=== PATIENT | male | born 1955 | race Caucasian/White ===

== ENCOUNTER 2017-06-15 15:49 | Inpatient (IN) | payer BC ==
[~2017-06-15] VITALS: Ht 182.9 cm; Wt 95.5 kg
[2017-06-15 16:02] VITALS: BP 135/76; PULSE 109; RESP 18; TEMP 102.6; O2SAT 92
[2017-06-15] MEDS ORDERED: SODIUM CHLOR 0.9% 1000 ML INJ 800 ML IV ONE (16:06)
[2017-06-15] MEDS ORDERED: SODIUM CHLOR 0.9% 1000 ML INJ 1,000 ML IV ONE ×2 (16:06→17:30)
[2017-06-15] MEDS ORDERED: AMLO5TAB2 PO (16:09)
[2017-06-15] MEDS ORDERED: NOVO7030P2 SQ (16:09)
[2017-06-15] MEDS ORDERED: LISI40TA PO (16:09)
[2017-06-15] MEDS ORDERED: METO1TAB9 PO ×2 (16:09→17:25)
--- NOTE | 2017-06-15 16:12 | PD ---
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 Patient reports that he has been vomiting for the last 3 days. He reports that the emesis is dark/black. He denies abdominal pain. He occasionally has some was bowel movements. He reports that he has had a wound on his right distal/lateral thigh for the past few days as well. He is unsure how this started. Reports that he has been unable to keep any food or liquids down. No chest pain or dyspnea. He has had a nonproductive cough as well. PFSH Past Medical History ?: Not Social History Tobacco Use: No Allergies-Medications (Allergen,Severity, Reaction): Coded Allergies: No Known Allergies (Unverified , 06/15/17) Reported Meds & Prescriptions Reported Meds & Active Scripts Active Reported Nitrostat SL (Nitroglycerin) 0.4 Mg Subl 0.4 Mg SL DIRECTED PRN 1 tablet under the tongue as needed for chest pain. Repeat every 5 minutes for a total of 3 DOSES or call 911 if NO relief. Ventolin Hfa 18 GM Inh (Albuterol Sulfate) 90 Mcg/Act Aer 2 Puff INH Q4-6H PRN Prilosec (Omeprazole Magnesium) 20 Mg Tab Lipitor (Atorvastatin Calcium) 80 Mg Tab 80 Mg PO HS Metoprolol Succinate ER 24 HR (Metoprolol Succinate) 50 Mg Tab 50 Mg PO DAILY Amlodipine (Amlodipine Besylate) 10 Mg Tab 10 Mg PO DAILY Lisinopril 40 Mg Tab 40 Mg PO DAILY Novolin 70-30 Inj (Insulin Human Isoph/Insulin Regular) 1,000 Unit/10 Ml Vial 45 Units SQ BID Review of Systems Except as stated in HPI: all other systems reviewed are Neg Physical Exam Narrative GENERAL: Well-developed, well-nourished, awake, alert, no apparent distress. SKIN: Focused skin assessment warm/dry. Right lateral/distal thigh with an oval -shaped open wound approximately 4 cm x 3 cm with small amount of purulent drainage with mild surrounding warmth and erythema, no red streaks, no fluctuance, no crepitus. HEAD: Atraumatic. Normocephalic. EYES: Pupils equal and round. No scleral icterus. No injection or drainage. ENT: Mucous membranes pink and moist. NECK: Trachea midline. No JVD. CARDIOVASCULAR: Tachycardic, regular. RESPIRATORY: No accessory muscle use. Clear to auscultation. Breath sounds equal bilaterally. GASTROINTESTINAL: Abdomen soft, non-tender, nondistended. MUSCULOSKELETAL: No obvious deformities. No clubbing. No cyanosis. No edema. All compartments in bilateral upper and lower extremities are supple. Skin exam as above. Right knee joint is without swelling, warmth, or erythema. NEUROLOGICAL: Awake and alert. No obvious cranial nerve deficits. Motor grossly within normal limits. Normal speech. PSYCHIATRIC: Appropriate mood and affect; insight and judgment normal. Data Data Last Documented VS Vital Signs Date Time Temp Pulse Resp B/P (MAP) Pulse Ox O2 Delivery O2 Flow Rate FiO2 06/15/17 17:05 95 06/15/17 16:02 102.6 109 18 135/76 (95) Orders Orders Sepsis Workup Initiated (06/15/17 ) Electrocardiogram (06/15/17 16:06) Complete Blood Count With Diff (06/15/17 16:06) Comprehensive Metabolic Panel (06/15/17 16:06) Prothrombin Time / Inr (Pt) (06/15/17 16:06) Act Partial Throm Time (Ptt) (06/15/17 16:06) Lactic Acid Sepsis Protocol (06/15/17 16:06) Lipase (06/15/17 16:06) Urinalysis - C+S If Indicated (06/15/17 16:06) Influenzae A/B Antigen (06/15/17 16:06) Blood Culture (06/15/17 16:06) Wound Culture And Gram Stain (06/15/17 16:06) Chest, Single Ap (06/15/17 16:06) Blood Glucose (06/15/17 16:06) Ecg Monitoring (06/15/17 16:06) Iv Access Insert/Monitor (06/15/17 16:06) Oximetry (06/15/17 16:06) Oxygen Administration (06/15/17 16:06) Acetaminophen Supp (Tylenol Supp) (06/15/17 16:15) Ondansetron Inj (Zofran Inj) (06/15/17 16:15) Sodium Chlor 0.9% 1000 Ml Inj (Ns 1000 M (06/15/17 16:06) Sodium Chlor 0.9% 1000 Ml Inj (Ns 1000 M (06/15/17 16:06) Vancomycin Inj (Vancomycin Inj) (06/15/17 16:15) Piperacil-Tazo 4.5 Gm Premix (Zosyn 4.5 (06/15/17 16:15) Beta Hydroxybutyrate (Acetone) (06/15/17 16:06) Blood Gas Venous Ph (06/15/17 16:06) Type And Screen (06/15/17 16:09) Acetaminophen (Tylenol) (06/15/17 17:15) Knee, Complete (4vws) (06/15/17 ) Femur (Ap & Lat/2vws) (06/15/17 ) Potassium Chloride (Kcl) (06/15/17 17:30) Insulin Human Regular Inj (Novolin R Inj (06/15/17 17:30) Sodium Chlor 0.9% 1000 Ml Inj (Ns 1000 M (06/15/17 17:30) Admit Order (Ed Use Only) (06/15/17 18:03) Labs Laboratory Tests Test 06/15/17 16:35 06/15/17 16:40 White Blood Count 35.3 TH/MM3 Red Blood Count 4.76 MIL/MM3 Hemoglobin 13.6 GM/DL Hematocrit 38.9 % Mean Corpuscular Volume 81.6 FL Mean Corpuscular Hemoglobin 28.5 PG Mean Corpuscular Hemoglobin Concent 34.9 % Red Cell Distribution Width 13.6 % Platelet Count 308 TH/MM3 Mean Platelet Volume 8.0 FL Neutrophils (%) (Auto) 91.0 % Lymphocytes (%) (Auto) 1.2 % Monocytes (%) (Auto) 4.8 % Eosinophils (%) (Auto) 0.0 % Basophils (%) (Auto) 3.0 % Neutrophils # (Auto) 32.1 TH/MM3 Lymphocytes # (Auto) 0.4 TH/MM3 Monocytes # (Auto) 1.7 TH/MM3 Eosinophils # (Auto) 0.0 TH/MM3 Basophils # (Auto) 1.1 TH/MM3 CBC Comment AUTO DIFF Differential Total Cells Counted 100 Neutrophils % (Manual) 91 % Band Neutrophils % 5 % Monocytes % 4 % Neutrophils # (Manual) 33.9 TH/MM3 Differential Comment FINAL DIFF MANUAL Hypersegmented Polys 1+ Toxic Vacuolation PRESENT Platelet Estimate NORMAL Platelet Morphology Comment NORMAL Red Cell Morphology Comment NORMAL Prothrombin Time 11.4 SEC Prothromb Time International Ratio 1.1 RATIO Activated Partial Thromboplast Time 27.1 SEC Blood Urea Nitrogen 28 MG/DL Creatinine 1.10 MG/DL Random Glucose 331 MG/DL Total Protein 7.8 GM/DL Albumin 2.5 GM/DL Calcium Level 8.5 MG/DL Alkaline Phosphatase 104 U/L Aspartate Amino Transf (AST/SGOT) 22 U/L Alanine Aminotransferase (ALT/SGPT) 15 U/L Total Bilirubin 1.0 MG/DL Sodium Level 128 MEQ/L Potassium Level 3.5 MEQ/L Chloride Level 93 MEQ/L Carbon Dioxide Level 25.6 MEQ/L Anion Gap 9 MEQ/L Estimat Glomerular Filtration Rate 68 ML/MIN Lipase 52 U/L B-Hydroxybutyrate 1.06 MMOL/L Lactic Acid Level 2.2 mmol/L [facility] Medical Decision Making Medical Screen Exam Complete: Yes Emergency Medical Condition: Yes Interpretation(s) EKG: Sinus, rate 108, leftward axis, normal intervals, Q waves in inferior leads , pattern consistent with pulmonary disease, no acute ischemic abnormality. Differential Diagnosis Sepsis, cellulitis, DKA, bacteremia, pneumonia, influenza, GI bleed, septic arthritis less likely Narrative Course Initial vital signs show heart rate 109, blood pressure 135/76, pulse ox 92% on room air, oral temp of 102.6F. Sepsis protocol ordered and the patient was empirically given IV vancomycin and IV Zosyn for emperic coverage, and was written for 2 L normal saline IV. Patient has an open wound to his right lateral/distal thigh with surrounding warmth and erythema. The wound is draining small amount of purulence, and a sample was collected for culture and sensitivity. The right knee joint itself does not show any edema, warmth, or erythema. It is painful for him to flex and extend the right knee, however the pain is mainly over the area of the wound in his right thigh. I do not believe he has a septic arthritis. CBC: WBC 35.3, hemoglobin 13.6, hematocrit 38.9, platelets 308, neutrophils 91%. CMP is remarkable for sodium 128, chloride 93, BUN 20, creatinine 1.1, GFR 68, random glucose 331. Bicarbonate is 25.6. Lactic acid is 2.2. Beta hydroxybutyrate is 1.06. Chest x-ray shows no acute disease. Influenza is negative. Right knee x-ray: FINDINGS: Four view examination of the right knee demonstrates no evidence of fracture or dislocation. Bony mineralization is mildly decreased. There is a 8mm bone island in the anterior central metaphysis of the proximal tibia.. The articular surfaces are intact. The suprapatellar soft tissues have a normal configuration. Vascular calcification in the posterior thigh and calf. Right femur x-ray: FINDINGS: Two view examination of the right femur demonstrates no evidence of fracture or dislocation. Bony acetabulum is intact. The primary and secondary trabecular pattern of the femoral neck is intact. Bony mineralization is mildly decreased. Vascular calcification in the medial thigh. No radiopaque foreign bodies.. I personally reviewed both of these x-rays and do not see any evidence for free air. There is also no crepitus on his exam. Patient was given 3L of NS IV, IV antibiotics. He will be given a dose of insulin. He will be admitted for further treatment and evaluation of sepsis, cellulitis, hyperglycemia. Case discussed with hospitalist Dr. Coyne who will admit the patient to her service. Diagnosis Primary Impression: Sepsis Qualified Codes: A41.9 - Sepsis, unspecified organism Additional Impressions: Cellulitis of right thigh Hyperglycemia Unspecified open wound, right thigh, initial encounter Admitting Information Admitting Physician Requests: Admit Elías Curtis MD Jun 15, 2017 16:12
[2017-06-15] MEDS ORDERED: VANCOMYCIN INJ 1,000 MG in SODIUM CHLOR 0.9% 250 ML INJ 250 ML IV ONE (16:15)
[2017-06-15] MEDS ORDERED: PIPERACIL-TAZO 4.5 GM PREMIX 100 ML IV ONE (16:15)
[2017-06-15] MEDS ORDERED: ONDANSETRON HCL 4 MG/2 ML VIAL IV PUSH ONE (16:15)
[2017-06-15] MEDS ORDERED: ACETAMINOPHEN 650 MG SUPP RECTAL ONE (16:15)
--- NOTE | 2017-06-15 16:47 | RADRPT ---
EXAM DATE/TIME: 06/15/2017 16:19 [facility] COMPARISON: No previous studies available for comparison. INDICATIONS : Chest pain, fever, cough, and vomitting. MEDICAL HISTORY : None. SURGICAL HISTORY : None. ENCOUNTER: Initial ACUITY: 3 days PAIN SCORE: 3/10 LOCATION: Bilateral chest FINDINGS: A single view of the chest demonstrates the lungs to be symmetrically aerated without evidence of mas s, infiltrate or effusion. The cardiomediastinal contours are unremarkable. Osseous structures are intact. CONCLUSION: The lungs are clear. Ruben Medina MD on June 15, 2017 at 16:45 Board Certified Radiologist. This report was verified electronically.
[2017-06-15 16:59] LABS: AUTOMATED NEUTROPHIL # 32.1 TH/MM3 (1.8-7.7); BASOPHIL # 1.1 TH/MM3 (0-0.2); CHLORIDE 93 MEQ/L (98-107); HEMATOCRIT 38.9 % (39.0-51.0); HEMOGLOBIN 13.6 GM/DL (13.0-17.0); LYMPH % 1.2 % (9.0-44.0); LYMPHOCYTE # 0.4 TH/MM3 (1.0-4.8); MEAN CELL VOLUME 81.6 FL (80.0-100.0); MEAN CORPUSCULAR HEMOGLOBIN 28.5 PG (27.0-34.0); MEAN CORPUSCULAR HGB CONC 34.9 % (32.0-36.0); MONO % 4.8 % (0.0-8.0); MONOCYTE # 1.7 TH/MM3 (0-0.9); PLATELET COUNT 308 TH/MM3 (150-450); RED BLOOD COUNT 4.76 MIL/MM3 (4.50-5.90); RED CELL DISTRIBUTION WIDTH 13.6 % (11.6-17.2); SODIUM (NA) 128 MEQ/L (136-145); WHITE BLOOD COUNT 35.3 TH/MM3 (4.0-11.0)
[2017-06-15 17:03] LABS: ALBUMIN 2.5 GM/DL (3.4-5.0); BICARBONATE 25.6 MEQ/L (21.0-32.0); BLOOD UREA NITROGEN 28 MG/DL (7-18); CALCIUM 8.5 MG/DL (8.5-10.1); GLUCOSE,RANDOM 331 MG/DL (74-106)
[2017-06-15 17:05] VITALS: O2SAT 95
[2017-06-15 17:05] LABS: INTERNATIONAL NORMALIZED RATIO 1.1 RATIO; PROTHROMBIN TIME - PATIENT 11.4 SEC (9.8-11.6)
[2017-06-15 17:06] LABS: ALT (GPT) 15 U/L (12-78); AST (GOT) 22 U/L (15-37); GLOMERULAR FILTRATION RATE 68 ML/MIN (>89)
[2017-06-15 17:08] LABS: TOTAL PROTEIN 7.8 GM/DL (6.4-8.2)
[2017-06-15 17:09] LABS: ALKALINE PHOSPHATASE 104 U/L (45-117)
[2017-06-15] MEDS ORDERED: ACETAMINOPHEN 325 MG TAB PO ONE (17:15)
[2017-06-15 17:16] LABS: LACTIC ACID SEPSIS PROTOCOL 2.2 mmol/L (0.4-2.0)
[2017-06-15] MEDS ORDERED: LIPI80TA PO (17:25)
[2017-06-15] MEDS ORDERED: AMLO10TA2 PO (17:25)
[2017-06-15] MEDS ORDERED: NITR0.4S SL (17:25)
[2017-06-15] MEDS ORDERED: VENTAER INH (17:25)
[2017-06-15] MEDS ORDERED: PRIL20TA2 (17:25)
[2017-06-15] MEDS ORDERED: INSULIN HUMAN REGULAR 1,000 UNITS/10 ML VIAL IV PUSH ONE (17:30)
[2017-06-15] MEDS ORDERED: POTASSIUM CHLORIDE 20 MEQ CONTROLLED RELEASE TAB PO ONE (17:30)
[2017-06-15 17:31] LABS: BANDS 5 % (0-6); HYPERSEGMENTED POLYS 1+ (NORMAL); MONOCYTES 4 % (0-8); NEUTROPHIL # MANUAL DIFF 33.9 TH/MM3 (1.8-7.7); POLYS (SEG NEUTROPHILS) 91 % (16-70); TOXIC VACUOLATION PRESENT (NONE SEEN)
--- NOTE | 2017-06-15 17:51 | RADRPT ---
EXAM DATE/TIME: 06/15/2017 17:22 [facility] COMPARISON: No previous studies available for comparison. INDICATIONS : Right femur/knee pain, no known injury. MEDICAL HISTORY : None. SURGICAL HISTORY : None. ENCOUNTER: Subsequent ACUITY: 4 - 6 days PAIN SCORE: 8/10 LOCATION: Right femur FINDINGS: Two view examination of the right femur demonstrates no evidence of fracture or dislocation. Bony ac etabulum is intact. The primary and secondary trabecular pattern of the femoral neck is intact. Bon y mineralization is mildly decreased. Vascular calcification in the medial thigh. No radiopaque for eign bodies.. CONCLUSION: No acute findings. Ruben Medina MD on June 15, 2017 at 17:49 Board Certified Radiologist. This report was verified electronically.
--- NOTE | 2017-06-15 17:51 | RADRPT ---
EXAM DATE/TIME: 06/15/2017 17:22 [facility] COMPARISON: No previous studies available for comparison. INDICATIONS : Right knee pain, no known injury. MEDICAL HISTORY : None. SURGICAL HISTORY : None. ENCOUNTER: Subsequent ACUITY: 4 - 6 days PAIN SCORE: 8/10 LOCATION: Right knee FINDINGS: Four view examination of the right knee demonstrates no evidence of fracture or dislocation. Bony mi neralization is mildly decreased. There is a 8mm bone island in the anterior central metaphysis of t he proximal tibia.. The articular surfaces are intact. The suprapatellar soft tissues have a normal configuration. Vascular calcification in the posterior thigh and calf. CONCLUSION: 1. No evidence of recent bony injury. Ruben Medina MD on June 15, 2017 at 17:48 Board Certified Radiologist. This report was verified electronically.
[2017-06-15] MEDS: SODIUM CHLOR 0.9% 1000 ML INJ 1,000 ML IV SCH (18:01)
[2017-06-15 18:06] VITALS: BP 132/74; PULSE 106; RESP 16; TEMP 99; O2SAT 92
[2017-06-15] MEDS ORDERED: NALOXONE HCL 0.4 MG/ML AMP IV PUSH PRN (18:15)
[2017-06-15] MEDS ORDERED: DEXTROSE 50% IN WATER 50 ML VIAL(D50) IV PUSH PRN (18:15)
[2017-06-15] MEDS ORDERED: VANCOMYCIN INJ 1,500 MG in SODIUM CHLORID 0.9% 500 ML INJ 500 ML IV SCH (18:15)
[2017-06-15] MEDS ORDERED: Vancomycin Consult Pharmacy 1 EA OTHER SCH (18:15)
[2017-06-15] MEDS ORDERED: GLUCAGON 1 MG/ML VIAL OTHER PRN (18:15)
[2017-06-15] MEDS ORDERED: SODIUM CHLORIDE 0.9% FLUSH 10 ML FLUSH IV FLUSH PRN (18:15)
[2017-06-15 19:05] VITALS: BP 125/75; PULSE 99; RESP 16; TEMP 99.8; O2SAT 92
[2017-06-15 19:26] VITALS: O2SAT 93
[2017-06-15 20:00] VITALS: BP 130/76; PULSE 102; RESP 20; TEMP 97.8; O2SAT 91
[2017-06-15] MEDS ORDERED: ALBUTEROL SULFATE 90 MCG/ACT HFA 8 GM INHALER INH PRN (20:00)
[2017-06-15] MEDS ORDERED: ATORVASTATIN 80 MG TAB PO SCH (21:00)
[2017-06-15] MEDS: SODIUM CHLORIDE 0.9% FLUSH 10 ML FLUSH IV FLUSH SCH (21:00)
[2017-06-15] MEDS ORDERED: INSULIN ASPART SUPPLEMENTAL SCALE SQ SCH (21:00)
[2017-06-15] MEDS ORDERED: VANCOMYCIN INJ 2,000 MG in SODIUM CHLORID 0.9% 500 ML INJ 500 ML IV ONE (21:00)
[2017-06-15] MEDS ORDERED: SENNOSIDES 8.6 MG TAB PO PRN (21:00)
[2017-06-15] MEDS ORDERED: TEMAZEPAM 15 MG CAP PO PRN (21:00)
[2017-06-15] MEDS: ONDANSETRON HCL 4 MG/2 ML VIAL IVP PRN (21:14)
[2017-06-15] MEDS: INSULIN HUMAN NPH/R 70/30 1,000 UNITS/10 ML VIAL SQ SCH (21:24)
[2017-06-15 21:41] LABS: BILIRUBIN, URINE NEG (NEG); BLOOD, URINE MOD (NEG); GLUCOSE,URINE 1000 OR GREATER mg/dL (NEG); KETONE, URINE 15 mg/dL (NEG); NITRITE,URINE NEG (NEG); URINE LEUKOCYTE ESTERASE NEG (NEG)
[2017-06-15 21:49] LABS: URINE COLOR AMBER (YELLW/STRAW)
[2017-06-15 21:50] LABS: RBC, URINE 0-3 /hpf (0-3); SQUAMOUS EPITHELIAL CELL URINE 0-5 /hpf (0-5); WBC, URINE 0-2 /hpf (0-5)
[2017-06-16] VITALS (9 sets, daily range): BP systolic 118–141; BP diastolic 59–90; PULSE 83–112; RESP 18–24; TEMP 97.1–99.4; O2SAT 85–94
[2017-06-16] MEDS: PIPERACIL-TAZO 3.375 GM PREMIX 50 ML IV SCH ×2 (02:30→11:18)
[2017-06-16] MEDS: SODIUM CHLOR 0.9% 1000 ML INJ 1,000 ML IV SCH ×2 (04:01→11:19)
[2017-06-16 05:48] LABS: AUTOMATED NEUTROPHIL # 29.6 TH/MM3 (1.8-7.7); BASOPHIL # 0.1 TH/MM3 (0-0.2); BASOPHIL % 0.2 % (0.0-2.0); EOSINOPHIL % 0.1 % (0.0-4.0); HEMATOCRIT 39.6 % (39.0-51.0); HEMOGLOBIN 12.9 GM/DL (13.0-17.0); LYMPH % 1.4 % (9.0-44.0); LYMPHOCYTE # 0.4 TH/MM3 (1.0-4.8); MEAN CELL VOLUME 83.4 FL (80.0-100.0); MEAN CORPUSCULAR HEMOGLOBIN 27.2 PG (27.0-34.0); MEAN CORPUSCULAR HGB CONC 32.6 % (32.0-36.0); MEAN PLATELET VOLUME 8.3 FL (7.0-11.0); MONO % 6.3 % (0.0-8.0); PLATELET COUNT 314 TH/MM3 (150-450); RED BLOOD COUNT 4.75 MIL/MM3 (4.50-5.90); RED CELL DISTRIBUTION WIDTH 13.7 % (11.6-17.2); WHITE BLOOD COUNT 32.1 TH/MM3 (4.0-11.0)
[2017-06-16 06:00] LABS: CALCIUM 7.7 MG/DL (8.5-10.1)
[2017-06-16 06:01] LABS: BICARBONATE 25.1 MEQ/L (21.0-32.0)
[2017-06-16 06:06] LABS: BANDS 18 % (0-6); LYMPHOCYTES 1 % (9-44); MONOCYTES 5 % (0-8); NEUTROPHIL # MANUAL DIFF 30.2 TH/MM3 (1.8-7.7); POLYS (SEG NEUTROPHILS) 76 % (16-70)
[2017-06-16 06:10] LABS: CREATININE 0.88 MG/DL (0.60-1.30)
--- NOTE | 2017-06-16 08:53 | HHI.HP ---
[facility] No Primary Care Physician Admission Diagnosis sepsis, right thigh cellulitis, hyperglycemia Diagnoses: Chief Complaint: leg pain Travel History International Travel<30 Days: No Contact w/Intl Traveler <30 Da: No Traveled to Known Affected Are: No History of Present Illness 62-year-old white male being admitted for sepsis secondary to cellulitis and possible necrotizing fasciitis. Patient was in his usual state of health until a few weeks ago when he began experiencing some right leg pain. He says that the pain progressed to the point where now it is severe and it hurts to bear weight and it hurts to straighten out his leg. He says he has not tried any medications at home to try to alleviate the pain. He does report having nausea vomiting, does describe coffee-ground and black emesis. When he came to the emergency room yesterday he was noted to have temps of up to 102.6 and tachycardia greater than 106. Blood cultures were drawn, given normal saline bolus and started on IV antibiotics. Plain films were unremarkable. Review of Systems Except as stated in HPI: all other systems reviewed are Neg Past Family Social History Past Medical History DM HTN CAD Allergies: Coded Allergies: No Known Allergies (Unverified , 06/15/17) Family History None per patient Social History Patient denies any smoking. Denies drinking. 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 Says he bathes about twice a week. Physical Exam Vital Signs Vital Signs Date Time Temp Pulse Resp B/P (MAP) Pulse Ox O2 Delivery O2 Flow Rate FiO2 06/16/17 04:00 97.2 83 20 131/59 (83) 90 06/16/17 00:00 97.1 98 20 133/72 (92) 94 06/15/17 20:43 06/15/17 20:00 97.8 102 20 130/76 (94) 91 06/15/17 19:26 93 21 06/15/17 19:05 99.8 99 16 125/75 (92) 92 Room Air 06/15/17 18:06 99.0 106 16 132/74 (93) 92 06/15/17 17:05 95 06/15/17 16:02 102.6 109 18 135/76 (25) 92 Physical Exam VS: afebrile GENERAL: lying in bed; NAD SKIN: Warm and dry. Has multiple scabs, two prominent ones on each thigh, the right thigh being on the lateral aspect with a dry crusty appearance which is about the diameter of a golf ball. Has dried scars from older wounds EYES: No scleral icterus. No injection or drainage. ENT: No nasal bleeding or discharge. Mucous membranes pink and moist. CARDIOVASCULAR: Regular rate and rhythm. no murmurs RESPIRATORY: No accessory muscle use. Clear to auscultation. Breath sounds equal bilaterally. GASTROINTESTINAL: Abdomen soft, non-tender, nondistended. Extremities: No clubbing, cyanosis. MUSCULOSKELETAL: adequate muscle bulk and tone for age and habitus. Patient has limited active and passive range of motion in the extension dimension for his left knee due to pain in his posterior distal thigh. Has some obvious tenderness to palpation to the posterior distal thigh that is mild to moderate which has no overlying erythema; this leg is particularly warmer than his other leg and is also beyond the lesion of the scab itself NEUROLOGICAL: Awake and alert. No obvious cranial nerve deficits. No facial droop nor slurred speech noted. PSYCHIATRIC: Appropriate mood and affect; insight and judgment normal. Laboratory Laboratory Tests Test 06/15/17 16:35 06/15/17 16:40 06/15/17 19:20 06/15/17 21:05 White Blood Count 35.3 Red Blood Count 4.76 Hemoglobin 13.6 Hematocrit 38.9 Mean Corpuscular Volume 81.6 Mean Corpuscular Hemoglobin 28.5 Mean Corpuscular Hemoglobin Concent 34.9 Red Cell Distribution Width 13.6 Platelet Count 308 Mean Platelet Volume 8.0 Neutrophils (%) (Auto) 91.0 Lymphocytes (%) (Auto) 1.2 Monocytes (%) (Auto) 4.8 Eosinophils (%) (Auto) 0.0 Basophils (%) (Auto) 3.0 Neutrophils # (Auto) 32.1 Lymphocytes # (Auto) 0.4 Monocytes # (Auto) 1.7 Eosinophils # (Auto) 0.0 Basophils # (Auto) 1.1 CBC Comment AUTO DIFF Differential Total Cells Counted 100 Neutrophils % (Manual) 91 Band Neutrophils % 5 Monocytes % 4 Neutrophils # (Manual) 33.9 Differential Comment FINAL DIFF MANUAL Hypersegmented Polys 1+ Toxic Vacuolation PRESENT Platelet Estimate NORMAL Platelet Morphology Comment NORMAL Red Cell Morphology Comment NORMAL Prothrombin Time 11.4 Prothromb Time International Ratio 1.1 Activated Partial Thromboplast Time 27.1 Blood Urea Nitrogen 28 Creatinine 1.10 Random Glucose 331 Total Protein 7.8 Albumin 2.5 Calcium Level 8.5 Alkaline Phosphatase 104 Aspartate Amino Transf (AST/SGOT) 22 Alanine Aminotransferase (ALT/SGPT) 15 Total Bilirubin 1.0 Sodium Level 128 Potassium Level 3.5 Chloride Level 93 Carbon Dioxide Level 25.6 Anion Gap 9 Estimat Glomerular Filtration Rate 68 Lipase 52 B-Hydroxybutyrate 1.06 Lactic Acid Level 2.2 1.7 Urine Color VALE Urine Turbidity CLEAR Urine pH 6.0 Urine Specific Penelope 1.025 Urine Protein 100 Urine Glucose (UA) 1000 OR GREATER Urine Ketones 15 Urine Occult Blood MOD Urine Nitrite NEG Urine Bilirubin NEG Urine Leukocyte Esterase NEG Urine RBC 0-3 Urine WBC 0-2 Urine Squamous Epithelial Cells 0-5 Microscopic Urinalysis Comment CATH-CULT NOT IND Test 06/16/17 05:10 White Blood Count 32.1 Red Blood Count 4.75 Hemoglobin 12.9 Hematocrit 39.6 Mean Corpuscular Volume 83.4 Mean Corpuscular Hemoglobin 27.2 Mean Corpuscular Hemoglobin Concent 32.6 Red Cell Distribution Width 13.7 Platelet Count 314 Mean Platelet Volume 8.3 Neutrophils (%) (Auto) 92.0 Lymphocytes (%) (Auto) 1.4 Monocytes (%) (Auto) 6.3 Eosinophils (%) (Auto) 0.1 Basophils (%) (Auto) 0.2 Neutrophils # (Auto) 29.6 Lymphocytes # (Auto) 0.4 Monocytes # (Auto) 2.0 Eosinophils # (Auto) 0.0 Basophils # (Auto) 0.1 CBC Comment AUTO DIFF Differential Total Cells Counted 100 Neutrophils % (Manual) 76 Band Neutrophils % 18 Lymphocytes % 1 Monocytes % 5 Neutrophils # (Manual) 30.2 Differential Comment FINAL DIFF MANUAL Platelet Estimate NORMAL Platelet Morphology Comment NORMAL Red Cell Morphology Comment NORMAL Blood Urea Nitrogen 20 Creatinine 0.88 Random Glucose 213 Calcium Level 7.7 Sodium Level 131 Potassium Level 3.5 Chloride Level 98 Carbon Dioxide Level 25.1 Anion Gap 8 Estimat Glomerular Filtration Rate 88 Lactic Acid Level 1.7 Date/Time Source Procedure Growth Status 06/15/17 16:40 Blood Peripheral Aerobic Blood Culture Pending Received 06/15/17 16:40 Blood Peripheral Anaerobic Blood Culture Pending Received 06/15/17 16:40 Nasal Washing Influenza Types A,B Antigen (ADY) - Final NEGATIVE FOR FLU A AND B ANTIGEN.... Complete 06/15/17 16:30 Wound Thigh Gram Stain - Final Resulted 06/15/17 16:30 Wound Thigh Wound Culture Pending Resulted Result Diagram: 06/16/17 0510 06/16/17 0510 Imaging Last Impressions Chest X-Ray 06/15/17 1606 Signed Impressions: Service Date/Time: May 16:19 - CONCLUSION: The lungs are clear. Ruben Medina MD Knee X-Ray 06/15/17 0000 Signed Impressions: Service Date/Time: May 17:22 - CONCLUSION: 1. No evidence of recent bony injury. Ruben Medina MD Femur X-Ray 06/15/17 0000 Signed Impressions: Service Date/Time: May 17:22 - CONCLUSION: No acute findings. Ruben Medina MD Caprini VTE Risk Assessment Caprini VTE Risk Assessment: Mod/High Risk (score >= 2) Caprini Risk Assessment Model Point Value = 1 Point Value = 2 Point Value = 3 Point Value = 5 Age 41-60 Minor surgery BMI > 25 kg/m2 Swollen legs Varicose veins or History of unexplained or recurrent spontaneous Oral contraceptives or hormone replacement Sepsis (< 1 month) Serious lung disease, including pneumonia (< 1 month) Abnormal pulmonary function Acute myocardial infarction Congestive heart failure (< 1 month) History of inflammatory bowel disease Medical patient at bed rest Age 61-74 Arthroscopic surgery Major open surgery (> 45 min) Laparoscopic surgery (> 45 min) Malignancy Confined to bed (> 72 hours) Immobilizing plaster cast Central venous access Age >= 75 History of VTE Family history of VTE Factor V Leiden Prothrombin [id number] Lupus anticoagulant Anticardiolipin antibodies Elevated serum homocysteine Heparin-induced thrombocytopenia Other congenital or acquired thrombophilia Stroke (< 1 month) Elective arthroplasty Hip, pelvis, or leg fracture Acute spinal cord injury (< 1 month) Prophylaxis Regimen Total Risk Factor Score Risk Level Prophylaxis Regimen 0-1 Low Early ambulation 2 Moderate Order ONE of the following: *Sequential Compression Device (SCD) *Heparin 5000 units SQ BID 3-4 Higher Order ONE of the following medications: *Heparin 5000 units SQ TID *Enoxaparin/Lovenox 40 mg SQ daily (WT < 150 kg, CrCl > 30 mL/min) *Enoxaparin/Lovenox 30 mg SQ daily (WT < 150 kg, CrCl > 10-29 mL/min) *Enoxaparin/Lovenox 30 mg SQ BID (WT < 150 kg, CrCl > 30 mL/min) AND/OR *Sequential Compression Device (SCD) 5 or more Highest Order ONE of the following medications: *Heparin 5000 units SQ TID (Preferred with Epidurals) *Enoxaparin/Lovenox 40 mg SQ daily (WT < 150 kg, CrCl > 30 mL/min) *Enoxaparin/Lovenox 30 mg SQ daily (WT < 150 kg, CrCl > 10-29 mL/min) *Enoxaparin/Lovenox 30 mg SQ BID (WT < 150 kg, CrCl > 30 mL/min) AND *Sequential Compression Device (SCD) Assessment and Plan Assessment and Plan Sepsis - Secondary to cellulitis and/or possible necrotizing fasciitis - Blood cultures have been drawn, fevers are improving, continue antibiotics Cellulitis and possible necrotizing fasciitis - Case discussed with surgery mid-level practitioner, ordering CT scan of the right leg for now - NPO Coffee ground emesis - consulting GI - h/h is stable, trend DM - hold home novolin, start MDSS insulin w/ accuchecks Continue home htn and CAD meds SCDs, heparin once cleared by GI and gen surg workup addendum: elevated trop - cards deems demand ischemia Hypoxia -patient titrated up to 4 L, CT angiogram performed showing bilateral pleural effusions but no pulmonary embolus. D/w surveillance systems engineer, ABG stable, diurese and obtain echo. I've ordered thoracentesis of right sided effusion in AM. Also Possible bibasilar pna seen on my independent review of the CT angiogram - starting abx Discussed with GI, due to lack of any further medical episodes, will hold off on EGD today and consider possibly for Monday. Physician Certification 2 Midnight Certification Type: Admission for Inpatient Services Order for Inpatient Services The services are ordered in accordance with Medicare regulations or non- Medicare payer requirements, as applicable. In the case of services not specified as inpatient-only, they are appropriately provided as inpatient services in accordance with the 2-midnight benchmark. Estimated LOS (days): 3 3 days is the estimated time the patient will need to remain in the hospital, assuming treatment plan goals are met and no additional complications. Post-Hospital Plan: Not yet determined Diego Upton MD Jun 16, 2017 08:53
[2017-06-16] MEDS: VANCOMYCIN 1,500 MG/NS 500 ML IV SCH ×4 (09:00→20:49)
[2017-06-16] MEDS: INSULIN HUMAN NPH/R 70/30 1,000 UNITS/10 ML VIAL SQ SCH ×2 (09:00→20:59)
[2017-06-16] MEDS ORDERED: IOHEXOL 350 MG/ML 10 ML VIAL (for RAD DIAG) IVCONTRAST ONE (11:10)
[2017-06-16] MEDS: SODIUM CHLORIDE 0.9% FLUSH 10 ML FLUSH IV FLUSH SCH ×2 (11:19→20:50)
[2017-06-16] MEDS: METOPROLOL SUCCINATE 50 MG EXTENDED RELEASE TAB PO SCH (11:19)
[2017-06-16] MEDS: LISINOPRIL 20 MG TAB PO SCH (11:19)
[2017-06-16] MEDS: INSULIN NovoLIN REGULAR SUPPLEMENTAL SCALE SQ SCH ×3 (11:20→20:59)
--- NOTE | 2017-06-16 11:30 | RADRPT ---
EXAM DATE/TIME: 06/16/2017 10:12 [facility] COMPARISON: CHEST SINGLE AP, June 15, 2017, 16:19. INDICATIONS : Short of breath today. IV CONTRAST: 95 cc Omnipaque 350 (iohexol) IV ; Cumulative dose for multiple exams. RADIATION DOSE: 19.36 CTDIvol (mGy) MEDICAL HISTORY : Myocardial infarction. Diabetes mellitus type 2. Hypertension. SURGICAL HISTORY : Coronary artery stent. ENCOUNTER: Initial ACUITY: 1 day PAIN SCALE: 0/10 LOCATION: chest TECHNIQUE: Volumetric scanning of the chest was performed using a pulmonary embolism protocol MIP images were re constructed. Using automated exposure control and adjustment of the mA and/or kV according to patien t size, radiation dose was kept as low as reasonably achievable to obtain optimal diagnostic quality images. DICOM format image data is available electronically for review and comparison. Follow-up recommendations for detected pulmonary nodules are based at a minimum on nodule size and pa tient risk factors according to Fleischner Society Guidelines. FINDINGS: PULMONARY ARTERIES: No filling defects are seen in the pulmonary arteries through the segmental level. LUNGS: There is scattered areas of perivascular thickening in the lower lungs, but no focal infiltrates seen . PLEURAE: Bilateral pleural effusions, moderate on the right measuring 4.1 cm and small on the left. MEDIASTINUM: There is good visualization of the great vessels of the middle mediastinum. No evidence of mediastin al or hilar adenopathy/mass. . CONCLUSION: 1. Negative for pulmonary embolism. 2. Bilateral pleural effusions, right greater than left. 3. Bilateral lower lung perivascular thickening suggest either interstitial pulmonary edema or infla mmatory process. Ruben Medina MD on June 16, 2017 at 11:17 Board Certified Radiologist. This report was verified electronically.
--- NOTE | 2017-06-16 11:33 | RADRPT ---
EXAM DATE/TIME: 06/16/2017 10:12 [facility] COMPARISON: FEMUR RIGHT (AP & LAT/2VWS), June 15, 2017, 17:22. INDICATIONS : Wound on right lateral distal femur. Evaluate for necrotizing fasciitis. IV CONTRAST: 95 cc Omnipaque 350 (iohexol) IV ; Cumulative dose for multiple exams. RADIATION DOSE: 14.81 CTDIvol (mGy) MEDICAL HISTORY : Myocardial infarction. Diabetes mellitus type 2. Hypertension. SURGICAL HISTORY : Coronary artery stent. ENCOUNTER: Initial ACUITY: 1 week PAIN SCALE: 7/10 LOCATION: Right femur TECHNIQUE: Volumetric scanning of the femur was performed. Using automated exposure control and adjustment of t he mA and/or kV according to patient size, radiation dose was kept as low as reasonably achievable to obtain optimal diagnostic quality images. DICOM format image data is available electronically for review and comparison. FINDINGS: There is subcutaneous induration about the dorsal soft tissues of the proximal and mid thigh. There is also some fluid tracking along the surface of the hamstring muscles measuring up to 9 mm in thickn ess. No drainable fluid collections seen. No abnormal enhancement within the muscles of the anterio r or posterior compartments. Osseous structures are grossly intact. No evidence of fracture, bony d estruction, or periosteal reaction. CONCLUSION: 1. Posterior subcutaneous soft tissue induration and some mild fluid tracking along the surface of th e hamstring muscles. No focal collections of gas and no drainable fluid collection seen. 2. Osseous structures of the thigh are intact. Ruben Medina MD on June 16, 2017 at 11:29 Board Certified Radiologist. This report was verified electronically.
[2017-06-16] MEDS ORDERED: ASPIRIN 325 MG TAB PO ONE (13:00)
--- NOTE | 2017-06-16 13:50 | EKG ---
Date Performed: 06/15/2017 Time Performed: 16:42:32 PTAGE: 62 years EKG: SINUS TACHYCARDIA PATTERN CONSISTENT WITH PULMONARY DISEASE INFERIOR MYOCARDIAL INFARCTION ABNORMAL ECG NO PREVIOUS TRACING Nonspecific ST segment changes. Intraventricular conduction delay. DOCTOR: Aida Dwyer Interpretating Date/Time 06/16/2017 13:49:08
--- NOTE | 2017-06-16 15:31 | PD.CONS ---
cc: Rajiv Daniel MD HPI Service General Surgery Consult Requested By Dr. Upton Reason for Consult RIGHT thigh lesion Primary Care Physician No Primary Care Physician History of Present Illness This is a 62 year old male with a past medical history of insulin dependent diabetes mellitus and two cardiac stents placed in 2005. The patient comes to the ED with complaints of generalized weakness and a drainage wound on the lateral posterior aspect of his RIGHT thigh and well as a non drainage wound on his LEFT medial knee. He reports that his sugars have been high the last few weeks. 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 He cannot recall any trauma or injury to his legs. He does have an increased WBC of 35,000. He has an elevated troponin. A CT of the RIGHT femur has been ordered. A General Surgery consultation has been requested. Review of Systems Constitutional: COMPLAINS OF: Fatigue, DENIES: Dizziness Endocrine: DENIES: Polydipsia, Polyuria, Polyphagia Eyes: DENIES: Diplopia, Eye inflammation Ears, nose, mouth, throat: DENIES: Hearing loss Respiratory: DENIES: Apneas, Cough Cardiovascular: DENIES: Chest pain Gastrointestinal: DENIES: Abdominal pain, Nausea, Vomiting Genitourinary: DENIES: Hematuria Musculoskeletal: DENIES: Joint pain Integumentary: DENIES: Abnormal pigmentation Hematologic/lymphatic: DENIES: Bruising Immunologic/allergic: DENIES: Eczema Neurologic: DENIES: Abnormal gait, Headache Psychiatric: DENIES: Confusion, Mood changes, Depression Past Family Social History Past Medical History Insulin dependant diabetes mellitus Cardiac stents x 2 placed in 2005 Past Surgical History None Reported Medications Albuterol Lipitor Nitro Metoprolol Lisinopril Novolin Amlodipine Allergies: Coded Allergies: No Known Allergies (Unverified , 06/15/17) Active Ordered Medications Current Medications Medications (Trade) Dose Ordered Sig/Josehp Route Start Time Stop Time Status Last Admin Sodium Chloride 1,000 ml @ 100 mls/hr Q10H IV 06/15/17 18:01 06/16/17 11:19 (NS Flush) 2 ml UNSCH PRN IV FLUSH 06/15/17 18:15 (NS Flush) 2 ml BID IV FLUSH 06/15/17 21:00 06/16/17 11:19 (Tylenol) 650 mg Q4H PRN PO 06/15/17 20:00 (Zofran Inj) 4 mg Q6H PRN IVP 06/15/17 22:00 06/15/17 21:14 (Restoril) 15 mg HS PRN PO 06/15/17 21:00 (Narcan Inj) 0.4 mg UNSCH PRN IV PUSH 06/15/17 18:15 (Senokot) 17.2 mg Q12HR PRN PO 06/15/17 21:00 Pharmacy Profile Note 0 ml @ 0 mls/hr UNSCH OTHER 06/15/17 18:15 Piperacillin Sod/ Tazobactam Sod 50 ml @ 100 mls/hr Q8H IV 06/16/17 00:00 06/16/17 11:18 (D50w (Vial) Inj) 50 ml UNSCH PRN IV PUSH 06/15/17 18:15 (Glucagon Inj) 1 mg UNSCH PRN OTHER 06/15/17 18:15 (Proair Hfa Inh) 2 puff Q6HR PRN INH 06/15/17 20:00 (Norvasc) 10 mg DAILY PO 06/16/17 09:00 06/16/17 11:19 (NovoLIN 70/30 INJ) 45 units BID SQ 06/15/17 21:00 06/16/17 09:00 (Toprol Xl) 50 mg DAILY PO 06/16/17 09:00 06/16/17 11:19 (Prinivil) 40 mg DAILY PO 06/16/17 09:00 06/16/17 11:19 Vancomycin HCl 1500 mg/Sodium Chloride 515 ml @ 257.5 mls/ hr Q12H IV 06/16/17 09:00 06/16/17 09:00 Miscellaneous Information SPECIFIC LAB TO BE DRAWN:VANCOMYCIN TROUGH DATE TO... 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 Physical Exam Vital Signs Vital Signs Date Time Temp Pulse Resp B/P (MAP) Pulse Ox O2 Delivery O2 Flow Rate FiO2 06/16/17 14:26 92 Nasal Cannula 5.00 06/16/17 08:10 90 06/16/17 08:00 99.0 112 24 141/88 (105) 87 06/16/17 07:10 89 21 06/16/17 04:00 97.2 83 20 131/59 (83) 90 06/16/17 00:00 97.1 98 20 133/72 (92) 94 06/15/17 20:43 06/15/17 20:00 97.8 102 20 130/76 (94) 91 06/15/17 19:26 93 21 06/15/17 19:05 99.8 99 16 125/75 (92) 92 Room Air 06/15/17 18:06 99.0 106 16 132/74 (93) 92 06/15/17 17:05 95 06/15/17 16:02 102.6 109 18 135/76 (95) 92 Physical Exam GENERAL: 62 year old male sitting on the side of the bed. SKIN: RIGHT posterior thigh---superficial draining wound without any palpable fluid collection or induration. LEFT medial knee--- superficial wound without drainage; no palpable fluid collection or induration. LEFT leg--- harrison with evidence of healed wounds. HEAD: Atraumatic. Normocephalic. EYES: Pupils equal and round. No scleral icterus. No injection or drainage. ENT: No nasal bleeding or discharge. Mucous membranes pink and moist. NECK: Trachea midline. CARDIOVASCULAR: Regular rate and rhythm. RESPIRATORY: No accessory muscle use. Clear to auscultation. Breath sounds equal bilaterally. GASTROINTESTINAL: Abdomen soft, non-tender, nondistended. MUSCULOSKELETAL: Extremities without clubbing, cyanosis, or edema. No obvious deformities. See above for skin assessment. NEUROLOGICAL: Awake and alert. No obvious cranial nerve deficits. Motor grossly within normal limits. Five out of 5 muscle strength in the arms and legs. Normal speech. PSYCHIATRIC: Appropriate mood and affect; insight and judgment normal. Laboratory Laboratory Tests Test 06/15/17 16:35 06/15/17 16:40 06/15/17 19:20 06/15/17 21:05 White Blood Count 35.3 Red Blood Count 4.76 Hemoglobin 13.6 Hematocrit 38.9 Mean Corpuscular Volume 81.6 Mean Corpuscular Hemoglobin 28.5 Mean Corpuscular Hemoglobin Concent 34.9 Red Cell Distribution Width 13.6 Platelet Count 308 Mean Platelet Volume 8.0 Neutrophils (%) (Auto) 91.0 Lymphocytes (%) (Auto) 1.2 Monocytes (%) (Auto) 4.8 Eosinophils (%) (Auto) 0.0 Basophils (%) (Auto) 3.0 Neutrophils # (Auto) 32.1 Lymphocytes # (Auto) 0.4 Monocytes # (Auto) 1.7 Eosinophils # (Auto) 0.0 Basophils # (Auto) 1.1 CBC Comment AUTO DIFF Differential Total Cells Counted 100 Neutrophils % (Manual) 91 Band Neutrophils % 5 Monocytes % 4 Neutrophils # (Manual) 33.9 Differential Comment FINAL DIFF MANUAL Hypersegmented Polys 1+ Toxic Vacuolation PRESENT Platelet Estimate NORMAL Platelet Morphology Comment NORMAL Red Cell Morphology Comment NORMAL Prothrombin Time 11.4 Prothromb Time International Ratio 1.1 Activated Partial Thromboplast Time 27.1 Blood Urea Nitrogen 28 Creatinine 1.10 Random Glucose 331 Total Protein 7.8 Albumin 2.5 Calcium Level 8.5 Alkaline Phosphatase 104 Aspartate Amino Transf (AST/SGOT) 22 Alanine Aminotransferase (ALT/SGPT) 15 Total Bilirubin 1.0 Sodium Level 128 Potassium Level 3.5 Chloride Level 93 Carbon Dioxide Level 25.6 Anion Gap 9 Estimat Glomerular Filtration Rate 68 Lipase 52 B-Hydroxybutyrate 1.06 Lactic Acid Level 2.2 1.7 Urine Color VALE Urine Turbidity CLEAR Urine pH 6.0 Urine Specific [place] 1.025 Urine Protein 100 Urine Glucose (UA) 1000 OR GREATER Urine Ketones 15 Urine Occult Blood MOD Urine Nitrite NEG Urine Bilirubin NEG Urine Leukocyte Esterase NEG Urine RBC 0-3 Urine WBC 0-2 Urine Squamous Epithelial Cells 0-5 Microscopic Urinalysis Comment CATH-CULT NOT IND Test 06/16/17 05:10 06/16/17 11:40 White Blood Count 32.1 Red Blood Count 4.75 Hemoglobin 12.9 Hematocrit 39.6 Mean Corpuscular Volume 83.4 Mean Corpuscular Hemoglobin 27.2 Mean Corpuscular Hemoglobin Concent 32.6 Red Cell Distribution Width 13.7 Platelet Count 314 Mean Platelet Volume 8.3 Neutrophils (%) (Auto) 92.0 Lymphocytes (%) (Auto) 1.4 Monocytes (%) (Auto) 6.3 Eosinophils (%) (Auto) 0.1 Basophils (%) (Auto) 0.2 Neutrophils # (Auto) 29.6 Lymphocytes # (Auto) 0.4 Monocytes # (Auto) 2.0 Eosinophils # (Auto) 0.0 Basophils # (Auto) 0.1 CBC Comment AUTO DIFF Differential Total Cells Counted 100 Neutrophils % (Manual) 76 Band Neutrophils % 18 Lymphocytes % 1 Monocytes % 5 Neutrophils # (Manual) 30.2 Differential Comment FINAL DIFF MANUAL Platelet Estimate NORMAL Platelet Morphology Comment NORMAL Red Cell Morphology Comment NORMAL Blood Urea Nitrogen 20 Creatinine 0.88 Random Glucose 213 Calcium Level 7.7 Sodium Level 131 Potassium Level 3.5 Chloride Level 98 Carbon Dioxide Level 25.1 Anion Gap 8 Estimat Glomerular Filtration Rate 88 Lactic Acid Level 1.7 D-Dimer Quantitative (PE/DVT) 1.19 Troponin I 1.65 Date/Time Source Procedure Growth Status 06/15/17 16:40 Blood Peripheral Aerobic Blood Culture - Preliminary NO GROWTH IN 1 DAY Resulted 06/15/17 16:40 Blood Peripheral Anaerobic Blood Culture - Preliminary NO GROWTH IN 1 DAY Resulted 06/15/17 16:40 Nasal Washing Influenza Types A,B Antigen (ADY) - Final NEGATIVE FOR FLU A AND B ANTIGEN.... Complete 06/15/17 16:30 Wound Thigh Gram Stain - Final Resulted 06/15/17 16:30 Wound Culture - Preliminary Staphylococcus Aureus Group A Beta Strep Resulted Result Diagram: 06/16/17 0510 06/16/17 0510 Imaging Last 48 hours Impressions Lower Extremity CT 06/16/17 0000 Signed Impressions: Service Date/Time: Friday, June 16, 2017 10:12 - CONCLUSION: 1. Posterior subcutaneous soft tissue induration and some mild fluid tracking along the surface of the hamstring muscles. No focal collections of gas and no drainable fluid collection seen. 2. Osseous structures of the thigh are intact. Ruben Medina MD CT Angiography 06/16/17 0000 Signed Impressions: Service Date/Time: Friday, June 16, 2017 10:12 - CONCLUSION: 1. Negative for pulmonary embolism. 2. Bilateral pleural effusions, right greater than left. 3. Bilateral lower lung perivascular thickening suggest either interstitial pulmonary edema or inflammatory process. Ruben Medina MD Chest X-Ray 06/15/17 1606 Signed Impressions: Service Date/Time: May 16:19 - CONCLUSION: The lungs are clear. Ruben Medina MD Knee X-Ray 06/15/17 0000 Signed Impressions: Service Date/Time: May 17:22 - CONCLUSION: 1. No evidence of recent bony injury. Ruben Medina MD Femur X-Ray 06/15/17 0000 Signed Impressions: Service Date/Time: May 17:22 - CONCLUSION: No acute findings. Ruben Medina MD Assessment and Plan Assessment and Plan 62 year old male with IDDM; elevated blood glucose over the past few weeks; with non healed BLE wounds -CT shows no evidence of abscess -Would recommend IV antibiotics and local wound care to area -Recommend continued diabetic education to control blood glucose -Elevated troponin; Cardiology consult pending -If abscess does form in this area would likely need Orthopedic consult -No acute General Surgery issues at this time; Will sign off Attending Note - Dr. Daniel Left medial leg near knee Right lateral leg above knee; both with eschar but no drainable foci. Patient states these have been present for over one month. Recommend: tighter glucose control [place] [facility] [place]/ECHO eval. No acute surgical issues present at this time. Discussed with patient's daughter, who is a nurse. The exam, history, and the medical decision-making described in the above note were completed with the assistance of the mid-level provider. I reviewed and agree with the findings presented. I attest that I had a [id number] encounter with the patient on the same day, and personally performed and documented my assessment and findings in the medical record. Discussed Condition With Minerva Loyola Dr./First Rubina MAYORGA Jun 16, 2017 15:31 Rajiv Daniel MD Jun 16, 2017 21:21
--- NOTE | 2017-06-16 15:42 | MB ---
cc: PIETER GUO MD DATE OF CONSULTATION 06/16/2017 HISTORY OF PRESENT ILLNESS This is a 62-year-old gentleman who is admitted to the hospital with an episode of fever, nausea, vomiting and a painful wound in his right thigh. He does not recall any significant injury. He says he has had this wound for approximately three weeks. He has been vomiting over the last three days which is dark, no real coffee-ground has been present, no hematemesis has been noted. No abdominal pain has been present and bowel movements have been unremarkable. The wound on his thigh is circumscribed, about the size of a half dollar. As noted above he does not have any recollection of a specific wound. He denies any problems with claudication, although he does note that he does have some pain walking in the morning if he has been dehydrated. He has a history of coronary artery disease with stenting x2 in 2005. Since that time he has had no chest pain. PAST MEDICAL HISTORY Otherwise significant for hypertension, diabetes and hyperlipidemia. ALLERGIES None. 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 He does not smoke, drink or use recreational drugs. MEDICATIONS Medications at home include: 1. Ventolin, two puffs four times a day. 2. Atorvastatin 80 mg daily. 3. Metoprolol succinate 50 mg daily. 4. Amlodipine 10 mg daily. 5. Lisinopril 40 mg daily. 6. Novolin 70/30, 45 mg subcu twice daily. ALLERGIES None. PHYSICAL EXAMINATION GENERAL: He is awake and alert. VITAL SIGNS: Temperature 99, pulse 100, blood pressure 140/90. NECK: There is no neck vein distention. LUNGS: Clear. CARDIOVASCULAR: Regular rate and rhythm. There is no significant murmur. No gallop is noted. ABDOMEN: Soft. There is no tenderness or organomegaly. EXTREMITIES: There is an area on the back of his thigh which appears to be black eschar. No real erythema has been present but it is painful around the area. No exudate is noted. IMAGING Chest x-ray is unremarkable. Other x-rays are otherwise unremarkable. LABORATORY Laboratory examination is significant for leukocytosis with a white count initially of 35,000 and a significant left shift. Troponin measured at 1.65. Renal function is otherwise normal. Glucose is elevated at 213. ELECTROCARDIOGRAM Electrocardiogram reveals sinus rhythm with evidence for old inferior MD. No acute ST or T-wave changes have been present. ASSESSMENT The patient has what appears to be sepsis possibly secondary to his thigh wound. His troponin elevation is likely demand mediated and no chest pain has been present. No acute ST or T-wave changes are noted on his electrocardiogram. PLAN/RECOMMENDATIONS At this point in time I certainly agree with supportive therapy and will continue his medical regimen as outlined above. Once he recovers from his sepsis then consideration for stress testing could be done to rule out occult ischemia. Will order ABIs to evaluate his lower extremity circulation. MD CATARINO Huddleston/CHE /1:03 PM /3:14 PM
--- NOTE | 2017-06-16 16:22 | MB ---
cc: SCOTTIE BRANCH MD DATE OF CONSULTATION: 06/16/2017. REASON FOR CONSULTATION: Sepsis. REQUESTING PHYSICIAN: Dr. Coyne. HISTORY OF PRESENT ILLNESS: This is a 62-year-old white male who presented to the emergency department yesterday with vomiting. He reportedly was vomiting for three days before presenting to the emergency department. He was noted to have dark / black vomitus. The patient has insulin-dependent diabetes. He was evaluated in the emergency department and had temperature of 102.6 degrees, heart rate of 109, white blood cell count of 35.3. The patient was suspected to have sepsis and was admitted to the hospital for further management. The blood sugar was also elevated at 331. The patient was noted to have lesions on the thighs bilaterally and also at the dorsum of the finger on the left side. Culture was taken from the thigh lesion and it has growth of Staph aureus and group B beta Strep. Blood cultures have no growth in 24 hours. Influenza testing was performed, and it is negative. The patient is lethargic currently; however, he answers questions for me without difficulty. He reports that he has had a cough for about two months and he noticed lesions on his skin about a month ago. [place] that he has been able to work without difficulty and has had no blackout spells. He states that he has only been coughing up sputum since admission to the hospital. He denies alcohol use. The patient denies any trauma to the legs where the lesions are located. He denies chills and he denies abdominal pain. He reports that his last hospitalization was in 2004 when he had coronary stents placed. The patient is coughing up brown purulent-appearing sputum. PAST MEDICAL HISTORY: 1. Coronary artery disease. 2. Diabetes mellitus. 3. Hypertension. 4. History of coronary stents. ALLERGIES: NO KNOWN DRUG ALLERGIES. MEDICATIONS: 1. Piperacillin / tazobactam. 2. Vancomycin. 3. Prinivil. 4. Toprol XL. 5. Norvasc. 6. Lipitor. 7. Insulin. SOCIAL HISTORY: The patient denies tobacco. He denies alcohol use. He denies recent drug use. The patient is from [place]. FAMILY HISTORY: Noncontributory. REVIEW OF SYSTEMS: CONSTITUTIONAL: Significant for fever. HEAD, EYES, EARS, NOSE, THROAT: Denies headache. Denies visual problems. Denies difficulty swallowing. CARDIOVASCULAR: Denies chest pain. RESPIRATORY: Denies shortness of breath. Positive for cough. GASTROINTESTINAL: Positive for vomiting. GENITOURINARY: Denies urgency or dysuria. HEMATOPOIETIC: Denies bruising. INTEGUMENTARY: Denies skin rash or itching. ENDOCRINE: Denies polydipsia. NEUROLOGIC: Denies problems with coordination. PSYCHIATRIC: Denies mood changes. PHYSICAL EXAMINATION: GENERAL: This is an obese male who is lying in bed and appears lethargic. He is receiving oxygen via nasal cannula. The patient appears disheveled. VITAL SIGNS: Temperature 99 degrees, blood pressure 141/80, respirations 24, heart rate 112. HEAD, EYES, EARS, NOSE, THROAT: Head is atraumatic. Extraocular movements grossly intact. No icterus. Oropharynx with moist mucosa. No visible lesions. The mucosa is moist. NECK: The neck is supple without adenopathy. LUNGS: Decreased breath sounds with slight rhonchi at the bases. HEART: Regular S1 and S2. No audible murmurs, rubs or gallops. ABDOMEN: Obese, soft, diminished bowel sounds. Nontender. RECTAL: Not performed. EXTREMITIES: Inner thigh has a lesion with dark eschar centrally. It is about a dollar coin size. This is located at the distal left inner thigh. The distal right outer thigh has a similar lesion. The left index finger had an excoriated lesion at the dorsal aspect of the proximal interphalangeal joint. The patient also has an excoriated lesion at the base of the third finger on the right hand. These are dry. He also has what looks like a dried bruise at the anterior aspect of the knee which does not have any erythema. The extremities have no clubbing, cyanosis or edema. No splinter hemorrhages at the nail beds. No cord palpable at the calves. NEUROLOGIC: No gross focal findings. PSYCHIATRIC: The patient is calm and cooperative although lethargic. IMAGING STUDIES: Chest x-ray shows clear lungs. Lower extremity CT scan shows posterior subcutaneous soft tissue induration and some fluid tracking along the surface of the hamstring muscles on the right. No focal collection of gas or drainable fluid collection seen. Osseous structures are intact. CT angiogram was negative for pulmonary embolism. Bilateral pleural effusions right greater than left are noted and bilateral lung perivascular thickening suggesting either interstitial pulmonary edema or inflammatory process. LABS: WBCs 32.1, 92% neutrophils including 18% bands. Platelet count 314,000. Hemoglobin 12.9. Creatinine 0.88, BUN 20, sodium 131. Lactic acid level on 06/15 was 2.2. Lactic acid level today is 1.7. Liver function tests are normal. IMPRESSION: 1. Sepsis in a patient who presented with fever, tachycardia, leukocytosis and elevated lactic acid. 2. Cellulitis / skin lesions of the lower extremities. Questionable etiology. Culture of the wounds of the lower extremities has group A beta Strep and Staph aureus. 3. Abnormal CT of the chest with lower lung perivascular thickening along with pleural effusions and patient now with purulent sputum. Rule out pulmonary disease. Possible pneumonia. 4. Diabetes mellitus. The patient had hypoglycemia on presentation. RECOMMENDATIONS: 1. Continue Vancomycin to cover MRSA potentially given the Staph aureus and the wound culture. 2. Continue piperacillin / tazobactam. 3. Send sputum for culture. 4. Monitor the white blood cell count. 5. Monitor the blood cultures. 6. Monitor response to antibiotic treatment. Since the etiology of the lesions is unclear, also suggest obtaining STEPHEN and if the blood cultures come back positive for bacteria, consider doing a 2-D echocardiogram. Thank you for this consultation. I will follow the patient's progress with you. Scottie Branch MD FD/ASHOK /1:56 PM /3:52 PM
[2017-06-16] MEDS ORDERED: cefTRIAXone INJ 1,000 MG in SODIUM CHLORIDE 0.9% INJ 100 ML IV SCH (17:00)
[2017-06-16] MEDS ORDERED: FUROSEMIDE 40 MG/4 ML VIAL IV PUSH ONE (17:45)
[2017-06-16] MEDS: PIPERACIL-TAZO 4.5 GM PREMIX 100 ML IV SCH (17:53)
[2017-06-16] MEDS ORDERED: AZITHROMYCIN INJ 500 MG in SODIUM CHLOR 0.9% 250 ML INJ 250 ML IV SCH (18:00)
--- NOTE | 2017-06-16 18:01 | RADRPT ---
EXAM DATE/TIME: 06/16/2017 00:00 [facility] COMPARISON: No previous studies available for comparison. INDICATIONS : Thigh Wound TECHNIQUE: Four-cuff ankle and brachial pressures were obtained. Pulse cuff waveform tracings of the ankles were recorded, and ankle-brachial indices were calculated. PRESSURES (mmHg): Brachial (arm): Right 130 Left IV SITE Ankle: Right 110 Left 140 VICTORINA: Right 0.84 Left 1.07 CONCLUSION: 1. Borderline decreased right lower extremity ABIs suggesting mild right lower extremity peripheral a rterial disease. Evangelist Correia MD on June 16, 2017 at 17:57 Board Certified Radiologist. This report was verified electronically.
[2017-06-16] MEDS: RESP: ALBUTEROL 2.5 MG/IPRATROPIUM 0.5 MG NEB (SCH) NEB (19:15)
--- NOTE | 2017-06-16 20:15 | PD.CONS ---
HPI History of Present Illness This is a 62 year old male known to have right thigh cellulitis and fasciitis. He was admitted to the hospital with a history of coffee-ground emesis. Hemoglobin and hematocrit at admission was 13.6 and 38.9. Patient has had no recurrent episode of hematemesis and melena or hematochezia. He denies abdominal pain heartburn dysphagia constipation diarrhea jaundice ascites or edema. PFSH Past Medical History DM HTN CAD Past Surgical History No major surgeries done in the past Coded Allergies: No Known Allergies (Unverified , 06/15/17) Medications Medication listed in MAR reviewed Family History None per patient Social History Patient denies any smoking. Denies drinking. 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 Says he bathes about twice a week. Review of Systems Gastrointestinal: COMPLAINS OF: Hematemesis, DENIES: Abdominal pain, Black stools, Bloody stools, Constipation, Diarrhea, Nausea, Vomiting, Difficulty Swallowing, Anorexia, Odynophagia, Swelling of Abdomen, Heartburn GI Exam Vitals I&O Vital Signs Date Time Temp Pulse Resp B/P (MAP) Pulse Ox O2 Delivery O2 Flow Rate FiO2 06/16/17 16:10 89 06/16/17 16:00 99.4 97 20 118/73 (88) 85 06/16/17 14:26 92 Nasal Cannula 5.00 06/16/17 08:10 90 06/16/17 08:00 99.0 112 24 141/88 (105) 87 06/16/17 07:10 89 21 06/16/17 04:00 97.2 83 20 131/59 (83) 90 06/16/17 00:00 97.1 98 20 133/72 (92) 94 06/15/17 20:43 I/O 06/15/17 06/15/17 06/15/17 06/16/17 06/16/17 06/16/17 07:00 15:00 23:00 07:00 15:00 23:00 Intake Total 3570 ml 420 ml 2100 ml Output Total 400 ml 400 ml 700 ml Balance 3170 ml 420 ml -400 ml 1400 ml Intake Oral 420 ml 420 ml IV Total 3150 ml 2100 ml Output Urine Total 400 ml 400 ml 700 ml # Voids 3 # Bowel Movements 1 1 Laboratory Test 06/15/17 21:05 06/16/17 05:10 06/16/17 11:40 2/23/18 17:13 Urine Color VALE Urine Turbidity CLEAR Urine pH 6.0 Urine Specific [place] 1.025 Urine Protein 100 mg/dL Urine Glucose (UA) 1000 OR GREATER mg/dL Urine Ketones 15 mg/dL Urine Occult Blood MOD Urine Nitrite NEG Urine Bilirubin NEG Urine Leukocyte Esterase NEG Urine RBC 0-3 /hpf Urine WBC 0-2 /hpf Urine Squamous Epithelial Cells 0-5 /hpf Microscopic Urinalysis Comment CATH-CULT NOT IND White Blood Count 32.1 TH/MM3 Red Blood Count 4.75 MIL/MM3 Hemoglobin 12.9 GM/DL Hematocrit 39.6 % Mean Corpuscular Volume 83.4 FL Mean Corpuscular Hemoglobin 27.2 PG Mean Corpuscular Hemoglobin Concent 32.6 % Red Cell Distribution Width 13.7 % Platelet Count 314 TH/MM3 Mean Platelet Volume 8.3 FL Neutrophils (%) (Auto) 92.0 % Lymphocytes (%) (Auto) 1.4 % Monocytes (%) (Auto) 6.3 % Eosinophils (%) (Auto) 0.1 % Basophils (%) (Auto) 0.2 % Neutrophils # (Auto) 29.6 TH/MM3 Lymphocytes # (Auto) 0.4 TH/MM3 Monocytes # (Auto) 2.0 TH/MM3 Eosinophils # (Auto) 0.0 TH/MM3 Basophils # (Auto) 0.1 TH/MM3 CBC Comment AUTO DIFF Differential Total Cells Counted 100 Neutrophils % (Manual) 76 % Band Neutrophils % 18 % Lymphocytes % 1 % Monocytes % 5 % Neutrophils # (Manual) 30.2 TH/MM3 Differential Comment FINAL DIFF MANUAL Platelet Estimate NORMAL Platelet Morphology Comment NORMAL Red Cell Morphology Comment NORMAL Blood Urea Nitrogen 20 MG/DL Creatinine 0.88 MG/DL Random Glucose 213 MG/DL Calcium Level 7.7 MG/DL Sodium Level 131 MEQ/L Potassium Level 3.5 MEQ/L Chloride Level 98 MEQ/L Carbon Dioxide Level 25.1 MEQ/L Anion Gap 8 MEQ/L Estimat Glomerular Filtration Rate 88 ML/MIN Lactic Acid Level 1.7 mmol/L D-Dimer Quantitative (PE/DVT) 1.19 MG/L FEU Troponin I 1.65 NG/ML Blood Gas Puncture Site LT RADIAL Blood Gas Patient Temperature 98.6 Blood Gas HCO3 24 mmol/L Blood Gas Base Excess 0.9 mmol/L Blood Gas Oxygen Saturation 90 % Arterial Blood pH 7.48 Arterial Blood Partial Pressure CO2 33 mmHG Arterial Blood Partial Pressure O2 61 mmHG Arterial Blood Oxygen Content 15.7 Vol % Arterial Blood Carboxyhemoglobin 1.5 % Arterial Blood Methemoglobin 1.0 % Blood Gas Hemoglobin 12.4 G/DL Oxygen Delivery Device NASAL CANNULA Blood Gas Liter Flow 6 L/M Test 06/16/17 17:39 Troponin I 2.06 NG/ML B-Type Natriuretic Peptide 696 PG/ML Date/Time Source Procedure Growth Status 06/15/17 16:40 Blood Peripheral Aerobic Blood Culture - Preliminary NO GROWTH IN 1 DAY Resulted 06/15/17 16:40 Blood Peripheral Anaerobic Blood Culture - Preliminary NO GROWTH IN 1 DAY Resulted 06/15/17 16:40 Nasal Washing Influenza Types A,B Antigen (ADY) - Final NEGATIVE FOR FLU A AND B ANTIGEN.... Complete 06/15/17 16:30 Wound Thigh Gram Stain - Final Resulted 06/15/17 16:30 Wound Culture - Preliminary Staphylococcus Aureus Group A Beta Strep Resulted Physical Examination HEENT: Pupils round and reactive to light; normocephalic; atraumatic; no jaundice. Throat is clear. NECK: Neck is supple, no JVD, no lymphadenopathy. CHEST: Chest is clear to auscultation and percussion. CARDIAC: Regular rate and rhythm with no murmur gallop or rubs. ABDOMEN: Soft, nondistended, nontender; no hepatosplenomegaly; bowel sounds are present in all four quadrants. EXTREMITIES: No clubbing, cyanosis, or edema. SKIN: Normal; no rash; no jaundice. GEOPHYSICAL DRAFTER: No focal deficits; alert and oriented times three. Assessment and Plan Assessment: (1) Erosive gastritis with hemorrhage ICD Codes: K29.61 - Other gastritis with bleeding (2) GI bleeding ICD Codes: K92.2 - Gastrointestinal hemorrhage, unspecified (3) Cellulitis of right thigh ICD Codes: L03.115 - Cellulitis of right lower limb Status: Acute (4) Sepsis ICD Codes: A41.9 - Sepsis, unspecified organism Status: Acute Plan 1. Patient's symptoms of hematemesis are likely due to erosive gastritis related to stress. Other possible causes include GERD and peptic ulcer disease. 2. IV Protonix 40 mg twice daily 3. Monitor serial hemoglobin and hematocrit levels 4. Patient merits an EGD evaluation on elective basis. However if GI bleeding recurs plan to do endoscopy during hospital stay Problem Qualifiers (1) Sepsis: Qualified Codes: A41.9 - Sepsis, unspecified organism Ashutosh Ortez MD Jun 16, 2017 20:15
[2017-06-16] MEDS: PANTOPRAZOLE SODIUM 40 MG VIAL IV PUSH SCH (20:49)
[2017-06-16] MEDS: ATORVASTATIN 40 MG TAB PO SCH (20:49)
[2017-06-16] MEDS: ONDANSETRON HCL 4 MG/2 ML VIAL IVP PRN (20:59)
[2017-06-16] MEDS ORDERED: HEPARIN SODIUM - SQ 10,000 UNITS/ML VIAL SQ SCH (22:00)
[2017-06-16] MEDS ORDERED: HEPARIN SODIUM - IV 10,000 UNITS/10 ML VIAL IV PUSH PRN (22:30)
[2017-06-16] MEDS: HEPARIN 25,000 UNITS-D5W 250 ML - PREMIX IV PRN (23:00)
[2017-06-17] VITALS (23 sets, daily range): BP systolic 105–138; BP diastolic 62–94; PULSE 85–103; RESP 18–20; TEMP 98.2–99.1; O2SAT 90–95
[2017-06-17] MEDS: PIPERACIL-TAZO 4.5 GM PREMIX 100 ML IV SCH ×4 (00:51→17:06)
[2017-06-17] MEDS: ONDANSETRON HCL 4 MG/2 ML VIAL IVP PRN ×3 (03:07→19:46)
[2017-06-17 07:08] LABS: BASOPHIL % 0.1 % (0.0-2.0); EOSINOPHIL % 0.1 % (0.0-4.0); HEMATOCRIT 35.6 % (39.0-51.0); HEMOGLOBIN 12.3 GM/DL (13.0-17.0); LYMPHOCYTE # 0.9 TH/MM3 (1.0-4.8); MEAN CELL VOLUME 81.9 FL (80.0-100.0); MEAN CORPUSCULAR HEMOGLOBIN 28.2 PG (27.0-34.0); MEAN CORPUSCULAR HGB CONC 34.4 % (32.0-36.0); MEAN PLATELET VOLUME 8.4 FL (7.0-11.0); MONO % 6.6 % (0.0-8.0); MONOCYTE # 1.9 TH/MM3 (0-0.9); NEUT % 90.2 % (16.0-70.0); PLATELET COUNT 321 TH/MM3 (150-450); RED BLOOD COUNT 4.35 MIL/MM3 (4.50-5.90); RED CELL DISTRIBUTION WIDTH 14.5 % (11.6-17.2); WHITE BLOOD COUNT 28.8 TH/MM3 (4.0-11.0)
[2017-06-17 07:26] LABS: BICARBONATE 28.6 MEQ/L (21.0-32.0); CALCIUM 7.8 MG/DL (8.5-10.1); CREATININE 0.78 MG/DL (0.60-1.30)
[2017-06-17 07:50] LABS: TROPONIN I 1.92 NG/ML (0.02-0.05)
[2017-06-17] MEDS: RESP: ALBUTEROL 2.5 MG/IPRATROPIUM 0.5 MG NEB (SCH) NEB ×3 (08:00→20:00)
[2017-06-17] MEDS: LISINOPRIL 20 MG TAB PO SCH (08:42)
[2017-06-17] MEDS: ACETAMINOPHEN 325 MG TAB PO PRN ×2 (08:42→19:58)
[2017-06-17] MEDS: METOPROLOL SUCCINATE 50 MG EXTENDED RELEASE TAB PO SCH (08:42)
[2017-06-17] MEDS: PANTOPRAZOLE SODIUM 40 MG VIAL IV PUSH SCH ×2 (08:43→19:46)
[2017-06-17] MEDS: VANCOMYCIN 1,500 MG/NS 500 ML IV SCH ×4 (08:46→21:19)
[2017-06-17] MEDS: SODIUM CHLORIDE 0.9% FLUSH 10 ML FLUSH IV FLUSH SCH ×2 (08:46→19:47)
[2017-06-17] MEDS: HEPARIN SODIUM - IV 10,000 UNITS/10 ML VIAL IV PUSH PRN (08:55)
[2017-06-17] MEDS: INSULIN HUMAN NPH/R 70/30 1,000 UNITS/10 ML VIAL SQ SCH (08:55)
[2017-06-17] MEDS: INSULIN NovoLIN REGULAR SUPPLEMENTAL SCALE SQ SCH ×4 (08:56→19:49)
--- NOTE | 2017-06-17 09:27 | PD.CARD.PN ---
Subjective Subjective Remarks nausea improved with zofran. improved breathing overnight after lasix administered. denies chest pain or sob. Objective Medications Current Medications Medications (Trade) Dose Ordered Sig/Joseph Route Start Time Stop Time Status Last Admin (NS Flush) 2 ml UNSCH PRN IV FLUSH 06/15/17 18:15 (NS Flush) 2 ml BID IV FLUSH 06/15/17 21:00 06/17/17 08:46 (Tylenol) 650 mg Q4H PRN PO 06/15/17 20:00 06/17/17 08:42 (Zofran Inj) 4 mg Q6H PRN IVP 06/15/17 22:00 06/17/17 03:07 (Restoril) 15 mg HS PRN PO 06/15/17 21:00 (Narcan Inj) 0.4 mg UNSCH PRN IV PUSH 06/15/17 18:15 (Senokot) 17.2 mg Q12HR PRN PO 06/15/17 21:00 Pharmacy Profile Note 0 ml @ 0 mls/hr UNSCH OTHER 06/15/17 18:15 (D50w (Vial) Inj) 50 ml UNSCH PRN IV PUSH 06/15/17 18:15 (Glucagon Inj) 1 mg UNSCH PRN OTHER 06/15/17 18:15 (Proair Hfa Inh) 2 puff Q6HR PRN INH 06/15/17 20:00 (Norvasc) 10 mg DAILY PO 06/16/17 09:00 06/17/17 08:42 (NovoLIN 70/30 INJ) 45 units BID SQ 06/15/17 21:00 06/17/17 08:55 (Toprol Xl) 50 mg DAILY PO 06/16/17 09:00 06/17/17 08:42 (Prinivil) 40 mg DAILY PO 06/16/17 09:00 06/17/17 08:42 Vancomycin HCl 1500 mg/Sodium Chloride 515 ml @ 257.5 mls/ hr Q12H IV 06/16/17 09:00 06/17/17 08:46 Miscellaneous Information SPECIFIC LAB TO BE DRAWN:VANCOMYCIN TROUGH DATE TO... ONCE ONCE .XX 06/17/17 20:45 06/17/17 20:46 (Lipitor) 80 mg HS PO 06/16/17 21:00 06/16/17 20:49 (NovoLIN R SUPPLEMENTAL SCALE) 1 ACHS SLIDING SCALE SQ 06/16/17 12:00 06/17/17 08:56 (Duoneb Neb) 1 ampule Q6HR WHILE AWAKE NEB NEB 06/16/17 17:15 06/16/17 19:15 Piperacillin Sod/ Tazobactam Sod 100 ml @ 200 mls/hr Q6H IV 06/16/17 18:00 06/17/17 05:48 (Protonix Inj) 40 mg BID IV PUSH 06/16/17 21:00 06/17/17 08:43 Heparin Sodium/ Dextrose 250 ml @ 10 mls/hr TITRATE PRN IV 06/16/17 22:30 06/16/17 23:00 (Heparin Inj) 5,000 units UNSCH PRN IV PUSH 06/16/17 22:30 (Heparin Inj) 2,500 units UNSCH PRN IV PUSH 06/16/17 22:30 06/17/17 08:55 Potassium Chloride 100 ml @ 50 mls/hr Q2H IV 06/17/17 09:00 06/17/17 12:59 Vital Signs / I&O Vital Signs Date Time Temp Pulse Resp B/P (MAP) Pulse Ox O2 Delivery O2 Flow Rate FiO2 06/17/17 06:00 96 06/17/17 05:00 90 06/17/17 04:00 Nasal Cannula 4.00 06/17/17 04:00 98.6 96 20 106/65 (79) 95 06/17/17 04:00 96 06/17/17 03:00 93 06/17/17 02:34 103 06/17/17 00:00 99.1 96 18 111/62 (78) 95 06/16/17 20:00 97.5 104 18 139/90 (106) 93 06/16/17 16:10 89 06/16/17 16:00 99.4 97 20 118/73 (88) 85 06/16/17 14:26 92 Nasal Cannula 5.00 I/O 06/16/17 06/16/17 06/16/17 06/17/17 06/17/17 06/17/17 07:00 15:00 23:00 07:00 15:00 23:00 Intake Total 420 ml 2100 ml 398 ml Output Total 400 ml 700 ml 2000 ml Balance 420 ml -400 ml 1400 ml -1602 ml Intake Oral 420 ml 240 ml IV Total 2100 ml 158 ml Output Urine Total 400 ml 700 ml 2000 ml # Voids 3 # Bowel Movements 1 0 Physical Exam GENERAL: SKIN: Warm and dry. HEAD: Atraumatic. Normocephalic. EYES: Pupils equal and round. ENT: No nasal bleeding or discharge. Mucous membranes pink and moist. NECK: Trachea midline. No JVD. CARDIOVASCULAR: Regular rate and rhythm. no murmurs RESPIRATORY: No accessory muscle use. Clear to auscultation. Breath sounds equal bilaterally. GASTROINTESTINAL: Abdomen soft, non-tender, nondistended. MUSCULOSKELETAL: Extremities without clubbing, cyanosis, or edema. No obvious deformities. NEUROLOGICAL: Awake and alert. No obvious cranial nerve deficits. Normal speech. PSYCHIATRIC: Appropriate mood and affect; insight and judgment normal. Laboratory Laboratory Tests Test 06/16/17 11:40 06/16/17 17:13 06/16/17 17:39 06/17/17 04:59 D-Dimer Quantitative (PE/DVT) 1.19 MG/L FEU Troponin I 1.65 NG/ML 2.06 NG/ML Blood Gas Puncture Site LT RADIAL Blood Gas Patient Temperature 98.6 Blood Gas HCO3 24 mmol/L Blood Gas Base Excess 0.9 mmol/L Blood Gas Oxygen Saturation 90 % Arterial Blood pH 7.48 Arterial Blood Partial Pressure CO2 33 mmHG Arterial Blood Partial Pressure O2 61 mmHG Arterial Blood Oxygen Content 15.7 Vol % Arterial Blood Carboxyhemoglobin 1.5 % Arterial Blood Methemoglobin 1.0 % Blood Gas Hemoglobin 12.4 G/DL Oxygen Delivery Device NASAL CANNULA Blood Gas Liter Flow 6 L/M B-Type Natriuretic Peptide 696 PG/ML White Blood Count 28.8 TH/MM3 Red Blood Count 4.35 MIL/MM3 Hemoglobin 12.3 GM/DL Hematocrit 35.6 % Mean Corpuscular Volume 81.9 FL Mean Corpuscular Hemoglobin 28.2 PG Mean Corpuscular Hemoglobin Concent 34.4 % Red Cell Distribution Width 14.5 % Platelet Count 321 TH/MM3 Mean Platelet Volume 8.4 FL Neutrophils (%) (Auto) 90.2 % Lymphocytes (%) (Auto) 3.0 % Monocytes (%) (Auto) 6.6 % Eosinophils (%) (Auto) 0.1 % Basophils (%) (Auto) 0.1 % Neutrophils # (Auto) 26.0 TH/MM3 Lymphocytes # (Auto) 0.9 TH/MM3 Monocytes # (Auto) 1.9 TH/MM3 Eosinophils # (Auto) 0.0 TH/MM3 Basophils # (Auto) 0.0 TH/MM3 CBC Comment DIFF FINAL Differential Comment Test 06/17/17 05:49 06/17/17 07:34 Blood Urea Nitrogen 16 MG/DL Creatinine 0.78 MG/DL Random Glucose 161 MG/DL Calcium Level 7.8 MG/DL Sodium Level 133 MEQ/L Potassium Level 3.0 MEQ/L Chloride Level 97 MEQ/L Carbon Dioxide Level 28.6 MEQ/L Anion Gap 7 MEQ/L Estimat Glomerular Filtration Rate 101 ML/MIN Troponin I 1.92 NG/ML Activated Partial Thromboplast Time 39.4 SEC Imaging Last 48 hours Impressions Lower Extremity CT 06/16/17 0000 Signed Impressions: Service Date/Time: Friday, June 16, 2017 10:12 - CONCLUSION: 1. Posterior subcutaneous soft tissue induration and some mild fluid tracking along the surface of the hamstring muscles. No focal collections of gas and no drainable fluid collection seen. 2. Osseous structures of the thigh are intact. Ruben Medina MD CT Angiography 06/16/17 0000 Signed Impressions: Service Date/Time: Friday, June 16, 2017 10:12 - CONCLUSION: 1. Negative for pulmonary embolism. 2. Bilateral pleural effusions, right greater than left. 3. Bilateral lower lung perivascular thickening suggest either interstitial pulmonary edema or inflammatory process. Ruben Medina MD Chest X-Ray 06/15/17 1606 Signed Impressions: Service Date/Time: May 16:19 - CONCLUSION: The lungs are clear. Ruben Medina MD Assessment and Plan Problem List: (1) Elevated troponin ICD Codes: R74.8 - Abnormal levels of other serum enzymes (2) Sepsis ICD Codes: A41.9 - Sepsis, unspecified organism Status: Acute Assessment and Plan 62 yo WM with CAD, cardiac stents placed in 2005, HTN, DM and HLD who has been admitted for coffee-ground emesis, sepsis and lower extremity wounds. troponins elevated. NSTEMI- no chest pain, no events on tele overnight will likely require ischemic workup including stress testing once he improves from sepsis. echo pending lower extremity wounds- VICTORINA shows mild R sided PAD, ID following gastritis- GI following Problem Qualifiers (1) Sepsis: Qualified Codes: A41.9 - Sepsis, unspecified organism Kristen Street Jun 17, 2017 09:27
[2017-06-17] MEDS: POTASSIUM CHLOR 20 MEQ PREMIX 100 ML IV SCH ×2 (09:48→09:52)
--- NOTE | 2017-06-17 12:39 | ECHRPT ---
Indication: SOB CONCLUSIONS Mildly dilated left ventricle. Wall thickness is normal. The left ventricular systolic function is moderate-to- severly reduced with an estimated ejection fraction in the range of 35-40%. Global hypokinesis, mo st pronounced in basal inferior and basal posterior regions. Mild mitral valve regurgitation. Trileaflet aortic valve. Mild aortic sclerosis. BP: / HR: Rhythm: MEASUREMENTS (Male / Female) Normal Values Technical Quality:Good 2D ECHO LV Diastolic Diameter PLAX 5.8 cm 4.2 - 5.9 / 3.9 - 5.3 cm LV Systolic Diameter PLAX 4.9 cm IVS Diastolic Thickness 1.5 cm 0.6 - 1.0 / 0.6 - 0.9 cm LVPW Diastolic Thickness 0.7 cm 0.6 - 1.0 / 0.6 - 0.9 cm LV Relative Wall Thickness 0.4 M-MODE Aortic Root Diameter MM 4.1 cm AV Cusp Separation MM 2.4 cm DOPPLER Mitral E Point Velocity 83.4 cm/s Mitral A Point Velocity 81.4 cm/s Mitral E to A Ratio 1.0 TR Peak Velocity 119.0 cm/s TR Peak Gradient 5.7 mmHg FINDINGS LEFT VENTRICLE Mildly dilated left ventricle. Wall thickness is normal. The left ventricular systolic function is moderate-to- severly reduced with an estimated ejection fraction in the range of 35-40%. Global hypokinesis, mo st pronounced in basal inferior and basal posterior regions. RIGHT VENTRICLE Normal right ventricular size and systolic function. LEFT ATRIUM The left atrial size is normal. RIGHT ATRIUM The right atrial size is normal. ATRIAL SEPTUM Normal atrial septal thickness without atrial level shunting by limited color doppler interrogation. AORTA The aortic root and proximal ascending aorta are normal in size on limited imaging. MITRAL VALVE Mild mitral valve regurgitation. AORTIC VALVE Trileaflet aortic valve. Mild aortic sclerosis. TRICUSPID VALVE Structurally normal tricuspid valve. No tricuspid valve stenosis or regurgitation. PULMONARY VALVE The pulmonary valve is not well visualized. VESSELS The inferior vena cava is normal in size. PERICARDIUM There is a small pericardial effusion present. No hemodynamically significant echocardiographic features were observed (no pre-tamponade physiology). Good Anthony MD (Electronically Signed) Final Date:17 June 2017 12:38
[2017-06-17] MEDS ORDERED: FUROSEMIDE 40 MG/4 ML VIAL IV PUSH ONE (15:30)
--- NOTE | 2017-06-17 15:50 | HHI.PR ---
Subjective Remarks Patient still does not feel well. He continues to have a cough. Plan for thoracentesis possibly Monday and a cardiac catheter later in the week. Objective Vital Signs Date Time Temp Pulse Resp B/P (MAP) Pulse Ox O2 Delivery O2 Flow Rate FiO2 06/17/17 15:27 98.3 94 18 120/72 (88) 91 06/17/17 15:27 92 06/17/17 15:27 91 Nasal Cannula 6.00 06/17/17 14:23 91 06/17/17 13:22 90 Nasal Cannula 6.00 06/17/17 13:14 92 06/17/17 12:02 85 06/17/17 11:34 91 Nasal Cannula 5.00 06/17/17 11:34 98.2 89 18 113/77 (89) 91 06/17/17 11:34 91 06/17/17 10:06 89 06/17/17 09:40 18 06/17/17 09:00 92 06/17/17 08:30 93 06/17/17 08:30 98.4 91 18 127/94 (105) 92 06/17/17 08:30 92 Room Air 06/17/17 06:00 96 06/17/17 05:00 90 06/17/17 04:00 Nasal Cannula 4.00 06/17/17 04:00 98.6 96 20 106/65 (79) 95 06/17/17 04:00 96 06/17/17 03:00 93 06/17/17 02:34 103 06/17/17 00:00 99.1 96 18 111/62 (78) 95 06/16/17 20:00 97.5 104 18 139/90 (106) 93 06/16/17 16:10 89 06/16/17 16:00 99.4 97 20 118/73 (88) 85 I/O 06/16/17 06/16/17 06/16/17 06/17/17 06/17/17 06/17/17 07:00 15:00 23:00 07:00 15:00 23:00 Intake Total 420 ml 2100 ml 398 ml 815 ml Output Total 400 ml 700 ml 2000 ml Balance 420 ml -400 ml 1400 ml -1602 ml 815 ml Intake Oral 420 ml 240 ml IV Total 2100 ml 158 ml 815 ml Output Urine Total 400 ml 700 ml 2000 ml # Voids 3 # Bowel Movements 1 0 Result Diagram: 06/17/17 0459 06/17/17 0549 Objective Remarks GENERAL: NAD, A&Ox3 HEAD: Normocephalic. NECK: Supple, trachea midline. No lymphadenopathy. EYES: No scleral icterus. No injection or drainage. CARDIOVASCULAR: Regular rate and rhythm without murmurs, gallops, or rubs. RESPIRATORY: Breath sounds equal bilaterally. No accessory muscle use. Pulmonary crackles bilaterally. GASTROINTESTINAL: Abdomen soft, non-tender, nondistended. MUSCULOSKELETAL: No cyanosis. Increased swelling and tenderness at right leg. SKIN: Warm and dry. NEURO: No focal neurological deficitis. A/P Problem List: (1) Elevated troponin ICD Code: R74.8 - Abnormal levels of other serum enzymes (2) Erosive gastritis with hemorrhage ICD Code: K29.61 - Other gastritis with bleeding (3) GI bleeding ICD Code: K92.2 - Gastrointestinal hemorrhage, unspecified (4) Cellulitis of right thigh ICD Code: L03.115 - Cellulitis of right lower limb Status: Acute (5) Sepsis ICD Code: A41.9 - Sepsis, unspecified organism Status: Acute (6) Hyperglycemia ICD Code: R73.9 - Hyperglycemia, unspecified Status: Acute (7) Unspecified open wound, right thigh, initial encounter ICD Code: S71.101A - Unspecified open wound, right thigh, initial encounter Status: Acute Assessment and Plan 62-year-old male admitted secondary to sepsis with cellulitis, coffee-ground emesis, pleural effusion and evidence of NSTEMI. Sepsis Cellulitis Continue vancomycin Monitor CBC Follow blood cultures Doppler ultrasound of right leg Elevated troponin Suspicious for myocardial infarction Cardiac catheter planned after sepsis resolved Heparin IV Bilateral pleural effusion Diagnostic thoracentesis planned Coffee ground emesis No recurrence GI following Follow hemoglobin levels Diabetes mellitus type 2 Follow blood sugars Insulin sliding scale Diabetic diet Transition patient from 70/32 to NPH insulin as a base control. Hypertension Coronary artery disease Continue baseline treatment Follow blood pressures Adjust treatments as needed Hypoxia Pulmonary edema Some evidence of recurrence today Could be related to pleural effusion and/or CHF Provide 40 mg Lasix once Lasix 20 mg by mouth daily DVT prophylaxis IV heparin Problem Qualifiers (1) Sepsis: Qualified Codes: A41.9 - Sepsis, unspecified organism Damien Jenkins MD Jun 17, 2017 15:50
[2017-06-17] MEDS ORDERED: POTASSIUM CHLORIDE 10 MEQ CONTROLLED RELEASE TAB PO ONE (16:00)
[2017-06-17] MEDS: INSULIN HUMAN NPH 1,000 UNITS/10 ML VIAL SQ SCH (16:10)
--- NOTE | 2017-06-17 18:48 | RADRPT ---
EXAM DATE/TIME: 06/17/2017 18:20 [facility] COMPARISON: No previous studies available for comparison. INDICATIONS : Right leg swelling. MEDICAL HISTORY : Myocardial infarction. Hypertension. Cardiac disorders. Coronary artery disease. Hematemesis. Janelle betes. SURGICAL HISTORY : Coronary artery stent. Cardiac catheterization. ENCOUNTER: Initial ACUITY: 1 week PAIN SCORE: 5/10 LOCATION: Right leg. TECHNIQUE: Venous ultrasound of the leg was performed from the inguinal ligament to the proximal calf. Real-lenny e, color Doppler and spectral tracing, compression and augmentation techniques were used. FINDINGS: There is normal compressibility of the deep venous system from the inguinal region to the proximal ca lf. No echogenic clot is seen in the lumen of the common femoral, femoral, popliteal, and posterior tibial veins. There is a normal response of the venous system to proximal and distal augmentation an d respiration. CONCLUSION: No evidence of DVT. Nima Johnson MD on June 17, 2017 at 18:47 Board Certified Radiologist. This report was verified electronically.
[2017-06-17] MEDS: ATORVASTATIN 40 MG TAB PO SCH (19:45)
[2017-06-17] MEDS ORDERED: PHARMACY ORDERED LAB ONE (20:45)
[2017-06-17] MEDS: MUPIROCIN 2% OINT 22 GM TUBE TOPICAL SCH (21:20)
[2017-06-18] VITALS (24 sets, daily range): BP systolic 125–152; BP diastolic 70–91; PULSE 86–100; RESP 18–20; TEMP 97.4–98.7; O2SAT 90–97
[2017-06-18] MEDS: PIPERACIL-TAZO 4.5 GM PREMIX 100 ML IV SCH ×4 (00:23→17:21)
[2017-06-18] MEDS: VANCOMYCIN INJ 1,250 MG in SODIUM CHLOR 0.9% 250 ML INJ 250 ML IV SCH ×3 (05:00→20:31)
[2017-06-18 06:31] LABS: BASOPHIL # 0.1 TH/MM3 (0-0.2); BASOPHIL % 0.4 % (0.0-2.0); EOSINOPHIL # 0.1 TH/MM3 (0-0.4); EOSINOPHIL % 0.4 % (0.0-4.0); HEMATOCRIT 35.3 % (39.0-51.0); HEMOGLOBIN 11.9 GM/DL (13.0-17.0); LYMPH % 5.8 % (9.0-44.0); LYMPHOCYTE # 1.3 TH/MM3 (1.0-4.8); MEAN CELL VOLUME 82.6 FL (80.0-100.0); MEAN CORPUSCULAR HGB CONC 33.8 % (32.0-36.0); MEAN PLATELET VOLUME 8.5 FL (7.0-11.0); MONO % 5.7 % (0.0-8.0); MONOCYTE # 1.3 TH/MM3 (0-0.9); NEUT % 87.7 % (16.0-70.0); PLATELET COUNT 352 TH/MM3 (150-450); RED BLOOD COUNT 4.27 MIL/MM3 (4.50-5.90); WHITE BLOOD COUNT 22.8 TH/MM3 (4.0-11.0)
[2017-06-18 06:57] LABS: ALBUMIN 1.9 GM/DL (3.4-5.0); ALT (GPT) 68 U/L (12-78); AST (GOT) 61 U/L (15-37); BLOOD UREA NITROGEN 14 MG/DL (7-18); CALCIUM 7.6 MG/DL (8.5-10.1); CHLORIDE 98 MEQ/L (98-107); CREATININE 0.83 MG/DL (0.60-1.30); GLOMERULAR FILTRATION RATE 94 ML/MIN (>89); GLUCOSE,RANDOM 183 MG/DL (74-106); SODIUM (NA) 134 MEQ/L (136-145)
[2017-06-18 07:00] LABS: ALKALINE PHOSPHATASE 102 U/L (45-117); TOTAL BILIRUBIN ADULT 0.8 MG/DL (0.2-1.0)
[2017-06-18] MEDS: SODIUM CHLORIDE 0.9% FLUSH 10 ML FLUSH IV FLUSH SCH ×2 (08:41→19:43)
[2017-06-18] MEDS: MUPIROCIN 2% OINT 22 GM TUBE TOPICAL SCH ×2 (08:55→19:42)
[2017-06-18] MEDS: LISINOPRIL 20 MG TAB PO SCH (08:55)
[2017-06-18] MEDS: METOPROLOL SUCCINATE 50 MG EXTENDED RELEASE TAB PO SCH (08:55)
[2017-06-18] MEDS: FUROSEMIDE 20 MG TAB PO SCH (08:55)
[2017-06-18] MEDS: PANTOPRAZOLE SODIUM 40 MG VIAL IV PUSH SCH ×2 (08:55→19:42)
[2017-06-18] MEDS: INSULIN NovoLIN REGULAR SUPPLEMENTAL SCALE SQ SCH ×4 (08:56→20:05)
[2017-06-18] MEDS: INSULIN HUMAN NPH 1,000 UNITS/10 ML VIAL SQ SCH ×2 (08:56→17:22)
[2017-06-18] MEDS: RESP: ALBUTEROL 2.5 MG/IPRATROPIUM 0.5 MG NEB (SCH) NEB ×3 (09:19→20:00)
[2017-06-18] MEDS ORDERED: POTASSIUM CHLORIDE 10 MEQ CONTROLLED RELEASE TAB PO ONE (09:45)
[2017-06-18 09:46] LABS: BANDS 3 % (0-6); LYMPHOCYTES 1 % (9-44); MONOCYTES 5 % (0-8); MYELOCYTES 2 % (0-0); NEUTROPHIL # MANUAL DIFF 21.4 TH/MM3 (1.8-7.7); POLYS (SEG NEUTROPHILS) 89 % (16-70)
--- NOTE | 2017-06-18 10:05 | PD.CARD.PN ---
Subjective Subjective Remarks continued chronic cough (present 6 months), nauseated overnight with SOB, nasal cannula O2 helpful. no chest pain. thoracentesis planned ([address]) Objective Medications Current Medications Medications (Trade) Dose Ordered Sig/Joseph Route Start Time Stop Time Status Last Admin (NS Flush) 2 ml UNSCH PRN IV FLUSH 06/15/17 18:15 (NS Flush) 2 ml BID IV FLUSH 06/15/17 21:00 06/18/17 08:41 (Tylenol) 650 mg Q4H PRN PO 06/15/17 20:00 06/17/17 19:58 (Zofran Inj) 4 mg Q6H PRN IVP 06/15/17 22:00 06/17/17 19:46 (Restoril) 15 mg HS PRN PO 06/15/17 21:00 (Narcan Inj) 0.4 mg UNSCH PRN IV PUSH 06/15/17 18:15 (Senokot) 17.2 mg Q12HR PRN PO 06/15/17 21:00 06/17/17 09:54 Pharmacy Profile Note 0 ml @ 0 mls/hr UNSCH OTHER 06/15/17 18:15 (D50w (Vial) Inj) 50 ml UNSCH PRN IV PUSH 06/15/17 18:15 (Glucagon Inj) 1 mg UNSCH PRN OTHER 06/15/17 18:15 (Proair Hfa Inh) 2 puff Q6HR PRN INH 06/15/17 20:00 (Norvasc) 10 mg DAILY PO 06/16/17 09:00 06/18/17 08:55 (Toprol Xl) 50 mg DAILY PO 06/16/17 09:00 06/18/17 08:55 (Prinivil) 40 mg DAILY PO 06/16/17 09:00 06/18/17 08:55 (Lipitor) 80 mg HS PO 06/16/17 21:00 06/17/17 19:45 (NovoLIN R SUPPLEMENTAL SCALE) 1 ACHS SLIDING SCALE SQ 06/16/17 12:00 06/18/17 08:56 (Duoneb Neb) 1 ampule Q6HR WHILE AWAKE NEB NEB 06/16/17 17:15 06/18/17 09:19 Piperacillin Sod/ Tazobactam Sod 100 ml @ 200 mls/hr Q6H IV 06/16/17 18:00 06/18/17 05:01 (Protonix Inj) 40 mg BID IV PUSH 06/16/17 21:00 06/18/17 08:55 Heparin Sodium/ Dextrose 250 ml @ 10 mls/hr TITRATE PRN IV 06/16/17 22:30 06/16/17 23:00 (Heparin Inj) 5,000 units UNSCH PRN IV PUSH 06/16/17 22:30 (Heparin Inj) 2,500 units UNSCH PRN IV PUSH 06/16/17 22:30 06/17/17 08:55 (Lasix) 20 mg DAILY PO 06/18/17 09:00 06/18/17 08:55 (Bactroban 2% Oint) 1 applic Q12HR TOPICAL 06/17/17 21:00 06/18/17 08:55 (NovoLIN N INJ) 35 units DAILY@08 SQ 06/18/17 08:00 06/18/17 08:56 (NovoLIN N INJ) 25 units DAILY@17 SQ 06/17/17 17:00 06/17/17 16:10 Vancomycin HCl 1250 mg/Sodium Chloride 262.5 ml @ 250 mls/hr Q8H IV 06/18/17 06:00 06/18/17 05:00 Miscellaneous Information SPECIFIC LAB TO BE DRAWN: VANCO TROUGH DATE TO BE DR... ONCE ONCE .XX 06/18/17 13:45 06/18/17 13:46 Vital Signs / I&O Vital Signs Date Time Temp Pulse Resp B/P (MAP) Pulse Ox O2 Delivery O2 Flow Rate FiO2 06/18/17 09:29 95 06/18/17 09:21 92 Nasal Cannula 6.00 06/18/17 08:30 90 Nasal Cannula 6.00 06/18/17 08:30 92 06/18/17 08:30 97.4 92 20 147/91 (109) 90 06/18/17 06:00 94 06/18/17 05:00 93 06/18/17 04:00 Nasal Cannula 5.00 06/18/17 04:00 91 06/18/17 04:00 98.7 91 18 152/91 (111) 93 06/18/17 03:00 94 06/18/17 02:00 90 06/18/17 01:00 87 06/18/17 00:00 91 06/17/17 23:53 98.2 91 20 105/66 (79) 92 06/17/17 23:53 Nasal Cannula 5.00 06/17/17 23:00 87 06/17/17 22:00 93 06/17/17 21:13 Nasal Cannula 6.00 06/17/17 21:00 92 06/17/17 20:00 89 06/17/17 20:00 Nasal Cannula 5.00 06/17/17 20:00 98.6 89 20 138/84 (102) 92 06/17/17 18:00 96 06/17/17 17:04 92 06/17/17 16:01 92 06/17/17 15:27 98.3 94 18 120/72 (88) 91 06/17/17 15:27 92 06/17/17 15:27 91 Nasal Cannula 6.00 06/17/17 14:23 91 06/17/17 13:22 90 Nasal Cannula 6.00 06/17/17 13:14 92 06/17/17 12:02 85 06/17/17 11:34 91 Nasal Cannula 5.00 06/17/17 11:34 98.2 89 18 113/77 (89) 91 06/17/17 11:34 91 06/17/17 10:06 89 I/O 06/17/17 06/17/17 06/17/17 06/18/17 06/18/17 06/18/17 07:00 15:00 23:00 07:00 15:00 23:00 Intake Total 398 ml 815 ml 480 ml 1632.5 ml Output Total 2000 ml 1400 ml 1300 ml Balance -1602 ml 815 ml -920 ml 332.5 ml Intake Oral 240 ml 480 ml 480 ml IV Total 158 ml 815 ml 1152.5 ml Output Urine Total 2000 ml 1400 ml 1300 ml # Bowel Movements 0 0 0 0 Physical Exam GENERAL: SKIN: Warm and dry. HEAD: Atraumatic. Normocephalic. EYES: Pupils equal and round. ENT: No nasal bleeding or discharge. Mucous membranes pink and moist. NECK: Trachea midline. No JVD. CARDIOVASCULAR: Regular rate and rhythm. no murmurs RESPIRATORY: No accessory muscle use. decreased breath sounds to bilateral bases GASTROINTESTINAL: Abdomen soft, non-tender, nondistended. MUSCULOSKELETAL: Extremities without clubbing, cyanosis, or edema. No obvious deformities. NEUROLOGICAL: Awake and alert. No obvious cranial nerve deficits. Normal speech. PSYCHIATRIC: Appropriate mood and affect; insight and judgment normal. Laboratory Laboratory Tests Test 06/17/17 14:46 06/17/17 20:34 06/18/17 05:41 Activated Partial Thromboplast Time 40.5 SEC 42.9 SEC 42.0 SEC Potassium Level 3.4 MEQ/L 3.3 MEQ/L Vancomycin Level Trough 10.8 MCG/ML White Blood Count 22.8 TH/MM3 Red Blood Count 4.27 MIL/MM3 Hemoglobin 11.9 GM/DL Hematocrit 35.3 % Mean Corpuscular Volume 82.6 FL Mean Corpuscular Hemoglobin 28.0 PG Mean Corpuscular Hemoglobin Concent 33.8 % Red Cell Distribution Width 15.0 % Platelet Count 352 TH/MM3 Mean Platelet Volume 8.5 FL Neutrophils (%) (Auto) 87.7 % Lymphocytes (%) (Auto) 5.8 % Monocytes (%) (Auto) 5.7 % Eosinophils (%) (Auto) 0.4 % Basophils (%) (Auto) 0.4 % Neutrophils # (Auto) 20.0 TH/MM3 Lymphocytes # (Auto) 1.3 TH/MM3 Monocytes # (Auto) 1.3 TH/MM3 Eosinophils # (Auto) 0.1 TH/MM3 Basophils # (Auto) 0.1 TH/MM3 CBC Comment AUTO DIFF Differential Total Cells Counted 100 Neutrophils % (Manual) 89 % Band Neutrophils % 3 % Lymphocytes % 1 % Monocytes % 5 % Neutrophils # (Manual) 21.4 TH/MM3 Myelocytes 2 % Differential Comment FINAL DIFF MANUAL Platelet Estimate NORMAL Platelet Morphology Comment NORMAL Red Cell Morphology Comment NORMAL Blood Urea Nitrogen 14 MG/DL Creatinine 0.83 MG/DL Random Glucose 183 MG/DL Total Protein 7.0 GM/DL Albumin 1.9 GM/DL Calcium Level 7.6 MG/DL Alkaline Phosphatase 102 U/L Aspartate Amino Transf (AST/SGOT) 61 U/L Alanine Aminotransferase (ALT/SGPT) 68 U/L Total Bilirubin 0.8 MG/DL Sodium Level 134 MEQ/L Chloride Level 98 MEQ/L Carbon Dioxide Level 28.0 MEQ/L Anion Gap 8 MEQ/L Estimat Glomerular Filtration Rate 94 ML/MIN ([address]) Assessment and Plan Problem List: (1) Elevated troponin ICD Codes: R74.8 - Abnormal levels of other serum enzymes (2) Sepsis ICD Codes: A41.9 - Sepsis, unspecified organism Status: Acute Assessment and Plan 62 yo WM with CAD, cardiac stents placed in 2005, HTN, DM and HLD who has been admitted for coffee-ground emesis, sepsis and lower extremity wounds. troponins elevated. NSTEMI- no chest pain, no events on tele overnight will require ischemic workup once he improves from sepsis. cardiomyopathy- EF reduced 35-40%. cont metoprolol and lisinopril pleural effusions- thoracentesis planned lower extremity wounds- VICTORINA shows mild R sided PAD, ID following gastritis- GI following ([address]) Assessment and Plan CP free cardiomyopathy, probably ischemic + infection coordinate [facility] when sepsis/infection resolved hold heparin gtt for thoracentesis and restart. (Tanner Ca MD) Problem Qualifiers (1) Sepsis: Qualified Codes: A41.9 - Sepsis, unspecified organism [address] Jun 18, 2017 10:05 Tanner Ca MD Jun 18, 2017 11:04
--- NOTE | 2017-06-18 13:08 | RADRPT ---
EXAM DATE/TIME: 06/18/2017 12:45 [facility] COMPARISON: CHEST SINGLE AP, June 15, 2017, 16:19. INDICATIONS : S/P Thoracentesis. MEDICAL HISTORY : Myocardial infarction. Hypertension. Cardiac disorders. Coronary artery disease. Hematemesis. Diabete s. SURGICAL HISTORY : Coronary artery stent. Cardiac catheterization. ENCOUNTER: Initial ACUITY: 1 day PAIN SCORE: 0/10 LOCATION: Bilateral chest FINDINGS: There is no evidence of pneumothorax following right thoracentesis. There is mild parenchymal opacity and effusion at the left lung base. Mild central vascular congestion and interstitial prominence. Ca rdiac contour is grossly stable. CONCLUSION: No evidence of pneumothorax Faustino Beauchamp MD on June 18, 2017 at 13:07 Board Certified Radiologist. This report was verified electronically.
[2017-06-18] MEDS: HEPARIN 25,000 UNITS-D5W 250 ML - PREMIX IV PRN (13:30)
[2017-06-18] MEDS ORDERED: LIDOCAINE HCL 1% 20 ML VIAL ONE (13:35)
--- NOTE | 2017-06-18 13:36 | RADRPT ---
EXAM DATE/TIME: 06/18/2017 12:16 [facility] COMPARISON: No previous studies available for comparison. INDICATIONS : Right pleural effusion. MEDICAL HISTORY : Myocardial infarction. Hypertension. Cardiac disorders. Coronary artery disease. Hematemesis. Diabet es. SURGICAL HISTORY : Coronary artery stent. Cardiac catheterization. ENCOUNTER: Initial ACUITY: 3 days PAIN SCORE: 0/10 LOCATION: Right chest FLUID: Total volume of 1,000 cc of clear, yellow fluid was removed. Fluid was sent to lab for ordered studies. TECHNIQUE: 1. Ultrasound guidance for thoracentesis. 2. Thoracentesis. The risks, benefits, and alternatives to ultrasound guided thoracentesis were explained to the patien t in lay simple terms, including the risk of bleeding and infection. Written and verbal informed con sent was obtained. Appropriate area for thoracentesis was marked under ultrasound guidance with the patient in the uprig ht position. Overlying skin was prepped and draped in the usual sterile fashion and with local anest hetic, a dermatotomy was made with an 11 blade scalpel. A 6 Chinese thoracentesis catheter was placed in the pleural space and fluid was removed. Catheter was then removed and a sterile dressing applie d. There were no immediate complications. The patient tolerated the procedure well and the left the ultrasound suite in stable condition. Chest radiograph is to be obtained. CONCLUSION: Uncomplicated ultrasound guided thoracentesis. Faustino Beauchamp MD on June 18, 2017 at 13:35 Board Certified Radiologist. This report was verified electronically.
[2017-06-18] MEDS ORDERED: PHARMACY ORDERED LAB ONE (13:45)
[2017-06-18 14:32] LABS: TOTAL PROTEIN,PLEURAL FLUID 1.6 GM/DL
[2017-06-18 14:46] LABS: PLEURAL FLUID HISTIOCYTES 5 %; PLEURAL FLUID LYMPHS 4 %; PLEURAL FLUID MONOS 3 %; PLEURAL FLUID POLYS (SEGS) 88 %; PLEURAL FLUID RBC 679 /MM3 (0-0); PLEURAL FLUID WBC 172 /MM3 (0-10)
--- NOTE | 2017-06-18 16:09 | HHI.PR ---
Subjective Remarks Patient is feeling slightly better today. He has no change in his right posterior leg pain, ultrasound evaluation is negative for DVT. Thoracentesis was performed and 1 L of fluid removed. Patient says after that fluid was removed he is feeling much better in regards to his breathing. Potassium levels have improved but are not yet normalized. White blood cell count has a downward trend. Objective Vital Signs Date Time Temp Pulse Resp B/P (MAP) Pulse Ox O2 Delivery O2 Flow Rate FiO2 06/18/17 15:21 90 Room Air 06/18/17 15:21 98.2 97 20 125/70 (88) 97 06/18/17 15:21 91 06/18/17 14:24 97 06/18/17 13:23 93 06/18/17 12:01 91 06/18/17 11:12 93 06/18/17 11:12 98.0 93 20 135/89 (104) 94 06/18/17 11:12 94 Nasal Cannula 6.00 06/18/17 10:05 100 06/18/17 09:29 95 06/18/17 09:21 92 Nasal Cannula 6.00 06/18/17 08:30 90 Nasal Cannula 6.00 06/18/17 08:30 92 06/18/17 08:30 97.4 92 20 147/91 (109) 90 06/18/17 06:00 94 06/18/17 05:00 93 06/18/17 04:00 Nasal Cannula 5.00 06/18/17 04:00 91 06/18/17 04:00 98.7 91 18 152/91 (111) 93 06/18/17 03:00 94 06/18/17 02:00 90 06/18/17 01:00 87 06/18/17 00:00 91 06/17/17 23:53 98.2 91 20 105/66 (79) 92 06/17/17 23:53 Nasal Cannula 5.00 06/17/17 23:00 87 06/17/17 22:00 93 06/17/17 21:13 Nasal Cannula 6.00 06/17/17 21:00 92 06/17/17 20:00 89 06/17/17 20:00 Nasal Cannula 5.00 06/17/17 20:00 98.6 89 20 138/84 (102) 92 06/17/17 18:00 96 06/17/17 17:04 92 I/O 06/17/17 06/17/17 06/17/17 06/18/17 06/18/17 06/18/17 07:00 15:00 23:00 07:00 15:00 23:00 Intake Total 398 ml 815 ml 480 ml 1632.5 ml Output Total 2000 ml 1400 ml 1300 ml Balance -1602 ml 815 ml -920 ml 332.5 ml Intake Oral 240 ml 480 ml 480 ml IV Total 158 ml 815 ml 1152.5 ml Output Urine Total 2000 ml 1400 ml 1300 ml # Bowel Movements 0 0 0 0 Result Diagram: 06/18/17 0541 06/18/17 05 Objective Remarks GENERAL: NAD, A&Ox3 HEAD: Normocephalic. NECK: Supple, trachea midline. No lymphadenopathy. EYES: No scleral icterus. No injection or drainage. CARDIOVASCULAR: Regular rate and rhythm without murmurs, gallops, or rubs. RESPIRATORY: Breath sounds equal bilaterally. No accessory muscle use. Pulmonary crackles bilaterally. GASTROINTESTINAL: Abdomen soft, non-tender, nondistended. MUSCULOSKELETAL: No cyanosis. Increased swelling and tenderness at right leg. SKIN: Warm and dry. NEURO: No focal neurological deficitis. A/P Problem List: (1) Elevated troponin ICD Code: R74.8 - Abnormal levels of other serum enzymes (2) Erosive gastritis with hemorrhage ICD Code: K29.61 - Other gastritis with bleeding (3) GI bleeding ICD Code: K92.2 - Gastrointestinal hemorrhage, unspecified (4) Cellulitis of right thigh ICD Code: L03.115 - Cellulitis of right lower limb Status: Acute (5) Sepsis ICD Code: A41.9 - Sepsis, unspecified organism Status: Acute (6) Hyperglycemia ICD Code: R73.9 - Hyperglycemia, unspecified Status: Acute (7) Unspecified open wound, right thigh, initial encounter ICD Code: S71.101A - Unspecified open wound, right thigh, initial encounter Status: Acute Assessment and Plan 62-year-old male admitted secondary to sepsis with cellulitis, coffee-ground emesis, pleural effusion and evidence of NSTEMI. Status post thoracentesis. Monitor cytology and cultures. Patient is breathing better after procedure. No further coffee-ground emesis. Downward trend in white blood cell count. Improvement in potassium levels. No DVT on ultrasound. Labs reviewed. Continue to monitor labs. Labs ordered for further monitoring. Sepsis Cellulitis Continue vancomycin Monitor CBC Follow blood cultures Doppler ultrasound of right leg Elevated troponin Suspicious for myocardial infarction Cardiac catheter planned after sepsis resolved Heparin IV Bilateral pleural effusion Diagnostic thoracentesis planned Coffee ground emesis No recurrence GI following Follow hemoglobin levels Diabetes mellitus type 2 Follow blood sugars Insulin sliding scale Diabetic diet Transition patient from 70/32 to NPH insulin as a base control. Hypertension Coronary artery disease Continue baseline treatment Follow blood pressures Adjust treatments as needed Hypoxia Pulmonary edema Some evidence of recurrence today Could be related to pleural effusion and/or CHF Provide 40 mg Lasix once Lasix 20 mg by mouth daily DVT prophylaxis IV heparin Problem Qualifiers (1) Sepsis: Qualified Codes: A41.9 - Sepsis, unspecified organism Damien Jenkins MD Jun 18, 2017 16:09
--- NOTE | 2017-06-18 16:41 | HHI.IDPN ---
Note Infectious Disease Note Patient states that his breathing felt better immediately after thoracentesis. Right pleural effusion drainage earlier today. Denies chest pain. Notes he feels hot and cold off and on today. Afebrile.WBC lower. Blood culture has no growth. Awake and alert but a little lethargic. 2D ECHO without vegetation. 62-year-old white male who presented to the emergency department yesterday with vomiting. He reportedly was vomiting for three days before presenting to the emergency department. He was noted to have dark / black vomitus. The patient has insulin-dependent diabetes. He was evaluated in the emergency department and had temperature of 102.6 degrees, heart rate of 109, white blood cell count of 35.3. The patient was suspected to have sepsis and was admitted to the hospital for further management. The patient was noted to have lesions on the thighs bilaterally and also at the dorsum of the finger on the left side and knuckle on the right. . Culture of the left thigh lesion has growth of Staph aureus and group B beta Strep. PAST MEDICAL HISTORY: 1. Coronary artery disease. 2. Diabetes mellitus. 3. Hypertension. 4. History of coronary stents. ALLERGIES: NO KNOWN DRUG ALLERGIES. MEDICATIONS: 1. Piperacillin / tazobactam. 2. Vancomycin. Current Medications Medications (Trade) Dose Ordered Sig/Joseph Route PRN Reason Start Time Stop Time Status Last Admin Dose Admin Sodium Chloride (NS Flush) 2 ml UNSCH PRN IV FLUSH FLUSH AFTER USING IV ACCESS 06/15/17 18:15 Sodium Chloride (NS Flush) 2 ml BID IV FLUSH 06/15/17 21:00 06/18/17 08:41 Acetaminophen (Tylenol) 650 mg Q4H PRN PO TEMP > 100.4 06/15/17 20:00 06/17/17 19:58 Ondansetron HCl (Zofran Inj) 4 mg Q6H PRN IVP NAUSEA OR VOMITING 06/15/17 22:00 06/17/17 19:46 Temazepam (Restoril) 15 mg HS PRN PO INSOMNIA 06/15/17 21:00 Naloxone HCl (Narcan Inj) 0.4 mg UNSCH PRN IV PUSH SEE LABEL COMMENTS 06/15/17 18:15 Sennosides (Senokot) 17.2 mg Q12HR PRN PO Moderate constipation 06/15/17 21:00 06/17/17 09:54 Pharmacy Profile Note 0 ml @ 0 mls/hr UNSCH OTHER 06/15/17 18:15 Dextrose (D50w (Vial) Inj) 50 ml UNSCH PRN IV PUSH HYPOGLYCEMIA-SEE COMMENTS 06/15/17 18:15 Glucagon (Glucagon Inj) 1 mg UNSCH PRN OTHER HYPOGLYCEMIA-SEE COMMENTS 06/15/17 18:15 Albuterol Sulfate (Proair Hfa Inh) 2 puff Q6HR PRN INH SHORTNESS OF BREATH 06/15/17 20:00 Amlodipine Besylate (Norvasc) 10 mg DAILY PO 06/16/17 09:00 06/18/17 08:55 Metoprolol Succinate (Toprol Xl) 50 mg DAILY PO 06/16/17 09:00 06/18/17 08:55 Lisinopril (Prinivil) 40 mg DAILY PO 06/16/17 09:00 06/18/17 08:55 Atorvastatin Calcium (Lipitor) 80 mg HS PO 06/16/17 21:00 06/17/17 19:45 Insulin Human Regular (NovoLIN R SUPPLEMENTAL SCALE) 1 ACHS SLIDING SCALE SQ 06/16/17 12:00 06/18/17 13:13 Albuterol/ Ipratropium (Duoneb Neb) 1 ampule Q6HR WHILE AWAKE NEB NEB 06/16/17 17:15 06/18/17 09:19 Piperacillin Sod/ Tazobactam Sod 100 ml @ 200 mls/hr Q6H IV 06/16/17 18:00 06/18/17 13:13 Pantoprazole Sodium (Protonix Inj) 40 mg BID IV PUSH 06/16/17 21:00 06/18/17 08:55 Heparin Sodium/ Dextrose 250 ml @ 10 mls/hr TITRATE PRN IV Coagulation Management 06/16/17 22:30 06/16/17 23:00 Heparin Sodium (Porcine) (Heparin Inj) 5,000 units UNSCH PRN IV PUSH aPTT less than 25 06/16/17 22:30 Heparin Sodium (Porcine) (Heparin Inj) 2,500 units UNSCH PRN IV PUSH aPTT 25 to 39 06/16/17 22:30 06/17/17 08:55 Furosemide (Lasix) 20 mg DAILY PO 06/18/17 09:00 06/18/17 08:55 Mupirocin (Bactroban 2% Oint) 1 applic Q12HR TOPICAL 06/17/17 21:00 06/18/17 08:55 Insulin Human NPH (NovoLIN N INJ) 35 units DAILY@08 SQ 06/18/17 08:00 06/18/17 08:56 Insulin Human NPH (NovoLIN N INJ) 25 units DAILY@17 SQ 06/17/17 17:00 06/17/17 16:10 Vancomycin HCl 1250 mg/Sodium Chloride 262.5 ml @ 250 mls/hr Q8H IV 06/18/17 06:00 06/18/17 14:34 Miscellaneous Information SPECIFIC LAB TO BE SALEEM... ONCE ONCE .XX 06/19/17 13:45 06/19/17 13:46 SOCIAL HISTORY: The patient denies tobacco. He denies alcohol use. He denies recent drug use. The patient is from [place]. FAMILY HISTORY: Noncontributory. OBJECTIVE: Vital Signs Date Time Temp Pulse Resp B/P (MAP) Pulse Ox O2 Delivery O2 Flow Rate FiO2 06/18/17 16:25 91 06/18/17 15:21 90 Room Air 06/18/17 15:21 98.2 97 20 125/70 (88) 97 06/18/17 15:21 91 06/18/17 14:24 97 06/18/17 13:23 93 06/18/17 12:01 91 06/18/17 11:12 93 06/18/17 11:12 98.0 93 20 135/89 (104) 94 06/18/17 11:12 94 Nasal Cannula 6.00 06/18/17 10:05 100 06/18/17 09:29 95 06/18/17 09:21 92 Nasal Cannula 6.00 06/18/17 08:30 90 Nasal Cannula 6.00 06/18/17 08:30 92 06/18/17 08:30 97.4 92 20 147/91 (109) 90 06/18/17 06:00 94 06/18/17 05:00 93 06/18/17 04:00 Nasal Cannula 5.00 06/18/17 04:00 91 06/18/17 04:00 98.7 91 18 152/91 (111) 93 06/18/17 03:00 94 06/18/17 02:00 90 06/18/17 01:00 87 06/18/17 00:00 91 06/17/17 23:53 98.2 91 20 105/66 (79) 92 06/17/17 23:53 Nasal Cannula 5.00 06/17/17 23:00 87 06/17/17 22:00 93 06/17/17 21:13 Nasal Cannula 6.00 06/17/17 21:00 92 06/17/17 20:00 89 06/17/17 20:00 Nasal Cannula 5.00 06/17/17 20:00 98.6 89 20 138/84 (102) 92 06/17/17 18:00 96 06/17/17 17:04 92 Laboratory Tests Test 06/17/17 20:34 06/18/17 05:41 06/18/17 12:35 06/18/17 13:45 Activated Partial Thromboplast Time 42.9 SEC 42.0 SEC Vancomycin Level Trough 10.8 MCG/ML 13.3 MCG/ML White Blood Count 22.8 TH/MM3 Red Blood Count 4.27 MIL/MM3 Hemoglobin 11.9 GM/DL Hematocrit 35.3 % Mean Corpuscular Volume 82.6 FL Mean Corpuscular Hemoglobin 28.0 PG Mean Corpuscular Hemoglobin Concent 33.8 % Red Cell Distribution Width 15.0 % Platelet Count 352 TH/MM3 Mean Platelet Volume 8.5 FL Neutrophils (%) (Auto) 87.7 % Lymphocytes (%) (Auto) 5.8 % Monocytes (%) (Auto) 5.7 % Eosinophils (%) (Auto) 0.4 % Basophils (%) (Auto) 0.4 % Neutrophils # (Auto) 20.0 TH/MM3 Lymphocytes # (Auto) 1.3 TH/MM3 Monocytes # (Auto) 1.3 TH/MM3 Eosinophils # (Auto) 0.1 TH/MM3 Basophils # (Auto) 0.1 TH/MM3 CBC Comment AUTO DIFF Differential Total Cells Counted 100 Neutrophils % (Manual) 89 % Band Neutrophils % 3 % Lymphocytes % 1 % Monocytes % 5 % Neutrophils # (Manual) 21.4 TH/MM3 Myelocytes 2 % Differential Comment FINAL DIFF MANUAL Platelet Estimate NORMAL Platelet Morphology Comment NORMAL Red Cell Morphology Comment NORMAL Blood Urea Nitrogen 14 MG/DL Creatinine 0.83 MG/DL Random Glucose 183 MG/DL Total Protein 7.0 GM/DL Albumin 1.9 GM/DL Calcium Level 7.6 MG/DL Alkaline Phosphatase 102 U/L Aspartate Amino Transf (AST/SGOT) 61 U/L Alanine Aminotransferase (ALT/SGPT) 68 U/L Total Bilirubin 0.8 MG/DL Sodium Level 134 MEQ/L Potassium Level 3.3 MEQ/L Chloride Level 98 MEQ/L Carbon Dioxide Level 28.0 MEQ/L Anion Gap 8 MEQ/L Estimat Glomerular Filtration Rate 94 ML/MIN Pleural Fluid WBC 172 /MM3 Pleural Fluid RBC 679 /MM3 Pleural Fluid Neutrophils 88 % Pleural Fluid Lymphocytes 4 % Pleural Fluid Monocytes 3 % Pleural Fluid Histiocytes 5 % Pleural Fluid Comment Pleural Fluid Total Protein 1.6 GM/DL Pleural Fluid Glucose 210 MG/DL IMAGING: Lower Extremity Ultrasound 06/17/17 0000 Signed Impressions: Service Date/Time: Saturday, June 17, 2017 18:20 - CONCLUSION: No evidence of DVT. Nima Johnson MD Lower Extremity CT 06/16/17 0000 Signed Impressions: Service Date/Time: Friday, June 16, 2017 10:12 - CONCLUSION: 1. Posterior subcutaneous soft tissue induration and some mild fluid tracking along the surface of the hamstring muscles. No focal collections of gas and no drainable fluid collection seen. 2. Osseous structures of the thigh are intact. Ruben Medina MD CT Angiography 06/16/17 0000 Signed Impressions: Service Date/Time: Friday, June 16, 2017 10:12 - CONCLUSION: 1. Negative for pulmonary embolism. 2. Bilateral pleural effusions, right greater than left. 3. Bilateral lower lung perivascular thickening suggest either interstitial pulmonary edema or inflammatory process. Ruben Medina MD Chest X-Ray 06/15/17 1606 Signed Impressions: Service Date/Time: May 16:19 - CONCLUSION: The lungs are clear. Ruben Medina MD Knee X-Ray 06/15/17 0000 Signed Impressions: Service Date/Time: May 17:22 - CONCLUSION: 1. No evidence of recent bony injury. Ruben Medina MD Femur X-Ray 06/15/17 0000 Signed Impressions: Service Date/Time: May 17:22 - CONCLUSION: No acute findings. Ruben Medina MD PHYSICAL EXAMINATION: GENERAL: Awake and alert. He is receiving oxygen via nasal cannula. The patient appears disheveled. HEAD, EYES, EARS, NOSE, THROAT: Head is atraumatic. Extraocular movements grossly intact. No icterus. Oropharynx with moist mucosa. No visible lesions. The mucosa is moist. NECK: The neck is supple without adenopathy. LUNGS: Decreased breath sounds. HEART: Regular S1 and S2. No audible murmurs, rubs or gallops. ABDOMEN: Obese, soft, diminished bowel sounds. Nontender. EXTREMITIES: Inner thigh has a lesion with dark eschar centrally. It is about a dollar coin size. This is located at the distal left inner thigh. The distal right outer thigh has a similar lesion. The left index finger had an excoriated lesion at the dorsal aspect of the proximal interphalangeal joint. The patient also has an excoriated lesion at the base of the third finger on the right hand. These are dry. He also has what looks like a dried bruise at the anterior aspect of the knee which does not have any erythema. The extremities have no clubbing, cyanosis or edema. No splinter hemorrhages at the nail beds. No cord palpable at the calves. NEUROLOGIC: No gross focal findings. PSYCHIATRIC: Calm and cooperative although lethargic. IMPRESSION: 1. Sepsis. Patient presented with fever, tachycardia, leukocytosis and elevated lactic acid. 2. Cellulitis / skin lesions of the lower extremities. Questionable etiology. Culture of the wounds of the lower extremities has group A beta Strep and Staph aureus. 3. Abnormal CT of the chest with lower lung perivascular thickening along with pleural effusions and patient now with purulent sputum. Rule out pulmonary disease. Possible pneumonia. 4. Diabetes mellitus. The patient had hypoglycemia on presentation. 5. Leukocytosis. WBC lower. RECOMMENDATIONS: 1. Continue Vancomycin to cover MRSA. 2. Continue piperacillin / tazobactam for pulmonary coverage. 3. Monitor pleural fluid culture. 4. Monitor the white blood cell count. 5. Monitor the blood cultures. 6. Monitor response to antibiotic treatment. Tavo Branch MD Jun 18, 2017 16:41
[2017-06-18] MEDS: ATORVASTATIN 40 MG TAB PO SCH (19:42)
[2017-06-18] MEDS: ONDANSETRON HCL 4 MG/2 ML VIAL IVP PRN (19:43)
[2017-06-18] MEDS: HEPARIN SODIUM - IV 10,000 UNITS/10 ML VIAL IV PUSH PRN (20:00)
[2017-06-19] VITALS (27 sets, daily range): BP systolic 122–145; BP diastolic 72–85; PULSE 80–144; RESP 18–22; TEMP 97.8–99.2; O2SAT 92–97
[2017-06-19] MEDS: PIPERACIL-TAZO 4.5 GM PREMIX 100 ML IV SCH ×4 (00:08→17:45)
[2017-06-19] MEDS: HEPARIN 25,000 UNITS-D5W 250 ML - PREMIX IV PRN ×2 (00:12→14:22)
[2017-06-19 02:25] LABS: AUTOMATED NEUTROPHIL # 13.1 TH/MM3 (1.8-7.7); BASOPHIL # 0.1 TH/MM3 (0-0.2); BASOPHIL % 0.6 % (0.0-2.0); EOSINOPHIL # 0.1 TH/MM3 (0-0.4); EOSINOPHIL % 0.5 % (0.0-4.0); HEMATOCRIT 32.5 % (39.0-51.0); HEMOGLOBIN 11.2 GM/DL (13.0-17.0); LYMPH % 10.8 % (9.0-44.0); LYMPHOCYTE # 1.8 TH/MM3 (1.0-4.8); MEAN CELL VOLUME 81.2 FL (80.0-100.0); MEAN CORPUSCULAR HGB CONC 34.4 % (32.0-36.0); MEAN PLATELET VOLUME 7.9 FL (7.0-11.0); MONO % 9.9 % (0.0-8.0); MONOCYTE # 1.7 TH/MM3 (0-0.9); NEUT % 78.2 % (16.0-70.0); PLATELET COUNT 314 TH/MM3 (150-450); RED CELL DISTRIBUTION WIDTH 14.7 % (11.6-17.2); WHITE BLOOD COUNT 16.8 TH/MM3 (4.0-11.0)
[2017-06-19 02:45] LABS: ALBUMIN 1.8 GM/DL (3.4-5.0); BICARBONATE 28.9 MEQ/L (21.0-32.0); CALCIUM 7.4 MG/DL (8.5-10.1); CALCIUM-PROTEIN CORRECTED 7.6 MG/DL (8.5-10.1); CREATININE 0.84 MG/DL (0.60-1.30); TOTAL BILIRUBIN ADULT 0.6 MG/DL (0.2-1.0); TOTAL PROTEIN 6.7 GM/DL (6.4-8.2)
[2017-06-19] MEDS: VANCOMYCIN INJ 1,250 MG in SODIUM CHLOR 0.9% 250 ML INJ 250 ML IV SCH ×2 (05:10→15:56)
[2017-06-19] MEDS: INSULIN HUMAN NPH 1,000 UNITS/10 ML VIAL SQ SCH ×2 (08:00→17:00)
[2017-06-19] MEDS ORDERED: METOPROLOL TARTRATE 5 MG/5 ML VIAL IV PUSH ONE (08:00)
[2017-06-19] MEDS: INSULIN NovoLIN REGULAR SUPPLEMENTAL SCALE SQ SCH ×4 (08:00→22:44)
[2017-06-19] MEDS: FUROSEMIDE 20 MG TAB PO SCH (08:13)
[2017-06-19] MEDS: LISINOPRIL 20 MG TAB PO SCH (08:13)
[2017-06-19] MEDS: PANTOPRAZOLE SODIUM 40 MG VIAL IV PUSH SCH ×3 (08:14→21:00)
[2017-06-19] MEDS: SODIUM CHLORIDE 0.9% FLUSH 10 ML FLUSH IV FLUSH SCH ×3 (08:15→21:00)
[2017-06-19] MEDS: RESP: ALBUTEROL 2.5 MG/IPRATROPIUM 0.5 MG NEB (SCH) NEB ×3 (08:25→20:51)
[2017-06-19] MEDS: MUPIROCIN 2% OINT 22 GM TUBE TOPICAL SCH ×2 (08:27→21:00)
[2017-06-19] MEDS ORDERED: DILTIAZEM INJ 125 MG in SODIUM CHLORIDE 0.9% INJ 100 ML IV PRN (09:00)
[2017-06-19] MEDS ORDERED: SODIUM CHLORIDE 0.9% FLUSH 10 ML FLUSH IV FLUSH PRN (09:00)
--- NOTE | 2017-06-19 09:21 | PD.CARD.PN ---
Subjective Subjective Remarks afib rvr this am + shortness of breath Objective Medications Current Medications Medications (Trade) Dose Ordered Sig/Joseph Route Start Time Stop Time Status Last Admin (NS Flush) 2 ml UNSCH PRN IV FLUSH 06/15/17 18:15 (NS Flush) 2 ml BID IV FLUSH 06/15/17 21:00 06/18/17 19:43 (Tylenol) 650 mg Q4H PRN PO 06/15/17 20:00 06/17/17 19:58 (Zofran Inj) 4 mg Q6H PRN IVP 06/15/17 22:00 06/18/17 19:43 (Restoril) 15 mg HS PRN PO 06/15/17 21:00 (Narcan Inj) 0.4 mg UNSCH PRN IV PUSH 06/15/17 18:15 (Senokot) 17.2 mg Q12HR PRN PO 06/15/17 21:00 06/17/17 09:54 Pharmacy Profile Note 0 ml @ 0 mls/hr UNSCH OTHER 06/15/17 18:15 (D50w (Vial) Inj) 50 ml UNSCH PRN IV PUSH 06/15/17 18:15 (Glucagon Inj) 1 mg UNSCH PRN OTHER 06/15/17 18:15 (Proair Hfa Inh) 2 puff Q6HR PRN INH 06/15/17 20:00 (Toprol Xl) 50 mg DAILY PO 06/16/17 09:00 Future Hold 06/18/17 08:55 (Prinivil) 40 mg DAILY PO 06/16/17 09:00 06/19/17 08:13 (Lipitor) 80 mg HS PO 06/16/17 21:00 06/18/17 19:42 (NovoLIN R SUPPLEMENTAL SCALE) 1 ACHS SLIDING SCALE SQ 06/16/17 12:00 06/18/17 20:05 (Duoneb Neb) 1 ampule Q6HR WHILE AWAKE NEB NEB 06/16/17 17:15 06/19/17 08:25 Piperacillin Sod/ Tazobactam Sod 100 ml @ 200 mls/hr Q6H IV 06/16/17 18:00 06/19/17 05:13 (Protonix Inj) 40 mg BID IV PUSH 06/16/17 21:00 06/19/17 08:14 Heparin Sodium/ Dextrose 250 ml @ 10 mls/hr TITRATE PRN IV 06/16/17 22:30 06/19/17 00:12 (Heparin Inj) 5,000 units UNSCH PRN IV PUSH 06/16/17 22:30 (Heparin Inj) 2,500 units UNSCH PRN IV PUSH 06/16/17 22:30 06/18/17 20:00 (Lasix) 20 mg DAILY PO 06/18/17 09:00 06/19/17 08:13 (Bactroban 2% Oint) 1 applic Q12HR TOPICAL 06/17/17 21:00 06/19/17 08:27 (NovoLIN N INJ) 35 units DAILY@08 SQ 06/18/17 08:00 06/18/17 08:56 (NovoLIN N INJ) 25 units DAILY@17 SQ 06/17/17 17:00 06/18/17 17:22 Vancomycin HCl 1250 mg/Sodium Chloride 262.5 ml @ 250 mls/hr Q8H IV 06/18/17 06:00 06/19/17 05:10 Miscellaneous Information SPECIFIC LAB TO BE SALEEM... ONCE ONCE .XX 06/19/17 13:45 06/19/17 13:46 (NS Flush) 2 ml UNSCH PRN IV FLUSH 06/19/17 09:00 UNV (NS Flush) 2 ml BID IV FLUSH 06/19/17 09:00 UNV (Cardizem Inj) 15 mg ONCE ONCE IV PUSH 06/19/17 09:00 06/19/17 09:01 UNV Diltiazem HCl 125 mg/Sodium Chloride 125 ml @ 5 mls/hr TITRATE PRN IV 06/19/17 09:00 UNV (Vasotec Inj) 1.25 mg Q6H PRN IV PUSH 06/19/17 09:00 UNV Vital Signs / I&O Vital Signs Date Time Temp Pulse Resp B/P (MAP) Pulse Ox O2 Delivery O2 Flow Rate FiO2 06/19/17 08:28 97 Nasal Cannula 5.00 06/19/17 08:02 140 06/19/17 07:58 99.2 144 22 145/83 (103) 06/19/17 07:23 122 06/19/17 07:23 Nasal Cannula 5.00 21 06/19/17 06:00 87 06/19/17 05:00 90 06/19/17 04:00 Nasal Cannula 5.00 06/19/17 04:00 98.4 88 20 139/85 (103) 92 06/19/17 04:00 88 06/19/17 03:00 93 06/19/17 02:00 90 06/19/17 01:00 89 06/19/17 00:00 98.1 92 20 129/77 (94) 92 06/19/17 00:00 Nasal Cannula 5.00 06/19/17 00:00 92 06/18/17 23:00 86 06/18/17 22:29 96 Nasal Cannula 5.00 06/18/17 22:00 90 06/18/17 21:00 94 06/18/17 20:00 Nasal Cannula 5.00 06/18/17 20:00 98.4 89 20 139/86 (103) 92 06/18/17 20:00 89 06/18/17 18:13 94 06/18/17 17:30 93 06/18/17 16:25 91 06/18/17 15:21 90 Room Air 06/18/17 15:21 98.2 97 20 125/70 (88) 97 06/18/17 15:21 91 06/18/17 14:24 97 06/18/17 13:23 93 06/18/17 12:01 91 06/18/17 11:12 93 06/18/17 11:12 98.0 93 20 135/89 (104) 94 06/18/17 11:12 94 Nasal Cannula 6.00 06/18/17 10:05 100 06/18/17 09:29 95 06/18/17 09:21 92 Nasal Cannula 6.00 I/O 06/18/17 06/18/17 06/18/17 06/19/17 06/19/17 06/19/17 07:00 15:00 23:00 07:00 15:00 23:00 Intake Total 1632.5 ml 76 ml 1609.0 ml 1222.5 ml 602.5 ml Output Total 1300 ml 2210 ml 1300 ml Balance 332.5 ml 76 ml -601.0 ml -77.5 ml 602.5 ml Intake Oral 480 ml 1080 ml 960 ml IV Total 1152.5 ml 76 ml 529.0 ml 262.5 ml 602.5 ml Output Urine Total 1300 ml 1210 ml 1300 ml Drainage Total 1000 ml # Bowel Movements 0 0 0 Physical Exam HEAD: Normocephalic. EYES: No scleral icterus. No injection or drainage. NECK: Supple, trachea midline. No JVD or lymphadenopathy. CARDIOVASCULAR: IR IR tachycardia RESPIRATORY: Breath sounds equal bilaterally. No accessory muscle use. GASTROINTESTINAL: Abdomen soft, non-tender, nondistended. MUSCULOSKELETAL: No cyanosis, or edema. BACK: Nontender without obvious deformity. No CVA tenderness. Laboratory Laboratory Tests Test 06/18/17 12:35 06/18/17 13:45 06/18/17 19:45 06/19/17 02:00 Pleural Fluid WBC 172 /MM3 Pleural Fluid RBC 679 /MM3 Pleural Fluid Neutrophils 88 % Pleural Fluid Lymphocytes 4 % Pleural Fluid Monocytes 3 % Pleural Fluid Histiocytes 5 % Pleural Fluid Comment Pleural Fluid Total Protein 1.6 GM/DL Pleural Fluid Glucose 210 MG/DL Vancomycin Level Trough 13.3 MCG/ML Activated Partial Thromboplast Time 37.1 SEC 86.3 SEC White Blood Count 16.8 TH/MM3 Red Blood Count 4.00 MIL/MM3 Hemoglobin 11.2 GM/DL Hematocrit 32.5 % Mean Corpuscular Volume 81.2 FL Mean Corpuscular Hemoglobin 28.0 PG Mean Corpuscular Hemoglobin Concent 34.4 % Red Cell Distribution Width 14.7 % Platelet Count 314 TH/MM3 Mean Platelet Volume 7.9 FL Neutrophils (%) (Auto) 78.2 % Lymphocytes (%) (Auto) 10.8 % Monocytes (%) (Auto) 9.9 % Eosinophils (%) (Auto) 0.5 % Basophils (%) (Auto) 0.6 % Neutrophils # (Auto) 13.1 TH/MM3 Lymphocytes # (Auto) 1.8 TH/MM3 Monocytes # (Auto) 1.7 TH/MM3 Eosinophils # (Auto) 0.1 TH/MM3 Basophils # (Auto) 0.1 TH/MM3 CBC Comment AUTO DIFF Differential Comment AUTO DIFF CONFIRMED Platelet Estimate NORMAL Platelet Morphology Comment NORMAL Red Cell Morphology Comment NORMAL Blood Urea Nitrogen 12 MG/DL Creatinine 0.84 MG/DL Random Glucose 218 MG/DL Total Protein 6.7 GM/DL Albumin 1.8 GM/DL Calcium Level 7.4 MG/DL Alkaline Phosphatase 88 U/L Aspartate Amino Transf (AST/SGOT) 28 U/L Alanine Aminotransferase (ALT/SGPT) 48 U/L Total Bilirubin 0.6 MG/DL Sodium Level 133 MEQ/L Potassium Level 3.4 MEQ/L Chloride Level 97 MEQ/L Carbon Dioxide Level 28.9 MEQ/L Anion Gap 7 MEQ/L Estimat Glomerular Filtration Rate 93 ML/MIN Protein Corrected Calcium 7.6 MG/DL Test 06/19/17 08:40 Activated Partial Thromboplast Time 62.6 SEC Assessment and Plan Problem List: (1) Elevated troponin ICD Codes: R74.8 - Abnormal levels of other serum enzymes (2) Sepsis ICD Codes: A41.9 - Sepsis, unspecified organism Status: Acute Assessment and Plan CP free cardiomyopathy, probably ischemic + infection coordinate [facility] when sepsis/infection resolved afib RVR - time of onset known. amio bolus x gtt. if doesn't convert, IV cardizem. gentle diuresis. Problem Qualifiers (1) Sepsis: Qualified Codes: A41.9 - Sepsis, unspecified organism Tanner Ca MD Jun 19, 2017 09:21
[2017-06-19] MEDS ORDERED: AMIODARONE INJ 150 MG in DEXTROSE 5% IN WATER 100ML INJ 100 ML IV ONE ×2 (10:00)
[2017-06-19] MEDS ORDERED: ENALAPRILAT 1.25 MG/ML VIAL IV PUSH PRN (10:00)
[2017-06-19] MEDS ORDERED: DILTIAZEM HCL 25 MG/5 ML VIAL IV PUSH ONE (10:00)
[2017-06-19] MEDS: FUROSEMIDE 40 MG/4 ML VIAL IV PUSH SCH (10:00)
[2017-06-19] MEDS ORDERED: AMIODARONE INJ 450 MG in SODIUM CHLOR 0.9% (EXCEL) INJ 241 ML IV PRN (10:00)
--- NOTE | 2017-06-19 13:04 | HHI.PR ---
Subjective Remarks Onset of tachycardia this morning. Patient does not report any history of previous A. fib or RVR or SVT. EKG obtained and demonstrates A. fib RVR. Patient is not reporting any chest pain or dyspnea during this episode. Objective Vital Signs Date Time Temp Pulse Resp B/P (MAP) Pulse Ox O2 Delivery O2 Flow Rate FiO2 06/19/17 12:49 126 06/19/17 11:39 Nasal Cannula 5.00 21 06/19/17 11:39 122 06/19/17 11:39 99.0 122 20 144/82 (102) 96 06/19/17 10:48 122 144/84 06/19/17 10:17 126 06/19/17 08:28 97 Nasal Cannula 5.00 06/19/17 08:02 140 06/19/17 07:58 99.2 144 22 145/83 (103) 06/19/17 07:23 122 06/19/17 07:23 Nasal Cannula 5.00 21 06/19/17 06:00 87 06/19/17 05:00 90 06/19/17 04:00 Nasal Cannula 5.00 06/19/17 04:00 98.4 88 20 139/85 (103) 92 06/19/17 04:00 88 06/19/17 03:00 93 06/19/17 02:00 90 06/19/17 01:00 89 06/19/17 00:00 98.1 92 20 129/77 (94) 92 06/19/17 00:00 Nasal Cannula 5.00 06/19/17 00:00 92 06/18/17 23:00 86 06/18/17 22:29 96 Nasal Cannula 5.00 06/18/17 22:00 90 06/18/17 21:00 94 06/18/17 20:00 Nasal Cannula 5.00 06/18/17 20:00 98.4 89 20 139/86 (103) 92 06/18/17 20:00 89 06/18/17 18:13 94 06/18/17 17:30 93 06/18/17 16:25 91 06/18/17 15:21 90 Room Air 06/18/17 15:21 98.2 97 20 125/70 (88) 97 06/18/17 15:21 91 06/18/17 14:24 97 06/18/17 13:23 93 I/O 06/18/17 06/18/17 06/18/17 06/19/17 06/19/17 06/19/17 07:00 15:00 23:00 07:00 15:00 23:00 Intake Total 1632.5 ml 76 ml 1609.0 ml 1222.5 ml 602.5 ml Output Total 1300 ml 2210 ml 1300 ml Balance 332.5 ml 76 ml -601.0 ml -77.5 ml 602.5 ml Intake Oral 480 ml 1080 ml 960 ml IV Total 1152.5 ml 76 ml 529.0 ml 262.5 ml 602.5 ml Output Urine Total 1300 ml 1210 ml 1300 ml Drainage Total 1000 ml # Bowel Movements 0 0 0 Result Diagram: 06/19/1719906/19/17199 Objective Remarks GENERAL: NAD, A&Ox3 HEAD: Normocephalic. NECK: Supple, trachea midline. No lymphadenopathy. EYES: No scleral icterus. No injection or drainage. CARDIOVASCULAR: Regular rate and rhythm without murmurs, gallops, or rubs. RESPIRATORY: Breath sounds equal bilaterally. No accessory muscle use. Pulmonary crackles bilaterally. GASTROINTESTINAL: Abdomen soft, non-tender, nondistended. MUSCULOSKELETAL: No cyanosis. Increased swelling and tenderness at right leg. SKIN: Warm and dry. NEURO: No focal neurological deficitis. A/P Problem List: (1) Elevated troponin ICD Code: R74.8 - Abnormal levels of other serum enzymes (2) Erosive gastritis with hemorrhage ICD Code: K29.61 - Other gastritis with bleeding (3) GI bleeding ICD Code: K92.2 - Gastrointestinal hemorrhage, unspecified (4) Cellulitis of right thigh ICD Code: L03.115 - Cellulitis of right lower limb Status: Acute (5) Sepsis ICD Code: A41.9 - Sepsis, unspecified organism Status: Acute (6) Hyperglycemia ICD Code: R73.9 - Hyperglycemia, unspecified Status: Acute (7) Unspecified open wound, right thigh, initial encounter ICD Code: S71.101A - Unspecified open wound, right thigh, initial encounter Status: Acute Assessment and Plan 62-year-old male admitted secondary to sepsis with cellulitis, coffee-ground emesis, pleural effusion and evidence of NSTEMI. A. fib RVR Initially diltiazem IV provided but then transitioned to amiodarone Follow on telemetry Cardiology following Etiology could be related to recent NSTEMI or pleural effusion Sepsis Cellulitis Continue vancomycin Monitor CBC Follow blood cultures Doppler ultrasound of right leg Elevated troponin Suspicious for myocardial infarction Cardiac catheter planned after sepsis resolved Heparin IV Bilateral pleural effusion Diagnostic thoracentesis planned Coffee ground emesis No recurrence GI following Follow hemoglobin levels Diabetes mellitus type 2 Follow blood sugars Insulin sliding scale Diabetic diet Transition patient from 70/32 to NPH insulin as a base control. Hypertension Coronary artery disease Continue baseline treatment Follow blood pressures Adjust treatments as needed Hypoxia Pulmonary edema Some evidence of recurrence today Could be related to pleural effusion and/or CHF Provide 40 mg Lasix once Lasix 20 mg by mouth daily DVT prophylaxis IV heparin Problem Qualifiers (1) Sepsis: Qualified Codes: A41.9 - Sepsis, unspecified organism Damien Jenkins MD Jun 19, 2017 13:04
[2017-06-19] MEDS ORDERED: PHARMACY ORDERED LAB ONE (13:45)
[2017-06-19] MEDS: HEPARIN SODIUM - IV 10,000 UNITS/10 ML VIAL IV PUSH PRN (16:53)
[2017-06-19] MEDS ORDERED: VANCOMYCIN INJ 750 MG in SODIUM CHLOR 0.9% 250 ML INJ 250 ML IV ONE (18:00)
[2017-06-19] MEDS: ATORVASTATIN 40 MG TAB PO SCH (20:31)
[2017-06-20] VITALS (29 sets, daily range): BP systolic 134–152; BP diastolic 82–98; PULSE 80–98; RESP 20–21; TEMP 97.8–98.6; O2SAT 89–96
[2017-06-20] MEDS: PIPERACIL-TAZO 4.5 GM PREMIX 100 ML IV SCH ×5 (00:17→23:29)
[2017-06-20] MEDS: VANCOMYCIN INJ 1,750 MG in SODIUM CHLORID 0.9% 500 ML INJ 500 ML IV SCH ×2 (01:29→08:06)
[2017-06-20 03:00] LABS: AUTOMATED NEUTROPHIL # 9.2 TH/MM3 (1.8-7.7); BASOPHIL # 0.1 TH/MM3 (0-0.2); BASOPHIL % 0.8 % (0.0-2.0); EOSINOPHIL # 0.1 TH/MM3 (0-0.4); HEMATOCRIT 34.1 % (39.0-51.0); HEMOGLOBIN 11.3 GM/DL (13.0-17.0); LYMPH % 15.8 % (9.0-44.0); LYMPHOCYTE # 2.1 TH/MM3 (1.0-4.8); MEAN CELL VOLUME 82.4 FL (80.0-100.0); MEAN CORPUSCULAR HEMOGLOBIN 27.3 PG (27.0-34.0); MEAN CORPUSCULAR HGB CONC 33.2 % (32.0-36.0); MEAN PLATELET VOLUME 7.6 FL (7.0-11.0); MONO % 11.6 % (0.0-8.0); MONOCYTE # 1.5 TH/MM3 (0-0.9); NEUT % 70.8 % (16.0-70.0); PLATELET COUNT 365 TH/MM3 (150-450); RED BLOOD COUNT 4.14 MIL/MM3 (4.50-5.90); RED CELL DISTRIBUTION WIDTH 15.3 % (11.6-17.2)
[2017-06-20 03:32] LABS: ALBUMIN 1.9 GM/DL (3.4-5.0); ALT (GPT) 43 U/L (12-78); AST (GOT) 24 U/L (15-37); BICARBONATE 28.9 MEQ/L (21.0-32.0); BLOOD UREA NITROGEN 13 MG/DL (7-18); CALCIUM 7.8 MG/DL (8.5-10.1); CHLORIDE 98 MEQ/L (98-107); CREATININE 0.99 MG/DL (0.60-1.30); GLOMERULAR FILTRATION RATE 77 ML/MIN (>89); GLUCOSE,RANDOM 259 MG/DL (74-106); SODIUM (NA) 134 MEQ/L (136-145)
[2017-06-20 03:33] LABS: ALKALINE PHOSPHATASE 91 U/L (45-117); TOTAL BILIRUBIN ADULT 0.7 MG/DL (0.2-1.0)
[2017-06-20] MEDS: HEPARIN 25,000 UNITS-D5W 250 ML - PREMIX IV PRN ×2 (04:01→16:27)
[2017-06-20 04:45] LABS: BANDS 2 % (0-6); LYMPHOCYTES 18 % (9-44); METAMYELOCYTES 3 % (0-1); MONOCYTES 8 % (0-8); MYELOCYTES 2 % (0-0); NEUTROPHIL # MANUAL DIFF 9.6 TH/MM3 (1.8-7.7); POLYS (SEG NEUTROPHILS) 67 % (16-70)
[2017-06-20 04:48] LABS: TOXIC VACUOLATION PRESENT (NONE SEEN)
[2017-06-20] MEDS: INSULIN NovoLIN REGULAR SUPPLEMENTAL SCALE SQ SCH ×4 (08:00→21:24)
[2017-06-20] MEDS: RESP: ALBUTEROL 2.5 MG/IPRATROPIUM 0.5 MG NEB (SCH) NEB ×2 (08:02→14:00)
[2017-06-20] MEDS: INSULIN HUMAN NPH 1,000 UNITS/10 ML VIAL SQ SCH ×2 (08:07→16:39)
[2017-06-20] MEDS: LISINOPRIL 20 MG TAB PO SCH (08:07)
[2017-06-20] MEDS: SODIUM CHLORIDE 0.9% FLUSH 10 ML FLUSH IV FLUSH SCH ×2 (08:08→21:00)
[2017-06-20] MEDS: FUROSEMIDE 40 MG/4 ML VIAL IV PUSH SCH (08:08)
[2017-06-20] MEDS: PANTOPRAZOLE SODIUM 40 MG VIAL IV PUSH SCH ×2 (08:08→21:23)
[2017-06-20] MEDS: MUPIROCIN 2% OINT 22 GM TUBE TOPICAL SCH ×2 (08:09→21:00)
--- NOTE | 2017-06-20 09:28 | PD.CARD.PN ---
Subjective Subjective Remarks afib rvr this am + shortness of breath Objective Medications Current Medications Medications (Trade) Dose Ordered Sig/Joseph Route Start Time Stop Time Status Last Admin (Tylenol) 650 mg Q4H PRN PO 06/15/17 20:00 06/17/17 19:58 (Zofran Inj) 4 mg Q6H PRN IVP 06/15/17 22:00 06/18/17 19:43 (Restoril) 15 mg HS PRN PO 06/15/17 21:00 (Narcan Inj) 0.4 mg UNSCH PRN IV PUSH 06/15/17 18:15 (Senokot) 17.2 mg Q12HR PRN PO 06/15/17 21:00 06/17/17 09:54 Pharmacy Profile Note 0 ml @ 0 mls/hr UNSCH OTHER 06/15/17 18:15 (D50w (Vial) Inj) 50 ml UNSCH PRN IV PUSH 06/15/17 18:15 (Glucagon Inj) 1 mg UNSCH PRN OTHER 06/15/17 18:15 (Proair Hfa Inh) 2 puff Q6HR PRN INH 06/15/17 20:00 (Toprol Xl) 50 mg DAILY PO 06/16/17 09:00 Future Hold 06/18/17 08:55 (Prinivil) 40 mg DAILY PO 06/16/17 09:00 06/20/17 08:07 (Lipitor) 80 mg HS PO 06/16/17 21:00 06/19/17 20:31 (NovoLIN R SUPPLEMENTAL SCALE) 1 ACHS SLIDING SCALE SQ 06/16/17 12:00 06/19/17 22:44 (Duoneb Neb) 1 ampule Q6HR WHILE AWAKE NEB NEB 06/16/17 17:15 06/20/17 08:02 Piperacillin Sod/ Tazobactam Sod 100 ml @ 200 mls/hr Q6H IV 06/16/17 18:00 06/20/17 06:32 (Protonix Inj) 40 mg BID IV PUSH 06/16/17 21:00 06/20/17 08:08 Heparin Sodium/ Dextrose 250 ml @ 10 mls/hr TITRATE PRN IV 06/16/17 22:30 06/20/17 04:01 (Heparin Inj) 5,000 units UNSCH PRN IV PUSH 06/16/17 22:30 (Heparin Inj) 2,500 units UNSCH PRN IV PUSH 06/16/17 22:30 06/19/17 16:53 (Bactroban 2% Oint) 1 applic Q12HR TOPICAL 06/17/17 21:00 06/20/17 08:09 (NovoLIN N INJ) 35 units DAILY@08 SQ 06/18/17 08:00 06/20/17 08:07 (NovoLIN N INJ) 25 units DAILY@17 SQ 06/17/17 17:00 06/19/17 17:00 (NS Flush) 2 ml UNSCH PRN IV FLUSH 06/19/17 09:00 (NS Flush) 2 ml BID IV FLUSH 06/19/17 09:00 06/20/17 08:08 (Vasotec Inj) 1.25 mg Q6H PRN IV PUSH 06/19/17 10:00 Amiodarone HCl 450 mg/Sodium Chloride 250 ml @ 33.33 mls/ hr Q7H31M PRN IV 06/19/17 10:00 06/19/17 22:04 (Lasix Inj) 40 mg DAILY IV PUSH 06/19/17 10:00 06/20/17 08:08 Vancomycin HCl 1750 mg/Sodium Chloride 517.5 ml @ 250 mls/hr Q8H IV 06/20/17 00:00 06/20/17 08:06 Miscellaneous Information SPECIFIC LAB TO BE ... ONCE ONCE .XX 06/20/17 15:45 06/20/17 15:46 Vital Signs / I&O Vital Signs Date Time Temp Pulse Resp B/P (MAP) Pulse Ox O2 Delivery O2 Flow Rate FiO2 06/20/17 08:25 98.6 90 21 148/85 (106) 89 06/20/17 08:06 90 148/85 06/20/17 08:03 96 Nasal Cannula 5.00 06/20/17 07:23 94 Nasal Cannula 5.00 06/20/17 07:20 86 06/20/17 06:00 94 06/20/17 05:00 82 06/20/17 04:00 Nasal Cannula 5.00 06/20/17 04:00 98.2 86 20 134/84 (101) 93 06/20/17 04:00 84 06/20/17 03:00 84 06/20/17 02:00 82 06/20/17 01:00 84 06/20/17 00:00 82 06/20/17 00:00 98.3 80 20 140/82 (101) 93 06/20/17 00:00 Nasal Cannula 5.00 06/19/17 23:00 88 06/19/17 22:04 106 122/72 06/19/17 22:00 80 06/19/17 21:00 84 06/19/17 20:51 92 Nasal Cannula 5.50 06/19/17 20:00 97.8 106 20 122/72 (89) 93 06/19/17 20:00 Nasal Cannula 5.00 06/19/17 20:00 106 06/19/17 19:00 114 06/19/17 18:04 112 06/19/17 17:05 128 06/19/17 16:55 98.4 128 18 128/74 (92) 95 06/19/17 16:11 136 06/19/17 15:18 Nasal Cannula 5.00 21 06/19/17 15:18 128 06/19/17 14:29 138 06/19/17 13:41 118 06/19/17 12:49 126 06/19/17 11:39 Nasal Cannula 5.00 21 06/19/17 11:39 122 06/19/17 11:39 99.0 122 20 144/82 (102) 96 06/19/17 10:48 122 144/84 06/19/17 10:17 126 I/O 06/19/17 06/19/17 06/19/17 06/20/17 06/20/17 06/20/17 07:00 15:00 23:00 07:00 15:00 23:00 Intake Total 1222.5 ml 602.5 ml 1448.5 ml 1107.5 ml 100 ml Output Total 1300 ml 2000 ml 1200 ml Balance -77.5 ml 602.5 ml -551.5 ml -92.5 ml 100 ml Intake Oral 960 ml 240 ml IV Total 262.5 ml 602.5 ml 1448.5 ml 867.5 ml 100 ml Output Urine Total 1300 ml 2000 ml 1200 ml # Bowel Movements 0 Physical Exam HEAD: Normocephalic. EYES: No scleral icterus. No injection or drainage. NECK: Supple, trachea midline. No JVD or lymphadenopathy. CARDIOVASCULAR: IR IR tachycardia RESPIRATORY: Breath sounds equal bilaterally. No accessory muscle use. GASTROINTESTINAL: Abdomen soft, non-tender, nondistended. MUSCULOSKELETAL: No cyanosis, or edema. BACK: Nontender without obvious deformity. No CVA tenderness. Laboratory Laboratory Tests Test 06/19/17 15:27 06/19/17 20:51 06/20/17 02:49 Activated Partial Thromboplast Time 37.9 SEC 56.0 SEC 48.2 SEC Vancomycin Level Trough 7.5 MCG/ML White Blood Count 13.0 TH/MM3 Red Blood Count 4.14 MIL/MM3 Hemoglobin 11.3 GM/DL Hematocrit 34.1 % Mean Corpuscular Volume 82.4 FL Mean Corpuscular Hemoglobin 27.3 PG Mean Corpuscular Hemoglobin Concent 33.2 % Red Cell Distribution Width 15.3 % Platelet Count 365 TH/MM3 Mean Platelet Volume 7.6 FL Neutrophils (%) (Auto) 70.8 % Lymphocytes (%) (Auto) 15.8 % Monocytes (%) (Auto) 11.6 % Eosinophils (%) (Auto) 1.0 % Basophils (%) (Auto) 0.8 % Neutrophils # (Auto) 9.2 TH/MM3 Lymphocytes # (Auto) 2.1 TH/MM3 Monocytes # (Auto) 1.5 TH/MM3 Eosinophils # (Auto) 0.1 TH/MM3 Basophils # (Auto) 0.1 TH/MM3 CBC Comment AUTO DIFF Differential Total Cells Counted 100 Neutrophils % (Manual) 67 % Band Neutrophils % 2 % Lymphocytes % 18 % Monocytes % 8 % Neutrophils # (Manual) 9.6 TH/MM3 Metamyelocytes 3 % Myelocytes 2 % Differential Comment FINAL DIFF MANUAL Toxic Vacuolation PRESENT Platelet Estimate NORMAL Platelet Morphology Comment NORMAL Polychromasia 2.0 % Blood Urea Nitrogen 13 MG/DL Creatinine 0.99 MG/DL Random Glucose 259 MG/DL Total Protein 7.0 GM/DL Albumin 1.9 GM/DL Calcium Level 7.8 MG/DL Alkaline Phosphatase 91 U/L Aspartate Amino Transf (AST/SGOT) 24 U/L Alanine Aminotransferase (ALT/SGPT) 43 U/L Total Bilirubin 0.7 MG/DL Sodium Level 134 MEQ/L Potassium Level 3.6 MEQ/L Chloride Level 98 MEQ/L Carbon Dioxide Level 28.9 MEQ/L Anion Gap 7 MEQ/L Estimat Glomerular Filtration Rate 77 ML/MIN Assessment and Plan Problem List: (1) Elevated troponin ICD Codes: R74.8 - Abnormal levels of other serum enzymes (2) Sepsis ICD Codes: A41.9 - Sepsis, unspecified organism Status: Acute Assessment and Plan CP free cardiomyopathy, probably ischemic + infection [facility] thurs am if cleared by PCP and ID gentle diuresis. finish amio gtt x 24 then DC. currently NSR NPO p MN Mon night Problem Qualifiers (1) Sepsis: Qualified Codes: A41.9 - Sepsis, unspecified organism Tanner Ca MD Jun 20, 2017 09:28
[2017-06-20] MEDS ORDERED: PHARMACY ORDERED LAB ONE (15:45)
--- NOTE | 2017-06-20 16:29 | HHI.PR ---
Subjective Remarks Osvaldo. fib RVR is controlled on amiodarone at this point. Patient says he's starting to feel better today. No complaints of fatigue. He has decreased pain in his right leg. Objective Vital Signs Date Time Temp Pulse Resp B/P (MAP) Pulse Ox O2 Delivery O2 Flow Rate FiO2 06/20/17 16:07 98.2 92 20 152/90 (110) 95 06/20/17 15:34 90 Nasal Cannula 5.00 06/20/17 14:04 89 06/20/17 13:00 92 06/20/17 12:00 90 06/20/17 11:04 91 Nasal Cannula 5.00 06/20/17 11:04 98.6 92 20 144/83 (103) 91 06/20/17 11:00 90 06/20/17 10:00 90 06/20/17 09:00 92 06/20/17 08:25 98.6 90 21 148/85 (106) 89 06/20/17 08:06 90 148/85 06/20/17 08:03 96 Nasal Cannula 5.00 06/20/17 08:00 86 06/20/17 07:23 94 Nasal Cannula 5.00 06/20/17 07:20 86 06/20/17 06:00 94 06/20/17 05:00 82 06/20/17 04:00 Nasal Cannula 5.00 06/20/17 04:00 98.2 86 20 134/84 (101) 93 06/20/17 04:00 84 06/20/17 03:00 84 06/20/17 02:00 82 06/20/17 01:00 84 06/20/17 00:00 82 06/20/17 00:00 98.3 80 20 140/82 (101) 93 06/20/17 00:00 Nasal Cannula 5.00 06/19/17 23:00 88 06/19/17 22:04 106 122/72 06/19/17 22:00 80 06/19/17 21:00 84 06/19/17 20:51 92 Nasal Cannula 5.50 06/19/17 20:00 97.8 106 20 122/72 (89) 93 06/19/17 20:00 Nasal Cannula 5.00 06/19/17 20:00 106 06/19/17 19:00 114 06/19/17 18:04 112 06/19/17 17:05 128 06/19/17 16:55 98.4 128 18 128/74 (92) 95 I/O 06/19/17 06/19/17 06/19/17 06/20/17 06/20/17 06/20/17 07:00 15:00 23:00 07:00 15:00 23:00 Intake Total 1222.5 ml 602.5 ml 1448.5 ml 1107.5 ml 770 ml Output Total 1300 ml 2000 ml 1200 ml Balance -77.5 ml 602.5 ml -551.5 ml -92.5 ml 770 ml Intake Oral 960 ml 240 ml IV Total 262.5 ml 602.5 ml 1448.5 ml 867.5 ml 770 ml Output Urine Total 1300 ml 2000 ml 1200 ml # Bowel Movements 0 Result Diagram: 06/20/1724806/20/17 024 Objective Remarks GENERAL: NAD, A&Ox3 HEAD: Normocephalic. NECK: Supple, trachea midline. No lymphadenopathy. EYES: No scleral icterus. No injection or drainage. CARDIOVASCULAR: Regular rate and rhythm without murmurs, gallops, or rubs. RESPIRATORY: Breath sounds equal bilaterally. No accessory muscle use. Pulmonary crackles bilaterally. GASTROINTESTINAL: Abdomen soft, non-tender, nondistended. MUSCULOSKELETAL: No cyanosis. Increased swelling and tenderness at right leg. SKIN: Warm and dry. NEURO: No focal neurological deficitis. A/P Problem List: (1) Elevated troponin ICD Code: R74.8 - Abnormal levels of other serum enzymes (2) Erosive gastritis with hemorrhage ICD Code: K29.61 - Other gastritis with bleeding (3) GI bleeding ICD Code: K92.2 - Gastrointestinal hemorrhage, unspecified (4) Cellulitis of right thigh ICD Code: L03.115 - Cellulitis of right lower limb Status: Acute (5) Sepsis ICD Code: A41.9 - Sepsis, unspecified organism Status: Acute (6) Hyperglycemia ICD Code: R73.9 - Hyperglycemia, unspecified Status: Acute (7) Unspecified open wound, right thigh, initial encounter ICD Code: S71.101A - Unspecified open wound, right thigh, initial encounter Status: Acute Assessment and Plan 62-year-old male admitted secondary to sepsis with cellulitis, coffee-ground emesis, pleural effusion and evidence of NSTEMI. A. fib RVR resolved with amiodarone. Signs of infection. Possibility of heart catheter later this week A. fib RVR Continue amiodarone Follow on telemetry Cardiology following Etiology could be related to recent NSTEMI or pleural effusion Sepsis Cellulitis Continue vancomycin Monitor CBC Follow blood cultures Doppler ultrasound of right leg Elevated troponin Suspicious for myocardial infarction Cardiac catheter planned after sepsis resolved Heparin IV Bilateral pleural effusion Diagnostic thoracentesis planned Coffee ground emesis No recurrence GI following Follow hemoglobin levels Diabetes mellitus type 2 Follow blood sugars Insulin sliding scale Diabetic diet Transition patient from 70/32 to NPH insulin as a base control. Hypertension Coronary artery disease Continue baseline treatment Follow blood pressures Adjust treatments as needed Hypoxia Pulmonary edema Hypoxemia resolved Some evidence of recurrence today Could be related to pleural effusion and/or CHF Provide 40 mg Lasix once Lasix 20 mg by mouth daily DVT prophylaxis IV heparin Problem Qualifiers (1) Sepsis: Qualified Codes: A41.9 - Sepsis, unspecified organism Damien Jenkins MD Jun 20, 2017 16:28
--- NOTE | 2017-06-20 17:30 | HHI.IDPN ---
Note Infectious Disease Note Patient states that he feels okay. Awake and more alert today. Right pleural effusion drained yesterday. States that he is able to put some weight on his right leg today for the first time. Denies shortness of breath or chest pain. Afebrile. Pleural fluid cultures no growth. Blood culture has no growth. 2D ECHO without vegetation. 62-year-old white male who presented to the emergency department yesterday with vomiting. He reportedly was vomiting for three days before presenting to the emergency department. He was noted to have dark / black vomitus. The patient has insulin-dependent diabetes. He was evaluated in the emergency department and had temperature of 102.6 degrees, heart rate of 109, white blood cell count of 35.3. The patient was suspected to have sepsis and was admitted to the hospital for further management. The patient was noted to have lesions on the thighs bilaterally and also at the dorsum of the finger on the left side and knuckle on the right. . Culture of the left thigh lesion has growth of Staph aureus and group B beta Strep. PAST MEDICAL HISTORY: 1. Coronary artery disease. 2. Diabetes mellitus. 3. Hypertension. 4. History of coronary stents. ALLERGIES: NO KNOWN DRUG ALLERGIES. MEDICATIONS: 1. Piperacillin / tazobactam. 2. Vancomycin. Current Medications Medications (Trade) Dose Ordered Sig/Joseph Route PRN Reason Start Time Stop Time Status Last Admin Dose Admin Acetaminophen (Tylenol) 650 mg Q4H PRN PO TEMP > 100.4 06/15/17 20:00 06/17/17 19:58 Ondansetron HCl (Zofran Inj) 4 mg Q6H PRN IVP NAUSEA OR VOMITING 06/15/17 22:00 06/18/17 19:43 Temazepam (Restoril) 15 mg HS PRN PO INSOMNIA 06/15/17 21:00 Naloxone HCl (Narcan Inj) 0.4 mg UNSCH PRN IV PUSH SEE LABEL COMMENTS 06/15/17 18:15 Sennosides (Senokot) 17.2 mg Q12HR PRN PO Moderate constipation 06/15/17 21:00 06/17/17 09:54 Pharmacy Profile Note 0 ml @ 0 mls/hr UNSCH OTHER 06/15/17 18:15 Dextrose (D50w (Vial) Inj) 50 ml UNSCH PRN IV PUSH HYPOGLYCEMIA-SEE COMMENTS 06/15/17 18:15 Glucagon (Glucagon Inj) 1 mg UNSCH PRN OTHER HYPOGLYCEMIA-SEE COMMENTS 06/15/17 18:15 Albuterol Sulfate (Proair Hfa Inh) 2 puff Q6HR PRN INH SHORTNESS OF BREATH 06/15/17 20:00 Metoprolol Succinate (Toprol Xl) 50 mg DAILY PO 06/16/17 09:00 Future Hold 06/18/17 08:55 Lisinopril (Prinivil) 40 mg DAILY PO 06/16/17 09:00 06/20/17 08:07 Atorvastatin Calcium (Lipitor) 80 mg HS PO 06/16/17 21:00 06/19/17 20:31 Insulin Human Regular (NovoLIN R SUPPLEMENTAL SCALE) 1 ACHS SLIDING SCALE SQ 06/16/17 12:00 06/20/17 16:39 Piperacillin Sod/ Tazobactam Sod 100 ml @ 200 mls/hr Q6H IV 06/16/17 18:00 06/20/17 16:23 Pantoprazole Sodium (Protonix Inj) 40 mg BID IV PUSH 06/16/17 21:00 06/20/17 08:08 Heparin Sodium/ Dextrose 250 ml @ 10 mls/hr TITRATE PRN IV Coagulation Management 06/16/17 22:30 06/20/17 16:27 Heparin Sodium (Porcine) (Heparin Inj) 5,000 units UNSCH PRN IV PUSH aPTT less than 25 06/16/17 22:30 Heparin Sodium (Porcine) (Heparin Inj) 2,500 units UNSCH PRN IV PUSH aPTT 25 to 39 06/16/17 22:30 06/19/17 16:53 Mupirocin (Bactroban 2% Oint) 1 applic Q12HR TOPICAL 06/17/17 21:00 06/20/17 08:09 Insulin Human NPH (NovoLIN N INJ) 35 units DAILY@08 SQ 06/18/17 08:00 06/20/17 08:07 Insulin Human NPH (NovoLIN N INJ) 25 units DAILY@17 SQ 06/17/17 17:00 06/20/17 16:39 Sodium Chloride (NS Flush) 2 ml UNSCH PRN IV FLUSH FLUSH AFTER USING IV ACCESS 06/19/17 09:00 Sodium Chloride (NS Flush) 2 ml BID IV FLUSH 06/19/17 09:00 06/20/17 08:08 Enalaprilat (Vasotec Inj) 1.25 mg Q6H PRN IV PUSH SBP>160, DBP>90 06/19/17 10:00 Furosemide (Lasix Inj) 40 mg DAILY IV PUSH 06/19/17 10:00 06/20/17 08:08 Vancomycin HCl 1750 mg/Sodium Chloride 517.5 ml @ 250 mls/hr Q8H IV 06/20/17 00:00 06/20/17 08:06 SOCIAL HISTORY: The patient denies tobacco. He denies alcohol use. He denies recent drug use. The patient is from [place]. FAMILY HISTORY: Noncontributory. OBJECTIVE: Vital Signs Date Time Temp Pulse Resp B/P (MAP) Pulse Ox O2 Delivery O2 Flow Rate FiO2 06/20/17 16:07 98.2 92 20 152/90 (110) 95 06/20/17 15:34 90 Nasal Cannula 5.00 06/20/17 14:04 89 06/20/17 13:00 92 06/20/17 12:00 90 06/20/17 11:04 91 Nasal Cannula 5.00 06/20/17 11:04 98.6 92 20 144/83 (103) 91 06/20/17 11:00 90 06/20/17 10:00 90 06/20/17 09:00 92 06/20/17 08:25 98.6 90 21 148/85 (106) 89 06/20/17 08:06 90 148/85 06/20/17 08:03 96 Nasal Cannula 5.00 06/20/17 08:00 86 06/20/17 07:23 94 Nasal Cannula 5.00 06/20/17 07:20 86 06/20/17 06:00 94 06/20/17 05:00 82 06/20/17 04:00 Nasal Cannula 5.00 06/20/17 04:00 98.2 86 20 134/84 (101) 93 06/20/17 04:00 84 06/20/17 03:00 84 06/20/17 02:00 82 06/20/17 01:00 84 06/20/17 00:00 82 06/20/17 00:00 98.3 80 20 140/82 (101) 93 06/20/17 00:00 Nasal Cannula 5.00 06/19/17 23:00 88 06/19/17 22:04 106 122/72 06/19/17 22:00 80 06/19/17 21:00 84 06/19/17 20:51 92 Nasal Cannula 5.50 06/19/17 20:00 97.8 106 20 122/72 (89) 93 06/19/17 20:00 Nasal Cannula 5.00 06/19/17 20:00 106 06/19/17 19:00 114 06/19/17 18:04 112 Laboratory Tests Test 06/19/17 02:00 06/20/17 02:49 White Blood Count 16.8 TH/MM3 13.0 TH/MM3 Red Blood Count 4.00 MIL/MM3 4.14 MIL/MM3 Hemoglobin 11.2 GM/DL 11.3 GM/DL Hematocrit 32.5 % 34.1 % Mean Corpuscular Volume 81.2 FL 82.4 FL Mean Corpuscular Hemoglobin 28.0 PG 27.3 PG Mean Corpuscular Hemoglobin Concent 34.4 % 33.2 % Red Cell Distribution Width 14.7 % 15.3 % Platelet Count 314 TH/MM3 365 TH/MM3 Mean Platelet Volume 7.9 FL 7.6 FL Neutrophils (%) (Auto) 78.2 % 70.8 % Lymphocytes (%) (Auto) 10.8 % 15.8 % Monocytes (%) (Auto) 9.9 % 11.6 % Eosinophils (%) (Auto) 0.5 % 1.0 % Basophils (%) (Auto) 0.6 % 0.8 % Neutrophils # (Auto) 13.1 TH/MM3 9.2 TH/MM3 Lymphocytes # (Auto) 1.8 TH/MM3 2.1 TH/MM3 Monocytes # (Auto) 1.7 TH/MM3 1.5 TH/MM3 Eosinophils # (Auto) 0.1 TH/MM3 0.1 TH/MM3 Basophils # (Auto) 0.1 TH/MM3 0.1 TH/MM3 CBC Comment AUTO DIFF AUTO DIFF Differential Comment AUTO DIFF CONFIRMED FINAL DIFF MANUAL Platelet Estimate NORMAL NORMAL Platelet Morphology Comment NORMAL NORMAL Red Cell Morphology Comment NORMAL Differential Total Cells Counted 100 Neutrophils % (Manual) 67 % Band Neutrophils % 2 % Lymphocytes % 18 % Monocytes % 8 % Neutrophils # (Manual) 9.6 TH/MM3 Metamyelocytes 3 % Myelocytes 2 % Toxic Vacuolation PRESENT Polychromasia 2.0 % Laboratory Tests Test 06/19/17 02:00 06/20/17 02:49 Blood Urea Nitrogen 12 MG/DL 13 MG/DL Creatinine 0.84 MG/DL 0.99 MG/DL Random Glucose 218 MG/DL 259 MG/DL Total Protein 6.7 GM/DL 7.0 GM/DL Albumin 1.8 GM/DL 1.9 GM/DL Calcium Level 7.4 MG/DL 7.8 MG/DL Alkaline Phosphatase 88 U/L 91 U/L Aspartate Amino Transf (AST/SGOT) 28 U/L 24 U/L Alanine Aminotransferase (ALT/SGPT) 48 U/L 43 U/L Total Bilirubin 0.6 MG/DL 0.7 MG/DL Sodium Level 133 MEQ/L 134 MEQ/L Potassium Level 3.4 MEQ/L 3.6 MEQ/L Chloride Level 97 MEQ/L 98 MEQ/L Carbon Dioxide Level 28.9 MEQ/L 28.9 MEQ/L Anion Gap 7 MEQ/L 7 MEQ/L Estimat Glomerular Filtration Rate 93 ML/MIN 77 ML/MIN Protein Corrected Calcium 7.6 MG/DL Microbiology Date/Time Source Procedure Growth Status 06/18/17 12:35 Fluid Pleural Fluid Fungal Smear - Final NO FUNGAL ELEMENTS SEEN. Resulted 06/18/17 12:35 Fluid Pleural Fluid Fungal Culture Pending Resulted 06/18/17 12:35 Fluid Pleural Fluid Acid Fast Stain - Final NO ACID FAST BACILLI SEEN Resulted 06/18/17 12:35 Fluid Pleural Fluid Mycobacterial Culture Pending Resulted 06/18/17 12:35 Fluid Pleural Fluid Gram Stain - Final Resulted 06/18/17 12:35 Fluid Pleural Fluid Body Fluid Culture - Preliminary NO GROWTH IN 48 HOURS. Resulted IMAGING: Lower Extremity Ultrasound 06/17/17 0000 Signed Impressions: Service Date/Time: Saturday, June 17, 2017 18:20 - CONCLUSION: No evidence of DVT. Nima Johnson MD Lower Extremity CT 06/16/17 0000 Signed Impressions: Service Date/Time: Friday, June 16, 2017 10:12 - CONCLUSION: 1. Posterior subcutaneous soft tissue induration and some mild fluid tracking along the surface of the hamstring muscles. No focal collections of gas and no drainable fluid collection seen. 2. Osseous structures of the thigh are intact. Ruben Medina MD CT Angiography 06/16/17 0000 Signed Impressions: Service Date/Time: Friday, June 16, 2017 10:12 - CONCLUSION: 1. Negative for pulmonary embolism. 2. Bilateral pleural effusions, right greater than left. 3. Bilateral lower lung perivascular thickening suggest either interstitial pulmonary edema or inflammatory process. Ruben Medina MD Chest X-Ray 06/15/17 1606 Signed Impressions: Service Date/Time: May 16:19 - CONCLUSION: The lungs are clear. Ruben Medina MD Knee X-Ray 06/15/17 0000 Signed Impressions: Service Date/Time: May 17:22 - CONCLUSION: 1. No evidence of recent bony injury. Ruben Medina MD Femur X-Ray 06/15/17 0000 Signed Impressions: Service Date/Time: May 17:22 - CONCLUSION: No acute findings. Ruben Medina MD PHYSICAL EXAMINATION: GENERAL: Awake and alert. He is receiving oxygen via nasal cannula. HEENT: Head is atraumatic. Extraocular movements grossly intact. No icterus. Oropharynx with moist mucosa. No visible lesions. The mucosa is moist. NECK: The neck is supple without adenopathy. LUNGS: Decreased breath sounds. HEART: Regular S1 and S2. No audible murmurs, rubs or gallops. ABDOMEN: Obese, soft, diminished bowel sounds. Nontender. EXTREMITIES: Inner thigh has a lesion with dark eschar centrally. It is about a dollar coin size. This is located at the distal left inner thigh. The distal right outer thigh has a similar lesion. The left index finger had an excoriated lesion at the dorsal aspect of the proximal interphalangeal joint. The patient also has an excoriated lesion at the base of the third finger on the right hand. These have a scab. Erythema at the right lateral calf. The area is warm. The extremities have no clubbing, cyanosis or edema. NEUROLOGIC: No gross focal findings. PSYCHIATRIC: Calm and cooperative. IMPRESSION: 1. Sepsis. Patient presented with fever, tachycardia, leukocytosis and elevated lactic acid. 2. Cellulitis of the right lateral calf and thigh / skin lesions of the lower extremities. Questionable etiology. Culture of the wounds of the lower extremities has group A beta Strep and Staph aureus. 3. Abnormal CT of the chest with lower lung perivascular thickening along with pleural effusions and patient now with purulent sputum. Rule out pulmonary disease. Possible pneumonia. 4. Diabetes mellitus. The patient had hypoglycemia on presentation. 5. Leukocytosis. WBC lower. RECOMMENDATIONS: 1. Continue Vancomycin to cover MRSA. 2. Continue piperacillin / tazobactam for pulmonary coverage. 3. Monitor pleural fluid culture. 4. Obtain HIV status testing. 5. Monitor the white blood cell count. 6. Follow-up chest x-ray. 7. Monitor response to antibiotic treatment. 8. Physical therapy for ambulation. Tavo Branch MD Jun 20, 2017 17:30
[2017-06-20] MEDS: ATORVASTATIN 40 MG TAB PO SCH (21:24)
--- NOTE | 2017-06-20 22:59 | EKG ---
Date Performed: 06/19/2017 Time Performed: 08:51:08 PTAGE: 62 years EKG: Atrial fibrillation with rapid ventricular response. Incomplete LBBB Poor R wave progressio n - probable normal variant Inferior/lateral ST-T changes are nonspecific Low QRS voltages in limb le ads Abnormal ECG PREVIOUS TRACING : 06/15/2017 16.42 Compared to prior tracing, SR NO LONGER PRESENT DOCTOR: Carla Bell Interpretating Date/Time 06/20/2017 22:57:08
[2017-06-21] VITALS (25 sets, daily range): BP systolic 124–156; BP diastolic 79–92; PULSE 74–142; RESP 18–22; TEMP 98–99; O2SAT 91–97
[2017-06-21] MEDS: PIPERACIL-TAZO 4.5 GM PREMIX 100 ML IV SCH ×3 (05:35→17:54)
[2017-06-21] MEDS: HEPARIN 25,000 UNITS-D5W 250 ML - PREMIX IV PRN (05:50)
[2017-06-21] MEDS ORDERED: VANCOMYCIN 1,500 MG/NS 500 ML IV SCH ×2 (06:00)
[2017-06-21] MEDS ORDERED: DILTIAZEM HCL 30 MG TAB PO ONE (06:15)
[2017-06-21] MEDS ORDERED: AMIODARONE 150 MG/D5W 97 ML BOLUS 10 MINUTES IV ONE ×2 (06:15)
[2017-06-21] MEDS: LISINOPRIL 20 MG TAB PO SCH (08:18)
[2017-06-21] MEDS: FUROSEMIDE 40 MG/4 ML VIAL IV PUSH SCH (08:18)
[2017-06-21] MEDS: SODIUM CHLORIDE 0.9% FLUSH 10 ML FLUSH IV FLUSH SCH ×2 (08:18→20:40)
[2017-06-21] MEDS: INSULIN NovoLIN REGULAR SUPPLEMENTAL SCALE SQ SCH ×4 (08:18→21:00)
[2017-06-21] MEDS: PANTOPRAZOLE SODIUM 40 MG VIAL IV PUSH SCH ×2 (08:19→20:41)
[2017-06-21] MEDS: INSULIN HUMAN NPH 1,000 UNITS/10 ML VIAL SQ SCH ×2 (08:19→17:00)
[2017-06-21] MEDS: MUPIROCIN 2% OINT 22 GM TUBE TOPICAL SCH ×2 (08:19→20:47)
[2017-06-21 09:13] LABS: AUTOMATED NEUTROPHIL # 9.6 TH/MM3 (1.8-7.7); BASOPHIL # 0.1 TH/MM3 (0-0.2); BASOPHIL % 0.4 % (0.0-2.0); EOSINOPHIL # 0.1 TH/MM3 (0-0.4); EOSINOPHIL % 1.1 % (0.0-4.0); HEMATOCRIT 36.2 % (39.0-51.0); LYMPH % 15.1 % (9.0-44.0); MEAN CELL VOLUME 82.2 FL (80.0-100.0); MEAN CORPUSCULAR HEMOGLOBIN 27.4 PG (27.0-34.0); MEAN CORPUSCULAR HGB CONC 33.3 % (32.0-36.0); MEAN PLATELET VOLUME 8.1 FL (7.0-11.0); MONO % 12.5 % (0.0-8.0); MONOCYTE # 1.7 TH/MM3 (0-0.9); NEUT % 70.9 % (16.0-70.0); PLATELET COUNT 401 TH/MM3 (150-450); RED CELL DISTRIBUTION WIDTH 15.5 % (11.6-17.2); WHITE BLOOD COUNT 13.6 TH/MM3 (4.0-11.0)
[2017-06-21 09:31] LABS: ALBUMIN 2.1 GM/DL (3.4-5.0); AST (GOT) 22 U/L (15-37); BICARBONATE 31.2 MEQ/L (21.0-32.0); BLOOD UREA NITROGEN 10 MG/DL (7-18); CALCIUM 8.3 MG/DL (8.5-10.1); CHLORIDE 94 MEQ/L (98-107); CREATININE 0.96 MG/DL (0.60-1.30); GLOMERULAR FILTRATION RATE 80 ML/MIN (>89); GLUCOSE,RANDOM 247 MG/DL (74-106); SODIUM (NA) 133 MEQ/L (136-145)
[2017-06-21 09:37] LABS: ALKALINE PHOSPHATASE 102 U/L (45-117); ALT (GPT) 44 U/L (12-78); TOTAL BILIRUBIN ADULT 0.6 MG/DL (0.2-1.0); TOTAL PROTEIN 7.5 GM/DL (6.4-8.2)
[2017-06-21] MEDS ORDERED: DILTIAZEM HCL 25 MG/5 ML (Bolus) IV PUSH ONE (14:00)
--- NOTE | 2017-06-21 14:14 | PD.CARD.PN ---
Subjective Subjective Remarks afib rvr this am again + shortness of breath Objective Medications Current Medications Medications (Trade) Dose Ordered Sig/Joseph Route Start Time Stop Time Status Last Admin (Tylenol) 650 mg Q4H PRN PO 06/15/17 20:00 06/17/17 19:58 (Zofran Inj) 4 mg Q6H PRN IVP 06/15/17 22:00 06/18/17 19:43 (Restoril) 15 mg HS PRN PO 06/15/17 21:00 (Narcan Inj) 0.4 mg UNSCH PRN IV PUSH 06/15/17 18:15 (Senokot) 17.2 mg Q12HR PRN PO 06/15/17 21:00 06/17/17 09:54 Pharmacy Profile Note 0 ml @ 0 mls/hr UNSCH OTHER 06/15/17 18:15 (D50w (Vial) Inj) 50 ml UNSCH PRN IV PUSH 06/15/17 18:15 (Glucagon Inj) 1 mg UNSCH PRN OTHER 06/15/17 18:15 (Proair Hfa Inh) 2 puff Q6HR PRN INH 06/15/17 20:00 (Toprol Xl) 50 mg DAILY PO 06/16/17 09:00 Future Hold 06/18/17 08:55 (Prinivil) 40 mg DAILY PO 06/16/17 09:00 06/21/17 08:18 (Lipitor) 80 mg HS PO 06/16/17 21:00 06/20/17 21:24 (NovoLIN R SUPPLEMENTAL SCALE) 1 ACHS SLIDING SCALE SQ 06/16/17 12:00 06/21/17 11:45 Piperacillin Sod/ Tazobactam Sod 100 ml @ 200 mls/hr Q6H IV 06/16/17 18:00 06/21/17 11:45 (Protonix Inj) 40 mg BID IV PUSH 06/16/17 21:00 06/21/17 08:19 Heparin Sodium/ Dextrose 250 ml @ 10 mls/hr TITRATE PRN IV 06/16/17 22:30 06/21/17 05:50 (Heparin Inj) 5,000 units UNSCH PRN IV PUSH 06/16/17 22:30 (Heparin Inj) 2,500 units UNSCH PRN IV PUSH 06/16/17 22:30 06/19/17 16:53 (Bactroban 2% Oint) 1 applic Q12HR TOPICAL 06/17/17 21:00 06/21/17 08:19 (NovoLIN N INJ) 35 units DAILY@08 SQ 06/18/17 08:00 06/21/17 08:19 (NovoLIN N INJ) 25 units DAILY@17 SQ 06/17/17 17:00 06/20/17 16:39 (NS Flush) 2 ml UNSCH PRN IV FLUSH 06/19/17 09:00 (NS Flush) 2 ml BID IV FLUSH 06/19/17 09:00 06/21/17 08:18 (Vasotec Inj) 1.25 mg Q6H PRN IV PUSH 06/19/17 10:00 (Lasix Inj) 40 mg DAILY IV PUSH 06/19/17 10:00 06/21/17 08:18 Vancomycin HCl 2000 mg/Sodium Chloride 520 ml @ 257.5 mls/ hr Q12H IV 06/21/17 20:00 Miscellaneous Information SPECIFIC LAB TO BE DRAWN:VANCOMYCIN TROUGH DATE TO... ONCE ONCE .XX 06/23/17 07:45 06/23/17 07:46 Diltiazem HCl 125 mg/Sodium Chloride 125 ml @ 5 mls/hr TITRATE PRN IV 06/21/17 15:00 Vital Signs / I&O Vital Signs Date Time Temp Pulse Resp B/P (MAP) Pulse Ox O2 Delivery O2 Flow Rate FiO2 06/21/17 13:10 125 06/21/17 12:25 87 06/21/17 11:57 97 Nasal Cannula 5.00 06/21/17 11:00 97 Nasal Cannula 5.00 06/21/17 11:00 98.0 74 18 124/86 (99) 97 06/21/17 11:00 81 06/21/17 10:17 84 06/21/17 09:00 93 06/21/17 08:00 130 06/21/17 08:00 98.2 127 18 127/92 (104) 92 06/21/17 08:00 92 Nasal Cannula 5.00 06/21/17 06:30 144 137/80 06/21/17 06:00 142 06/21/17 05:00 92 06/21/17 04:00 Nasal Cannula 5.00 06/21/17 04:00 99.0 22 137/80 (99) 91 06/21/17 04:00 87 06/21/17 03:00 94 06/21/17 02:00 92 06/21/17 01:00 96 06/21/17 00:00 96 06/21/17 00:00 98.7 97 20 156/91 (112) 93 06/21/17 00:00 Nasal Cannula 5.00 06/20/17 23:00 98 06/20/17 22:00 94 06/20/17 21:00 92 06/20/17 20:00 94 06/20/17 20:00 97.8 95 20 148/98 (115) 92 06/20/17 20:00 Nasal Cannula 5.00 06/20/17 19:34 95 Nasal Cannula 5.00 06/20/17 19:00 94 06/20/17 18:00 92 06/20/17 17:00 94 06/20/17 16:07 98.2 92 20 152/90 (110) 95 06/20/17 16:00 90 06/20/17 15:34 90 Nasal Cannula 5.00 06/20/17 15:00 90 I/O 06/20/17 06/20/17 06/20/17 06/21/17 06/21/17 06/21/17 07:00 15:00 23:00 07:00 15:00 23:00 Intake Total 1107.5 ml 770 ml 965 ml 720 ml 615 ml Output Total 1200 ml 2800 ml 3375 ml Balance -92.5 ml 770 ml -1835 ml -2655 ml 615 ml Intake Oral 240 ml 720 ml 720 ml IV Total 867.5 ml 770 ml 245 ml 615 ml Output Urine Total 1200 ml 2800 ml 3375 ml Physical Exam HEAD: Normocephalic. EYES: No scleral icterus. No injection or drainage. NECK: Supple, trachea midline. No JVD or lymphadenopathy. CARDIOVASCULAR: IR IR tachycardia RESPIRATORY: Breath sounds equal bilaterally. No accessory muscle use. GASTROINTESTINAL: Abdomen soft, non-tender, nondistended. MUSCULOSKELETAL: No cyanosis, or edema. BACK: Nontender without obvious deformity. No CVA tenderness. Laboratory Laboratory Tests Test 06/20/17 16:56 06/21/17 08:07 Vancomycin Level Trough 25.6 MCG/ML White Blood Count 13.6 TH/MM3 Red Blood Count 4.40 MIL/MM3 Hemoglobin 12.0 GM/DL Hematocrit 36.2 % Mean Corpuscular Volume 82.2 FL Mean Corpuscular Hemoglobin 27.4 PG Mean Corpuscular Hemoglobin Concent 33.3 % Red Cell Distribution Width 15.5 % Platelet Count 401 TH/MM3 Mean Platelet Volume 8.1 FL Neutrophils (%) (Auto) 70.9 % Lymphocytes (%) (Auto) 15.1 % Monocytes (%) (Auto) 12.5 % Eosinophils (%) (Auto) 1.1 % Basophils (%) (Auto) 0.4 % Neutrophils # (Auto) 9.6 TH/MM3 Lymphocytes # (Auto) 2.0 TH/MM3 Monocytes # (Auto) 1.7 TH/MM3 Eosinophils # (Auto) 0.1 TH/MM3 Basophils # (Auto) 0.1 TH/MM3 CBC Comment DIFF FINAL Differential Comment Activated Partial Thromboplast Time 46.7 SEC Blood Urea Nitrogen 10 MG/DL Creatinine 0.96 MG/DL Random Glucose 247 MG/DL Total Protein 7.5 GM/DL Albumin 2.1 GM/DL Calcium Level 8.3 MG/DL Alkaline Phosphatase 102 U/L Aspartate Amino Transf (AST/SGOT) 22 U/L Alanine Aminotransferase (ALT/SGPT) 44 U/L Total Bilirubin 0.6 MG/DL Sodium Level 133 MEQ/L Potassium Level 3.3 MEQ/L Chloride Level 94 MEQ/L Carbon Dioxide Level 31.2 MEQ/L Anion Gap 8 MEQ/L Estimat Glomerular Filtration Rate 80 ML/MIN HIV (1&2) Antibody NEGATIVE Assessment and Plan Problem List: (1) Elevated troponin ICD Codes: R74.8 - Abnormal levels of other serum enzymes (2) Sepsis ICD Codes: A41.9 - Sepsis, unspecified organism Status: Acute Assessment and Plan CP free cardiomyopathy, probably ischemic + infection converted back to NSR NPO p MN metoprolol Problem Qualifiers (1) Sepsis: Qualified Codes: A41.9 - Sepsis, unspecified organism Tanner Ca MD Jun 21, 2017 14:14
[2017-06-21] MEDS ORDERED: DILTIAZEM 125 MG/NS 100 ML IV PRN ×2 (15:00)
[2017-06-21] MEDS: METOPROLOL TARTRATE 25 MG TAB PO SCH (20:41)
[2017-06-21] MEDS: ATORVASTATIN 40 MG TAB PO SCH (20:41)
[2017-06-21] MEDS: VANCOMYCIN INJ 2,000 MG in SODIUM CHLORID 0.9% 500 ML INJ 500 ML IV SCH (21:51)
--- NOTE | 2017-06-21 22:28 | HHI.PR ---
Subjective Remarks Patient says he is feeling well. Denies any chest pain or shortness of breath. Objective Vital Signs Date Time Temp Pulse Resp B/P (MAP) Pulse Ox O2 Delivery O2 Flow Rate FiO2 06/21/17 20:56 98.4 06/21/17 20:42 88 18 146/90 (108) 95 06/21/17 18:01 92 06/21/17 17:39 90 06/21/17 16:00 86 06/21/17 15:30 88 06/21/17 15:30 98.4 85 18 125/79 (94) 97 06/21/17 15:30 97 Nasal Cannula 3.00 06/21/17 14:00 86 06/21/17 13:10 125 06/21/17 12:25 87 06/21/17 11:57 97 Nasal Cannula 5.00 06/21/17 11:00 97 Nasal Cannula 5.00 06/21/17 11:00 98.0 74 18 124/86 (99) 97 06/21/17 11:00 81 06/21/17 10:17 84 06/21/17 09:00 93 06/21/17 08:00 130 06/21/17 08:00 98.2 127 18 127/92 (104) 92 06/21/17 08:00 92 Nasal Cannula 5.00 06/21/17 06:30 144 137/80 06/21/17 06:00 142 06/21/17 05:00 92 06/21/17 04:00 Nasal Cannula 5.00 06/21/17 04:00 99.0 22 137/80 (99) 91 06/21/17 04:00 87 06/21/17 03:00 94 06/21/17 02:00 92 06/21/17 01:00 96 06/21/17 00:00 96 06/21/17 00:00 98.7 97 20 156/91 (112) 93 06/21/17 00:00 Nasal Cannula 5.00 06/20/17 23:00 98 I/O 06/20/17 06/20/17 06/20/17 06/21/17 06/21/17 06/21/17 06:59 14:59 22:59 06:59 14:59 22:59 Intake Total 1107.5 ml 770 ml 965 ml 720 ml 615 ml 1200 ml Output Total 1200 ml 2800 ml 3375 ml 3600 ml Balance -92.5 ml 770 ml -1835 ml -2655 ml 615 ml -2400 ml Intake Oral 240 ml 720 ml 720 ml 1200 ml IV Total 867.5 ml 770 ml 245 ml 615 ml Output Urine Total 1200 ml 2800 ml 3375 ml 3600 ml # Bowel Movements 1 Result Diagram: 06/21/17 0806/21/17 08 Objective Remarks GENERAL: patient sitting up in chair at bedside. SKIN: Warm and dry.3 x 3 cm eschar left medial legjust proximal to left knee. Small ulceration, 2 x 1 cm right lateral leg, just above right knee. Minimal surrounding erythema. HEAD: Normocephalic. EYES: No scleral icterus. No injection or drainage. NECK: Supple, trachea midline. No JVD. CARDIOVASCULAR: Regular rate and rhythm without murmurs, gallops, or rubs. RESPIRATORY: Breath sounds equal bilaterally. No accessory muscle use. GASTROINTESTINAL: Abdomen soft, non-tender, nondistended. MUSCULOSKELETAL: No cyanosis, or edema. BACK: Nontender without obvious deformity. No CVA tenderness. A/P Assessment and Plan 62-year-old male admitted secondary to sepsis with cellulitis, coffee-ground emesis, pleural effusion and evidence of NSTEMI. ======06/21. Patient examined. Cardiac catheterization tomorrow. //Leukocytosis continues 13. Continue antibiotics as per ID. Cultures negative at this time. //Hyperglycemia in the 300s. Insulin adjusted. // Hypokalemia 3.3. Replaced. //A. fib RVR Continue amiodarone Follow on telemetry Cardiology following Etiology could be related to recent NSTEMI or pleural effusion //Sepsis //Cellulitis Continue vancomycin Monitor CBC Follow blood cultures Doppler ultrasound of right leg negative -Continue antibiotics as per ID. //Elevated troponin Suspicious for myocardial infarction Cardiac catheter planned after sepsis resolved Heparin IV //Bilateral pleural effusion Diagnostic thoracentesis planned //Coffee ground emesis No recurrence GI following Follow hemoglobin levels //Diabetes mellitus type 2 Follow blood sugars Insulin sliding scale Diabetic diet Transition patient from 70/32 to NPH insulin as a base control. //Hypertension Coronary artery disease Continue baseline treatment Follow blood pressures Adjust treatments as needed //Hypoxia //Pulmonary edema Hypoxemia resolved Some evidence of recurrence today Could be related to pleural effusion and/or CHF Provide 40 mg Lasix once Lasix 20 mg by mouth daily DVT prophylaxis IV heparin Discharge Planning cardiac catheterization tomorrow Jonny Reynolds MD Jun 21, 2017 22:28
[2017-06-21] MEDS: POTASSIUM CHLOR 10 MEQ PREMIX 100 ML IV SCH ×2 (22:35→23:58)
[2017-06-22] VITALS (21 sets, daily range): BP systolic 130–150; BP diastolic 85–98; PULSE 74–87; RESP 16–18; TEMP 97.7–98.6; O2SAT 91–94
[2017-06-22] MEDS: POTASSIUM CHLOR 10 MEQ PREMIX 100 ML IV SCH (00:35)
[2017-06-22] MEDS: PIPERACIL-TAZO 4.5 GM PREMIX 100 ML IV SCH ×3 (00:35→12:38)
[2017-06-22] MEDS ORDERED: PHARMACY ORDERED LAB ONE (05:45)
[2017-06-22 07:52] LABS: CREATININE 1.05 MG/DL (0.60-1.30)
[2017-06-22] MEDS: INSULIN HUMAN NPH 1,000 UNITS/10 ML VIAL SQ SCH ×2 (08:00→19:17)
[2017-06-22] MEDS: INSULIN NovoLIN REGULAR SUPPLEMENTAL SCALE SQ SCH ×4 (08:00→22:11)
[2017-06-22] MEDS ORDERED: INSULIN ASPART 1,000 UNITS/10 ML VIAL SQ SCH ×2 (08:00→12:00)
[2017-06-22] MEDS: LISINOPRIL 20 MG TAB PO SCH (08:19)
[2017-06-22] MEDS: PANTOPRAZOLE SODIUM 40 MG VIAL IV PUSH SCH ×2 (08:19→22:10)
[2017-06-22] MEDS: METOPROLOL TARTRATE 25 MG TAB PO SCH ×2 (08:19→22:11)
[2017-06-22] MEDS: FUROSEMIDE 40 MG/4 ML VIAL IV PUSH SCH (08:19)
[2017-06-22] MEDS: SODIUM CHLORIDE 0.9% FLUSH 10 ML FLUSH IV FLUSH SCH ×2 (08:20→20:05)
[2017-06-22] MEDS: VANCOMYCIN INJ 2,000 MG in SODIUM CHLORID 0.9% 500 ML INJ 500 ML IV SCH ×2 (08:22→20:05)
[2017-06-22] MEDS: MUPIROCIN 2% OINT 22 GM TUBE TOPICAL SCH ×2 (08:49→21:00)
--- NOTE | 2017-06-22 09:31 | PD.CARD.PN ---
Subjective Subjective Remarks reports increased R lower leg pain and redness overnight. lateral area just below knee, erythematous, slightly edematous and tender to touch. no chest pain or rvr overnight. ([address]) Objective Medications Current Medications Medications (Trade) Dose Ordered Sig/Joseph Route Start Time Stop Time Status Last Admin (Tylenol) 650 mg Q4H PRN PO 06/15/17 20:00 06/17/17 19:58 (Zofran Inj) 4 mg Q6H PRN IVP 06/15/17 22:00 06/18/17 19:43 (Restoril) 15 mg HS PRN PO 06/15/17 21:00 (Narcan Inj) 0.4 mg UNSCH PRN IV PUSH 06/15/17 18:15 (Senokot) 17.2 mg Q12HR PRN PO 06/15/17 21:00 06/17/17 09:54 Pharmacy Profile Note 0 ml @ 0 mls/hr UNSCH OTHER 06/15/17 18:15 (D50w (Vial) Inj) 50 ml UNSCH PRN IV PUSH 06/15/17 18:15 (Glucagon Inj) 1 mg UNSCH PRN OTHER 06/15/17 18:15 (Proair Hfa Inh) 2 puff Q6HR PRN INH 06/15/17 20:00 (Toprol Xl) 50 mg DAILY PO 06/16/17 09:00 Future Hold 06/18/17 08:55 (Prinivil) 40 mg DAILY PO 06/16/17 09:00 06/22/17 08:19 (Lipitor) 80 mg HS PO 06/16/17 21:00 06/21/17 20:41 (NovoLIN R SUPPLEMENTAL SCALE) 1 ACHS SLIDING SCALE SQ 06/16/17 12:00 06/21/17 17:00 Piperacillin Sod/ Tazobactam Sod 100 ml @ 200 mls/hr Q6H IV 06/16/17 18:00 06/22/17 05:57 (Protonix Inj) 40 mg BID IV PUSH 06/16/17 21:00 06/22/17 08:19 Heparin Sodium/ Dextrose 250 ml @ 10 mls/hr TITRATE PRN IV 06/16/17 22:30 06/21/17 05:50 (Heparin Inj) 5,000 units UNSCH PRN IV PUSH 06/16/17 22:30 (Heparin Inj) 2,500 units UNSCH PRN IV PUSH 06/16/17 22:30 06/19/17 16:53 (Bactroban 2% Oint) 1 applic Q12HR TOPICAL 06/17/17 21:00 06/21/17 20:47 (NovoLIN N INJ) 35 units DAILY@08 SQ 06/18/17 08:00 06/21/17 08:19 (NovoLIN N INJ) 25 units DAILY@17 SQ 06/17/17 17:00 06/21/17 17:00 (NS Flush) 2 ml UNSCH PRN IV FLUSH 06/19/17 09:00 (NS Flush) 2 ml BID IV FLUSH 06/19/17 09:00 06/22/17 08:20 (Vasotec Inj) 1.25 mg Q6H PRN IV PUSH 06/19/17 10:00 (Lasix Inj) 40 mg DAILY IV PUSH 06/19/17 10:00 06/22/17 08:19 Vancomycin HCl 2000 mg/Sodium Chloride 520 ml @ 257.5 mls/ hr Q12H IV 06/21/17 20:00 06/22/17 08:22 Miscellaneous Information SPECIFIC LAB TO BE DRAWN:VANCOMYCIN TROUGH DATE TO... ONCE ONCE .XX 06/23/17 07:45 06/23/17 07:46 Diltiazem HCl 125 mg/Sodium Chloride 125 ml @ 5 mls/hr TITRATE PRN IV 06/21/17 15:00 (Lopressor) 25 mg Q12HR PO 06/21/17 21:00 06/22/17 08:19 (NovoLOG INJ) 1 units TIDAC SQ 06/22/17 08:00 Vital Signs / I&O Vital Signs Date Time Temp Pulse Resp B/P (MAP) Pulse Ox O2 Delivery O2 Flow Rate FiO2 06/22/17 06:00 87 06/22/17 05:00 82 06/22/17 04:41 82 06/22/17 03:30 92 Nasal Cannula 3.00 06/22/17 03:00 98.6 82 18 146/94 (111) 92 06/22/17 03:00 82 06/22/17 01:00 85 06/22/17 00:00 85 06/21/17 23:52 98.7 85 18 149/89 (109) 93 06/21/17 23:00 93 Nasal Cannula 3.00 06/21/17 22:00 85 06/21/17 20:56 98.4 06/21/17 20:42 88 18 146/90 (108) 95 06/21/17 20:00 81 06/21/17 19:40 96 Nasal Cannula 3.00 06/21/17 19:00 95 Nasal Cannula 3.00 06/21/17 18:01 92 06/21/17 17:39 90 06/21/17 16:00 86 06/21/17 15:30 88 06/21/17 15:30 98.4 85 18 125/79 (94) 97 06/21/17 15:30 97 Nasal Cannula 3.00 06/21/17 14:00 86 06/21/17 13:10 125 06/21/17 12:25 87 06/21/17 11:57 97 Nasal Cannula 5.00 06/21/17 11:00 97 Nasal Cannula 5.00 06/21/17 11:00 98.0 74 18 124/86 (99) 97 06/21/17 11:00 81 06/21/17 10:17 84 I/O 06/21/17 06/21/17 06/21/17 06/22/17 06/22/17 06/22/17 07:00 15:00 23:00 07:00 15:00 23:00 Intake Total 720 ml 615 ml 1200 ml 360 ml Output Total 3375 ml 3600 ml 1300 ml 1000 ml Balance -2655 ml 615 ml -2400 ml -940 ml -1000 ml Intake Oral 720 ml 1200 ml 360 ml IV Total 615 ml Output Urine Total 3375 ml 3600 ml 1300 ml 1000 ml # Bowel Movements 1 Physical Exam GENERAL: SKIN: Warm and dry. HEAD: Atraumatic. Normocephalic. EYES: Pupils equal and round. ENT: No nasal bleeding or discharge. Mucous membranes pink and moist. NECK: Trachea midline. No JVD. CARDIOVASCULAR: Regular rate and rhythm. no murmurs RESPIRATORY: No accessory muscle use. decreased breath sounds to bilateral bases GASTROINTESTINAL: Abdomen soft, non-tender, nondistended. MUSCULOSKELETAL: Extremities without clubbing, cyanosis. R lower leg 3x6 inch area of erythema, tender to touch, slightly edematous, pedal pulses intact NEUROLOGICAL: Awake and alert. No obvious cranial nerve deficits. Normal speech. PSYCHIATRIC: Appropriate mood and affect; insight and judgment normal. Laboratory Laboratory Tests Test 06/22/17 07:28 Activated Partial Thromboplast Time 39.9 SEC Creatinine 1.05 MG/DL Estimat Glomerular Filtration Rate 72 ML/MIN ([address]) Assessment and Plan Problem List: (1) Elevated troponin ICD Codes: R74.8 - Abnormal levels of other serum enzymes (2) Sepsis ICD Codes: A41.9 - Sepsis, unspecified organism Status: Acute Assessment and Plan 62 yo WM with CAD, cardiac stents placed in 2005, HTN, DM and HLD who has been admitted for sepsis and NSTEMI. NSTEMI- no chest pain, plan for lhc today no further afib RVR overnight cardiomyopathy- EF reduced 35-40%. cont metoprolol and lisinopril PAD- mild, RLE cellulitis- R lower leg, ID following gastritis- GI following ([address]en Street) Assessment and Plan cath on hold again possibly monday right leg red/sore. can't walk on it. will follow (Tanner Ca MD) Problem Qualifiers (1) Sepsis: Qualified Codes: A41.9 - Sepsis, unspecified organism [address] Jun 22, 2017 09:31 Tanner Ca MD Jun 22, 2017 12:23
[2017-06-22] MEDS: HEPARIN 25,000 UNITS-D5W 250 ML - PREMIX IV PRN ×2 (11:32→22:21)
[2017-06-22] MEDS: INSULIN HUMAN REGULAR 1,000 UNITS/10 ML VIAL SQ SCH ×2 (12:00→17:00)
--- NOTE | 2017-06-22 12:10 | HHI.PR ---
Subjective Remarks Patient seen this morning around 10 AM. Patient denies any chest pain or shortness of breath. Slight worsening in pain in right lower extremity ulcer. Some slight petechia to right lower extremity, nontender. No ecchymosis Objective Vital Signs Date Time Temp Pulse Resp B/P (MAP) Pulse Ox O2 Delivery O2 Flow Rate FiO2 06/22/17 10:07 21 06/22/17 07:00 Nasal Cannula 3.00 06/22/17 07:00 97.9 82 18 135/90 (105) 93 06/22/17 06:00 87 06/22/17 05:00 82 06/22/17 04:41 82 06/22/17 03:30 92 Nasal Cannula 3.00 06/22/17 03:00 98.6 82 18 146/94 (111) 92 06/22/17 03:00 82 06/22/17 01:00 85 06/22/17 00:00 85 06/21/17 23:52 98.7 85 18 149/89 (109) 93 06/21/17 23:00 93 Nasal Cannula 3.00 06/21/17 22:00 85 06/21/17 20:56 98.4 06/21/17 20:42 88 18 146/90 (108) 95 06/21/17 20:00 81 06/21/17 19:40 96 Nasal Cannula 3.00 06/21/17 19:00 95 Nasal Cannula 3.00 06/21/17 18:01 92 06/21/17 17:39 90 06/21/17 16:00 86 06/21/17 15:30 88 06/21/17 15:30 98.4 85 18 125/79 (94) 97 06/21/17 15:30 97 Nasal Cannula 3.00 06/21/17 14:00 86 06/21/17 13:10 125 06/21/17 12:25 87 I/O 06/21/17 06/21/17 06/21/17 06/22/17 06/22/17 06/22/17 07:00 15:00 23:00 07:00 15:00 23:00 Intake Total 720 ml 615 ml 1200 ml 360 ml Output Total 3375 ml 3600 ml 1300 ml 1000 ml Balance -2655 ml 615 ml -2400 ml -940 ml -1000 ml Intake Oral 720 ml 1200 ml 360 ml IV Total 615 ml Output Urine Total 3375 ml 3600 ml 1300 ml 1000 ml # Bowel Movements 1 Result Diagram: 06/21/17 0807 06/22/17 0728 Objective Remarks GENERAL: patient sitting up in chair at bedside. SKIN: Warm and dry.3 x 3 cm eschar left medial legjust proximal to left knee. Small ulceration, 2 x 1 cm right lateral leg, just above right knee. Minimal surrounding erythema. There is some petechia over right lateral harrison. No ecchymosis. Nontender. HEAD: Normocephalic. EYES: No scleral icterus. No injection or drainage. NECK: Supple, trachea midline. No JVD. CARDIOVASCULAR: Regular rate and rhythm without murmurs, gallops, or rubs. RESPIRATORY: Breath sounds equal bilaterally. No accessory muscle use. GASTROINTESTINAL: Abdomen soft, non-tender, nondistended. MUSCULOSKELETAL: No cyanosis, or edema. BACK: Nontender without obvious deformity. No CVA tenderness. A/P Assessment and Plan ======3. Patient examined. Cardiac catheterization on hold. //Leukocytosis. //Right lower extremity ulcer. Labs pending. Continue antibiotics as per ID. Cultures negative at this time. //Hyperglycemia in the 200s.. Insulin adjusted again. // Hypokalemia. Repeat labs pending. //A. fib RVR Continue amiodarone Follow on telemetry Cardiology following Etiology could be related to recent NSTEMI or pleural effusion //Sepsis //Cellulitis Continue vancomycin Monitor CBC Follow blood cultures Doppler ultrasound of right leg negative -Continue antibiotics as per ID. //Elevated troponin Suspicious for myocardial infarction Cardiac catheter planned after sepsis resolved Heparin IV //Bilateral pleural effusion Diagnostic thoracentesis planned //Coffee ground emesis No recurrence GI following Follow hemoglobin levels //Diabetes mellitus type 2 Follow blood sugars Insulin sliding scale Diabetic diet Transition patient from 70/32 to NPH insulin as a base control. //Hypertension Coronary artery disease Continue baseline treatment Follow blood pressures Adjust treatments as needed //Hypoxia //Pulmonary edema Hypoxemia resolved Some evidence of recurrence today Could be related to pleural effusion and/or CHF Provide 40 mg Lasix once Lasix 20 mg by mouth daily DVT prophylaxis IV heparin Discharge Planning cardiac catheterization on hold pending ID clearance Jonny Reynolds MD Jun 22, 2017 12:10
[2017-06-22] MEDS ORDERED: CLINDAMYCIN 900 MG/NS PREMIX 50 ML IV SCH (12:15)
--- NOTE | 2017-06-22 12:56 | HHI.IDPN ---
Note Infectious Disease Note Patient had pain in his right lateral calf earlier today. He denies chills. The area of erythema at the right lateral leg below the knee is worse today. Awake and more alert today. Afebrile. Right pleural effusion drained.erday. Pleural fluid cultures no growth. Blood culture has no growth. 2D ECHO without vegetation. 62-year-old white male who presented to the emergency department yesterday with vomiting. He reportedly was vomiting for three days before presenting to the emergency department. He was noted to have dark / black vomitus. The patient has insulin-dependent diabetes. He was evaluated in the emergency department and had temperature of 102.6 degrees, heart rate of 109, white blood cell count of 35.3. The patient was suspected to have sepsis and was admitted to the hospital for further management. The patient was noted to have lesions on the thighs bilaterally and also at the dorsum of the finger on the left side and knuckle on the right. Culture of the left thigh lesion has growth of Staph aureus and group B beta Strep. PAST MEDICAL HISTORY: 1. Coronary artery disease. 2. Diabetes mellitus. 3. Hypertension. 4. History of coronary stents. ALLERGIES: NO KNOWN DRUG ALLERGIES. MEDICATIONS: 1. Piperacillin / tazobactam. 2. Vancomycin. Current Medications Medications (Trade) Dose Ordered Sig/Joseph Route PRN Reason Start Time Stop Time Status Last Admin Dose Admin Acetaminophen (Tylenol) 650 mg Q4H PRN PO TEMP > 100.4 06/15/17 20:00 06/17/17 19:58 Ondansetron HCl (Zofran Inj) 4 mg Q6H PRN IVP NAUSEA OR VOMITING 06/15/17 22:00 06/18/17 19:43 Temazepam (Restoril) 15 mg HS PRN PO INSOMNIA 06/15/17 21:00 Naloxone HCl (Narcan Inj) 0.4 mg UNSCH PRN IV PUSH SEE LABEL COMMENTS 06/15/17 18:15 Sennosides (Senokot) 17.2 mg Q12HR PRN PO Moderate constipation 06/15/17 21:00 06/17/17 09:54 Pharmacy Profile Note 0 ml @ 0 mls/hr UNSCH OTHER 06/15/17 18:15 Dextrose (D50w (Vial) Inj) 50 ml UNSCH PRN IV PUSH HYPOGLYCEMIA-SEE COMMENTS 06/15/17 18:15 Glucagon (Glucagon Inj) 1 mg UNSCH PRN OTHER HYPOGLYCEMIA-SEE COMMENTS 06/15/17 18:15 Albuterol Sulfate (Proair Hfa Inh) 2 puff Q6HR PRN INH SHORTNESS OF BREATH 06/15/17 20:00 Metoprolol Succinate (Toprol Xl) 50 mg DAILY PO 06/16/17 09:00 Future Hold 06/18/17 08:55 Lisinopril (Prinivil) 40 mg DAILY PO 06/16/17 09:00 06/22/17 08:19 Atorvastatin Calcium (Lipitor) 80 mg HS PO 06/16/17 21:00 06/21/17 20:41 Insulin Human Regular (NovoLIN R SUPPLEMENTAL SCALE) 1 ACHS SLIDING SCALE SQ 06/16/17 12:00 06/21/17 17:00 Piperacillin Sod/ Tazobactam Sod 100 ml @ 200 mls/hr Q6H IV 06/16/17 18:00 06/22/17 05:57 Pantoprazole Sodium (Protonix Inj) 40 mg BID IV PUSH 06/16/17 21:00 06/22/17 08:19 Heparin Sodium/ Dextrose 250 ml @ 10 mls/hr TITRATE PRN IV Coagulation Management 06/16/17 22:30 06/22/17 11:32 Heparin Sodium (Porcine) (Heparin Inj) 5,000 units UNSCH PRN IV PUSH aPTT less than 25 06/16/17 22:30 Heparin Sodium (Porcine) (Heparin Inj) 2,500 units UNSCH PRN IV PUSH aPTT 25 to 39 06/16/17 22:30 06/19/17 16:53 Mupirocin (Bactroban 2% Oint) 1 applic Q12HR TOPICAL 06/17/17 21:00 06/21/17 20:47 Insulin Human NPH (NovoLIN N INJ) 35 units DAILY@08 SQ 06/18/17 08:00 06/21/17 08:19 Insulin Human NPH (NovoLIN N INJ) 25 units DAILY@17 SQ 06/17/17 17:00 06/21/17 17:00 Sodium Chloride (NS Flush) 2 ml UNSCH PRN IV FLUSH FLUSH AFTER USING IV ACCESS 06/19/17 09:00 Sodium Chloride (NS Flush) 2 ml BID IV FLUSH 06/19/17 09:00 06/22/17 08:20 Enalaprilat (Vasotec Inj) 1.25 mg Q6H PRN IV PUSH SBP>160, DBP>90 06/19/17 10:00 Furosemide (Lasix Inj) 40 mg DAILY IV PUSH 06/19/17 10:00 06/22/17 08:19 Vancomycin HCl 2000 mg/Sodium Chloride 520 ml @ 257.5 mls/ hr Q12H IV 06/21/17 20:00 06/22/17 08:22 Miscellaneous Information SPECIFIC LAB TO BE DRAWN:VANCOMYCIN TROUGH DATE TO... ONCE ONCE .XX 06/23/17 07:45 06/23/17 07:46 Diltiazem HCl 125 mg/Sodium Chloride 125 ml @ 5 mls/hr TITRATE PRN IV Tachycardia 06/21/17 15:00 Metoprolol Tartrate (Lopressor) 25 mg Q12HR PO 06/21/17 21:00 06/22/17 08:19 Insulin Human Regular (NovoLIN R INJ) 2 units TIDAC SQ 06/22/17 12:00 Clindamycin/ Sodium Chloride 50 ml @ 100 mls/hr Q6H IV 06/22/17 12:15 UNV Lactobacillus Acidophilus (Lactinex) 1 tab Q12HR PO 06/22/17 21:00 SOCIAL HISTORY: The patient denies tobacco. He denies alcohol use. He denies recent drug use. The patient is from [place]. FAMILY HISTORY: Noncontributory. OBJECTIVE: Vital Signs Date Time Temp Pulse Resp B/P (MAP) Pulse Ox O2 Delivery O2 Flow Rate FiO2 06/22/17 10:07 21 06/22/17 07:00 Nasal Cannula 3.00 06/22/17 07:00 97.9 82 18 135/90 (105) 93 06/22/17 06:00 87 06/22/17 05:00 82 06/22/17 04:41 82 06/22/17 03:30 92 Nasal Cannula 3.00 06/22/17 03:00 98.6 82 18 146/94 (111) 92 06/22/17 03:00 82 06/22/17 01:00 85 06/22/17 00:00 85 06/21/17 23:52 98.7 85 18 149/89 (109) 93 06/21/17 23:00 93 Nasal Cannula 3.00 06/21/17 22:00 85 06/21/17 20:56 98.4 06/21/17 20:42 88 18 146/90 (108) 95 06/21/17 20:00 81 06/21/17 19:40 96 Nasal Cannula 3.00 06/21/17 19:00 95 Nasal Cannula 3.00 06/21/17 18:01 92 06/21/17 17:39 90 06/21/17 16:00 86 06/21/17 15:30 88 06/21/17 15:30 98.4 85 18 125/79 (94) 97 06/21/17 15:30 97 Nasal Cannula 3.00 06/21/17 14:00 86 06/21/17 13:10 125 Laboratory Tests Test 06/21/17 08:07 White Blood Count 13.6 TH/MM3 Red Blood Count 4.40 MIL/MM3 Hemoglobin 12.0 GM/DL Hematocrit 36.2 % Mean Corpuscular Volume 82.2 FL Mean Corpuscular Hemoglobin 27.4 PG Mean Corpuscular Hemoglobin Concent 33.3 % Red Cell Distribution Width 15.5 % Platelet Count 401 TH/MM3 Mean Platelet Volume 8.1 FL Neutrophils (%) (Auto) 70.9 % Lymphocytes (%) (Auto) 15.1 % Monocytes (%) (Auto) 12.5 % Eosinophils (%) (Auto) 1.1 % Basophils (%) (Auto) 0.4 % Neutrophils # (Auto) 9.6 TH/MM3 Lymphocytes # (Auto) 2.0 TH/MM3 Monocytes # (Auto) 1.7 TH/MM3 Eosinophils # (Auto) 0.1 TH/MM3 Basophils # (Auto) 0.1 TH/MM3 CBC Comment DIFF FINAL Differential Comment Laboratory Tests Test 06/21/17 08:07 06/22/17 07:28 Blood Urea Nitrogen 10 MG/DL Creatinine 0.96 MG/DL 1.05 MG/DL Random Glucose 247 MG/DL Total Protein 7.5 GM/DL Albumin 2.1 GM/DL Calcium Level 8.3 MG/DL Alkaline Phosphatase 102 U/L Aspartate Amino Transf (AST/SGOT) 22 U/L Alanine Aminotransferase (ALT/SGPT) 44 U/L Total Bilirubin 0.6 MG/DL Sodium Level 133 MEQ/L Potassium Level 3.3 MEQ/L Chloride Level 94 MEQ/L Carbon Dioxide Level 31.2 MEQ/L Anion Gap 8 MEQ/L Estimat Glomerular Filtration Rate 80 ML/MIN 72 ML/MIN Microbiology Date/Time Source Procedure Growth Status 06/18/17 12:35 Fluid Pleural Fluid Fungal Smear - Final NO FUNGAL ELEMENTS SEEN. Resulted 06/18/17 12:35 Fluid Pleural Fluid Fungal Culture Pending Resulted 06/18/17 12:35 Fluid Pleural Fluid Acid Fast Stain - Final NO ACID FAST BACILLI SEEN Resulted 06/18/17 12:35 Fluid Pleural Fluid Mycobacterial Culture Pending Resulted 06/18/17 12:35 Fluid Pleural Fluid Gram Stain - Final Resulted 06/18/17 12:35 Fluid Pleural Fluid Body Fluid Culture - Preliminary NO GROWTH IN 48 HOURS. Resulted IMAGING: Lower Extremity Ultrasound 06/17/17 0000 Signed Impressions: Service Date/Time: Saturday, June 17, 2017 18:20 - CONCLUSION: No evidence of DVT. Nima Johnson MD Lower Extremity CT 06/16/17 0000 Signed Impressions: Service Date/Time: Friday, June 16, 2017 10:12 - CONCLUSION: 1. Posterior subcutaneous soft tissue induration and some mild fluid tracking along the surface of the hamstring muscles. No focal collections of gas and no drainable fluid collection seen. 2. Osseous structures of the thigh are intact. Ruben Medina MD CT Angiography 06/16/17 0000 Signed Impressions: Service Date/Time: Friday, June 16, 2017 10:12 - CONCLUSION: 1. Negative for pulmonary embolism. 2. Bilateral pleural effusions, right greater than left. 3. Bilateral lower lung perivascular thickening suggest either interstitial pulmonary edema or inflammatory process. Ruben Medina MD Chest X-Ray 06/15/17 1606 Signed Impressions: Service Date/Time: May 16:19 - CONCLUSION: The lungs are clear. Ruben Medina MD Knee X-Ray 06/15/17 0000 Signed Impressions: Service Date/Time: May 17:22 - CONCLUSION: 1. No evidence of recent bony injury. Ruben Medina MD Femur X-Ray 06/15/17 0000 Signed Impressions: Service Date/Time: May 17:22 - CONCLUSION: No acute findings. Ruben Medina MD PHYSICAL EXAMINATION: GENERAL: Awake and alert. On oxygen via nasal cannula. HEENT: Head is atraumatic. Extraocular movements grossly intact. No icterus. Oropharynx with moist mucosa. No visible lesions. NECK: The neck is supple without adenopathy. LUNGS: Decreased breath sounds. HEART: Regular S1 and S2. No audible murmurs, rubs or gallops. ABDOMEN: Obese, soft, diminished bowel sounds. Nontender. EXTREMITIES: Distal inner left thigh lesion eschar. The distal right outer thigh has a similar lesion. The left index finger had an excoriated lesion at the dorsal aspect of the proximal interphalangeal joint. The patient also has an excoriated lesion at the base of the third finger on the right hand. Erythema at the right lateral calf is worse. There is induration and the area is warm and very tender. The area of induration is approximately 8 cm. The other extremities have no clubbing, cyanosis or edema. NEUROLOGIC: No gross focal findings. PSYCHIATRIC: Calm and cooperative. IMPRESSION: 1. Sepsis. Patient presented with fever, tachycardia, leukocytosis and elevated lactic acid. 2. Cellulitis of the right lateral calf and thigh / skin lesions of the lower extremities. Culture of the wounds of the lower extremities has group A beta Strep and Staph aureus. Erythema is worse. Also patient has severe tenderness. 3. Abnormal CT of the chest with lower lung perivascular thickening along with pleural effusions and patient now with purulent sputum. Rule out pulmonary disease. Possible pneumonia. 4. Diabetes mellitus. The patient had hypoglycemia on presentation. 5. Leukocytosis. White blood cell count remains elevated. RECOMMENDATIONS: 1. Continue Vancomycin to cover MRSA. 2. Stop piperacillin / tazobactam. 3. Add clindamycin. 4. Obtain MRI of the right lower extremity to evaluate the worsening Swelling. If an abscess is noted on MRI, orthopedics should be requested to evaluate. 5. Monitor the white blood cell count. 6. Monitor pleural fluid culture. 7. Monitor response to antibiotic treatment. Tavo Branch MD Jun 22, 2017 12:56
[2017-06-22 13:27] LABS: BASOPHIL # 0.1 TH/MM3 (0-0.2); BASOPHIL % 0.7 % (0.0-2.0); EOSINOPHIL # 0.2 TH/MM3 (0-0.4); EOSINOPHIL % 1.6 % (0.0-4.0); HEMATOCRIT 37.6 % (39.0-51.0); HEMOGLOBIN 12.7 GM/DL (13.0-17.0); LYMPH % 14.7 % (9.0-44.0); MEAN CELL VOLUME 82.2 FL (80.0-100.0); MEAN CORPUSCULAR HEMOGLOBIN 27.7 PG (27.0-34.0); MEAN CORPUSCULAR HGB CONC 33.7 % (32.0-36.0); MEAN PLATELET VOLUME 7.7 FL (7.0-11.0); MONO % 8.7 % (0.0-8.0); MONOCYTE # 1.2 TH/MM3 (0-0.9); NEUT % 74.3 % (16.0-70.0); PLATELET COUNT 424 TH/MM3 (150-450); RED BLOOD COUNT 4.58 MIL/MM3 (4.50-5.90); RED CELL DISTRIBUTION WIDTH 15.2 % (11.6-17.2); WHITE BLOOD COUNT 13.5 TH/MM3 (4.0-11.0)
[2017-06-22 13:48] LABS: BICARBONATE 32.1 MEQ/L (21.0-32.0); CALCIUM 8.6 MG/DL (8.5-10.1); CREATININE 1.05 MG/DL (0.60-1.30)
[2017-06-22] MEDS: CLINDAMYCIN 900 MG/NS PREMIX 50 ML IV SCH ×2 (14:14→22:12)
[2017-06-22] MEDS ORDERED: GADODIAMIDE PF 287 MG/ML 20 ML VIAL (for RAD MRI) IVCONTRAST ONE (17:59)
--- NOTE | 2017-06-22 18:02 | RADRPT ---
EXAM DATE/TIME: 06/22/2017 17:13 [facility] COMPARISON: No previous studies available for comparison. INDICATIONS : Abscess. Swelling and redness of proximal lateral right lower leg. CONTRAST: 20 cc Omniscan (gadodiamide) IV MEDICAL HISTORY : Diabetes mellitus type 2. Gastrointestinal bleed. Hypertension. SURGICAL HISTORY : Coronary artery stent. ENCOUNTER: Subsequent ACUITY: 2 day PAIN SCORE: 6/10 LOCATION: Right lower leg. TECHNIQUE: Multiplanar multisequence MRI examination of the lower leg was performed with and without contrast. FINDINGS: BONE/CARTILAGE: Bone marrow signal is homogeneous. Articular cartilage signal is within normal limits. MUSCLES/TENDONS: There is some low grade edema within the anterior compartment musculature. There is significant soft tissue edema in the lateral half and some fluid layering between the subcutaneous fat and the muscula r fascia. MISCELLANEOUS: Neurovascular structures are within normal limits. POST-CONTRAST: There are no abnormal areas of enhancement on the post-contrast images. CONCLUSION: Fluid dissecting between the subcutaneous fat and the lateral fascia. Small amount of edema within th e anterior muscular compartment. No significant drainable fluid collection is identified. no evidence of marrow edema or marrow replacing process Tanner Iniguez MD on June 22, 2017 at 17:58 Board Certified Radiologist. This report was verified electronically.
[2017-06-22] MEDS ORDERED: POTASSIUM CHLORIDE 20 MEQ CONTROLLED RELEASE TAB PO ONE (21:15)
[2017-06-22] MEDS: LACTOBACILLUS ACIDOPHILUS TAB PO SCH (22:10)
[2017-06-22] MEDS: ATORVASTATIN 40 MG TAB PO SCH (22:11)
[2017-06-23] VITALS (17 sets, daily range): BP systolic 122–150; BP diastolic 69–96; PULSE 74–92; RESP 16–20; TEMP 97.8–98.8; O2SAT 93–95
[2017-06-23] MEDS: CLINDAMYCIN 900 MG/NS PREMIX 50 ML IV SCH ×3 (05:47→22:29)
[2017-06-23 07:29] LABS: AUTOMATED NEUTROPHIL # 9.9 TH/MM3 (1.8-7.7); BASOPHIL # 0.1 TH/MM3 (0-0.2); BASOPHIL % 0.5 % (0.0-2.0); EOSINOPHIL # 0.2 TH/MM3 (0-0.4); EOSINOPHIL % 1.7 % (0.0-4.0); HEMATOCRIT 35.2 % (39.0-51.0); HEMOGLOBIN 11.9 GM/DL (13.0-17.0); LYMPH % 15.6 % (9.0-44.0); LYMPHOCYTE # 2.1 TH/MM3 (1.0-4.8); MEAN CELL VOLUME 83.2 FL (80.0-100.0); MEAN CORPUSCULAR HEMOGLOBIN 28.1 PG (27.0-34.0); MEAN CORPUSCULAR HGB CONC 33.7 % (32.0-36.0); MEAN PLATELET VOLUME 7.6 FL (7.0-11.0); MONO % 9.4 % (0.0-8.0); MONOCYTE # 1.3 TH/MM3 (0-0.9); NEUT % 72.8 % (16.0-70.0); PLATELET COUNT 399 TH/MM3 (150-450); RED BLOOD COUNT 4.23 MIL/MM3 (4.50-5.90); RED CELL DISTRIBUTION WIDTH 15.7 % (11.6-17.2); WHITE BLOOD COUNT 13.6 TH/MM3 (4.0-11.0)
[2017-06-23] MEDS ORDERED: PHARMACY ORDERED LAB ONE (07:45)
[2017-06-23 07:48] LABS: BICARBONATE 28.7 MEQ/L (21.0-32.0); CALCIUM 8.9 MG/DL (8.5-10.1); CREATININE 1.14 MG/DL (0.60-1.30)
[2017-06-23] MEDS: INSULIN HUMAN REGULAR 1,000 UNITS/10 ML VIAL SQ SCH ×3 (08:00→18:24)
[2017-06-23] MEDS: INSULIN HUMAN NPH 1,000 UNITS/10 ML VIAL SQ SCH ×2 (08:00→17:00)
[2017-06-23] MEDS: INSULIN NovoLIN REGULAR SUPPLEMENTAL SCALE SQ SCH ×4 (08:00→21:10)
[2017-06-23] MEDS: MUPIROCIN 2% OINT 22 GM TUBE TOPICAL SCH ×2 (09:00→20:55)
[2017-06-23] MEDS: FUROSEMIDE 40 MG/4 ML VIAL IV PUSH SCH (09:17)
[2017-06-23] MEDS: LISINOPRIL 20 MG TAB PO SCH (09:17)
[2017-06-23] MEDS: PANTOPRAZOLE SODIUM 40 MG VIAL IV PUSH SCH ×2 (09:18→20:54)
[2017-06-23] MEDS: METOPROLOL TARTRATE 25 MG TAB PO SCH ×2 (09:18→20:54)
[2017-06-23] MEDS: LACTOBACILLUS ACIDOPHILUS TAB PO SCH ×2 (09:18→20:54)
[2017-06-23] MEDS: SODIUM CHLORIDE 0.9% FLUSH 10 ML FLUSH IV FLUSH SCH ×2 (09:19→20:54)
[2017-06-23] MEDS: VANCOMYCIN INJ 2,000 MG in SODIUM CHLORID 0.9% 500 ML INJ 500 ML IV SCH (09:30)
--- NOTE | 2017-06-23 12:16 | PD.CARD.PN ---
Subjective Subjective Remarks right leg cellulitis Objective Medications Current Medications Medications (Trade) Dose Ordered Sig/Joseph Route Start Time Stop Time Status Last Admin (Tylenol) 650 mg Q4H PRN PO 06/15/17 20:00 06/17/17 19:58 (Zofran Inj) 4 mg Q6H PRN IVP 06/15/17 22:00 06/18/17 19:43 (Restoril) 15 mg HS PRN PO 06/15/17 21:00 (Narcan Inj) 0.4 mg UNSCH PRN IV PUSH 06/15/17 18:15 (Senokot) 17.2 mg Q12HR PRN PO 06/15/17 21:00 06/17/17 09:54 Pharmacy Profile Note 0 ml @ 0 mls/hr UNSCH OTHER 06/15/17 18:15 (D50w (Vial) Inj) 50 ml UNSCH PRN IV PUSH 06/15/17 18:15 (Glucagon Inj) 1 mg UNSCH PRN OTHER 06/15/17 18:15 (Proair Hfa Inh) 2 puff Q6HR PRN INH 06/15/17 20:00 (Toprol Xl) 50 mg DAILY PO 06/16/17 09:00 Future Hold 06/18/17 08:55 (Prinivil) 40 mg DAILY PO 06/16/17 09:00 06/23/17 09:17 (Lipitor) 80 mg HS PO 06/16/17 21:00 06/22/17 22:11 (NovoLIN R SUPPLEMENTAL SCALE) 1 ACHS SLIDING SCALE SQ 06/16/17 12:00 06/23/17 08:00 (Protonix Inj) 40 mg BID IV PUSH 06/16/17 21:00 06/23/17 09:18 Heparin Sodium/ Dextrose 250 ml @ 10 mls/hr TITRATE PRN IV 06/16/17 22:30 06/22/17 22:21 (Heparin Inj) 5,000 units UNSCH PRN IV PUSH 06/16/17 22:30 (Heparin Inj) 2,500 units UNSCH PRN IV PUSH 06/16/17 22:30 06/19/17 16:53 (Bactroban 2% Oint) 1 applic Q12HR TOPICAL 06/17/17 21:00 06/23/17 09:00 (NovoLIN N INJ) 35 units DAILY@08 SQ 06/18/17 08:00 06/23/17 08:00 (NovoLIN N INJ) 25 units DAILY@17 SQ 06/17/17 17:00 06/22/17 19:17 (NS Flush) 2 ml UNSCH PRN IV FLUSH 06/19/17 09:00 (NS Flush) 2 ml BID IV FLUSH 06/19/17 09:00 06/23/17 09:19 (Vasotec Inj) 1.25 mg Q6H PRN IV PUSH 06/19/17 10:00 (Lasix Inj) 40 mg DAILY IV PUSH 06/19/17 10:00 06/23/17 09:17 Vancomycin HCl 2000 mg/Sodium Chloride 520 ml @ 257.5 mls/ hr Q12H IV 06/21/17 20:00 Future Hold 06/23/17 09:30 Diltiazem HCl 125 mg/Sodium Chloride 125 ml @ 5 mls/hr TITRATE PRN IV 06/21/17 15:00 (Lopressor) 25 mg Q12HR PO 06/21/17 21:00 06/23/17 09:18 (Lactinex) 1 tab Q12HR PO 06/22/17 21:00 06/23/17 09:18 Clindamycin/ Sodium Chloride 50 ml @ 100 mls/hr Q8H IV 06/22/17 14:00 06/23/17 05:47 (NovoLIN R INJ) 4 units TIDAC SQ 06/23/17 08:00 06/23/17 08:00 Vital Signs / I&O Vital Signs Date Time Temp Pulse Resp B/P (MAP) Pulse Ox O2 Delivery O2 Flow Rate FiO2 06/23/17 09:50 93 21 06/23/17 08:00 95 Nasal Cannula 2.00 06/23/17 08:00 74 06/23/17 08:00 98.5 84 18 143/96 (112) 95 06/23/17 06:00 78 06/23/17 05:00 75 06/23/17 04:00 80 06/23/17 03:30 93 Nasal Cannula 2.00 06/23/17 03:30 98.3 81 16 140/93 (109) 93 06/23/17 03:00 81 06/23/17 02:00 92 06/23/17 01:00 80 06/23/17 00:00 87 06/23/17 00:00 93 Nasal Cannula 2.00 06/23/17 00:00 98.8 85 16 122/69 (86) 93 06/22/17 23:00 84 06/22/17 22:00 82 06/22/17 21:00 78 06/22/17 20:00 98.2 86 16 149/96 (113) 91 06/22/17 20:00 91 Room Air 06/22/17 20:00 86 06/22/17 19:00 86 06/22/17 16:00 82 06/22/17 15:00 Nasal Cannula 3.00 21 06/22/17 15:00 98.0 80 18 130/85 (100) 94 06/22/17 15:00 80 06/22/17 14:00 84 06/22/17 13:00 84 I/O 06/22/17 06/22/17 06/22/17 06/23/17 06/23/17 06/23/17 07:00 15:00 23:00 07:00 15:00 23:00 Intake Total 360 ml 1050 ml 80 ml Output Total 1300 ml 1000 ml 700 ml Balance -940 ml -1000 ml 350 ml 80 ml Intake Oral 360 ml 480 ml IV Total 570 ml 80 ml Output Urine Total 1300 ml 1000 ml 700 ml # Bowel Movements 1 Physical Exam HEAD: Normocephalic. EYES: No scleral icterus. No injection or drainage. NECK: Supple, trachea midline. No JVD or lymphadenopathy. CARDIOVASCULAR: IR IR tachycardia RESPIRATORY: Breath sounds equal bilaterally. No accessory muscle use. GASTROINTESTINAL: Abdomen soft, non-tender, nondistended. MUSCULOSKELETAL: No cyanosis, or edema. BACK: Nontender without obvious deformity. No CVA tenderness. Laboratory Laboratory Tests Test 06/22/17 12:48 06/23/17 06:42 06/23/17 07:39 White Blood Count 13.5 TH/MM3 13.6 TH/MM3 Red Blood Count 4.58 MIL/MM3 4.23 MIL/MM3 Hemoglobin 12.7 GM/DL 11.9 GM/DL Hematocrit 37.6 % 35.2 % Mean Corpuscular Volume 82.2 FL 83.2 FL Mean Corpuscular Hemoglobin 27.7 PG 28.1 PG Mean Corpuscular Hemoglobin Concent 33.7 % 33.7 % Red Cell Distribution Width 15.2 % 15.7 % Platelet Count 424 TH/MM3 399 TH/MM3 Mean Platelet Volume 7.7 FL 7.6 FL Neutrophils (%) (Auto) 74.3 % 72.8 % Lymphocytes (%) (Auto) 14.7 % 15.6 % Monocytes (%) (Auto) 8.7 % 9.4 % Eosinophils (%) (Auto) 1.6 % 1.7 % Basophils (%) (Auto) 0.7 % 0.5 % Neutrophils # (Auto) 10.0 TH/MM3 9.9 TH/MM3 Lymphocytes # (Auto) 2.0 TH/MM3 2.1 TH/MM3 Monocytes # (Auto) 1.2 TH/MM3 1.3 TH/MM3 Eosinophils # (Auto) 0.2 TH/MM3 0.2 TH/MM3 Basophils # (Auto) 0.1 TH/MM3 0.1 TH/MM3 CBC Comment DIFF FINAL DIFF FINAL Differential Comment Blood Urea Nitrogen 13 MG/DL 15 MG/DL Creatinine 1.05 MG/DL 1.14 MG/DL Random Glucose 232 MG/DL 217 MG/DL Calcium Level 8.6 MG/DL 8.9 MG/DL Sodium Level 134 MEQ/L 134 MEQ/L Potassium Level 3.4 MEQ/L 3.8 MEQ/L Chloride Level 96 MEQ/L 96 MEQ/L Carbon Dioxide Level 32.1 MEQ/L 28.7 MEQ/L Anion Gap 6 MEQ/L 9 MEQ/L Estimat Glomerular Filtration Rate 72 ML/MIN 65 ML/MIN Activated Partial Thromboplast Time 43.8 SEC Vancomycin Level Trough 27.6 MCG/ML Assessment and Plan Problem List: (1) Elevated troponin ICD Codes: R74.8 - Abnormal levels of other serum enzymes (2) Sepsis ICD Codes: A41.9 - Sepsis, unspecified organism Status: Acute Assessment and Plan cath on hold + RLE cellulitis Tenatively on schedule for [facility] monday available if needed over weekend, but not planning to round Problem Qualifiers (1) Sepsis: Qualified Codes: A41.9 - Sepsis, unspecified organism Tanner Ca MD Jun 23, 2017 12:16
--- NOTE | 2017-06-23 12:43 | HHI.IDPN ---
Note Infectious Disease Note Patient states that he feels okay. Awake and alert. Notes that the pain in his right leg is improved. CT scan of the leg noted. No fever or chills. No shortness of breath. Pleural fluid cultures no growth. Blood culture has no growth. 2D ECHO without vegetation. 62-year-old white male who presented to the emergency department yesterday with vomiting. He reportedly was vomiting for three days before presenting to the emergency department. He was noted to have dark / black vomitus. The patient has insulin-dependent diabetes. He was evaluated in the emergency department and had temperature of 102.6 degrees, heart rate of 109, white blood cell count of 35.3. The patient was suspected to have sepsis and was admitted to the hospital for further management. The patient was noted to have lesions on the thighs bilaterally and also at the dorsum of the finger on the left side and knuckle on the right. . Culture of the left thigh lesion has growth of Staph aureus and group B beta Strep. PAST MEDICAL HISTORY: 1. Coronary artery disease. 2. Diabetes mellitus. 3. Hypertension. 4. History of coronary stents. ALLERGIES: NO KNOWN DRUG ALLERGIES. MEDICATIONS: 1. Piperacillin / tazobactam. 2. Vancomycin. 3. Clindamycin. Current Medications Medications (Trade) Dose Ordered Sig/Joseph Route PRN Reason Start Time Stop Time Status Last Admin Dose Admin Acetaminophen (Tylenol) 650 mg Q4H PRN PO TEMP > 100.4 06/15/17 20:00 06/17/17 19:58 Ondansetron HCl (Zofran Inj) 4 mg Q6H PRN IVP NAUSEA OR VOMITING 06/15/17 22:00 06/18/17 19:43 Temazepam (Restoril) 15 mg HS PRN PO INSOMNIA 06/15/17 21:00 Naloxone HCl (Narcan Inj) 0.4 mg UNSCH PRN IV PUSH SEE LABEL COMMENTS 06/15/17 18:15 Sennosides (Senokot) 17.2 mg Q12HR PRN PO Moderate constipation 06/15/17 21:00 06/17/17 09:54 Pharmacy Profile Note 0 ml @ 0 mls/hr UNSCH OTHER 06/15/17 18:15 Dextrose (D50w (Vial) Inj) 50 ml UNSCH PRN IV PUSH HYPOGLYCEMIA-SEE COMMENTS 06/15/17 18:15 Glucagon (Glucagon Inj) 1 mg UNSCH PRN OTHER HYPOGLYCEMIA-SEE COMMENTS 06/15/17 18:15 Albuterol Sulfate (Proair Hfa Inh) 2 puff Q6HR PRN INH SHORTNESS OF BREATH 06/15/17 20:00 Metoprolol Succinate (Toprol Xl) 50 mg DAILY PO 06/16/17 09:00 Future Hold 06/18/17 08:55 Lisinopril (Prinivil) 40 mg DAILY PO 06/16/17 09:00 06/23/17 09:17 Atorvastatin Calcium (Lipitor) 80 mg HS PO 06/16/17 21:00 06/22/17 22:11 Insulin Human Regular (NovoLIN R SUPPLEMENTAL SCALE) 1 ACHS SLIDING SCALE SQ 06/16/17 12:00 06/23/17 08:00 Pantoprazole Sodium (Protonix Inj) 40 mg BID IV PUSH 06/16/17 21:00 06/23/17 09:18 Heparin Sodium/ Dextrose 250 ml @ 10 mls/hr TITRATE PRN IV Coagulation Management 06/16/17 22:30 06/22/17 22:21 Heparin Sodium (Porcine) (Heparin Inj) 5,000 units UNSCH PRN IV PUSH aPTT less than 25 06/16/17 22:30 Heparin Sodium (Porcine) (Heparin Inj) 2,500 units UNSCH PRN IV PUSH aPTT 25 to 39 06/16/17 22:30 06/19/17 16:53 Mupirocin (Bactroban 2% Oint) 1 applic Q12HR TOPICAL 06/17/17 21:00 06/23/17 09:00 Insulin Human NPH (NovoLIN N INJ) 35 units DAILY@08 SQ 06/18/17 08:00 06/23/17 08:00 Insulin Human NPH (NovoLIN N INJ) 25 units DAILY@17 SQ 06/17/17 17:00 06/22/17 19:17 Sodium Chloride (NS Flush) 2 ml UNSCH PRN IV FLUSH FLUSH AFTER USING IV ACCESS 06/19/17 09:00 Sodium Chloride (NS Flush) 2 ml BID IV FLUSH 06/19/17 09:00 06/23/17 09:19 Enalaprilat (Vasotec Inj) 1.25 mg Q6H PRN IV PUSH SBP>160, DBP>90 06/19/17 10:00 Furosemide (Lasix Inj) 40 mg DAILY IV PUSH 06/19/17 10:00 06/23/17 09:17 Vancomycin HCl 2000 mg/Sodium Chloride 520 ml @ 257.5 mls/ hr Q12H IV 06/21/17 20:00 Future Hold 06/23/17 09:30 Diltiazem HCl 125 mg/Sodium Chloride 125 ml @ 5 mls/hr TITRATE PRN IV Tachycardia 06/21/17 15:00 Metoprolol Tartrate (Lopressor) 25 mg Q12HR PO 06/21/17 21:00 06/23/17 09:18 Lactobacillus Acidophilus (Lactinex) 1 tab Q12HR PO 06/22/17 21:00 06/23/17 09:18 Clindamycin/ Sodium Chloride 50 ml @ 100 mls/hr Q8H IV 06/22/17 14:00 06/23/17 05:47 Insulin Human Regular (NovoLIN R INJ) 4 units TIDAC SQ 06/23/17 08:00 06/23/17 08:00 SOCIAL HISTORY: The patient denies tobacco. He denies alcohol use. He denies recent drug use. The patient is from [place]. FAMILY HISTORY: Noncontributory. OBJECTIVE: Vital Signs Date Time Temp Pulse Resp B/P (MAP) Pulse Ox O2 Delivery O2 Flow Rate FiO2 06/23/17 09:50 93 21 06/23/17 08:00 95 Nasal Cannula 2.00 06/23/17 08:00 74 06/23/17 08:00 98.5 84 18 143/96 (112) 95 06/23/17 06:00 78 06/23/17 05:00 75 06/23/17 04:00 80 06/23/17 03:30 93 Nasal Cannula 2.00 06/23/17 03:30 98.3 81 16 140/93 (109) 93 06/23/17 03:00 81 06/23/17 02:00 92 06/23/17 01:00 80 06/23/17 00:00 87 06/23/17 00:00 93 Nasal Cannula 2.00 06/23/17 00:00 98.8 85 16 122/69 (86) 93 06/22/17 23:00 84 06/22/17 22:00 82 06/22/17 21:00 78 06/22/17 20:00 98.2 86 16 149/96 (113) 91 06/22/17 20:00 91 Room Air 06/22/17 20:00 86 06/22/17 19:00 86 06/22/17 16:00 82 06/22/17 15:00 Nasal Cannula 3.00 21 06/22/17 15:00 98.0 80 18 130/85 (100) 94 06/22/17 15:00 80 06/22/17 14:00 84 06/22/17 13:00 84 Laboratory Tests Test 06/22/17 12:48 06/23/17 06:42 White Blood Count 13.5 TH/MM3 13.6 TH/MM3 Red Blood Count 4.58 MIL/MM3 4.23 MIL/MM3 Hemoglobin 12.7 GM/DL 11.9 GM/DL Hematocrit 37.6 % 35.2 % Mean Corpuscular Volume 82.2 FL 83.2 FL Mean Corpuscular Hemoglobin 27.7 PG 28.1 PG Mean Corpuscular Hemoglobin Concent 33.7 % 33.7 % Red Cell Distribution Width 15.2 % 15.7 % Platelet Count 424 TH/MM3 399 TH/MM3 Mean Platelet Volume 7.7 FL 7.6 FL Neutrophils (%) (Auto) 74.3 % 72.8 % Lymphocytes (%) (Auto) 14.7 % 15.6 % Monocytes (%) (Auto) 8.7 % 9.4 % Eosinophils (%) (Auto) 1.6 % 1.7 % Basophils (%) (Auto) 0.7 % 0.5 % Neutrophils # (Auto) 10.0 TH/MM3 9.9 TH/MM3 Lymphocytes # (Auto) 2.0 TH/MM3 2.1 TH/MM3 Monocytes # (Auto) 1.2 TH/MM3 1.3 TH/MM3 Eosinophils # (Auto) 0.2 TH/MM3 0.2 TH/MM3 Basophils # (Auto) 0.1 TH/MM3 0.1 TH/MM3 CBC Comment DIFF FINAL DIFF FINAL Differential Comment Laboratory Tests Test 06/22/17 07:28 06/22/17 12:48 06/23/17 06:42 Creatinine 1.05 MG/DL 1.05 MG/DL 1.14 MG/DL Estimat Glomerular Filtration Rate 72 ML/MIN 72 ML/MIN 65 ML/MIN Blood Urea Nitrogen 13 MG/DL 15 MG/DL Random Glucose 232 MG/DL 217 MG/DL Calcium Level 8.6 MG/DL 8.9 MG/DL Sodium Level 134 MEQ/L 134 MEQ/L Potassium Level 3.4 MEQ/L 3.8 MEQ/L Chloride Level 96 MEQ/L 96 MEQ/L Carbon Dioxide Level 32.1 MEQ/L 28.7 MEQ/L Anion Gap 6 MEQ/L 9 MEQ/L IMAGING: Lower Extremity MRI 06/22/17 0000 Signed Impressions: Service Date/Time: June 17:13 - CONCLUSION: Fluid dissecting between the subcutaneous fat and the lateral fascia. Small amount of edema within the anterior muscular compartment. No significant drainable fluid collection is identified. no evidence of marrow edema or marrow replacing process Tanner Iniguez MD Lower Extremity Ultrasound 06/17/17 0000 Signed Impressions: Service Date/Time: Saturday, June 17, 2017 18:20 - CONCLUSION: No evidence of DVT. Nima Johnson MD Lower Extremity CT 06/16/17 0000 Signed Impressions: Service Date/Time: Friday, June 16, 2017 10:12 - CONCLUSION: 1. Posterior subcutaneous soft tissue induration and some mild fluid tracking along the surface of the hamstring muscles. No focal collections of gas and no drainable fluid collection seen. 2. Osseous structures of the thigh are intact. Ruben Medina MD CT Angiography 06/16/17 0000 Signed Impressions: Service Date/Time: Friday, June 16, 2017 10:12 - CONCLUSION: 1. Negative for pulmonary embolism. 2. Bilateral pleural effusions, right greater than left. 3. Bilateral lower lung perivascular thickening suggest either interstitial pulmonary edema or inflammatory process. Ruben Medina MD Chest X-Ray 06/15/17 1606 Signed Impressions: Service Date/Time: May 16:19 - CONCLUSION: The lungs are clear. Ruben Medina MD Knee X-Ray 06/15/17 0000 Signed Impressions: Service Date/Time: May 17:22 - CONCLUSION: 1. No evidence of recent bony injury. Ruben Medina MD Femur X-Ray 06/15/17 0000 Signed Impressions: Service Date/Time: May 17:22 - CONCLUSION: No acute findings. Ruben Medina MD PHYSICAL EXAMINATION: GENERAL: Awake and alert. HEENT: Head is atraumatic. Extraocular movements grossly intact. No icterus. Oropharynx with moist mucosa. No visible lesions. The mucosa is moist. NECK: The neck is supple without adenopathy. LUNGS: Decreased breath sounds. HEART: Regular S1 and S2. No audible murmurs, rubs or gallops. ABDOMEN: Obese, soft, diminished bowel sounds. Nontender. EXTREMITIES: Inner thigh has a lesion with dark eschar centrally. It is about a dollar coin size. This is located at the distal left inner thigh. The distal right outer thigh has a similar lesion. The left index finger had an excoriated lesion at the dorsal aspect of the proximal interphalangeal joint. The patient also has an excoriated lesion at the base of the third finger on the right hand. These have scab. Erythema at the right lateral calf decreased. The area is less warm. The extremities have no clubbing, cyanosis or edema. NEUROLOGIC: No gross focal findings. PSYCHIATRIC: Calm and cooperative. IMPRESSION: 1. Sepsis. Patient presented with fever, tachycardia, leukocytosis and elevated lactic acid. 2. Cellulitis of the right lateral calf and thigh / skin lesions of the lower extremities. Questionable etiology. Culture of the wounds of the lower extremities has group A beta Strep and Staph aureus. Erythema is decreased. MRI shows small Non-drainable fluid collection in the right leg. 3. Pleural effusion. Post drainage. 4. Diabetes mellitus. The patient had hypoglycemia on presentation. 5. Leukocytosis. WBC fluctuating. Clinically appears stable. RECOMMENDATIONS: 1. Stop vancomycin. 2. Continue clindamycin. 3. Monitor the white blood cell count. 4. Monitor cellulitis response to antibiotic treatment. 5. Physical therapy for ambulation. Continue treatment for the cellulitis and if stable he can Go for the cardiac catheterization in the next few days. Tavo Branch MD Jun 23, 2017 12:43
[2017-06-23] MEDS: HEPARIN 25,000 UNITS-D5W 250 ML - PREMIX IV PRN (13:58)
--- NOTE | 2017-06-23 15:34 | HHI.PR ---
Subjective Remarks Patient seen this morning around 11:30 AM. Says he is feeling all right. Reports right leg pain is improving. Denies any chest pain or shortness of breath. Denies any nausea or vomiting Objective Vital Signs Date Time Temp Pulse Resp B/P (MAP) Pulse Ox O2 Delivery O2 Flow Rate FiO2 06/23/17 09:50 93 21 06/23/17 08:00 95 Nasal Cannula 2.00 06/23/17 08:00 74 06/23/17 08:00 98.5 84 18 143/96 (112) 95 06/23/17 06:00 78 06/23/17 05:00 75 06/23/17 04:00 80 06/23/17 03:30 93 Nasal Cannula 2.00 06/23/17 03:30 98.3 81 16 140/93 (109) 93 06/23/17 03:00 81 06/23/17 02:00 92 06/23/17 01:00 80 06/23/17 00:00 87 06/23/17 00:00 93 Nasal Cannula 2.00 06/23/17 00:00 98.8 85 16 122/69 (86) 93 06/22/17 23:00 84 06/22/17 22:00 82 06/22/17 21:00 78 06/22/17 20:00 98.2 86 16 149/96 (113) 91 06/22/17 20:00 91 Room Air 06/22/17 20:00 86 06/22/17 19:00 86 06/22/17 16:00 82 I/O 06/22/17 06/22/17 06/22/17 06/23/17 06/23/17 06/23/17 07:00 15:00 23:00 07:00 15:00 23:00 Intake Total 360 ml 1050 ml 80 ml Output Total 1300 ml 1000 ml 700 ml Balance -940 ml -1000 ml 350 ml 80 ml Intake Oral 360 ml 480 ml IV Total 570 ml 80 ml Output Urine Total 1300 ml 1000 ml 700 ml # Bowel Movements 1 Result Diagram: 06/23/1742 06/23/17 0642 Objective Remarks GENERAL: patient sitting up in chair at bedside. SKIN: Warm and dry.3 x 3 cm eschar left medial legjust proximal to left knee. Small ulceration, 2 x 1 cm right lateral leg, just above right knee. Minimal surrounding erythema. There is some petechia over right lateral harrison. No ecchymosis. Nontender. Exam unchanged today. HEAD: Normocephalic. EYES: No scleral icterus. No injection or drainage. NECK: Supple, trachea midline. No JVD. CARDIOVASCULAR: Regular rate and rhythm without murmurs, gallops, or rubs. RESPIRATORY: Breath sounds equal bilaterally. No accessory muscle use. GASTROINTESTINAL: Abdomen soft, non-tender, nondistended. MUSCULOSKELETAL: No cyanosis, or edema. BACK: Nontender without obvious deformity. No CVA tenderness. A/P Assessment and Plan ======3/. Patient examined. Cardiac catheterization on hold. //Leukocytosis. //Right lower extremity ulcer. = White count continues elevated 13. MRI 06/22 with fluid tracking of right leg as above. Continue antibiotics as per ID. //Hyperglycemia. Still in the 200s. Increase insulin again. // Hypokalemia. Resolved after replacement. //A. fib RVR Continue amiodarone Follow on telemetry Cardiology following Etiology could be related to recent NSTEMI or pleural effusion //Sepsis //Cellulitis Continue vancomycin Monitor CBC Follow blood cultures Doppler ultrasound of right leg negative -Continue antibiotics as per ID. //Elevated troponin Suspicious for myocardial infarction Cardiac catheter planned after sepsis resolved Heparin IV //Bilateral pleural effusion Diagnostic thoracentesis planned //Coffee ground emesis No recurrence GI following Follow hemoglobin levels //Diabetes mellitus type 2 Follow blood sugars Insulin sliding scale Diabetic diet Transition patient from 70/32 to NPH insulin as a base control. //Hypertension Coronary artery disease Continue baseline treatment Follow blood pressures Adjust treatments as needed //Hypoxia //Pulmonary edema Hypoxemia resolved Some evidence of recurrence today Could be related to pleural effusion and/or CHF Provide 40 mg Lasix once Lasix 20 mg by mouth daily DVT prophylaxis IV heparin Discharge Planning cardiac catheterization on hold pending ID clearance Jonny Reynolds MD Jun 23, 2017 15:34
[2017-06-23] MEDS: ATORVASTATIN 40 MG TAB PO SCH (20:54)
[2017-06-24] VITALS (26 sets, daily range): BP systolic 134–162; BP diastolic 76–97; PULSE 69–83; RESP 18–20; TEMP 98–98.4; O2SAT 92–95
[2017-06-24] MEDS: HEPARIN 25,000 UNITS-D5W 250 ML - PREMIX IV PRN ×2 (01:43→15:14)
[2017-06-24] MEDS: CLINDAMYCIN 900 MG/NS PREMIX 50 ML IV SCH ×3 (05:28→20:47)
[2017-06-24 07:40] LABS: CREATININE 1.26 MG/DL (0.60-1.30)
[2017-06-24] MEDS ORDERED: INSULIN HUMAN NPH 1,000 UNITS/10 ML VIAL SQ SCH ×2 (08:00→17:00)
[2017-06-24] MEDS: FUROSEMIDE 40 MG/4 ML VIAL IV PUSH SCH (08:23)
[2017-06-24] MEDS: LISINOPRIL 20 MG TAB PO SCH (08:24)
[2017-06-24] MEDS: PANTOPRAZOLE SODIUM 40 MG VIAL IV PUSH SCH ×2 (08:24→20:30)
[2017-06-24] MEDS: LACTOBACILLUS ACIDOPHILUS TAB PO SCH ×2 (08:24→20:29)
[2017-06-24] MEDS: METOPROLOL TARTRATE 25 MG TAB PO SCH ×2 (08:24→20:31)
[2017-06-24] MEDS: SODIUM CHLORIDE 0.9% FLUSH 10 ML FLUSH IV FLUSH SCH ×2 (08:25→20:29)
[2017-06-24] MEDS: INSULIN NovoLIN REGULAR SUPPLEMENTAL SCALE SQ SCH ×4 (08:26→20:44)
[2017-06-24] MEDS: INSULIN HUMAN REGULAR 1,000 UNITS/10 ML VIAL SQ SCH ×3 (08:26→17:07)
[2017-06-24] MEDS: MUPIROCIN 2% OINT 22 GM TUBE TOPICAL SCH ×2 (08:28→20:31)
--- NOTE | 2017-06-24 14:48 | HHI.PR ---
Subjective Remarks Patient seen this morning around 10 AM. Says he is feeling all right. Reports pain is under control. Denies any chest pain or shortness of breath. Denies any nausea or vomiting. Objective Vital Signs Date Time Temp Pulse Resp B/P (MAP) Pulse Ox O2 Delivery O2 Flow Rate FiO2 06/24/17 12:03 98.2 76 20 162/97 (118) 95 06/24/17 12:03 95 Room Air 06/24/17 07:46 92 Room Air 06/24/17 07:46 98.0 81 20 156/95 (115) 92 06/24/17 06:00 79 06/24/17 05:00 83 06/24/17 04:00 80 06/24/17 04:00 98.1 80 18 138/76 (96) 93 06/24/17 04:00 Room Air 06/24/17 03:00 77 06/24/17 02:00 82 06/24/17 01:00 80 06/24/17 00:00 Room Air 06/24/17 00:00 79 06/24/17 00:00 98.4 79 20 136/82 (100) 95 06/23/17 23:00 75 06/23/17 22:00 88 06/23/17 21:00 75 06/23/17 20:00 84 06/23/17 20:00 Room Air 06/23/17 20:00 98.3 84 20 150/94 (112) 94 06/23/17 16:00 97.8 84 18 130/80 (97) 94 06/23/17 15:00 96 Nasal Cannula 2.00 I/O 06/23/17 06/23/17 06/23/17 06/24/17 06/24/17 06/24/17 06:59 14:59 22:59 06:59 14:59 22:59 Intake Total 1050 ml 380 ml 940 ml Output Total 700 ml 1450 ml Balance 350 ml 380 ml -510 ml Intake Oral 480 ml 700 ml IV Total 570 ml 380 ml 240 ml Output Urine Total 700 ml 1450 ml # Bowel Movements 1 1 Result Diagram: 06/23/17 0642 06/24/17 0656 Objective Remarks GENERAL: patient lying in bed. Appears comfortable. SKIN: Warm and dry.3 x 3 cm eschar left medial legjust proximal to left knee. Small ulceration, 2 x 1 cm right lateral leg, just above right knee. Minimal surrounding erythema. Unchanged. There is some petechia over right lateral harrison. No ecchymosis. Nontender. HEAD: Normocephalic. EYES: No scleral icterus. No injection or drainage. NECK: Supple, trachea midline. No JVD. CARDIOVASCULAR: Regular rate and rhythm without murmurs, gallops, or rubs. RESPIRATORY: Breath sounds equal bilaterally. No accessory muscle use. GASTROINTESTINAL: Abdomen soft, non-tender, nondistended. MUSCULOSKELETAL: No cyanosis, or edema. BACK: Nontender without obvious deformity. No CVA tenderness. A/P Assessment and Plan ======3/3. Patient examined. Cardiac catheterization on hold. //Leukocytosis. //Right lower extremity ulcer. = U antibiotics as per ID. Patient is cleared for cardiac catheterization if stable over the next few days. Should assistance //Hyperglycemia. Still in the 200s. Increase insulin yet again. // Hypokalemia. Resolved after replacement. Recheck tomorrow. //A. fib RVR Continue amiodarone Follow on telemetry Cardiology following Etiology could be related to recent NSTEMI or pleural effusion //Sepsis //Cellulitis Continue vancomycin Monitor CBC Follow blood cultures Doppler ultrasound of right leg negative -Continue antibiotics as per ID. //Elevated troponin Suspicious for myocardial infarction Cardiac catheter planned after sepsis resolved Heparin IV //Bilateral pleural effusion Diagnostic thoracentesis planned //Coffee ground emesis No recurrence GI following Follow hemoglobin levels //Diabetes mellitus type 2 Follow blood sugars Insulin sliding scale Diabetic diet Transition patient from 70/32 to NPH insulin as a base control. //Hypertension Coronary artery disease Continue baseline treatment Follow blood pressures Adjust treatments as needed //Hypoxia //Pulmonary edema Hypoxemia resolved Some evidence of recurrence today Could be related to pleural effusion and/or CHF Provide 40 mg Lasix once Lasix 20 mg by mouth daily DVT prophylaxis IV heparin Discharge Planning cardiac catheterization on hold pending ID clearance Jonny Reynolds MD Jun 24, 2017 14:47
[2017-06-24] MEDS: ATORVASTATIN 40 MG TAB PO SCH (20:30)
[2017-06-25] VITALS (25 sets, daily range): BP systolic 127–158; BP diastolic 76–96; PULSE 70–81; RESP 18–22; TEMP 98–98.4; O2SAT 92–95
[2017-06-25] MEDS: HEPARIN 25,000 UNITS-D5W 250 ML - PREMIX IV PRN ×2 (02:49→16:26)
[2017-06-25] MEDS: CLINDAMYCIN 900 MG/NS PREMIX 50 ML IV SCH ×3 (05:02→21:22)
[2017-06-25] MEDS: INSULIN HUMAN NPH 1,000 UNITS/10 ML VIAL SQ SCH ×2 (08:16→16:46)
[2017-06-25] MEDS: INSULIN HUMAN REGULAR 1,000 UNITS/10 ML VIAL SQ SCH ×3 (08:17→16:45)
[2017-06-25] MEDS: INSULIN NovoLIN REGULAR SUPPLEMENTAL SCALE SQ SCH ×4 (08:19→21:00)
[2017-06-25] MEDS: FUROSEMIDE 40 MG/4 ML VIAL IV PUSH SCH (08:19)
[2017-06-25] MEDS: PANTOPRAZOLE SODIUM 40 MG VIAL IV PUSH SCH ×2 (08:19→21:20)
[2017-06-25] MEDS: METOPROLOL TARTRATE 25 MG TAB PO SCH ×2 (08:20→21:21)
[2017-06-25] MEDS: LISINOPRIL 20 MG TAB PO SCH (08:20)
[2017-06-25] MEDS: LACTOBACILLUS ACIDOPHILUS TAB PO SCH ×2 (08:20→21:20)
[2017-06-25] MEDS: SODIUM CHLORIDE 0.9% FLUSH 10 ML FLUSH IV FLUSH SCH ×2 (08:21→21:21)
[2017-06-25] MEDS: MUPIROCIN 2% OINT 22 GM TUBE TOPICAL SCH ×2 (08:21→21:00)
[2017-06-25 09:42] LABS: AUTOMATED NEUTROPHIL # 10.9 TH/MM3 (1.8-7.7); BASOPHIL # 0.1 TH/MM3 (0-0.2); EOSINOPHIL # 0.1 TH/MM3 (0-0.4); HEMATOCRIT 37.8 % (39.0-51.0); HEMOGLOBIN 12.6 GM/DL (13.0-17.0); LYMPH % 13.7 % (9.0-44.0); LYMPHOCYTE # 1.9 TH/MM3 (1.0-4.8); MEAN CELL VOLUME 83.5 FL (80.0-100.0); MEAN CORPUSCULAR HEMOGLOBIN 27.7 PG (27.0-34.0); MEAN CORPUSCULAR HGB CONC 33.2 % (32.0-36.0); MEAN PLATELET VOLUME 7.8 FL (7.0-11.0); MONO % 7.4 % (0.0-8.0); NEUT % 76.9 % (16.0-70.0); PLATELET COUNT 354 TH/MM3 (150-450); RED BLOOD COUNT 4.53 MIL/MM3 (4.50-5.90); RED CELL DISTRIBUTION WIDTH 15.7 % (11.6-17.2); WHITE BLOOD COUNT 14.1 TH/MM3 (4.0-11.0)
[2017-06-25 10:32] LABS: ALBUMIN 2.3 GM/DL (3.4-5.0); BICARBONATE 25.6 MEQ/L (21.0-32.0); CALCIUM 9.1 MG/DL (8.5-10.1); CREATININE 1.3 MG/DL (0.60-1.30); MAGNESIUM 1.9 MG/DL (1.5-2.5); PHOSPHORUS 4.3 MG/DL (2.5-4.9)
[2017-06-25] MEDS ORDERED: SODIUM CHLORID 0.9% 500 ML INJ 500 ML IV ONE (14:00)
--- NOTE | 2017-06-25 14:01 | HHI.PR ---
Subjective Remarks seen this morning. Says he is feeling all right. Denies any chest pain or shortness of breath. Denies any nausea vomiting. Outside food BAG at bedside. Objective Vital Signs Date Time Temp Pulse Resp B/P (MAP) Pulse Ox O2 Delivery O2 Flow Rate FiO2 06/25/17 11:22 98.0 74 18 141/93 (109) 93 06/25/17 11:22 94 Room Air 06/25/17 11:00 72 06/25/17 10:03 79 06/25/17 09:00 80 06/25/17 08:00 74 06/25/17 07:32 95 Room Air 06/25/17 07:32 98.2 75 18 158/96 (116) 94 06/25/17 07:00 78 06/25/17 06:00 76 06/25/17 05:00 75 06/25/17 04:00 74 06/25/17 04:00 98.1 74 20 147/76 (99) 92 06/25/17 04:00 Room Air 06/25/17 03:00 75 06/25/17 02:00 70 06/25/17 01:00 72 06/25/17 00:00 Room Air 06/25/17 00:00 98.4 77 22 138/88 (105) 94 06/25/17 00:00 77 06/24/17 23:00 75 06/24/17 22:00 81 06/24/17 21:00 78 06/24/17 20:00 82 06/24/17 20:00 Room Air 06/24/17 20:00 98.2 82 20 134/90 (105) 95 06/24/17 18:04 79 06/24/17 17:00 78 06/24/17 16:00 74 06/24/17 15:17 98.1 76 18 144/92 (109) 95 06/24/17 15:17 95 Room Air 06/24/17 15:00 69 06/24/17 14:00 70 I/O 06/24/17 06/24/17 06/24/17 06/25/17 06/25/17 06/25/17 06:59 14:59 22:59 06:59 14:59 22:59 Intake Total 940 ml 1260 ml 1200 ml Output Total 1450 ml 2645 ml 1600 ml Balance -510 ml -1385 ml -400 ml Intake Oral 700 ml 960 ml 960 ml IV Total 240 ml 300 ml 240 ml Output Urine Total 1450 ml 2645 ml 1600 ml # Bowel Movements 1 1 1 Result Diagram: 06/25/1791906/25/17919 Objective Remarks GENERAL: patient lying in bed. Appears comfortable. SKIN: Warm and dry.3 x 3 cm eschar left medial legjust proximal to left knee. Small ulceration, 2 x 1 cm right lateral leg, just above right knee. Minimal surrounding erythema. Unchanged. There is some petechia over right lateral harrison. No ecchymosis. Nontender. NO Change. HEAD: Normocephalic. EYES: No scleral icterus. No injection or drainage. NECK: Supple, trachea midline. No JVD. CARDIOVASCULAR: Regular rate and rhythm without murmurs, gallops, or rubs. RESPIRATORY: Breath sounds equal bilaterally. No accessory muscle use. GASTROINTESTINAL: Abdomen soft, non-tender, nondistended. MUSCULOSKELETAL: No cyanosis, or edema. BACK: Nontender without obvious deformity. No CVA tenderness. A/P Assessment and Plan ======06/25. Patient examined. Cardiac catheterization on hold. //Leukocytosis. //Right lower extremity ulcer. = Examiner's continues of 14.1. U antibiotics as per ID. Patient is cleared for cardiac catheterization if stable over the next few days. Appreciate ID assistance. //Hyperglycemia. In the 400s, however Gray's at bedside. Stress no outside food. // Hypokalemia. Resolved after replacement. Recheck tomorrow. //Hyponatremia. Secondary to hyperglycemia. Bolus 1 L normal saline. No outside food //A. fib RVR Continue amiodarone Follow on telemetry Cardiology following Etiology could be related to recent NSTEMI or pleural effusion //Sepsis //Cellulitis Continue vancomycin Monitor CBC Follow blood cultures Doppler ultrasound of right leg negative -Continue antibiotics as per ID. //Elevated troponin Suspicious for myocardial infarction Cardiac catheter planned after sepsis resolved Heparin IV //Bilateral pleural effusion Diagnostic thoracentesis planned //Coffee ground emesis No recurrence GI following Follow hemoglobin levels //Diabetes mellitus type 2 Follow blood sugars Insulin sliding scale Diabetic diet Transition patient from 70/32 to NPH insulin as a base control. //Hypertension Coronary artery disease Continue baseline treatment Follow blood pressures Adjust treatments as needed //Hypoxia //Pulmonary edema Hypoxemia resolved Some evidence of recurrence today Could be related to pleural effusion and/or CHF Provide 40 mg Lasix once Lasix 20 mg by mouth daily DVT prophylaxis IV heparin Discharge Planning cardiac catheterization on hold pending ID clearance Discharge Planning cardiac catheterization on hold pending ID clearance Jonny Reynolds MD Jun 25, 2017 14:01
[2017-06-25] MEDS: ATORVASTATIN 40 MG TAB PO SCH (21:21)
[2017-06-26] VITALS (22 sets, daily range): BP systolic 126–154; BP diastolic 78–99; PULSE 66–94; RESP 16–20; TEMP 97.9–99.3; O2SAT 94–98
[2017-06-26] MEDS: CLINDAMYCIN 900 MG/NS PREMIX 50 ML IV SCH (05:26)
[2017-06-26] MEDS: HEPARIN 25,000 UNITS-D5W 250 ML - PREMIX IV PRN (05:48)
[2017-06-26 07:31] LABS: AUTOMATED NEUTROPHIL # 10.2 TH/MM3 (1.8-7.7); BASOPHIL # 0.1 TH/MM3 (0-0.2); BASOPHIL % 0.9 % (0.0-2.0); EOSINOPHIL # 0.2 TH/MM3 (0-0.4); EOSINOPHIL % 1.5 % (0.0-4.0); HEMATOCRIT 36.5 % (39.0-51.0); HEMOGLOBIN 12.2 GM/DL (13.0-17.0); LYMPH % 18.6 % (9.0-44.0); LYMPHOCYTE # 2.7 TH/MM3 (1.0-4.8); MEAN CELL VOLUME 83.4 FL (80.0-100.0); MEAN CORPUSCULAR HEMOGLOBIN 27.8 PG (27.0-34.0); MEAN CORPUSCULAR HGB CONC 33.4 % (32.0-36.0); MEAN PLATELET VOLUME 7.8 FL (7.0-11.0); MONOCYTE # 1.1 TH/MM3 (0-0.9); PLATELET COUNT 368 TH/MM3 (150-450); RED BLOOD COUNT 4.38 MIL/MM3 (4.50-5.90); RED CELL DISTRIBUTION WIDTH 15.8 % (11.6-17.2); WHITE BLOOD COUNT 14.3 TH/MM3 (4.0-11.0)
[2017-06-26] MEDS: INSULIN HUMAN NPH 1,000 UNITS/10 ML VIAL SQ SCH ×2 (08:00→17:39)
[2017-06-26] MEDS: INSULIN NovoLIN REGULAR SUPPLEMENTAL SCALE SQ SCH ×4 (08:00→21:00)
[2017-06-26] MEDS: INSULIN HUMAN REGULAR 1,000 UNITS/10 ML VIAL SQ SCH ×3 (08:05→17:39)
[2017-06-26 08:13] LABS: ALBUMIN 2.3 GM/DL (3.4-5.0); BICARBONATE 26.6 MEQ/L (21.0-32.0); CALCIUM 8.7 MG/DL (8.5-10.1); CREATININE 1.31 MG/DL (0.60-1.30); MAGNESIUM 1.9 MG/DL (1.5-2.5)
--- NOTE | 2017-06-26 08:22 | PD.CARD.PN ---
Subjective Subjective Remarks Still with some right lateral knee discomfort that makes it difficult to walk, but no redness or swelling. The patient denies any chest pain, shortness of breath, or palpitations. No further bleeding issues. (Jack Wilkerson) Objective Medications Current Medications Medications (Trade) Dose Ordered Sig/Joseph Route Start Time Stop Time Status Last Admin (Tylenol) 650 mg Q4H PRN PO 06/15/17 20:00 06/17/17 19:58 (Zofran Inj) 4 mg Q6H PRN IVP 06/15/17 22:00 06/18/17 19:43 (Restoril) 15 mg HS PRN PO 06/15/17 21:00 (Narcan Inj) 0.4 mg UNSCH PRN IV PUSH 06/15/17 18:15 (Senokot) 17.2 mg Q12HR PRN PO 06/15/17 21:00 06/17/17 09:54 (D50w (Vial) Inj) 50 ml UNSCH PRN IV PUSH 06/15/17 18:15 (Glucagon Inj) 1 mg UNSCH PRN OTHER 06/15/17 18:15 (Proair Hfa Inh) 2 puff Q6HR PRN INH 06/15/17 20:00 (Toprol Xl) 50 mg DAILY PO 06/16/17 09:00 Future Hold 06/18/17 08:55 (Prinivil) 40 mg DAILY PO 06/16/17 09:00 06/25/17 08:20 (Lipitor) 80 mg HS PO 06/16/17 21:00 06/25/17 21:21 (Protonix Inj) 40 mg BID IV PUSH 06/16/17 21:00 06/25/17 21:20 Heparin Sodium/ Dextrose 250 ml @ 10 mls/hr TITRATE PRN IV 06/16/17 22:30 06/26/17 05:48 (Heparin Inj) 5,000 units UNSCH PRN IV PUSH 06/16/17 22:30 (Heparin Inj) 2,500 units UNSCH PRN IV PUSH 06/16/17 22:30 06/19/17 16:53 (Bactroban 2% Oint) 1 applic Q12HR TOPICAL 06/17/17 21:00 06/25/17 21:00 (NS Flush) 2 ml UNSCH PRN IV FLUSH 06/19/17 09:00 (NS Flush) 2 ml BID IV FLUSH 06/19/17 09:00 06/25/17 21:21 (Vasotec Inj) 1.25 mg Q6H PRN IV PUSH 06/19/17 10:00 06/24/17 12:49 (Lasix Inj) 40 mg DAILY IV PUSH 06/19/17 10:00 06/25/17 08:19 Diltiazem HCl 125 mg/Sodium Chloride 125 ml @ 5 mls/hr TITRATE PRN IV 06/21/17 15:00 (Lopressor) 25 mg Q12HR PO 06/21/17 21:00 06/25/17 21:21 (Lactinex) 1 tab Q12HR PO 06/22/17 21:00 06/25/17 21:20 Clindamycin/ Sodium Chloride 50 ml @ 100 mls/hr Q8H IV 06/22/17 14:00 06/26/17 05:26 (NovoLIN R INJ) 6 units TIDAC SQ 06/23/17 17:00 06/25/17 16:45 (NovoLIN R SUPPLEMENTAL SCALE) 1 ACHS SLIDING SCALE SQ 06/24/17 08:00 06/25/17 16:45 (NovoLIN N INJ) 40 units DAILY@08 SQ 06/25/17 08:00 06/25/17 08:16 (NovoLIN N INJ) 35 units DAILY@17 SQ 06/25/17 17:00 06/25/17 16:46 Vital Signs / I&O Vital Signs Date Time Temp Pulse Resp B/P (MAP) Pulse Ox O2 Delivery O2 Flow Rate FiO2 06/26/17 06:00 73 06/26/17 05:00 76 06/26/17 04:00 72 06/26/17 04:00 98.4 72 20 134/84 (101) 95 06/26/17 04:00 Room Air 06/26/17 03:00 74 06/26/17 02:00 70 06/26/17 01:00 76 06/26/17 00:00 98.1 83 20 132/83 (99) 94 06/26/17 00:00 Room Air 06/26/17 00:00 83 06/25/17 23:00 79 06/25/17 22:00 70 06/25/17 21:00 81 06/25/17 20:00 95 Room Air 06/25/17 20:00 98.4 79 18 148/88 (108) 95 06/25/17 20:00 79 06/25/17 18:23 81 06/25/17 17:00 76 06/25/17 16:16 98.2 74 18 127/87 (100) 95 06/25/17 16:16 95 Room Air 06/25/17 16:00 76 06/25/17 15:00 75 06/25/17 14:00 74 06/25/17 13:00 72 06/25/17 11:22 98.0 74 18 141/93 (109) 93 06/25/17 11:22 94 Room Air 06/25/17 11:00 72 06/25/17 10:03 79 06/25/17 09:00 80 I/O 06/25/17 06/25/17 06/25/17 06/26/17 06/26/17 06/26/17 07:00 15:00 23:00 07:00 15:00 23:00 Intake Total 1250 ml 1710 ml 1200 ml Output Total 1600 ml 1975 ml 1100 ml Balance -350 ml -265 ml 100 ml Intake Oral 960 ml 960 ml 960 ml IV Total 290 ml 750 ml 240 ml Output Urine Total 1600 ml 1975 ml 1100 ml # Bowel Movements 1 1 0 0 Physical Exam GENERAL: Well-developed well-nourished. In no acute distress. NECK: No carotid bruits. No JVD. CARDIOVASCULAR: Regular rate and rhythm. No murmur appreciated. RESPIRATORY: No accessory muscle use. Clear to auscultation. Breath sounds equal bilaterally. MUSCULOSKELETAL: No clubbing or cyanosis. No edema. No calf TTP. NEUROLOGICAL: Awake and alert. Normal speech. Laboratory Laboratory Tests Test 06/25/17 09:20 06/26/17 06:20 White Blood Count 14.1 TH/MM3 14.3 TH/MM3 Red Blood Count 4.53 MIL/MM3 4.38 MIL/MM3 Hemoglobin 12.6 GM/DL 12.2 GM/DL Hematocrit 37.8 % 36.5 % Mean Corpuscular Volume 83.5 FL 83.4 FL Mean Corpuscular Hemoglobin 27.7 PG 27.8 PG Mean Corpuscular Hemoglobin Concent 33.2 % 33.4 % Red Cell Distribution Width 15.7 % 15.8 % Platelet Count 354 TH/MM3 368 TH/MM3 Mean Platelet Volume 7.8 FL 7.8 FL Neutrophils (%) (Auto) 76.9 % 71.0 % Lymphocytes (%) (Auto) 13.7 % 18.6 % Monocytes (%) (Auto) 7.4 % 8.0 % Eosinophils (%) (Auto) 1.0 % 1.5 % Basophils (%) (Auto) 1.0 % 0.9 % Neutrophils # (Auto) 10.9 TH/MM3 10.2 TH/MM3 Lymphocytes # (Auto) 1.9 TH/MM3 2.7 TH/MM3 Monocytes # (Auto) 1.0 TH/MM3 1.1 TH/MM3 Eosinophils # (Auto) 0.1 TH/MM3 0.2 TH/MM3 Basophils # (Auto) 0.1 TH/MM3 0.1 TH/MM3 CBC Comment DIFF FINAL DIFF FINAL Differential Comment Activated Partial Thromboplast Time 44.3 SEC 49.0 SEC Blood Urea Nitrogen 29 MG/DL 30 MG/DL Creatinine 1.30 MG/DL 1.31 MG/DL Random Glucose 420 MG/DL 213 MG/DL Albumin 2.3 GM/DL 2.3 GM/DL Calcium Level 9.1 MG/DL 8.7 MG/DL Phosphorus Level 4.3 MG/DL 5.0 MG/DL Magnesium Level 1.9 MG/DL 1.9 MG/DL Sodium Level 129 MEQ/L 134 MEQ/L Potassium Level 4.3 MEQ/L 3.9 MEQ/L Chloride Level 96 MEQ/L 96 MEQ/L Carbon Dioxide Level 25.6 MEQ/L 26.6 MEQ/L Anion Gap 7 MEQ/L 11 MEQ/L Estimat Glomerular Filtration Rate 56 ML/MIN 56 ML/MIN Imaging Last Impressions Lower Extremity MRI 06/22/17 0000 Signed Impressions: Service Date/Time: June 17:13 - CONCLUSION: Fluid dissecting between the subcutaneous fat and the lateral fascia. Small amount of edema within the anterior muscular compartment. No significant drainable fluid collection is identified. no evidence of marrow edema or marrow replacing process Tanner Iniguez MD Thoracentesis Ultrasound 06/18/17 0000 Signed Impressions: Service Date/Time: Sunday, June 18, 2017 12:16 - CONCLUSION: Uncomplicated ultrasound guided thoracentesis. Faustino Beauchamp MD Chest X-Ray 06/18/17 0000 Signed Impressions: Service Date/Time: Sunday, June 18, 2017 12:45 - CONCLUSION: No evidence of pneumothorax Faustino Beauchamp MD Lower Extremity Ultrasound 06/17/17 0000 Signed Impressions: Service Date/Time: Saturday, June 17, 2017 18:20 - CONCLUSION: No evidence of DVT. Nima Johnson MD Lower Extremity CT 06/16/17 0000 Signed Impressions: Service Date/Time: Friday, June 16, 2017 10:12 - CONCLUSION: 1. Posterior subcutaneous soft tissue induration and some mild fluid tracking along the surface of the hamstring muscles. No focal collections of gas and no drainable fluid collection seen. 2. Osseous structures of the thigh are intact. Ruben Medina MD CT Angiography 06/16/17 0000 Signed Impressions: Service Date/Time: Friday, June 16, 2017 10:12 - CONCLUSION: 1. Negative for pulmonary embolism. 2. Bilateral pleural effusions, right greater than left. 3. Bilateral lower lung perivascular thickening suggest either interstitial pulmonary edema or inflammatory process. Ruben Medina MD Knee X-Ray 06/15/17 0000 Signed Impressions: Service Date/Time: May 17:22 - CONCLUSION: 1. No evidence of recent bony injury. Ruben Medina MD Femur X-Ray 06/15/17 0000 Signed Impressions: Service Date/Time: May 17:22 - CONCLUSION: No acute findings. Ruben Medina MD (Jack Wilkerson) Assessment and Plan Problem List: (1) Elevated troponin ICD Codes: R74.8 - Abnormal levels of other serum enzymes (2) Sepsis ICD Codes: A41.9 - Sepsis, unspecified organism Status: Acute Assessment and Plan 62 yo WM with CAD, cardiac stents placed in 2005, HTN, DM and HLD who has been admitted for sepsis and NSTEMI. NSTEMI: Planning for [facility], was previously held for infection. Atrial fibrillation: Rate currently controlled on metoprolol. 25 mg No further afib RVR overnight cardiomyopathy: EF reduced 35-40%. cont metoprolol, lisinopril, Lasix. PAD: mild, RLE cellulitis: R lower leg, ID following gastritis: GI following (Jack Wilkerson) Assessment and Plan [facility] today (Tanner Ca MD) Problem Qualifiers (1) Sepsis: Qualified Codes: A41.9 - Sepsis, unspecified organism Jack Wilkerson Jun 26, 2017 08:22 Tanner Ca MD Jun 26, 2017 08:39
[2017-06-26] MEDS: PANTOPRAZOLE SODIUM 40 MG VIAL IV PUSH SCH ×2 (08:48→21:36)
[2017-06-26] MEDS: LISINOPRIL 20 MG TAB PO SCH (08:48)
[2017-06-26] MEDS: FUROSEMIDE 40 MG/4 ML VIAL IV PUSH SCH (08:49)
[2017-06-26] MEDS: SODIUM CHLORIDE 0.9% FLUSH 10 ML FLUSH IV FLUSH SCH ×2 (08:49→21:37)
[2017-06-26] MEDS: METOPROLOL TARTRATE 25 MG TAB PO SCH ×2 (08:49→21:37)
[2017-06-26] MEDS: LACTOBACILLUS ACIDOPHILUS TAB PO SCH ×2 (08:49→21:37)
[2017-06-26] MEDS: MUPIROCIN 2% OINT 22 GM TUBE TOPICAL SCH ×2 (08:49→21:00)
[2017-06-26] MEDS ORDERED: MIDAZOLAM HCL 2 MG/2 ML VIAL ONE (09:25)
[2017-06-26] MEDS ORDERED: HEPARIN-NS/PF FLUSH BAG 2,000 ML IV FLUSH ONE (09:25)
[2017-06-26] MEDS ORDERED: HEPARIN SODIUM - IV 10,000 UNITS/10 ML VIAL ONE (09:26)
--- NOTE | 2017-06-26 10:35 | CATHPROC ---
Periscope HIS Report Study Information Study Number Admission Scheduled Start Study Start [id number] Jun 15 2017 6:03PM 06/26/2017 Jun 26 2017 9:26AM [place] [facility] Cardiac Catheterization Admit Source Facility Department Emergency department [facility] - [facility] Physician and Clinical Staff Initial Tanner Yousif Network Designer Trae Carson,RN Network Designer Trae Barrett,RN Recorder Laurel Ni RT(R) (BS) Scrub Bernardo Gupta RCIS(BS) Procedures Performed Procedure Location (Site) Vessel Name Coronary Angiograms LCA Left Coronary Coronary Angiograms RCA Right Coronary IVUS Radial (right) Radial Art. L Heart Cath Wire insertion Radial (right) Radial Art. Equipment Time It Application Support Analyst Description Size Mfg Part Number Used/Scraped TRANSDUCER, TRSAFIA [id number] 09:52 Velomedix STEWART * Used W/STOCKCOCK *[id number] *[id number] *[id number] 09:52 [employer] PACK, CCL CUSTOM * Used *[id number] 09:52 [employer] SUPPORT, ARTERIAL ADULT [id number] *[id number] Used [id number] 09:52 Clearwire PACER PEN, SKIN DUAL W/ RULER * Used *[id number] 09:52 MEDTRONIC JR 5.0 DXTERITY CATHETER fr 5 [id number] Used BAND, RADIAL COMPRESSION TR [id number] 10:24 Cream Style 24CM Used SHORT 24 *[id number] SHEATH, FR6 RADIAL PRELUDE 09:52 Cream Style FR 6 [id number] Used EASE 11CM [id number] 09:52 Cream Style WIRE, EXCHANGE 260CM 3MMJ 260CM Used *[id number] 09:52 NYCOMED OMNIPAQUE, 350 MG, 150ML 150ML [id number] Used [id number] 09:52 aXess [place] BLANKET,WARM AIR CCL * Used *[id number] WIRE, RUNTHROUGH NS FLOPPY [id number] 10:11 TERUMCymoGen Dx MEDICAL 180CM Used .014 180CM *[id number] CATHETER, [employer] [employer] [id number] 10:12 VOLCANO Used IMAGING *[id number] History: Current Medications Medication Dosage/Unit Route Frequency Last Date/Time Taken Statins (any) Beta Ramsey HEPARIN History: Allergies Allergy Reaction No Known Allergies History: Risk Factors Family History of Hypertension Dyslipidemia Previous IN Previous Heart Failure Premature CAD Yes Yes Yes Yes Yes Prior Valve Prior PCI Prior PCIDate Prior CABG Surgery No Yes 06/22/2005 No Cerebrovascular Peripheral Artery Chronic Lung On Dialysis Diabetes Disease Disease Disease No No No No Yes History: Stress Tests Stress or Imaging Studies Performed No History: Other Current Smoker No Labs Hgb (g/dl) Hct (%) WBC (l/cumm) Platelets (thousands) 11.60-17.00 35.00-51.00 4.00-11.00 150.00-450.00 12.2 36.5 14.3 368 Glucose (mg/dl) BUN (mg/dl) Creatinine (mg/dl) BUN:Creatinine (1:x) 74.00-106.00 7.00-18.00 0.50-1.30 10.00-20.00 213 30 1.3 23.1 Na (meq/l) K (meq/l) 136.00-145.00 3.50-5.10 134 3.9 INR (PTT:PT) 0.90-1.10 1.1 CPK-MB (ng/ML) 0.50-3.60 Not Drawn Medication Medication Total Dose (Bolus/Oral) Medication Total Dosage/Unit 1% XYLOCAINE 1 mL FENTANYL 50 mcg HEPARIN 8000 units NTG (IC) 200 mcg VERSED 2 mg Medications (Bolus/Oral) Medication Time Given Dosage/Unit Administered By Reason VERSED 06/26/2017 9:49:39 AM 2 mg Trae Barrett 2 mg VERSED given in lab by Trae Barrett RN in Left Antecubital via Peripheral IV. 1% XYLOCAINE 06/26/2017 9:49:57 AM 1 mL Tanner Ca 1 mL 1% XYLOCAINE given in lab by Tanner Ca in Right Radial via Subcutaneous. FENTANYL 06/26/2017 9:50:51 AM 50 mcg Trae Barrett 50 mcg FENTANYL given in lab by Trae Barrett RN in Left Antecubital via Peripheral IV. NTG (IC) 06/26/2017 9:53:30 AM 200 mcg Tanner Ca 200 mcg NTG given in lab by Trae Barrett RN in Right Radial via Intra-arterial. HEPARIN 06/26/2017 9:56:09 AM 5000 units Trae Carson 5000 units HEPARIN given in lab by Trae Carson RN in Left Antecubital via Peripheral IV. HEPARIN 06/26/2017 10:08:18 AM 3000 units Trae Carson 3000 units HEPARIN given in lab by Trae Carson RN in Left Antecubital via Peripheral IV. Medication (Drip) Medication Time Given Dosage/Unit Concentration/Unit Diluent (ml) Solution HEPARIN DRIP STOPPED 06/26/2017 9:15:59 AM 0 units/hr 0 Patient arrived on 0 units/hr HEPARIN DRIP STOPPED. Pump/Drip Flow = 0 ml/hr using [Solution Name]. IV Solutions 06/26/2017 9:26:52 AM 0 mL (IV) 1000 NaCl .9 IV Solutions given in lab by Trae Carson RN in Left Antecubital via Peripheral IV. Pump/Drip Flow = 30 ml/hr using NaCl .9. Initial Case Assessment Cardiovascular HR Rhythm NIBP Chest Pain 75 reg 150/95 0 Edema Present Skin color Skin None Normal Warm Circulatory - Right Pulses Posterior Tibial Femoral Radial d 2 2 Scale (0,1,2,3,4,d) Scale (0,1,2,3,4,d) Circulatory - Lower Extremities Color Lower Right Color Lower Left Normal Normal Neurological State Oriented to time-place- Alert Moves all extremities person Respiration - General Respiration Rate SpO2 (%) (B/min) 15 93 Chronological Log Time Study Chronological Log 9:15:59 Patient arrived on 0 units/hr HEPARIN DRIP STOPPED. Pump/Drip Flow = 0 ml/hr using [Solution Name]. 9:20:29 Patient arrived via Bed. 9:20:33 Patient Name, D.O.B, / Armband Verified By R.N. 9:26:35 Consent signed by the physician and the patient and verified by the [facility] staff. 9:26:37 Pre-op and post- op instructions given; patient acknowledges understanding of instructions. 9:26:37 Verbal Stimulation=2 Physical Stimulation=2 Airway=2 Respiration=2 TOTAL=8. (0=absent, 1=richardson ited, 2=present) 9:26:39 Presedation assessment performed by [facility] RN. 9:26:41 Allens test performed on the right radial and ulnar artery. 9:26:47 Patient has been NPO for More than 6Hrs. 9:26:49 Skin Breakdown none per pt 9:26:50 Patient Warmer Placed on the Table. 9:26:51 Shlomo Prominences Protected 9:26:52 A # 20 IV was noted in the Antecubital (left). Grade = 0 IV Solutions given in lab by Trae Carson RN in Left Antecubital via Peripheral IV. Pump/Drip F low = 30 ml/hr using 9:26:52 NaCl .9. 9:26:53 History and physical on the chart or being dictated. Assessment: Initial Case, HR=75 BPM, Rhythm=reg, DUNC=123/95 mmhg, Chest Pain=0, Edema=None, Col or=Normal, Skin = Warm Right Pulses: Post Tib=d, Femoral=2, Radial=2 9:26:54 Lower Right Extremities: Color=Normal Lower Left Extremities: Color=Normal Neurological: State=Alert, Ox3, MCNEILL Respiration: Resp=15 B/min, SpO2=93 % 9:31:33 Right Radial and right groin prepped with 2% chlorhexidine, and draped after a 3 min. waitin g time. Vitals capture started with the following parameters, Patient=Adult, Interval=5 min, Initial Pre tztyh=486 mmHg, 9:32:03 Deflation Rate=5 mmHg, Cuff placed on Right Ankle 9:32:12 Reference ECG taken 9:32:41 HR=75 bpm, HGBY=536/95 mmhg, Resp=8 B/min, Pain=0, Yoladna=10, Botello=2 9:37:44 HR=76 bpm, RLFW=811/90 mmhg, SpO2=93.0 %, Resp=15 B/min, Pain=0, Yolanda=10, Botello=2 9:39:18 Pressure channel 1 zero failed. 9:42:45 HR=76 bpm, LIAV=775/86 mmhg, SpO2=91.0 %, Resp=7 B/min, Pain=0, Yolanda=10, Botello=2 9:46:55 MD arrived 9:47:44 HR=79 bpm, FGEM=974/126 mmhg, SpO2=92.0 %, Resp=19 B/min, Pain=0, Yolanda=10, Botello=2 Time Out. Correct patient, correct procedure, correct physician, power injector not loaded with contrast with surgical 9:49:10 team present. Time Out Concurred by MD and individual staff in procedure. 9:49:21 Case Start 9:49:39 2 mg VERSED given in lab by Trae Barrett RN in Left Antecubital via Peripheral IV. 9:49:57 1 mL 1% XYLOCAINE given in lab by Tanner Ca in Right Radial via Subcutaneous. 9:50:51 50 mcg FENTANYL given in lab by Trae Barrett RN in Left Antecubital via Peripheral IV. 9:52:47 HR=73 bpm, QAEX=154/84 mmhg, SpO2=93.0 %, Resp=10 B/min, Pain=0, Yolanda=10, Botello=2 9:52:51 Access site was right Radial Artery. A SHEATH, FR6 RADIAL PRELUDE EASE 11CM FR 6 was advanced into the Radial (right) using the John schwartz 9:53:15 technique. 9:53:30 200 mcg NTG given in lab by Trae Barrett RN in Right Radial via Intra-arterial. 9:53:55 In the Radial (right) the SHEATH, FR6 RADIAL PRELUDE EASE 11CM FR [address] by Tanner Ca. A JR 5.0 DXTERITY CATHETER fr 5 was advanced over a wire. OMNIPAQUE, 350 MG, 150ML 150ML was us ed for 9:54:35 injections. Recorded Pressure: LV, HR=74, Condition=Condition 1 9:56:05 (Left Ventricle) LV 89/7/10 9:56:09 5000 units HEPARIN given in lab by Trae Carson RN in Left Antecubital via Peripheral IV. Recorded Pressure: LV, Ao, HR=74, Condition=Condition 1 9:56:21 (Left Ventricle) LV 91/8/11, (Aorta) Ao 92/60/75 9:56:57 The RCA was injected and visualized at various angles. OMNIPAQUE, 350 MG, 150ML 150ML used. 9:57:44 HR=74 bpm, ZXXG=603/69 mmhg, SpO2=91.0 %, Resp=17 B/min, Pain=0, Yolanda=10, Botello=2 After removing the current catheter a JL 3.5 INFINITI CATHETER FR 5 was advanced over a WIRE, E XCHANGE 260CM 9:58:00 3MMJ 260CM. 10:00:28 The LCA was injected and visualized at various angles. OMNIPAQUE, 350 MG, 150ML 150ML used . 10:02:41 HR=70 bpm, PYDU=160/72 mmhg, SpO2=93.0 %, Resp=10 B/min, Pain=0, Yolanda=10, Botello=2 10:05:16 A WIRE, EXCHANGE 260CM 3MMJ 260CM was inserted via Radial (right). 10:05:23 Catheter was removed 10:07:46 HR=72 bpm, INXX=479/66 mmhg, SpO2=95.0 %, Resp=0 B/min, Pain=0, Yolanda=10, Botello=2 A XBLAD 3.5 GUIDE CATHETER FR 6 was advanced over a wire. OMNIPAQUE, 350 MG, 150ML 150ML was us ed for 10:07:49 injections. 10:08:18 3000 units HEPARIN given in lab by Trae Carson, RN in Left Antecubital via Peripheral IV. 10:10:47 A WIRE, RUNTHROUGH NS FLOPPY .014 180CM 180CM was inserted via Radial (right). 10:12:41 HR=70 bpm, ECZE=872/75 mmhg, Resp=11 B/min, Pain=0, Yolanda=10, Botello=2 10:12:46 An CATHETER, [employer] IMAGING was advanced through the lesion. Images saved onto IVUS hard drive 10:13:51 IVUS in progress using CATHETER, [employer] IMAGING 10:17:45 HR=71 bpm, GSPA=135/69 mmhg, SpO2=93.0 %, Resp=14 B/min, Pain=0, Yolanda=10, Botello=2 10:19:42 IVUS catheter removed 10:19:47 Wire removed 10:20:14 Catheter was removed 10:20:22 Case End 10:22:44 HR=70 bpm, GIUG=090/70 mmhg, SpO2=94.0 %, Resp=2 B/min, Pain=0, Yolanda=10, Botello=2 10:23:12 [facility] called. Spoke to Florinda. 10:23:33 Catheter(s) removed without difficulty Radial Compression Device Used. 13 mLs of air placed in BAND, RADIAL COMPRESSION TR SHORT 24 24 CM. Affected 10:23:58 hand ~O2 SATURATION~ % O2 saturation. 10:25:27 No case complications noted. 10:25:30 Bedside Report will be given. 10:25:33 A Left Heart Cath was performed. 10:27:43 XFEH=992/78 mmhg, Pain=0, Yolanda=10, Botello=2 10:28:50 Vitals capture stopped. 10:28:[facility] - Contrast Media Used In Study Contrast Total Opened (mL) Total Used (mL) Total Wasted (mL) Omnipaque 70 70 0 End Study - Maximum Contrast Load Max Contrast Load (mL) 367.3 End Study - Radiation Exposure Fluoro Time (minutes) 3.8 End Study - Patient Disposition Complications Transferred To Interventional Outcome No Telemetry Bed No attempt made
[2017-06-26] MEDS ORDERED: MISC INFORMATION XX ONE (10:45)
--- NOTE | 2017-06-26 11:02 | MA ---
cc: Tanner Ca MD 06/26/2017 INDICATION: Cardiomyopathy, non ST elevation WI. PROCEDURE PERFORMED: 1. Fluoroscopy with interpretation. 2. Coronary angiography. 3. Left heart catheterization. 4. Intravascular ultrasound of the left anterior descending and left main coronary arteries. METHOD: Risks, benefits and alternatives discussed with the patient . The patient understood, consented to. The patient was brought in catheterization lab, placed on the catheterization table. Right wrist was prepped and draped in a sterile fashion. Right wrist was anesthetized with 2% lidocaine. Right greater artery was cannulated, and a 6-[place] 7 cm sheath was placed without difficulty. LEFT HEART CATHETERIZATION: Intraventricular hemodynamics 91/8 mmHg. CORONARY ANGIOGRAPHY: 1. Left main coronary is widely patent. 2. Left anterior descending coronary angiographically has 50% stenosis proximal to the stent. There are several smaller diagonal branches, all of which have moderate to severe ostial disease. The mid left anterior descending coronary has 80% stenosis, and the apical LAD has 90% tandem stenosis with 3 left circumflexes diffusely diseased throughout their entire course. Several tandem 80% stenosis present in the obtuse margin. 3. Right coronary is secluded with left to right collateral. Intravascular ultrasound of the left anterior descending and left main coronary arteries: Left main coronary was selected and gauged with a 6-[place] XBLAD 3.5 guide catheter, 0.014 inch Terumo runthrough cm was navigated down to distal left anterior descending coronary artery without difficulty. [place] intravascular ultrasound was then advanced over the wire into the left main coronary artery. Heparin was administered throughout the entire procedure to maintain appropriate anticoagulation. The intravascular ultrasound was advanced down to the midsegment and pulled back. Within the proximal segment of the left anterior descending coronary artery there is a 70% stenosis by calculated area. The minimal luminal area was 6.0 mm squared. CONCLUSIONS: 1. Severe 3 vessel [place] coronary artery disease. 2. Normal left sided filling pressure. PLAN: At this point, we will stop and discuss the case potentially with Cardiothoracic Surgery. His right coronary is obviously a good potential bypass target, but the left circumflex has rather diffuse disease. The left anterior descending coronary has several tandem stenosis, and we will have to decide whether surgical intervention would be most appropriate versus medical management or multivessel attempted percutaneous intervention. MD KURT Zepeda/MARGO , 10:33 AM , 11:00 AM MTDChase
[2017-06-26] MEDS ORDERED: BACITRACIN OINT 0.9 GM PKT TOP ONE (12:00)
[2017-06-26] MEDS ORDERED: Vancomycin Consult Pharmacy 1 EA OTHER SCH (12:00)
[2017-06-26] MEDS ORDERED: IOHEXOL 350 MG/ML 100 ML BTL (for Cath Lab) OTHER ONE (12:07)
--- NOTE | 2017-06-26 12:07 | HHI.IDPN ---
Note Infectious Disease Note Patient states that he feels okay. Awake and alert. Has no pain in the right leg. No fever or chills. No shortness of breath. Went for cardiac catheterization today. Redness at the right leg has improved. Pleural fluid cultures no growth. Blood culture has no growth. 2D ECHO without vegetation. 62-year-old white male who presented to the emergency department yesterday with vomiting. He reportedly was vomiting for three days before presenting to the emergency department. He was noted to have dark / black vomitus. The patient has insulin-dependent diabetes. He was evaluated in the emergency department and had temperature of 102.6 degrees, heart rate of 109, white blood cell count of 35.3. The patient was suspected to have sepsis and was admitted to the hospital for further management. The patient was noted to have lesions on the thighs bilaterally and also at the dorsum of the finger on the left side and knuckle on the right. . Culture of the left thigh lesion has growth of Staph aureus and group B beta Strep. PAST MEDICAL HISTORY: 1. Coronary artery disease. 2. Diabetes mellitus. 3. Hypertension. 4. History of coronary stents. ALLERGIES: NO KNOWN DRUG ALLERGIES. Antibiotics: Clindamycin. SOCIAL HISTORY: The patient denies tobacco. He denies alcohol use. He denies recent drug use. The patient is from [place]. FAMILY HISTORY: Noncontributory. OBJECTIVE: Vital Signs Date Time Temp Pulse Resp B/P (MAP) Pulse Ox O2 Delivery O2 Flow Rate FiO2 06/26/17 10:52 18 06/26/17 09:00 72 06/26/17 08:15 94 Room Air 06/26/17 08:15 98.0 93 18 151/99 (116) 94 06/26/17 08:15 67 06/26/17 06:00 73 06/26/17 05:00 76 06/26/17 04:00 72 06/26/17 04:00 98.4 72 20 134/84 (101) 95 06/26/17 04:00 Room Air 06/26/17 03:00 74 06/26/17 02:00 70 06/26/17 01:00 76 06/26/17 00:00 98.1 83 20 132/83 (99) 94 06/26/17 00:00 Room Air 06/26/17 00:00 83 06/25/17 23:00 79 06/25/17 22:00 70 06/25/17 21:00 81 06/25/17 20:00 95 Room Air 06/25/17 20:00 98.4 79 18 148/88 (108) 95 06/25/17 20:00 79 06/25/17 18:23 81 06/25/17 17:00 76 06/25/17 16:16 98.2 74 18 127/87 (100) 95 06/25/17 16:16 95 Room Air 06/25/17 16:00 76 06/25/17 15:00 75 06/25/17 14:00 74 06/25/17 13:00 72 Vital Signs Date Time Temp Pulse Resp B/P (MAP) Pulse Ox O2 Delivery O2 Flow Rate FiO2 06/23/17 09:50 93 21 06/23/17 08:00 95 Nasal Cannula 2.00 06/23/17 08:00 74 06/23/17 08:00 98.5 84 18 143/96 (112) 95 06/23/17 06:00 78 06/23/17 05:00 75 06/23/17 04:00 80 06/23/17 03:30 93 Nasal Cannula 2.00 06/23/17 03:30 98.3 81 16 140/93 (109) 93 06/23/17 03:00 81 06/23/17 02:00 92 06/23/17 01:00 80 06/23/17 00:00 87 06/23/17 00:00 93 Nasal Cannula 2.00 06/23/17 00:00 98.8 85 16 122/69 (86) 93 06/22/17 23:00 84 06/22/17 22:00 82 06/22/17 21:00 78 06/22/17 20:00 98.2 86 16 149/96 (113) 91 06/22/17 20:00 91 Room Air 06/22/17 20:00 86 06/22/17 19:00 86 06/22/17 16:00 82 06/22/17 15:00 Nasal Cannula 3.00 21 06/22/17 15:00 98.0 80 18 130/85 (100) 94 06/22/17 15:00 80 06/22/17 14:00 84 06/22/17 13:00 84 Laboratory Tests Test 06/25/17 09:20 06/26/17 06:20 White Blood Count 14.1 TH/MM3 14.3 TH/MM3 Red Blood Count 4.53 MIL/MM3 4.38 MIL/MM3 Hemoglobin 12.6 GM/DL 12.2 GM/DL Hematocrit 37.8 % 36.5 % Mean Corpuscular Volume 83.5 FL 83.4 FL Mean Corpuscular Hemoglobin 27.7 PG 27.8 PG Mean Corpuscular Hemoglobin Concent 33.2 % 33.4 % Red Cell Distribution Width 15.7 % 15.8 % Platelet Count 354 TH/MM3 368 TH/MM3 Mean Platelet Volume 7.8 FL 7.8 FL Neutrophils (%) (Auto) 76.9 % 71.0 % Lymphocytes (%) (Auto) 13.7 % 18.6 % Monocytes (%) (Auto) 7.4 % 8.0 % Eosinophils (%) (Auto) 1.0 % 1.5 % Basophils (%) (Auto) 1.0 % 0.9 % Neutrophils # (Auto) 10.9 TH/MM3 10.2 TH/MM3 Lymphocytes # (Auto) 1.9 TH/MM3 2.7 TH/MM3 Monocytes # (Auto) 1.0 TH/MM3 1.1 TH/MM3 Eosinophils # (Auto) 0.1 TH/MM3 0.2 TH/MM3 Basophils # (Auto) 0.1 TH/MM3 0.1 TH/MM3 CBC Comment DIFF FINAL DIFF FINAL Differential Comment Laboratory Tests Test 06/25/17 09:20 06/26/17 06:20 Blood Urea Nitrogen 29 MG/DL 30 MG/DL Creatinine 1.30 MG/DL 1.31 MG/DL Random Glucose 420 MG/DL 213 MG/DL Albumin 2.3 GM/DL 2.3 GM/DL Calcium Level 9.1 MG/DL 8.7 MG/DL Phosphorus Level 4.3 MG/DL 5.0 MG/DL Magnesium Level 1.9 MG/DL 1.9 MG/DL Sodium Level 129 MEQ/L 134 MEQ/L Potassium Level 4.3 MEQ/L 3.9 MEQ/L Chloride Level 96 MEQ/L 96 MEQ/L Carbon Dioxide Level 25.6 MEQ/L 26.6 MEQ/L Anion Gap 7 MEQ/L 11 MEQ/L Estimat Glomerular Filtration Rate 56 ML/MIN 56 ML/MIN IMAGING: Lower Extremity MRI 06/22/17 0000 Signed Impressions: Service Date/Time: June 17:13 - CONCLUSION: Fluid dissecting between the subcutaneous fat and the lateral fascia. Small amount of edema within the anterior muscular compartment. No significant drainable fluid collection is identified. no evidence of marrow edema or marrow replacing process Tanner nIiguez MD Lower Extremity Ultrasound 06/17/17 0000 Signed Impressions: Service Date/Time: Saturday, June 17, 2017 18:20 - CONCLUSION: No evidence of DVT. Nima Johnson MD Lower Extremity CT 06/16/17 0000 Signed Impressions: Service Date/Time: Friday, June 16, 2017 10:12 - CONCLUSION: 1. Posterior subcutaneous soft tissue induration and some mild fluid tracking along the surface of the hamstring muscles. No focal collections of gas and no drainable fluid collection seen. 2. Osseous structures of the thigh are intact. Ruben Medina MD CT Angiography 06/16/17 0000 Signed Impressions: Service Date/Time: Friday, June 16, 2017 10:12 - CONCLUSION: 1. Negative for pulmonary embolism. 2. Bilateral pleural effusions, right greater than left. 3. Bilateral lower lung perivascular thickening suggest either interstitial pulmonary edema or inflammatory process. Ruben Medina MD Chest X-Ray 06/15/17 1606 Signed Impressions: Service Date/Time: May 16:19 - CONCLUSION: The lungs are clear. Ruben Medina MD Knee X-Ray 06/15/17 0000 Signed Impressions: Service Date/Time: May 17:22 - CONCLUSION: 1. No evidence of recent bony injury. Ruben Medina MD Femur X-Ray 06/15/17 0000 Signed Impressions: Service Date/Time: May 17:22 - CONCLUSION: No acute findings. Ruben Medina MD PHYSICAL EXAMINATION: GENERAL: Awake and alert. HEENT: No icterus. Oropharynx with moist mucosa. No visible lesions. The mucosa is moist. NECK: Supple without adenopathy LUNGS: Decreased breath sounds. No rhonchi HEART: Regular S1 and S2. No audible murmurs, rubs or gallops. ABDOMEN: Soft, diminished bowel sounds. Nontender. EXTREMITIES: Inner distal thigh has dark eschar centrally.The distal right outer thigh has a similar lesion. The left index finger had an excoriated lesion at the dorsal aspect of the proximal interphalangeal joint. The patient also has an excoriated lesion at the base of the third finger on the right hand. These have scabs. Erythema at the right lateral calf has Decreased significantly. Now only very minimal redness visible. NEUROLOGIC: No gross focal findings. PSYCHIATRIC: Calm and cooperative. IMPRESSION: 1. Sepsis. Patient presented with fever, tachycardia, leukocytosis and elevated lactic acid. Improved. 2. Cellulitis of the right lateral calf and thigh / skin lesions of the lower extremities. Improved. Culture of the wounds of the lower extremities has group A beta Strep and Staph aureus. Erythema is decreased. MRI shows small Non-drainable fluid collection in the right leg. 3. Pleural effusion. Post drainage. 4. Diabetes mellitus. The patient had hypoglycemia on presentation. 5. Leukocytosis. WBC remains elevated. Clinically appears stable. RECOMMENDATIONS: 1. Resume vancomycin IV. 2. Stop clindamycin. 3. Monitor the white blood cell count. 4. Monitor cellulitis response to antibiotic treatment. 5. The cellulitis of the right lower extremity is sufficiently healed to the point where I think it is okay to proceed with cardiac surgery if necessary. If he would not in need of cardiac surgery I would entertain switching antibiotics to p.o. Tavo Branch MD Jun 26, 2017 12:07
[2017-06-26] MEDS: VANCOMYCIN INJ 1,750 MG in SODIUM CHLORID 0.9% 500 ML INJ 500 ML IV SCH (13:09)
--- NOTE | 2017-06-26 13:46 | HHI.PR ---
Subjective Remarks Follow-up for cardiac catheterization and cellulitis Patient had a cardiac catheterization done today in which Dr. barnett recommended cardiac bypass. Patient denies any chest pain, palpitation, short his breathing, lightheadedness dizziness. Patient stated that he feels well. Patient stated that he wants to go back to [place] to get everything done. He stated that he was in [place]. Objective Vitals Vital Signs Date Time Temp Pulse Resp B/P (MAP) Pulse Ox O2 Delivery O2 Flow Rate FiO2 06/26/17 13:16 73 06/26/17 12:03 66 06/26/17 11:30 98.4 94 18 154/92 (112) 94 06/26/17 11:30 94 Room Air 06/26/17 11:30 69 06/26/17 10:52 18 06/26/17 09:00 72 06/26/17 08:15 94 Room Air 06/26/17 08:15 98.0 93 18 151/99 (116) 94 06/26/17 08:15 67 06/26/17 06:00 73 06/26/17 05:00 76 06/26/17 04:00 72 06/26/17 04:00 98.4 72 20 134/84 (101) 95 06/26/17 04:00 Room Air 06/26/17 03:00 74 06/26/17 02:00 70 06/26/17 01:00 76 06/26/17 00:00 98.1 83 20 132/83 (99) 94 06/26/17 00:00 Room Air 06/26/17 00:00 83 06/25/17 23:00 79 06/25/17 22:00 70 06/25/17 21:00 81 06/25/17 20:00 95 Room Air 06/25/17 20:00 98.4 79 18 148/88 (108) 95 06/25/17 20:00 79 06/25/17 18:23 81 06/25/17 17:00 76 06/25/17 16:16 98.2 74 18 127/87 (100) 95 06/25/17 16:16 95 Room Air 06/25/17 16:00 76 06/25/17 15:00 75 06/25/17 14:00 74 I/O 3/4/18 3/4/18 06/25/17 06/26/17 06/26/17 06/26/17 07:00 15:00 23:00 07:00 15:00 23:00 Intake Total 1250 ml 1710 ml 1200 ml 47.5 ml Output Total 1600 ml 1975 ml 1100 ml Balance -350 ml -265 ml 100 ml 47.5 ml Intake Oral 960 ml 960 ml 960 ml IV Total 290 ml 750 ml 240 ml 47.5 ml Output Urine Total 1600 ml 1975 ml 1100 ml # Bowel Movements 1 1 0 0 Result Diagram: 06/26/1761906/26/17619 Objective Remarks GENERAL: in NAD CARDIOVASCULAR: Regular rate and rhythm without murmurs, gallops, or rubs. RESPIRATORY: Breath sounds equal bilaterally. No accessory muscle use. GASTROINTESTINAL: Abdomen soft, non-tender, nondistended. MUSCULOSKELETAL: No cyanosis, or edema. BACK: Nontender without obvious deformity. No CVA tenderness. Medications and IVs Reported Meds & Active Scripts Active Reported Nitrostat SL (Nitroglycerin) 0.4 Mg Subl 0.4 Mg SL DIRECTED PRN 1 tablet under the tongue as needed for chest pain. Repeat every 5 minutes for a total of 3 DOSES or call 911 if NO relief. Ventolin Hfa 18 GM Inh (Albuterol Sulfate) 90 Mcg/Act Aer 2 Puff INH Q4-6H PRN Prilosec (Omeprazole Magnesium) 20 Mg Tab Lipitor (Atorvastatin Calcium) 80 Mg Tab 80 Mg PO HS Metoprolol Succinate ER 24 HR (Metoprolol Succinate) 50 Mg Tab 50 Mg PO DAILY Amlodipine (Amlodipine Besylate) 10 Mg Tab 10 Mg PO DAILY Lisinopril 40 Mg Tab 40 Mg PO DAILY Novolin 70-30 Inj (Insulin Human Isoph/Insulin Regular) 1,000 Unit/10 Ml Vial 45 Units SQ BID A/P Assessment and Plan A. fib RVR -Continue amiodarone -Follow on telemetry NSTEMI -Status post cardiac catheterization done today 06/26/2017 have three-vessel disease. Cardio vascular surgeon consulted. Patient stated that he did not want to have the procedure done here. Discussed case with patient's nurse. Patient told to let Dr. Barnett of his decision. Cellulitis -Continue vancomycin -Doppler ultrasound of right leg negative -Continue antibiotics as per ID. Bilateral pleural effusion -Diagnostic thoracentesis planned Coffee ground emesis -No recurrence -GI following -Follow hemoglobin levels Diabetes mellitus type 2 -Continue Accu-Cheks. Insulin signs scope. Diabetic diet. -Transition patient from 70/32 to NPH insulin as a base control. Hypoxia secondary to pulmonary edema. -Hypoxia resolved. -Continue Lasix 20 mg by mouth. Discharge Planning Recommend possible cardiac bypass. Antonia Montes De Oca MD Jun 26, 2017 13:46
--- NOTE | 2017-06-26 16:14 | MB ---
cc: Leyla Go MD DATE OF CONSULT: 06/26/2017 HISTORY OF PRESENT ILLNESS: A 62-year-old male presented to the emergency room via [facility]. Trouble walking for a couple of days prior to admission because his right leg was hurting him. He also had some vomiting 3 days prior. He said he noted it was dark black vomitus. On addition, he was ruled in for sepsis with a 102.6 fever, heart rate of 110, white cell count of 35,000. His blood sugar was also elevated at 331. Lactic acid was 2.2. He was resuscitated with fluids. He apparently had a history of having some open wounds on his leg, the right lateral knee, also the left knee area and he had some small lesions on his left hand also on the fingers. Culture was taken from the thigh lesion and it grew Staph aureus and group B beta strep. Today, the blood cultures have been negative. His influenza was also negative. He was treated with broad-spectrum antibiotics and is now currently on clindamycin IV. During the course of his admission, his troponin was found to be elevated at 2.06. He has a history of coronary artery disease with prior stenting. He underwent cardiac catheterization after clearance from ID. Ejection fraction of 35%. His proximal LAD is 70%, mid distal LAD 90%, the diagonal was 60%, the OM 90%, and the RCA 100%. We were consulted to evaluate for coronary artery bypass grafting. PAST MEDICAL HISTORY: Uncontrolled diabetes mellitus. He apparently takes some insulin at home, but he does not check his blood sugar. He does not have a primary care physician; he uses his laboratory manager up in [place]. 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 Other history includes hypertension, gastritis. SURGERY HISTORY: Includes coronary stenting in 2005. ALLERGIES: NO KNOWN ALLERGIES. HOME MEDICATIONS: Include Ventolin inhaler, Lipitor, nitroglycerin, metoprolol, amlodipine, lisinopril, Prilosec, Novolin 70/30, 45 units subcutaneously b.i.d. FAMILY HISTORY: Mother , unknown causes. Father had a heart-related . SOCIAL HISTORY: Patient , 3 children. 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 Apparently his traveled down with a friend. REVIEW OF SYSTEMS: GENERAL: No night sweats, fever, heat or cold intolerance. SKIN: No psoriasis, itching other than the lesions on his legs and his left hand. RESPIRATORY: Positive for recent cough, some purulent yellowish sputum. CARDIOVASCULAR: No chest pain, no paroxysmal nocturnal dyspnea, no orthopnea. GASTROINTESTINAL: As above in the HPI. GENITOURINARY: No burning, frequency, urgency. CENTRAL NERVOUS SYSTEM: No history of TIA, CVA, seizure disorder. ENDOCRINOLOGY: Positive for diabetes. No hypothyroidism. PHYSICAL EXAMINATION: Blood pressure 150/90, heart rate of 72, his initial temp on admission was 102.6, is now 98, room air sat is 94%. Patient is awake, alert, in no acute distress. He does have a flat affect. HEAD: Normocephalic, atraumatic. Oral mucosa pink, moist. He does have a missing front tooth; otherwise he has fair dentition. NECK: Supple. No JVD. HEART: Sounds S1, S2. Regular rate and rhythm. No audible rubs, murmurs, gallops. LUNGS: Clear to auscultation. No wheezes, rales, or rhonchi. ABDOMEN: Soft, nontender. No masses or organomegaly. EXTREMITIES: Reveal right inner thigh has a lesion with a dark eschar centrally. The distal outer thigh has a similar lesion. The left index finger had an excoriated lesion at the dorsal aspect of the proximal phalangeal joint and also at the base of the third finger on the right hand. These are all dried. Patient denies any trauma or bug bites. LABORATORY STUDIES: Show hemoglobin 12, hematocrit of 36, white cell count of 14, platelet count of 368. Sodium 131, potassium 3.5, BUN of 20, creatinine 0.88, glucose 213. Patient was on heparin drip. Urinalysis was unremarkable. HIV screen is negative. Microbiology positive for the Staph aureus, MRSA in the wound and group B beta strep. Blood cultures negative. Negative for influenza A and B. Patient also underwent thoracentesis on 06/[address] scan also showed bilateral pleural effusions, the right being greater than the left. They drained 1000 mL of clear yellow fluid that had 172 wbc's, cytology, no malignant cells. Other imaging, he had a lower extremity MRI on 06/22 that showed fluid dissecting between the subcutaneous fat and the lateral fascia of the right lower leg. There was no significant drainable fluid collection identified, no evidence of marrow edema or marrow-replacing process. IMPRESSION: 1. This is a 62-year-old male with cardiac risk factors including age, uncontrolled diabetes mellitus, hypertension, family history, presented with sepsis, cellulitis, skin lesion of the lateral posterior aspect of the right thigh, nondraining wound on the left knee, also some lesions on the right hand growing Staphylococcus aureus and group B beta streptococcus, followed by ID and currently now on clindamycin. 2. Recent gastritis. 3. Diabetes mellitus, uncontrolled. Patient needs further education on blood sugar control. 4. Peripheral arterial disease with history of claudication. 5. Cardiomyopathy with ejection fraction of 35%. 6. Three-vessel coronary disease by heart catheterization by Dr. Ca with the above results. Coronary films will be evaluated by Dr. Leyla Go and evaluated for coronary artery bypass grafting. At this time, the patient has explained to the nurse that he does not want to have surgery here, that he wants to go back home and have surgery up in [place]. They are apparently contacting Dr. Ca and will again speak with the patient, since he presented with a non-ST segment myocardial infarction and would be at high risk for traveling out of the area. MD DANDY Cadet/SONNY , 02:23 PM , 02:58 PM
[2017-06-26] MEDS: ATORVASTATIN 40 MG TAB PO SCH (21:36)
[2017-06-27] VITALS (31 sets, daily range): BP systolic 128–154; BP diastolic 77–90; PULSE 70–83; RESP 14–18; TEMP 98.1–99.9; O2SAT 94–96
[2017-06-27 07:07] LABS: HEMATOCRIT 37.1 % (39.0-51.0); HEMOGLOBIN 12.3 GM/DL (13.0-17.0); MEAN CELL VOLUME 83.7 FL (80.0-100.0); MEAN CORPUSCULAR HEMOGLOBIN 27.7 PG (27.0-34.0); MEAN CORPUSCULAR HGB CONC 33.1 % (32.0-36.0); MEAN PLATELET VOLUME 7.4 FL (7.0-11.0); PLATELET COUNT 356 TH/MM3 (150-450); RED BLOOD COUNT 4.43 MIL/MM3 (4.50-5.90); WHITE BLOOD COUNT 12.6 TH/MM3 (4.0-11.0)
[2017-06-27 07:31] LABS: BICARBONATE 27.7 MEQ/L (21.0-32.0); CALCIUM 8.9 MG/DL (8.5-10.1); CREATININE 1.26 MG/DL (0.60-1.30)
[2017-06-27] MEDS: INSULIN HUMAN REGULAR 1,000 UNITS/10 ML VIAL SQ SCH ×3 (09:21→17:33)
[2017-06-27] MEDS: INSULIN NovoLIN REGULAR SUPPLEMENTAL SCALE SQ SCH ×4 (09:22→21:00)
[2017-06-27] MEDS: INSULIN HUMAN NPH 1,000 UNITS/10 ML VIAL SQ SCH ×2 (09:22→17:33)
[2017-06-27] MEDS: VANCOMYCIN INJ 1,750 MG in SODIUM CHLORID 0.9% 500 ML INJ 500 ML IV SCH (09:24)
[2017-06-27] MEDS: LACTOBACILLUS ACIDOPHILUS TAB PO SCH ×2 (09:24→22:12)
[2017-06-27] MEDS: LISINOPRIL 20 MG TAB PO SCH (09:25)
[2017-06-27] MEDS: METOPROLOL TARTRATE 25 MG TAB PO SCH ×2 (09:25→22:13)
[2017-06-27] MEDS: PANTOPRAZOLE SODIUM 40 MG VIAL IV PUSH SCH ×2 (09:26→22:12)
[2017-06-27] MEDS: SODIUM CHLORIDE 0.9% FLUSH 10 ML FLUSH IV FLUSH SCH ×2 (09:27→22:12)
[2017-06-27] MEDS: FUROSEMIDE 40 MG/4 ML VIAL IV PUSH SCH (09:27)
[2017-06-27] MEDS: MUPIROCIN 2% OINT 22 GM TUBE TOPICAL SCH ×2 (09:28→21:00)
[2017-06-27] MEDS ORDERED: CEFAZOLIN INJ 500 MG in SODIUM CHLORIDE 0.9% IRR BTL 500 ML IRRIGATION SCH (14:00)
[2017-06-27] MEDS ORDERED: SODIUM CHLORIDE 0.9% FLUSH 10 ML FLUSH IV FLUSH PRN (14:00)
[2017-06-27] MEDS ORDERED: INSULIN REGULAR (IV INFUSION) 100 UNITS in SODIUM CHLORIDE 0.9% INJ 99 ML IV PRN (14:00)
[2017-06-27] MEDS ORDERED: DEXTROSE 50% IN WATER 50 ML VIAL(D50) IV PUSH PRN (14:00)
[2017-06-27] MEDS ORDERED: ceFAZolin 2 GM PREMIX 50 ML IV SCH (14:00)
[2017-06-27] MEDS ORDERED: PAPAVERINE INJ 60 MG, NITROGLYCERIN INJ 100 MCG, DILTIAZEM INJ 100 MG in SODIUM CHLORID... IRRIGATION SCH (14:00)
[2017-06-27] MEDS ORDERED: CHLORHEXIDINE GLUCONATE 4% SOLN 120 ML BTL TOPICAL SCH (14:00)
--- NOTE | 2017-06-27 14:27 | HHI.PR ---
Subjective Remarks Follow-up for severe three-vessel disease Patient stated that he wants to be discharged. I spoke to him with his nurse at the bedside during my interview. His nurses Omaira Méndez. His and sister were also at the bedside during the interview. Patient stated that he wanted to go home to [place] and have the procedure done. He stated that he does not want to stay in [place] since he is not from around here and wants to be at home when he gets this done. I told patient was highly recommended for him to have the procedure done on this hospitalization because he can have another severe heart attack that will lead to . I told patient that heart attacks are unpredictable and that he is at very high risk of it so this can occur quickly in which it could be too late to get help and this can lead to . He continued to insist on going home. His later called insurance company in which he stated that if patient leaves they will not pay for this hospitalization, so patient stated he will stay in the hospital to get treated. Objective Vitals Vital Signs Date Time Temp Pulse Resp B/P (MAP) Pulse Ox O2 Delivery O2 Flow Rate FiO2 06/27/17 13:00 72 06/27/17 12:12 74 06/27/17 12:00 76 06/27/17 11:38 80 06/27/17 11:12 98.1 76 14 154/90 (111) 95 06/27/17 11:12 98 Room Air 06/27/17 10:59 98.1 76 14 154/90 (111) 95 06/27/17 10:24 83 06/27/17 10:00 78 06/27/17 09:00 76 06/27/17 08:47 Room Air 06/27/17 08:00 75 06/27/17 07:40 99.0 75 18 140/86 (104) 94 06/27/17 07:00 75 06/27/17 06:00 70 06/27/17 05:00 73 06/27/17 04:00 73 06/27/17 03:30 96 Room Air 06/27/17 03:30 98.7 73 16 140/86 (104) 96 06/27/17 03:00 73 06/27/17 02:00 74 06/27/17 01:00 72 06/27/17 00:00 82 06/27/17 00:00 98.9 80 16 136/79 (98) 94 06/27/17 00:00 94 Room Air 06/26/17 23:00 80 06/26/17 22:00 78 06/26/17 21:00 74 06/26/17 20:00 99.3 74 16 126/78 (94) 94 06/26/17 20:00 94 Room Air 06/26/17 20:00 76 06/26/17 19:00 82 06/26/17 18:02 85 06/26/17 17:07 72 06/26/17 16:10 70 06/26/17 15:42 98 Room Air 06/26/17 15:42 74 06/26/17 15:42 97.9 73 18 130/85 (100) 98 06/26/17 14:24 74 I/O 06/26/17 06/26/17 06/26/17 06/27/17 06/27/17 06/27/17 07:00 15:00 23:00 07:00 15:00 23:00 Intake Total 1200 ml 47.5 ml 1357.5 ml 240 ml Output Total 1100 ml 1700 ml 350 ml Balance 100 ml 47.5 ml -342.5 ml -110 ml Intake Oral 960 ml 840 ml 240 ml IV Total 240 ml 47.5 ml 517.5 ml Output Urine Total 1100 ml 1700 ml 350 ml # Bowel Movements 0 0 2 0 Result Diagram: 06/27/17 0655 06/27/17 0650 Objective Remarks GENERAL: in NAD CARDIOVASCULAR: Regular rate and rhythm without murmurs, gallops, or rubs. RESPIRATORY: Breath sounds equal bilaterally. No accessory muscle use. GASTROINTESTINAL: Abdomen soft, non-tender, nondistended. MUSCULOSKELETAL: No cyanosis, or edema. BACK: Nontender without obvious deformity. No CVA tenderness. Medications and IVs Current Medications Acetaminophen (Tylenol Supp) 650 mg ONCE ONCE RECTAL ; Start 06/15/17 at 16:15 ; Stop 06/15/17 at 17:12; Status DC Ondansetron HCl (Zofran Inj) 4 mg ONCE ONCE IV PUSH Last administered on at 16:49; Start 06/15/17 at 16:15; Stop 06/15/17 at 16:16; Status DC Sodium Chloride 1,000 ml @ 1,000 mls/hr Q1H ONCE IV Last administered on at 16:48; Start 06/15/17 at 16:06; Stop 06/15/17 at 17:05; Status DC Sodium Chloride 800 ml @ 1,000 mls/hr Q48M ONCE IV Last administered on at 16:48; Start 06/15/17 at 16:06; Stop 06/15/17 at 16:53; Status DC Vancomycin HCl 1000 mg/Sodium Chloride 250 ml @ 250 mls/hr ONCE ONCE IV Last administered on 06/15/17at 17:55; Start 06/15/17 at 16:15; Stop 06/15/17 at 17:14 ; Status DC Piperacillin Sod/ Tazobactam Sod 100 ml @ 200 mls/hr ONCE ONCE IV Last administered on 06/15/17 16:48; Start 06/15/17 at 16:15; Stop 06/15/17 at 16:44 ; Status DC Acetaminophen (Tylenol) 650 mg ONCE ONCE PO Last administered on 06/15/17at 17: 16; Start 06/15/17 at 17:15; Stop 06/15/17 at 17:19; Status DC Potassium Chloride (KCl) 40 meq ONCE ONCE PO Last administered on 06/15/17at 17 :53; Start 06/15/17 at 17:30; Stop 06/15/17 at 17:31; Status DC Insulin Human Regular (NovoLIN R INJ) 8 units ONCE ONCE IV PUSH Last administered on 06/15/17at 17:53; Start 06/15/17 at 17:30; Stop 06/15/17 at 17:31 ; Status DC Sodium Chloride 1,000 ml @ 999 mls/hr BOLUS ONCE IV Last administered on 06/15at 17:55; Start 06/15/17 at 17:30; Stop 06/15/17 at 18:30; Status DC Sodium Chloride 1,000 ml @ 100 mls/hr Q10H IV Last administered on 06/16/17at 11:19; Start 06/15/17 at 18:01; Stop 06/16/17 at 17:37; Status DC Sodium Chloride (NS Flush) 2 ml UNSCH PRN IV FLUSH FLUSH AFTER USING IV ACCESS ; Start 06/15/17 at 18:15; Stop 06/19/17 at 15:30; Status DC Sodium Chloride (NS Flush) 2 ml BID IV FLUSH Last administered on 06/18/17at 19: 43; Start 06/15/17 at 21:00; Stop 06/19/17 at 15:30; Status DC Acetaminophen (Tylenol) 650 mg Q4H PRN PO TEMP > 100.4 Last administered on at 19:58; Start 06/15/17 at 20:00 Ondansetron HCl (Zofran Inj) 4 mg Q6H PRN IVP NAUSEA OR VOMITING Last administered on 06/18/17at 19:43; Start 06/15/17 at 22:00 Temazepam (Restoril) 15 mg HS PRN PO INSOMNIA; Start 06/15/17 at 21:00 Naloxone HCl (Narcan Inj) 0.4 mg UNSCH PRN IV PUSH SEE LABEL COMMENTS; Start at 18:15 Sennosides (Senokot) 17.2 mg Q12HR PRN PO Moderate constipation Last administered on 06/17/17at 09:54; Start 06/15/17 at 21:00 Vancomycin HCl 1500 mg/Sodium Chloride 515 ml @ 257.5 mls/ hr Q12H IV ; Start 06/15/17 at 18:15; Stop 06/15/17 at 19:02; Status DC Pharmacy Profile Note 0 ml @ 0 mls/hr UNSCH OTHER ; Start 06/15/17 at 18:15; Stop 06/23/17 at 12:45; Status DC Piperacillin Sod/ Tazobactam Sod 50 ml @ 100 mls/hr Q8H IV Last administered on 06/16/17at 11:18; Start 06/16/17 at 00:00; Stop 06/16/17 at 17:47; Status DC Dextrose (D50w (Vial) Inj) 50 ml UNSCH PRN IV PUSH HYPOGLYCEMIA-SEE COMMENTS; Start 06/15/17 at 18:15 Glucagon (Glucagon Inj) 1 mg UNSCH PRN OTHER HYPOGLYCEMIA-SEE COMMENTS; Start 06/15/17 at 18:15 Insulin Aspart (NovoLOG SUPPLEMENTAL SCALE) 1 ACHS SLIDING SCALE SQ Last administered on 06/15/17at 21:00; Start 06/15/17 at 21:00; Stop 06/16/17 at 08:51 ; Status DC Albuterol Sulfate (Proair Hfa Inh) 2 puff Q6HR PRN INH SHORTNESS OF BREATH; Start 06/15/17 at 20:00 Amlodipine Besylate (Norvasc) 10 mg DAILY PO Last administered on 06/19/17at 08: 13; Start 06/16/17 at 09:00; Stop 06/19/17 at 09:00; Status DC Atorvastatin Calcium (Lipitor) 80 mg HS PO ; Start 06/15/17 at 21:00; Stop 06/16 at 08:01; Status DC Insulin Human Isoph/Insulin Regular (NovoLIN 70/30 INJ) 45 units BID SQ Last administered on 06/17/17at 08:55; Start 06/15/17 at 21:00; Stop 06/17/17 at 15:18 ; Status DC Metoprolol Succinate (Toprol Xl) 50 mg DAILY PO Last administered on 06/18/17at 08:55; Start 06/16/17 at 09:00; Status Future Hold Lisinopril (Prinivil) 40 mg DAILY PO Last administered on 06/27/17at 09:25; Start 06/16/17 at 09:00 Vancomycin HCl 2000 mg/Sodium Chloride 520 ml @ 250 mls/hr ONCE ONCE IV Last administered on 06/15/17at 21:14; Start 06/15/17 at 21:00; Stop 06/15/17 at 23:04 ; Status DC Vancomycin HCl 1500 mg/Sodium Chloride 515 ml @ 257.5 mls/ hr Q12H IV Last administered on 06/17/17at 21:19; Start 06/16/17 at 09:00; Stop 06/17/17 at 22:17 ; Status DC Miscellaneous Information SPECIFIC LAB TO BE DRAWN:VANCOMYCIN TROUGH DATE TO... ONCE ONCE .XX Last administered on 06/17/17at 20:20; Start 06/17/17 at 20:45; Stop 06/17/17 at 20:46; Status DC Atorvastatin Calcium (Lipitor) 80 mg HS PO Last administered on 06/26/17at 21:36 ; Start 06/16/17 at 21:00 Insulin Human Regular (NovoLIN R SUPPLEMENTAL SCALE) 1 ACHS SLIDING SCALE SQ Last administered on 06/23/17at 21:10; Start 06/16/17 at 12:00; Stop 06/23/17 at 21 :26; Status DC Iohexol (Omnipaque 350 Inj) 95 ml STK-MED ONCE IVCONTRAST Last administered on 06/16/17at 11:10; Start 06/16/17 at 11:10; Stop 06/16/17 at 11:11; Status DC Aspirin (Aspirin) 325 mg ONCE ONCE PO Last administered on 06/16/17at 13:57; Start 06/16/17 at 13:00; Stop 06/16/17 at 13:01; Status DC Heparin Sodium (Porcine) (Heparin Inj) 5,000 units Q8HR SQ Last administered on 06/16/17at 20:48; Start 06/16/17 at 22:00; Stop 06/16/17 at 22:05; Status DC Ceftriaxone Sodium 1000 mg/ Sodium Chloride 100 ml @ 200 mls/hr Q24H IV ; Start 06/16/17 at 17:00; Stop 06/16/17 at 17:45; Status DC Azithromycin 500 mg/Sodium Chloride 250 ml @ 250 mls/hr Q24H IV ; Start at 18:00; Stop 06/16/17 at 18:00; Status DC Albuterol/ Ipratropium (Duoneb Neb) 1 ampule Q6HR WHILE AWAKE NEB NEB Last administered on 06/20/17at 08:02; Start 06/16/17 at 17:15; Stop 06/20/17 at 17:14 ; Status DC Furosemide (Lasix Inj) 40 mg ONCE ONCE IV PUSH Last administered on 06/16/17at 19:33; Start 06/16/17 at 17:45; Stop 06/16/17 at 17:46; Status DC Piperacillin Sod/ Tazobactam Sod 100 ml @ 200 mls/hr Q6H IV Last administered on 06/22/17at 12:38; Start 06/16/17 at 18:00; Stop 06/22/17 at 12:44; Status DC Pantoprazole Sodium (Protonix Inj) 40 mg BID IV PUSH Last administered on at 09:26; Start 06/16/17 at 21:00 Heparin Sodium/ Dextrose 250 ml @ 10 mls/hr TITRATE PRN IV Coagulation Management Last administered on 06/26/17at 05:48; Start 06/16/17 at 22:30; Stop at 11:49; Status DC Heparin Sodium (Porcine) (Heparin Inj) 5,000 units UNSCH PRN IV PUSH aPTT less than 25; Start 06/16/17 at 22:30; Stop 06/26/17 at 11:49; Status DC Heparin Sodium (Porcine) (Heparin Inj) 2,500 units UNSCH PRN IV PUSH aPTT 25 to 39 Last administered on 06/19/17at 16:53; Start 06/16/17 at 22:30; Stop at 11:49; Status DC Potassium Chloride 100 ml @ 50 mls/hr Q2H IV Last administered on 06/17/17at 09 :52; Start 06/17/17 at 09:00; Stop 06/17/17 at 12:59; Status DC Furosemide (Lasix) 20 mg DAILY PO Last administered on 06/19/17at 08:13; Start 06/18/17 at 09:00; Stop 06/19/17 at 09:21; Status DC Furosemide (Lasix Inj) 40 mg ONCE ONCE IV PUSH Last administered on 06/17/17at 15:37; Start 06/17/17 at 15:30; Stop 06/17/17 at 15:31; Status DC Mupirocin (Bactroban 2% Oint) 1 applic Q12HR TOPICAL Last administered on at 09:28; Start 06/17/17 at 21:00 Insulin Human NPH (NovoLIN N INJ) 35 units DAILY@08 SQ Last administered on 06/23at 08:00; Start 06/18/17 at 08:00; Stop 06/23/17 at 21:26; Status DC Insulin Human NPH (NovoLIN N INJ) 25 units DAILY@17 SQ Last administered on 06/23at 17:00; Start 06/17/17 at 17:00; Stop 06/24/17 at 14:46; Status DC Potassium Chloride (KCl) 30 meq ONCE ONCE PO Last administered on 06/17/17at 16 :10; Start 06/17/17 at 16:00; Stop 06/17/17 at 16:01; Status DC Vancomycin HCl 1250 mg/Sodium Chloride 262.5 ml @ 250 mls/hr Q8H IV Last administered on 06/19/17at 15:56; Start 06/18/17 at 06:00; Stop 06/19/17 at 17:53 ; Status DC Miscellaneous Information SPECIFIC LAB TO BE DRAWN: VANCO TROUGH DATE TO BE DR... ONCE ONCE .XX Last administered on 06/18/17at 13:42; Start 06/18/17 at 13 :45; Stop 06/18/17 at 13:46; Status DC Potassium Chloride (KCl) 30 meq ONCE ONCE PO Last administered on 06/18/17at 10 :09; Start 06/18/17 at 09:45; Stop 06/18/17 at 09:46; Status DC Lidocaine HCl (Xylocaine 1% Inj) 20 ml STK-MED ONCE .ROUTE ; Start 06/18/17 at 13:35; Stop 06/18/17 at 13:36; Status DC Miscellaneous Information SPECIFIC LAB TO BE SALEEM... ONCE ONCE .XX Last administered on 06/19/17at 13:45; Start 06/19/17 at 13:45; Stop 06/19/17 at 13:46 ; Status DC Metoprolol Tartrate (Lopressor Inj) 5 mg ONCE ONCE IV PUSH Last administered on 06/19/17at 08:14; Start 06/19/17 at 08:00; Stop 06/19/17 at 08:01; Status DC Sodium Chloride (NS Flush) 2 ml UNSCH PRN IV FLUSH FLUSH AFTER USING IV ACCESS Last administered on 06/27/17at 09:27; Start 06/19/17 at 09:00 Sodium Chloride (NS Flush) 2 ml BID IV FLUSH Last administered on 06/27/17at 09: 27; Start 06/19/17 at 09:00 Diltiazem HCl (Cardizem Inj) 15 mg ONCE ONCE IV PUSH ; Start 06/19/17 at 10:00 ; Stop 06/19/17 at 10:01; Status DC Diltiazem HCl 125 mg/Sodium Chloride 125 ml @ 5 mls/hr TITRATE PRN IV Tachycardia; Start 06/19/17 at 09:00; Stop 06/19/17 at 09:16; Status DC Enalaprilat (Vasotec Inj) 1.25 mg Q6H PRN IV PUSH SBP>160, DBP>90 Last administered on 06/24/17at 12:49; Start 06/19/17 at 10:00 Amiodarone HCl 150 mg/Dextrose 103 ml @ 600 mls/hr Q11M ONCE IV Last administered on 06/19/17at 10:48; Start 06/19/17 at 10:00; Stop 06/19/17 at 10:10 ; Status DC Amiodarone HCl 450 mg/Sodium Chloride 250 ml @ 33.33 mls/ hr Q7H31M PRN IV Per Protocol Last administered on 06/19/17at 22:04; Start 06/19/17 at 10:00; Stop at 13:57; Status DC Furosemide (Lasix Inj) 40 mg DAILY IV PUSH Last administered on 06/27/17at 09:27 ; Start 06/19/17 at 10:00 Vancomycin HCl 750 mg/Sodium Chloride 257.5 ml @ 250 mls/hr NOW ONCE IV Last administered on 06/19/17at 20:22; Start 06/19/17 at 18:00; Stop 06/19/17 at 19:01 ; Status DC Vancomycin HCl 1750 mg/Sodium Chloride 517.5 ml @ 250 mls/hr Q8H IV Last administered on 06/20/17at 08:06; Start 06/20/17 at 00:00; Stop 06/20/17 at 18:41 ; Status DC Miscellaneous Information SPECIFIC LAB TO BE SALEEM... ONCE ONCE .XX ; Start 06/20 at 15:45; Stop 06/20/17 at 15:46; Status DC Vancomycin HCl 1500 mg/Sodium Chloride 515 ml @ 257.5 mls/ hr Q8H IV Last administered on 06/21/17at 06:53; Start 06/21/17 at 06:00; Stop 06/21/17 at 09:45 ; Status DC Miscellaneous Information SPECIFIC LAB TO BE SALEEM... ONCE ONCE .XX ; Start at 05:45; Stop 06/22/17 at 05:46; Status Cancel Diltiazem HCl (Cardizem) 30 mg ONCE ONCE PO Last administered on 06/21/17at 06: 27; Start 06/21/17 at 06:15; Stop 06/21/17 at 06:16; Status DC Amiodarone HCl 150 mg/Dextrose 100 ml @ 600 mls/hr NOW ONCE IV Last administered on 06/21/17at 06:30; Start 06/21/17 at 06:15; Stop 06/21/17 at 06:24 ; Status DC Vancomycin HCl 2000 mg/Sodium Chloride 520 ml @ 257.5 mls/ hr Q12H IV Last administered on 06/23/17at 09:30; Start 06/21/17 at 20:00; Stop 06/23/17 at 12:45; Status DC Miscellaneous Information SPECIFIC LAB TO BE DRAWN:VANCOMYCIN TROUGH DATE TO... ONCE ONCE .XX ; Start 06/23/17 at 07:45; Stop 06/23/17 at 07:46; Status DC Diltiazem HCl 125 mg/Sodium Chloride 125 ml @ 5 mls/hr TITRATE PRN IV Tachycardia; Start 06/21/17 at 15:00 Diltiazem HCl (Cardizem Inj) 10 mg BOLUS ONCE IV PUSH ; Start 06/21/17 at 14:00 ; Stop 06/21/17 at 14:01; Status DC Metoprolol Tartrate (Lopressor) 25 mg Q12HR PO Last administered on 06/27/17at 09 :25; Start 06/21/17 at 21:00 Insulin Aspart (NovoLOG INJ) 1 units TIDAC SQ ; Start 06/22/17 at 08:00; Stop 06/22/17 at 12:02; Status DC Potassium Chloride 100 ml @ 100 mls/hr Q1H IV Last administered on 06/22/17at 00 :35; Start 06/21/17 at 22:30; Stop 06/22/17 at 01:29; Status DC Insulin Aspart (NovoLOG INJ) 4 units TIDAC SQ ; Start 06/22/17 at 12:00; Stop 06/22/17 at 12:04; Status DC Insulin Human Regular (NovoLIN R INJ) 2 units TIDAC SQ ; Start 06/22/17 at 12:00 ; Stop 06/22/17 at 21:12; Status DC Clindamycin/ Sodium Chloride 50 ml @ 100 mls/hr Q6H IV ; Start 06/22/17 at 12:15 ; Stop 06/22/17 at 13:17; Status DC Lactobacillus Acidophilus (Lactinex) 1 tab Q12HR PO Last administered on at 09:24; Start 06/22/17 at 21:00 Clindamycin/ Sodium Chloride 50 ml @ 100 mls/hr Q8H IV Last administered on 06/26/17at 05:26; Start 06/22/17 at 14:00; Stop 06/26/17 at 11:56; Status DC Gadodiamide (Omniscan Pf Inj) 20 ml STK-MED ONCE IVCONTRAST Last administered on 06/22/17 17:59; Start 06/22/17 at 17:59; Stop 06/22/17 at 18:08; Status DC Insulin Human Regular (NovoLIN R INJ) 4 units TIDAC SQ Last administered on 06/23at 13:47; Start 06/23/17 at 08:00; Stop 06/23/17 at 15:33; Status DC Potassium Chloride (KCl) 20 meq ONCE ONCE PO Last administered on 06/22/17at 22: 12; Start 06/22/17 at 21:15; Stop 06/22/17 at 21:28; Status DC Insulin Human Regular (NovoLIN R INJ) 6 units TIDAC SQ Last administered on 06/27 12:19; Start 06/23/17 at 17:00 Insulin Human NPH (NovoLIN N INJ) 38 units DAILY@08 SQ Last administered on 06/24 08:23; Start 06/24/17 at 08:00; Stop 06/24/17 at 14:46; Status DC Insulin Human Regular (NovoLIN R SUPPLEMENTAL SCALE) 1 ACHS SLIDING SCALE SQ Last administered on 06/27/17at 12:20; Start 06/24/17 at 08:00 Insulin Human NPH (NovoLIN N INJ) 30 units DAILY@17 SQ Last administered on 06/24 17:08; Start 06/24/17 at 17:00; Stop 06/25/17 at 14:00; Status DC Insulin Human NPH (NovoLIN N INJ) 40 units DAILY@08 SQ Last administered on 06/27 09:22; Start 06/25/17 at 08:00 Sodium Chloride 500 ml @ 500 mls/hr BOLUS ONCE IV Last administered on 16:06; Start 06/25/17 at 14:00; Stop 06/25/17 at 14:59; Status DC Insulin Human NPH (NovoLIN N INJ) 35 units DAILY@17 SQ Last administered on 3/5 /18at 17:39; Start 06/25/17 at 17:00 Heparin Sodium/ Sodium Chloride 2,000 ml @ As Directed STK-MED ONCE IV FLUSH ; Start 06/26/17 at 09:25; Stop 06/26/17 at 09:26; Status DC Midazolam HCl (Versed Inj) 2 mg STK-MED ONCE .ROUTE Last administered on at 09:25; Start 06/26/17 at 09:25; Stop 06/26/17 at 09:26; Status DC Fentanyl Citrate (fentaNYL INJ) 100 mcg STK-MED ONCE .ROUTE Last administered on 06/26/17 09:26; Start 06/26/17 at 09:26; Stop 06/26/17 at 09:27; Status DC Heparin Sodium (Porcine) (Heparin Inj) 10,000 units STK-MED ONCE .ROUTE Last administered on 06/26/17 09:26; Start 06/26/17 at 09:26; Stop 06/26/17 at 09:27; Status DC Miscellaneous Information 1 ONCE ONCE XX Last administered on 06/26/17at 10:45; Start 06/26/17 at 10:45; Stop 06/26/17 at 11:48; Status DC Bacitracin (Bacitracin Oint Packet) 0.9 gm ONCE ONCE TOP Last administered on 06/26/17at 11:49; Start 06/26/17 at 12:00; Stop 06/26/17 at 12:02; Status DC Pharmacy Profile Note 0 ml @ 0 mls/hr UNSCH OTHER ; Start 06/26/17 at 12:00 Iohexol (OMNIPAQUE 350 INJ (Dry Starch Supervisor)) 100 ml STK-MED ONCE OTHER ; Start at 12:07; Stop 06/26/17 at 12:08; Status DC Vancomycin HCl 1750 mg/Sodium Chloride 517.5 ml @ 250 mls/hr Q18H IV Last administered on 06/27/17at 09:24; Start 06/26/17 at 14:00 Miscellaneous Information SPECIFIC LAB TO BE DRAWN:VANCOMYCIN TROUGH DATE TO... ONCE ONCE .XX ; Start 06/28/17 at 19:45; Stop 06/28/17 at 19:46 Sodium Chloride (NS Flush) 2 ml BID IV FLUSH ; Start 06/27/17 at 21:00; Status UNV Sodium Chloride (NS Flush) 2 ml UNSCH PRN IV FLUSH FLUSH AFTER USING IV ACCESS ; Start 06/27/17 at 14:00; Status UNV Papaverine HCl 60 mg/Nitroglycerin 100 mcg/Diltiazem HCl 100 mg/Sodium Chloride 100 ml @ 0 mls/hr C[employer] IRRIGATION ; Start 06/27/17 at 14:00; Stop 07/04/17 at 13:59; Status UNV Cefazolin Sodium 500 mg/Sodium Chloride 505 ml @ 0 mls/hr [employer] IRRIGATION ; Start 06/27/17 at 14:00; Stop 07/04/17 at 13:59; Status UNV Cefazolin Sodium/ Dextrose 50 ml @ 150 mls/hr CENSUS ENUMERATOR IV ; Start 06/27/17 at 14 :00; Stop 07/04/17 at 13:59; Status UNV Chlorhexidine Gluconate (Hibiclens 4% Top Soln) 1 applic CENSUS ENUMERATOR TOPICAL ; Start 06/27/17 at 14:00; Stop 07/04/17 at 13:59; Status UNV Insulin Human Regular 100 units/ Sodium Chloride 100 ml @ 3 mls/hr TITRATE PRN IV for blood glucose control; Start 06/27/17 at 14:00; Stop 07/04/17 at 13:59; Status UNV Dextrose (D50w (Vial) Inj) 50 ml UNSCH PRN IV PUSH HYPOGLYCEMIA-SEE COMMENTS; Start 06/27/17 at 14:00; Status UNV A/P Assessment and Plan A. fib RVR -Continue amiodarone -Follow on telemetry NSTEMI -Status post cardiac catheterization done today 06/26/2017 have three-vessel disease. Cardio vascular surgeon consulted recommended CABG. extensive discussion with patient in regards risks, benefits of open heart surgery and initially he wanted it done in [place] but insurance company stated that they would refuse pain for this hospitalization if he leaves without being treated so patient stated that he will stay for treatment. Cellulitis -Continue vancomycin -Doppler ultrasound of right leg negative -Continue antibiotics as per ID. Per infectious disease when patient is discharged she can be discharged on doxycycline 100 mg p.o. twice daily for a total of 7 days starting today. Bilateral pleural effusion -Diagnostic thoracentesis planned [place] emesis -No recurrence -GI following -Follow hemoglobin levels Diabetes mellitus type 2 -Continue Accu-Cheks. Insulin signs scope. Diabetic diet. -Transition patient from 70/32 to NPH insulin as a base control. Hypoxia secondary to pulmonary edema. -Hypoxia resolved. -Continue Lasix 20 mg by mouth. Discussed case at [facility], with patient's nurse, with patient, with his and sister. More than 40 minutes was spent on the care management of patient. Discharge Planning Patient will need CABG Antonia Montes De Oca MD Jun 27, 2017 14:27
--- NOTE | 2017-06-27 15:00 | PD.CAR.PN ---
CVT Progress Note Subjective/Hospital Course: sts data discussed with pt RISK SCORES About the STS Risk Calculator Procedure: CAB Only Risk of Mortality: 1.352% Morbidity or Mortality: 17.472% Long Length of Stay: 7.126% Short Length of Stay: 38.525% Permanent Stroke: 1.192% Prolonged Ventilation: 9.97% DSW Infection: 1.092% Renal Failure: 6.07% Reoperation: 6.082% 06/27 pt has now changed his mind and wants to stay here at [facility] for his surgery discussed with Dr Donavan ivey timing, preop procedures ordered, appreciate ID input Objective: GENERAL: A&O x 3 SKIN: Warm and dry. lesion right lateral thigh, left knee and right hand HEAD: Normocephalic. EYES: No scleral icterus. No injection or drainage. NECK: Supple, trachea midline. No JVD or lymphadenopathy. CARDIOVASCULAR: Regular rate and rhythm without murmurs, gallops, or rubs. RESPIRATORY: Breath sounds equal bilaterally. No accessory muscle use. GASTROINTESTINAL: Abdomen soft, non-tender, nondistended. MUSCULOSKELETAL: No cyanosis, or edema. BACK: Nontender without obvious deformity. No CVA tenderness. Vital Signs Date Time Temp Pulse Resp B/P (MAP) Pulse Ox O2 Delivery O2 Flow Rate FiO2 06/27/17 13:00 72 06/27/17 12:12 74 06/27/17 12:00 76 06/27/17 11:38 80 06/27/17 11:12 98.1 76 14 154/90 (111) 95 06/27/17 11:12 98 Room Air 06/27/17 10:59 98.1 76 14 154/90 (111) 95 06/27/17 10:24 83 06/27/17 10:00 78 06/27/17 09:00 76 06/27/17 08:47 Room Air 06/27/17 08:00 75 06/27/17 07:40 99.0 75 18 140/86 (104) 94 06/27/17 07:00 75 06/27/17 06:00 70 06/27/17 05:00 73 06/27/17 04:00 73 06/27/17 03:30 96 Room Air 06/27/17 03:30 98.7 73 16 140/86 (104) 96 06/27/17 03:00 73 06/27/17 02:00 74 06/27/17 01:00 72 06/27/17 00:00 82 06/27/17 00:00 98.9 80 16 136/79 (98) 94 06/27/17 00:00 94 Room Air 06/26/17 23:00 80 06/26/17 22:00 78 06/26/17 21:00 74 06/26/17 20:00 99.3 74 16 126/78 (94) 94 06/26/17 20:00 94 Room Air 06/26/17 20:00 76 06/26/17 19:00 82 06/26/17 18:02 85 06/26/17 17:07 72 06/26/17 16:10 70 06/26/17 15:42 98 Room Air 06/26/17 15:42 74 06/26/17 15:42 97.9 73 18 130/85 (100) 98 Labs: Laboratory Tests Test 06/27/17 06:50 06/27/17 06:55 Activated Partial Thromboplast Time 26.8 SEC (24.3-30.1) Blood Urea Nitrogen 25 MG/DL (7-18) Creatinine 1.26 MG/DL (0.60-1.30) Random Glucose 222 MG/DL (74-106) Calcium Level 8.9 MG/DL (8.5-10.1) Sodium Level 134 MEQ/L (136-145) Potassium Level 4.1 MEQ/L (3.5-5.1) Chloride Level 100 MEQ/L (98-107) Carbon Dioxide Level 27.7 MEQ/L (21.0-32.0) Anion Gap 6 MEQ/L (5-15) Estimat Glomerular Filtration Rate 58 ML/MIN (>89) White Blood Count 12.6 TH/MM3 (4.0-11.0) Red Blood Count 4.43 MIL/MM3 (4.50-5.90) Hemoglobin 12.3 GM/DL (13.0-17.0) Hematocrit 37.1 % (39.0-51.0) Mean Corpuscular Volume 83.7 FL (80.0-100.0) Mean Corpuscular Hemoglobin 27.7 PG (27.0-34.0) Mean Corpuscular Hemoglobin Concent 33.1 % (32.0-36.0) Red Cell Distribution Width 16.0 % (11.6-17.2) Platelet Count 356 TH/MM3 (150-450) Mean Platelet Volume 7.4 FL (7.0-11.0) Result Diagram: 06/27/17 0655 06/27/17 0650 Telemetry: NSR (1) Elevated troponin (2) Sepsis Plan: resolved (3) Diabetes mellitus (4) Hyperlipemia (5) Hypertension (6) NSTEMI (non-ST elevated myocardial infarction) Problem Qualifiers (1) Sepsis: Qualified Codes: A41.9 - Sepsis, unspecified organism Rena Shane Jun 27, 2017 15:00
[2017-06-27 16:54] LABS: BICARBONATE 27.9 MEQ/L (21.0-32.0); CALCIUM 8.9 MG/DL (8.5-10.1); CREATININE 1.5 MG/DL (0.60-1.30)
--- NOTE | 2017-06-27 20:48 | RADRPT ---
EXAM DATE/TIME: 06/27/2017 19:26 [facility] COMPARISON: No previous studies available for comparison. INDICATIONS : Pre-op cardiac surgery. MEDICAL HISTORY : Hypertension. Myocardial infarction. Coronary artery disease. Diabetes. MRSA, thigh wound 06/15/17. SURGICAL HISTORY : Cardiac catheterization. Coronary stent. ENCOUNTER: Subsequent ACUITY: 1 day PAIN SCORE: 0/10 LOCATION: Bilateral legs. TECHNIQUE: Venous ultrasound of the left and right leg was performed from the inguinal ligament to the proximal calf. Real-time, color Doppler and spectral tracing, compression and augmentation techniques were us ed. FINDINGS: RIGHT LEG: There is normal compressibility of the deep venous system from the inguinal region to the proximal ca lf. No echogenic clot is seen in the lumen of the common femoral, femoral, popliteal, and posterior tibial veins. There is a normal response of the venous system to proximal and distal augmentation an d respiration. LEFT LEG: There is normal compressibility of the deep venous system from the inguinal region to the proximal ca lf. No echogenic clot is seen in the lumen of the common femoral, femoral, popliteal, and posterior tibial veins. There is a normal response of the venous system to proximal and distal augmentation an d respiration. CONCLUSION: Negative for lower extremity deep venous thrombosis. Ruben Medina MD on June 27, 2017 at 20:46 Board Certified Radiologist. This report was verified electronically.
[2017-06-27] MEDS: ATORVASTATIN 40 MG TAB PO SCH (22:13)
--- NOTE | 2017-06-27 23:02 | RADRPT ---
EXAM DATE/TIME: 06/27/2017 19:06 [facility] COMPARISON: No previous studies available for comparison. INDICATIONS : Pre-op cardiac surgery. MEDICAL HISTORY : Myocardial infarction. Hypertension. Coronary artery disease. Diabetes. MRSA, thigh wound 06/15/17. SURGICAL HISTORY : Cardiac catheterization. Coronary stent. ENCOUNTER: Initial ACUITY: 1 day PAIN SCORE: 0/10 LOCATION: Bilateral neck PEAK SYSTOLIC VELOCITIES (cm/sec): ICA/CCA RATIO: Right: 1.0 Left: 0.9 ICA: Right: 79.8 Left: 71.3 CCA: Right: 82.2 Left: 81.2 ECA: Right: 104.6 Left: 75.7 VERTEBRAL: Right: 50.3 antegrade Left: 48.5 antegrade Elevated flow velocities and ICA/CCA ratios have been found to correlate with increased degrees of vessel stenosis, calculated as percentage of diameter relative to a normal segment of distal ICA/CCA FINDINGS: RIGHT CAROTID: There is mild calcified plaque in the carotid bulb and proximal aspects of the internal and external carotid arteries. LEFT CAROTID: There is mild calcified and noncalcified plaque in the carotid bulb and proximal internal carotid art sadiq. VERTEBRAL ARTERIES: Antegrade flow is seen in both vertebral arteries. MISCELLANEOUS: None. CONCLUSION: 1. Mild atherosclerotic plaque bilaterally. However, no significant stenosis is present within either internal carotid artery (less than 50% stenosis). 2. There is antegrade flow in both vertebral arteries. Faustino Anderson MD on June 27, 2017 at 22:59 Board Certified Radiologist. This report was verified electronically.
--- NOTE | 2017-06-27 23:16 | RADRPT ---
EXAM DATE/TIME: 06/27/2017 19:40 [facility] COMPARISON: No previous studies available for comparison. INDICATIONS : Pre-op cardiac surgery. MEDICAL HISTORY : Hypertension. Myocardial infarction. Coronary artery disease. Diabetes. MRSA, thigh wound 06/15/17. SURGICAL HISTORY : Cardiac catheterization. Coronary stent. ENCOUNTER: Initial ACUITY: 1 day PAIN SCORE: 0/10 LOCATION: Bilateral legs. TECHNOLOGIST IMPRESSION: GREATER SAPHENOUS VEIN THIGH: PROXIMAL: Right 5 mm Left 3 mm MID: Right 3 mm Left 3 mm DISTAL: Right 3 mm Left 2 mm CALF: PROXIMAL: Right 2 mm Left 2 mm MID: Right 1 mm Left Non-visualized DISTAL: Right 1 mm Left Non-visualized FINDINGS: The venous system of the lower extremities are patent by color Doppler imaging. Measurements of the leg veins (in mm) are listed above. CONCLUSION: Venous mapping with measurements listed above. Ruben Medina MD on June 27, 2017 at 23:14 Board Certified Radiologist. This report was verified electronically.
[2017-06-27 23:27] LABS: BILIRUBIN, URINE NEG (NEG); BLOOD, URINE SMALL (NEG); GLUCOSE,URINE 70 mg/dL (NEG); KETONE, URINE NEG (NEG); NITRITE,URINE NEG (NEG); SQUAMOUS EPITHELIAL CELL URINE <1 /hpf (0-5); URINE COLOR LIGHT-YELLOW (YELLW/STRAW); URINE LEUKOCYTE ESTERASE NEG (NEG)
[2017-06-28] VITALS (27 sets, daily range): BP systolic 107–133; BP diastolic 60–83; PULSE 66–96; RESP 14–20; TEMP 97.6–99.3; O2SAT 93–97
[2017-06-28] MEDS: VANCOMYCIN INJ 1,750 MG in SODIUM CHLORID 0.9% 500 ML INJ 500 ML IV SCH (02:02)
[2017-06-28 06:35] LABS: HEMATOCRIT 36.3 % (39.0-51.0); HEMOGLOBIN 12.2 GM/DL (13.0-17.0); MEAN CELL VOLUME 82.7 FL (80.0-100.0); MEAN CORPUSCULAR HEMOGLOBIN 27.7 PG (27.0-34.0); MEAN CORPUSCULAR HGB CONC 33.5 % (32.0-36.0); MEAN PLATELET VOLUME 7.2 FL (7.0-11.0); PLATELET COUNT 361 TH/MM3 (150-450); RED CELL DISTRIBUTION WIDTH 15.8 % (11.6-17.2); WHITE BLOOD COUNT 14.3 TH/MM3 (4.0-11.0)
[2017-06-28 07:03] LABS: BICARBONATE 27.8 MEQ/L (21.0-32.0); CREATININE 1.27 MG/DL (0.60-1.30)
--- NOTE | 2017-06-28 07:59 | PD.CARD.PN ---
Subjective Subjective Remarks right leg cellulitis no chest pain Objective Medications Current Medications Medications (Trade) Dose Ordered Sig/Joseph Route Start Time Stop Time Status Last Admin (Tylenol) 650 mg Q4H PRN PO 06/15/17 20:00 06/17/17 19:58 (Zofran Inj) 4 mg Q6H PRN IVP 06/15/17 22:00 06/18/17 19:43 (Restoril) 15 mg HS PRN PO 06/15/17 21:00 (Narcan Inj) 0.4 mg UNSCH PRN IV PUSH 06/15/17 18:15 (Senokot) 17.2 mg Q12HR PRN PO 06/15/17 21:00 06/17/17 09:54 (Glucagon Inj) 1 mg UNSCH PRN OTHER 06/15/17 18:15 (Proair Hfa Inh) 2 puff Q6HR PRN INH 06/15/17 20:00 (Toprol Xl) 50 mg DAILY PO 06/16/17 09:00 Future Hold 06/18/17 08:55 (Prinivil) 40 mg DAILY PO 06/16/17 09:00 06/27/17 09:25 (Lipitor) 80 mg HS PO 06/16/17 21:00 06/27/17 22:13 (Protonix Inj) 40 mg BID IV PUSH 06/16/17 21:00 06/27/17 22:12 (Bactroban 2% Oint) 1 applic Q12HR TOPICAL 06/17/17 21:00 06/27/17 21:00 (Vasotec Inj) 1.25 mg Q6H PRN IV PUSH 06/19/17 10:00 06/24/17 12:49 (Lasix Inj) 40 mg DAILY IV PUSH 06/19/17 10:00 06/27/17 09:27 Diltiazem HCl 125 mg/Sodium Chloride 125 ml @ 5 mls/hr TITRATE PRN IV 06/21/17 15:00 (Lopressor) 25 mg Q12HR PO 06/21/17 21:00 06/27/17 22:13 (Lactinex) 1 tab Q12HR PO 06/22/17 21:00 06/27/17 22:12 (NovoLIN R INJ) 6 units TIDAC SQ 06/23/17 17:00 06/27/17 17:33 (NovoLIN R SUPPLEMENTAL SCALE) 1 ACHS SLIDING SCALE SQ 06/24/17 08:00 06/27/17 12:20 (NovoLIN N INJ) 40 units DAILY@08 SQ 06/25/17 08:00 06/27/17 09:22 (NovoLIN N INJ) 35 units DAILY@17 SQ 06/25/17 17:00 06/27/17 17:33 Pharmacy Profile Note 0 ml @ 0 mls/hr UNSCH OTHER 06/26/17 12:00 Vancomycin HCl 1750 mg/Sodium Chloride 517.5 ml @ 250 mls/hr Q18H IV 06/26/17 14:00 06/28/17 02:02 Miscellaneous Information SPECIFIC LAB TO BE DRAWN:VANCOMYCIN TROUGH DATE TO... ONCE ONCE .XX 06/28/17 19:45 06/28/17 19:46 (NS Flush) 2 ml BID IV FLUSH 06/27/17 21:00 06/27/17 22:12 (NS Flush) 2 ml UNSCH PRN IV FLUSH 06/27/17 14:00 Papaverine HCl 60 mg/Nitroglycerin 100 mcg/Diltiazem HCl 100 mg/Sodium Chloride 100 ml @ 0 mls/hr [employer] IRR[employer]ATION 06/27/17 14:00 07/04/17 13:59 Cefazolin Sodium 500 mg/Sodium Chloride 505 ml @ 0 mls/hr [employer] 06/27/17 14:00 07/04/17 13:59 Cefazolin Sodium/ Dextrose 50 ml @ 150 mls/hr [employer] HAND IV 06/27/17 14:00 07/04/17 13:59 (Hibiclens 4% Top Soln) 1 applic [employer] TOPICAL 06/27/17 14:00 07/04/17 13:59 Insulin Human Regular 100 units/ Sodium Chloride 100 ml @ 3 mls/hr TITRATE PRN IV 06/27/17 14:00 07/04/17 13:59 (D50w (Vial) Inj) 50 ml UNSCH PRN IV PUSH 06/27/17 14:00 Vital Signs / I&O Vital Signs Date Time Temp Pulse Resp B/P (MAP) Pulse Ox O2 Delivery O2 Flow Rate FiO2 06/28/17 07:18 93 Room Air 06/28/17 07:18 98.7 74 14 119/83 (95) 93 06/28/17 06:00 71 06/28/17 05:00 74 06/28/17 04:00 73 06/28/17 04:00 99.3 75 16 107/62 (77) 94 06/28/17 04:00 94 Room Air 06/28/17 03:00 73 06/28/17 02:00 72 06/28/17 01:00 74 06/28/17 00:00 99.1 76 16 113/60 (77) 97 06/28/17 00:00 97 Room Air 06/28/17 00:00 75 06/27/17 23:00 78 06/27/17 22:00 78 06/27/17 21:00 76 06/27/17 20:00 95 Room Air 06/27/17 20:00 74 06/27/17 20:00 99.9 76 16 128/77 (94) 95 06/27/17 19:00 74 06/27/17 18:00 76 06/27/17 17:00 74 06/27/17 16:11 98.7 72 14 135/81 (99) 95 06/27/17 16:11 98 Room Air 06/27/17 16:00 72 06/27/17 15:00 75 06/27/17 14:00 80 06/27/17 13:00 72 06/27/17 12:12 74 06/27/17 12:00 76 06/27/17 11:38 80 06/27/17 11:12 98.1 76 14 154/90 (111) 95 06/27/17 11:12 98 Room Air 06/27/17 10:59 98.1 76 14 154/90 (111) 95 06/27/17 10:24 83 06/27/17 10:00 78 06/27/17 09:00 76 06/27/17 08:47 Room Air 06/27/17 08:00 75 I/O 06/27/17 06/27/17 06/27/17 06/28/17 06/28/17 06/28/17 07:00 15:00 23:00 07:00 15:00 23:00 Intake Total 240 ml 720 ml 877.5 ml Output Total 350 ml 750 ml 350 ml Balance -110 ml -30 ml 527.5 ml Intake Oral 240 ml 720 ml 360 ml IV Total 517.5 ml Output Urine Total 350 ml 750 ml 350 ml # Voids 2 1 # Bowel Movements 0 1 1 Physical Exam HEAD: Normocephalic. EYES: No scleral icterus. No injection or drainage. NECK: Supple, trachea midline. No JVD or lymphadenopathy. CARDIOVASCULAR: IR IR tachycardia RESPIRATORY: Breath sounds equal bilaterally. No accessory muscle use. GASTROINTESTINAL: Abdomen soft, non-tender, nondistended. MUSCULOSKELETAL: No cyanosis, or edema. BACK: Nontender without obvious deformity. No CVA tenderness. Laboratory Laboratory Tests Test 06/27/17 15:59 06/27/17 22:20 06/28/17 06:10 Blood Urea Nitrogen 26 MG/DL 29 MG/DL Creatinine 1.50 MG/DL 1.27 MG/DL Random Glucose 192 MG/DL 161 MG/DL Calcium Level 8.9 MG/DL 9.0 MG/DL Sodium Level 132 MEQ/L 134 MEQ/L Potassium Level 4.1 MEQ/L 4.1 MEQ/L Chloride Level 98 MEQ/L 100 MEQ/L Carbon Dioxide Level 27.9 MEQ/L 27.8 MEQ/L Anion Gap 6 MEQ/L 6 MEQ/L Estimat Glomerular Filtration Rate 48 ML/MIN 58 ML/MIN Urine Color LIGHT-YELLOW Urine Turbidity CLEAR Urine pH 6.0 Urine Specific [place] 1.010 Urine Protein NEG mg/dL Urine Glucose (UA) 70 mg/dL Urine Ketones NEG mg/dL Urine Occult Blood SMALL Urine Nitrite NEG Urine Bilirubin NEG Urine Urobilinogen LESS THAN 2.0 MG/DL Urine Leukocyte Esterase NEG Urine RBC 2 /hpf Urine WBC LESS THAN 1 /hpf Urine Squamous Epithelial Cells <1 /hpf Microscopic Urinalysis Comment CULT NOT INDICATED Nasal Screen MRSA (PCR) MRSA DETECTED White Blood Count 14.3 TH/MM3 Red Blood Count 4.40 MIL/MM3 Hemoglobin 12.2 GM/DL Hematocrit 36.3 % Mean Corpuscular Volume 82.7 FL Mean Corpuscular Hemoglobin 27.7 PG Mean Corpuscular Hemoglobin Concent 33.5 % Red Cell Distribution Width 15.8 % Platelet Count 361 TH/MM3 Mean Platelet Volume 7.2 FL Activated Partial Thromboplast Time 26.8 SEC Imaging Last Impressions Lower Extremity Ultrasound 06/27/17 0000 Signed Impressions: Service Date/Time: Tuesday, June 27, 2017 19:26 - CONCLUSION: Negative for lower extremity deep venous thrombosis. Ruben Medina MD Carotid Artery Ultrasound 06/27/17 0000 Signed Impressions: Service Date/Time: Tuesday, June 27, 2017 19:06 - CONCLUSION: 1. Mild atherosclerotic plaque bilaterally. However, no significant stenosis is present within either internal carotid artery (less than 50%% stenosis). 2. There is antegrade flow in both vertebral arteries. Faustino Anderson MD Lower Extremity MRI 06/22/17 0000 Signed Impressions: Service Date/Time: June 17:13 - CONCLUSION: Fluid dissecting between the subcutaneous fat and the lateral fascia. Small amount of edema within the anterior muscular compartment. No significant drainable fluid collection is identified. no evidence of marrow edema or marrow replacing process Tanner Iniguez MD Thoracentesis Ultrasound 06/18/17 0000 Signed Impressions: Service Date/Time: Sunday, June 18, 2017 12:16 - CONCLUSION: Uncomplicated ultrasound guided thoracentesis. Faustino Beauchamp MD Chest X-Ray 06/18/17 0000 Signed Impressions: Service Date/Time: Sunday, June 18, 2017 12:45 - CONCLUSION: No evidence of pneumothorax Faustino Beauchamp MD Lower Extremity CT 06/16/17 0000 Signed Impressions: Service Date/Time: Friday, June 16, 2017 10:12 - CONCLUSION: 1. Posterior subcutaneous soft tissue induration and some mild fluid tracking along the surface of the hamstring muscles. No focal collections of gas and no drainable fluid collection seen. 2. Osseous structures of the thigh are intact. Ruben Medina MD CT Angiography 06/16/17 0000 Signed Impressions: Service Date/Time: Friday, June 16, 2017 10:12 - CONCLUSION: 1. Negative for pulmonary embolism. 2. Bilateral pleural effusions, right greater than left. 3. Bilateral lower lung perivascular thickening suggest either interstitial pulmonary edema or inflammatory process. Ruben Medina MD Knee X-Ray 06/15/17 0000 Signed Impressions: Service Date/Time: May 17:22 - CONCLUSION: 1. No evidence of recent bony injury. Ruben Medina MD Femur X-Ray 06/15/17 0000 Signed Impressions: Service Date/Time: May 17:22 - CONCLUSION: No acute findings. Ruben Medina MD Assessment and Plan Problem List: (1) Elevated troponin ICD Codes: R74.8 - Abnormal levels of other serum enzymes (2) Sepsis ICD Codes: A41.9 - Sepsis, unspecified organism Status: Acute (3) Diabetes mellitus ICD Codes: E11.9 - Type 2 diabetes mellitus without complications (4) Hyperlipemia ICD Codes: E78.5 - Hyperlipidemia, unspecified (5) Hypertension ICD Codes: I10 - Essential (primary) hypertension (6) NSTEMI (non-ST elevated myocardial infarction) ICD Codes: I21.4 - Non-ST elevation (NSTEMI) myocardial infarction Assessment and Plan LHC - multivessel dz. RCA occluded. LCX diffusely diseased. LAD in-stent restenosis + mid lesion discussed case with CT surgery, dr alvarado. RCA and LAD graftable. LCx not good target. from a PCI perspective, LAD approachable, LCx potentially approachable. RCA not approachable. Patient to discuss options with CT surgery. CABG vs PCI vs med mgt Need cellulitis/abscess resolved/ ID clearance prior to either revascularization strategy. cont med mgt Problem Qualifiers (1) Sepsis: Qualified Codes: A41.9 - Sepsis, unspecified organism Tanner Ca MD Jun 28, 2017 07:59
[2017-06-28] MEDS: INSULIN NovoLIN REGULAR SUPPLEMENTAL SCALE SQ SCH ×4 (08:35→23:30)
[2017-06-28] MEDS: FUROSEMIDE 40 MG/4 ML VIAL IV PUSH SCH (09:22)
[2017-06-28] MEDS: LACTOBACILLUS ACIDOPHILUS TAB PO SCH ×2 (09:22→23:32)
[2017-06-28] MEDS: PANTOPRAZOLE SODIUM 40 MG VIAL IV PUSH SCH ×2 (09:23→23:32)
[2017-06-28] MEDS: LISINOPRIL 20 MG TAB PO SCH (09:23)
[2017-06-28] MEDS: METOPROLOL TARTRATE 25 MG TAB PO SCH ×2 (09:23→23:31)
[2017-06-28] MEDS: INSULIN HUMAN NPH 1,000 UNITS/10 ML VIAL SQ SCH ×2 (09:24→17:37)
[2017-06-28] MEDS: SODIUM CHLORIDE 0.9% FLUSH 10 ML FLUSH IV FLUSH SCH ×2 (09:24→23:22)
[2017-06-28] MEDS: INSULIN HUMAN REGULAR 1,000 UNITS/10 ML VIAL SQ SCH ×3 (09:25→17:37)
[2017-06-28] MEDS: MUPIROCIN 2% OINT 22 GM TUBE TOPICAL SCH ×2 (09:27→23:34)
[2017-06-28] MEDS ORDERED: SACU1TAB PO (10:48)
--- NOTE | 2017-06-28 13:40 | PD.CAR.PN ---
CVT Progress Note Subjective/Hospital Course: A 62-year-old male presented to the emergency room via [facility]. Trouble walking for a couple of days prior to admission because his right leg was hurting him. He also had some vomiting 3 days prior. He said he noted it was dark black vomitus. On addition, he was ruled in for sepsis with a 102.6 fever, heart rate of 110, white cell count of 35,000. His blood sugar was also elevated at 331. Lactic acid was 2.2. He was resuscitated with fluids. He apparently had a history of having some open wounds on his leg, the right lateral knee, also the left knee area and he had some small lesions on his left hand also on the fingers. Culture was taken from the thigh lesion and it grew Staph aureus and group B beta strep. Today, the blood cultures have been negative. His influenza was also negative. He was treated with broad-spectrum antibiotics and is now currently on clindamycin IV. During the course of his admission, his troponin was found to be elevated at 2.06. He has a history of coronary artery disease with prior stenting. He underwent cardiac catheterization after clearance from ID. Ejection fraction of 35%. His proximal LAD is 70%, mid distal LAD 90%, the diagonal was 60%, the OM 90%, and the RCA 100%. We were consulted to evaluate for coronary artery bypass grafting. PAST MEDICAL HISTORY: Uncontrolled diabetes mellitus. He apparently takes some insulin at home, but he does not check his blood sugar. hypertension, gastritis 3 pt has decided he did not want to have his surgery here, and go back to [place] for his surgery 06/27 pt has now changed his mind and wants to stay here at [place] for his surgery discussed with Dr Donavan ivey timing, preop procedures ordered, appreciate ID input 06/28 no chest pain during the night await timing for surgry per Dr Go FEV1 1.72, carotid US < 50% stenosis bilateral carotids leg vein mapping poor bilateral mid distal calves cleared by ID for surgery Objective: GENERAL: A&O x 3 SKIN: Warm and dry. Inner distal thigh has dark eschar centrally.The distal right outer thigh has a similar lesion. The left index finger had an excoriated lesion at the dorsal aspect of the proximal interphalangeal joint. The patient also has an excoriated lesion at the base of the third finger on the right hand. Erythema at the right lateral calf has Decreased significantly. Now only very minimal redness visible. HEAD: Normocephalic. EYES: No scleral icterus. No injection or drainage. NECK: Supple, trachea midline. No JVD or lymphadenopathy. CARDIOVASCULAR: Regular rate and rhythm without murmurs, gallops, or rubs. RESPIRATORY: Breath sounds equal bilaterally. No accessory muscle use. GASTROINTESTINAL: Abdomen soft, non-tender, nondistended. MUSCULOSKELETAL: No cyanosis, or edema. BACK: Nontender without obvious deformity. No CVA tenderness. Vital Signs Date Time Temp Pulse Resp B/P (MAP) Pulse Ox O2 Delivery O2 Flow Rate FiO2 06/28/17 13:23 74 06/28/17 12:02 98 Room Air 06/28/17 12:02 97.6 68 14 122/77 (92) 93 06/28/17 12:00 66 06/28/17 11:00 68 06/28/17 10:00 76 06/28/17 09:00 70 06/28/17 08:00 72 06/28/17 07:18 93 Room Air 06/28/17 07:18 98.7 74 14 119/83 (95) 93 06/28/17 07:00 73 06/28/17 06:00 71 06/28/17 05:00 74 06/28/17 04:00 73 06/28/17 04:00 99.3 75 16 107/62 (77) 94 06/28/17 04:00 94 Room Air 06/28/17 03:00 73 06/28/17 02:00 72 06/28/17 01:00 74 06/28/17 00:00 99.1 76 16 113/60 (77) 97 06/28/17 00:00 97 Room Air 06/28/17 00:00 75 06/27/17 23:00 78 06/27/17 22:00 78 06/27/17 21:00 76 06/27/17 20:00 95 Room Air 06/27/17 20:00 74 06/27/17 20:00 99.9 76 16 128/77 (94) 95 06/27/17 19:00 74 06/27/17 18:00 76 06/27/17 17:00 74 06/27/17 16:11 98.7 72 14 135/81 (99) 95 06/27/17 16:11 98 Room Air 06/27/17 16:00 72 06/27/17 15:00 75 06/27/17 14:00 80 Labs: Laboratory Tests Test 06/28/17 06:10 White Blood Count 14.3 TH/MM3 (4.0-11.0) Red Blood Count 4.40 MIL/MM3 (4.50-5.90) Hemoglobin 12.2 GM/DL (13.0-17.0) Hematocrit 36.3 % (39.0-51.0) Mean Corpuscular Volume 82.7 FL (80.0-100.0) Mean Corpuscular Hemoglobin 27.7 PG (27.0-34.0) Mean Corpuscular Hemoglobin Concent 33.5 % (32.0-36.0) Red Cell Distribution Width 15.8 % (11.6-17.2) Platelet Count 361 TH/MM3 (150-450) Mean Platelet Volume 7.2 FL (7.0-11.0) Activated Partial Thromboplast Time 26.8 SEC (24.3-30.1) Blood Urea Nitrogen 29 MG/DL (7-18) Creatinine 1.27 MG/DL (0.60-1.30) Random Glucose 161 MG/DL (74-106) Calcium Level 9.0 MG/DL (8.5-10.1) Sodium Level 134 MEQ/L (136-145) Potassium Level 4.1 MEQ/L (3.5-5.1) Chloride Level 100 MEQ/L (98-107) Carbon Dioxide Level 27.8 MEQ/L (21.0-32.0) Anion Gap 6 MEQ/L (5-15) Estimat Glomerular Filtration Rate 58 ML/MIN (>89) Result Diagram: 06/28/17 0610 06/28/17 0610 Telemetry: NSR (1) Elevated troponin (2) Sepsis Plan: resolved / + MRSA wound on clindamycin (3) Diabetes mellitus Plan: on long acting insulin (4) Hyperlipemia Plan: on statin (5) Hypertension (6) NSTEMI (non-ST elevated myocardial infarction) Plan: on ASA, statin BB will need to stop arcelia 3 days prior to surgery Problem Qualifiers (1) Sepsis: Qualified Codes: A41.9 - Sepsis, unspecified organism Rena Shane Jun 28, 2017 13:40
--- NOTE | 2017-06-28 14:12 | HHI.IDPN ---
Note Infectious Disease Note Patient states that he feels okay. Awake and alert. Says he felt great after taking a walk. Reports mild pain in the right leg after he walked the hallways. No fever or chills. No shortness of breath. Patient is awaiting plans for CABG. Pleural fluid cultures no growth. Blood culture has no growth. 2D ECHO without vegetation. 62-year-old white male who presented to the emergency department yesterday with vomiting. He reportedly was vomiting for three days before presenting to the emergency department. He was noted to have dark / black vomitus. The patient has insulin-dependent diabetes. He was evaluated in the emergency department and had temperature of 102.6 degrees, heart rate of 109, white blood cell count of 35.3. The patient was suspected to have sepsis and was admitted to the hospital for further management. The patient was noted to have lesions on the thighs bilaterally and also at the dorsum of the finger on the left side and knuckle on the right. Culture of the left thigh lesion has growth of Staph aureus and group B beta Strep. PAST MEDICAL HISTORY: 1. Coronary artery disease. 2. Diabetes mellitus. 3. Hypertension. 4. History of coronary stents. ALLERGIES: NO KNOWN DRUG ALLERGIES. Antibiotics: Vancomycin SOCIAL HISTORY: The patient denies tobacco. He denies alcohol use. He denies recent drug use. The patient is from [place]. FAMILY HISTORY: Noncontributory. OBJECTIVE: Vital Signs Date Time Temp Pulse Resp B/P (MAP) Pulse Ox O2 Delivery O2 Flow Rate FiO2 06/28/17 13:23 74 06/28/17 12:02 98 Room Air 06/28/17 12:02 97.6 68 14 122/77 (92) 93 06/28/17 12:00 66 06/28/17 11:00 68 06/28/17 10:00 76 06/28/17 09:00 70 06/28/17 08:00 72 06/28/17 07:18 93 Room Air 06/28/17 07:18 98.7 74 14 119/83 (95) 93 06/28/17 07:00 73 06/28/17 06:00 71 06/28/17 05:00 74 06/28/17 04:00 73 06/28/17 04:00 99.3 75 16 107/62 (77) 94 06/28/17 04:00 94 Room Air 06/28/17 03:00 73 06/28/17 02:00 72 06/28/17 01:00 74 06/28/17 00:00 99.1 76 16 113/60 (77) 97 06/28/17 00:00 97 Room Air 06/28/17 00:00 75 06/27/17 23:00 78 06/27/17 22:00 78 06/27/17 21:00 76 06/27/17 20:00 95 Room Air 06/27/17 20:00 74 06/27/17 20:00 99.9 76 16 128/77 (94) 95 06/27/17 19:00 74 06/27/17 18:00 76 06/27/17 17:00 74 06/27/17 16:11 98.7 72 14 135/81 (99) 95 06/27/17 16:11 98 Room Air 06/27/17 16:00 72 06/27/17 15:00 75 Laboratory Tests Test 06/27/17 06:55 06/28/17 06:10 White Blood Count 12.6 TH/MM3 14.3 TH/MM3 Red Blood Count 4.43 MIL/MM3 4.40 MIL/MM3 Hemoglobin 12.3 GM/DL 12.2 GM/DL Hematocrit 37.1 % 36.3 % Mean Corpuscular Volume 83.7 FL 82.7 FL Mean Corpuscular Hemoglobin 27.7 PG 27.7 PG Mean Corpuscular Hemoglobin Concent 33.1 % 33.5 % Red Cell Distribution Width 16.0 % 15.8 % Platelet Count 356 TH/MM3 361 TH/MM3 Mean Platelet Volume 7.4 FL 7.2 FL Laboratory Tests Test 06/27/17 06:50 06/27/17 15:59 06/28/17 06:10 Blood Urea Nitrogen 25 MG/DL 26 MG/DL 29 MG/DL Creatinine 1.26 MG/DL 1.50 MG/DL 1.27 MG/DL Random Glucose 222 MG/DL 192 MG/DL 161 MG/DL Calcium Level 8.9 MG/DL 8.9 MG/DL 9.0 MG/DL Sodium Level 134 MEQ/L 132 MEQ/L 134 MEQ/L Potassium Level 4.1 MEQ/L 4.1 MEQ/L 4.1 MEQ/L Chloride Level 100 MEQ/L 98 MEQ/L 100 MEQ/L Carbon Dioxide Level 27.7 MEQ/L 27.9 MEQ/L 27.8 MEQ/L Anion Gap 6 MEQ/L 6 MEQ/L 6 MEQ/L Estimat Glomerular Filtration Rate 58 ML/MIN 48 ML/MIN 58 ML/MIN IMAGING: Lower Extremity MRI 06/22/17 0000 Signed Impressions: Service Date/Time: June 17:13 - CONCLUSION: Fluid dissecting between the subcutaneous fat and the lateral fascia. Small amount of edema within the anterior muscular compartment. No significant drainable fluid collection is identified. no evidence of marrow edema or marrow replacing process Tanner Iniguez MD Lower Extremity Ultrasound 06/17/17 0000 Signed Impressions: Service Date/Time: Saturday, June 17, 2017 18:20 - CONCLUSION: No evidence of DVT. Nima Johnson MD Lower Extremity CT 06/16/17 0000 Signed Impressions: Service Date/Time: Friday, June 16, 2017 10:12 - CONCLUSION: 1. Posterior subcutaneous soft tissue induration and some mild fluid tracking along the surface of the hamstring muscles. No focal collections of gas and no drainable fluid collection seen. 2. Osseous structures of the thigh are intact. Ruben Medina MD CT Angiography 06/16/17 0000 Signed Impressions: Service Date/Time: Friday, June 16, 2017 10:12 - CONCLUSION: 1. Negative for pulmonary embolism. 2. Bilateral pleural effusions, right greater than left. 3. Bilateral lower lung perivascular thickening suggest either interstitial pulmonary edema or inflammatory process. Ruben Medina MD Chest X-Ray 06/15/17 1606 Signed Impressions: Service Date/Time: May 16:19 - CONCLUSION: The lungs are clear. Ruben Medina MD Knee X-Ray 06/15/17 0000 Signed Impressions: Service Date/Time: May 17:22 - CONCLUSION: 1. No evidence of recent bony injury. Ruben Medina MD Femur X-Ray 06/15/17 0000 Signed Impressions: Service Date/Time: May 17:22 - CONCLUSION: No acute findings. Ruben Medina MD PHYSICAL EXAMINATION: GENERAL: Awake and alert. HEENT: No icterus. Oropharynx with moist mucosa. No visible lesions. The mucosa is moist. NECK: Supple without adenopathy LUNGS: Clear breath sounds. HEART: Regular S1 and S2. No audible murmurs, rubs or gallops. ABDOMEN: Soft, diminished bowel sounds. Nontender. EXTREMITIES: Inner distal thigh has dark eschar centrally.The distal right outer thigh has a similar lesion which has surrounding erythema. The left index finger had an excoriated lesion at the dorsal aspect of the proximal interphalangeal joint. The patient also has an excoriated lesion at the base of the third finger on the right hand. These have scabs. Erythema at the right lateral calf has Decreased significantly. NEUROLOGIC: No gross focal findings. PSYCHIATRIC: Calm and cooperative. IMPRESSION: 1. Sepsis. Patient presented with fever, tachycardia, leukocytosis and elevated lactic acid. Improved. 2. Cellulitis of the right lateral calf and thigh / skin lesions of the lower extremities. Improved. Culture of the wounds of the lower extremities has group A beta Strep and Staph aureus. Erythema is decreased. MRI shows small Non-drainable fluid collection in the right leg. 3. Pleural effusion. Post drainage. 4. Diabetes mellitus. The patient had hypoglycemia on presentation. 5. Leukocytosis. WBC remains elevated. Clinically appears stable. RECOMMENDATIONS: 1. Continue Vancomycin IV. would keep this antibiotic until the postoperative period. 2. Monitor the white blood cell count. 4. Monitor cellulitis response to antibiotic treatment. 5. The cellulitis of the right lower extremity is sufficiently healed to the point where I think it is okay to proceed with cardiac surgery. Tavo Branch MD Jun 28, 2017 14:12
[2017-06-28] MEDS: ASPIRIN EC 81 MG TABEC PO SCH (15:14)
--- NOTE | 2017-06-28 16:19 | HHI.PR ---
Subjective Remarks Follow-up for chest pain and cellulitis Patient has no complaints. Denied any chest pain, shortness of breathing, palpitation, denies any dizziness. He feels like his cellulitis is improving. Objective Vitals Vital Signs Date Time Temp Pulse Resp B/P (MAP) Pulse Ox O2 Delivery O2 Flow Rate FiO2 06/28/17 16:03 73 06/28/17 15:07 98.6 73 14 126/73 (90) 95 06/28/17 15:07 98 Room Air 06/28/17 15:00 78 06/28/17 14:39 76 06/28/17 13:23 74 06/28/17 12:02 98 Room Air 06/28/17 12:02 97.6 68 14 122/77 (92) 93 06/28/17 12:00 66 06/28/17 11:00 68 06/28/17 10:00 76 06/28/17 09:00 70 06/28/17 08:00 72 06/28/17 07:18 93 Room Air 06/28/17 07:18 98.7 74 14 119/83 (95) 93 06/28/17 07:00 73 06/28/17 06:00 71 06/28/17 05:00 74 06/28/17 04:00 73 06/28/17 04:00 99.3 75 16 107/62 (77) 94 06/28/17 04:00 94 Room Air 06/28/17 03:00 73 06/28/17 02:00 72 06/28/17 01:00 74 06/28/17 00:00 99.1 76 16 113/60 (77) 97 06/28/17 00:00 97 Room Air 06/28/17 00:00 75 06/27/17 23:00 78 06/27/17 22:00 78 06/27/17 21:00 76 06/27/17 20:00 95 Room Air 06/27/17 20:00 74 06/27/17 20:00 99.9 76 16 128/77 (94) 95 06/27/17 19:00 74 06/27/17 18:00 76 06/27/17 17:00 74 I/O 06/27/17 06/27/17 06/27/17 06/28/17 06/28/17 06/28/17 07:00 15:00 23:00 07:00 15:00 23:00 Intake Total 240 ml 720 ml 877.5 ml Output Total 350 ml 750 ml 350 ml Balance -110 ml -30 ml 527.5 ml Intake Oral 240 ml 720 ml 360 ml IV Total 517.5 ml Output Urine Total 350 ml 750 ml 350 ml # Voids 2 1 # Bowel Movements 0 1 1 Result Diagram: 06/28/1760906/28/17609 Objective Remarks GENERAL: in NAD SKIN: Right leg with mild erythema below knee lateral portion. Drastic improvement. CARDIOVASCULAR: Regular rate and rhythm without murmurs, gallops, or rubs. RESPIRATORY: Breath sounds equal bilaterally. No accessory muscle use. GASTROINTESTINAL: Abdomen soft, non-tender, nondistended. MUSCULOSKELETAL: No cyanosis, or edema. BACK: Nontender without obvious deformity. No CVA tenderness. Medications and IVs Current Medications Acetaminophen (Tylenol Supp) 650 mg ONCE ONCE RECTAL ; Start 06/15/17 at 16:15 ; Stop 06/15/17 at 17:12; Status DC Ondansetron HCl (Zofran Inj) 4 mg ONCE ONCE IV PUSH Last administered on at 16:49; Start 06/15/17 at 16:15; Stop 06/15/17 at 16:16; Status DC Sodium Chloride 1,000 ml @ 1,000 mls/hr Q1H ONCE IV Last administered on at 16:48; Start 06/15/17 at 16:06; Stop 06/15/17 at 17:05; Status DC Sodium Chloride 800 ml @ 1,000 mls/hr Q48M ONCE IV Last administered on at 16:48; Start 06/15/17 at 16:06; Stop 06/15/17 at 16:53; Status DC Vancomycin HCl 1000 mg/Sodium Chloride 250 ml @ 250 mls/hr ONCE ONCE IV Last administered on 06/15/17at 17:55; Start 06/15/17 at 16:15; Stop 06/15/17 at 17:14 ; Status DC Piperacillin Sod/ Tazobactam Sod 100 ml @ 200 mls/hr ONCE ONCE IV Last administered on 06/15/17at 16:48; Start 06/15/17 at 16:15; Stop 06/15/17 at 16:44 ; Status DC Acetaminophen (Tylenol) 650 mg ONCE ONCE PO Last administered on 06/15/17at 17: 16; Start 06/15/17 at 17:15; Stop 06/15/17 at 17:19; Status DC Potassium Chloride (KCl) 40 meq ONCE ONCE PO Last administered on 06/15/17at 17 :53; Start 06/15/17 at 17:30; Stop 06/15/17 at 17:31; Status DC Insulin Human Regular (NovoLIN R INJ) 8 units ONCE ONCE IV PUSH Last administered on 06/15/17at 17:53; Start 06/15/17 at 17:30; Stop 06/15/17 at 17:31 ; Status DC Sodium Chloride 1,000 ml @ 999 mls/hr BOLUS ONCE IV Last administered on 06/15at 17:55; Start 06/15/17 at 17:30; Stop 06/15/17 at 18:30; Status DC Sodium Chloride 1,000 ml @ 100 mls/hr Q10H IV Last administered on 06/16/17at 11:19; Start 06/15/17 at 18:01; Stop 06/16/17 at 17:37; Status DC Sodium Chloride (NS Flush) 2 ml UNSCH PRN IV FLUSH FLUSH AFTER USING IV ACCESS ; Start 06/15/17 at 18:15; Stop 06/19/17 at 15:30; Status DC Sodium Chloride (NS Flush) 2 ml BID IV FLUSH Last administered on 06/18/17 19: 43; Start 06/15/17 at 21:00; Stop 06/19/17 at 15:30; Status DC Acetaminophen (Tylenol) 650 mg Q4H PRN PO TEMP > 100.4 Last administered on 19:58; Start 06/15/17 at 20:00 Ondansetron HCl (Zofran Inj) 4 mg Q6H PRN IVP NAUSEA OR VOMITING Last administered on 06/18/17 19:43; Start 06/15/17 at 22:00 Temazepam (Restoril) 15 mg HS PRN PO INSOMNIA; Start 06/15/17 at 21:00 Naloxone HCl (Narcan Inj) 0.4 mg UNSCH PRN IV PUSH SEE LABEL COMMENTS; Start at 18:15 Sennosides (Senokot) 17.2 mg Q12HR PRN PO Moderate constipation Last administered on 06/17/17at 09:54; Start 06/15/17 at 21:00 Vancomycin HCl 1500 mg/Sodium Chloride 515 ml @ 257.5 mls/ hr Q12H IV ; Start 06/15/17 at 18:15; Stop 06/15/17 at 19:02; Status DC Pharmacy Profile Note 0 ml @ 0 mls/hr UNSCH OTHER ; Start 06/15/17 at 18:15; Stop 06/23/17 at 12:45; Status DC Piperacillin Sod/ Tazobactam Sod 50 ml @ 100 mls/hr Q8H IV Last administered on 06/16/17at 11:18; Start 06/16/17 at 00:00; Stop 06/16/17 at 17:47; Status DC Dextrose (D50w (Vial) Inj) 50 ml UNSCH PRN IV PUSH HYPOGLYCEMIA-SEE COMMENTS; Start 06/15/17 at 18:15; Stop 06/27/17 at 15:13; Status DC Glucagon (Glucagon Inj) 1 mg UNSCH PRN OTHER HYPOGLYCEMIA-SEE COMMENTS; Start 06/15/17 at 18:15 Insulin Aspart (NovoLOG SUPPLEMENTAL SCALE) 1 ACHS SLIDING SCALE SQ Last administered on 06/15/17at 21:00; Start 06/15/17 at 21:00; Stop 06/16/17 at 08:51 ; Status DC Albuterol Sulfate (Proair Hfa Inh) 2 puff Q6HR PRN INH SHORTNESS OF BREATH; Start 06/15/17 at 20:00 Amlodipine Besylate (Norvasc) 10 mg DAILY PO Last administered on 06/19/17at 08: 13; Start 06/16/17 at 09:00; Stop 06/19/17 at 09:00; Status DC Atorvastatin Calcium (Lipitor) 80 mg HS PO ; Start 06/15/17 at 21:00; Stop 06/16 at 08:01; Status DC Insulin Human Isoph/Insulin Regular (NovoLIN 70/30 INJ) 45 units BID SQ Last administered on 06/17/17at 08:55; Start 06/15/17 at 21:00; Stop 06/17/17 at 15:18 ; Status DC Metoprolol Succinate (Toprol Xl) 50 mg DAILY PO Last administered on 06/18/17at 08:55; Start 06/16/17 at 09:00; Status Future Hold Lisinopril (Prinivil) 40 mg DAILY PO Last administered on 06/28/17at 09:23; Start 06/16/17 at 09:00 Vancomycin HCl 2000 mg/Sodium Chloride 520 ml @ 250 mls/hr ONCE ONCE IV Last administered on 06/15/17at 21:14; Start 06/15/17 at 21:00; Stop 06/15/17 at 23:04 ; Status DC Vancomycin HCl 1500 mg/Sodium Chloride 515 ml @ 257.5 mls/ hr Q12H IV Last administered on 06/17/17 21:19; Start 06/16/17 at 09:00; Stop 06/17/17 at 22:17 ; Status DC Miscellaneous Information SPECIFIC LAB TO BE DRAWN:VANCOMYCIN TROUGH DATE TO... ONCE ONCE .XX Last administered on 06/17/17at 20:20; Start 06/17/17 at 20:45; Stop 06/17/17 at 20:46; Status DC Atorvastatin Calcium (Lipitor) 80 mg HS PO Last administered on 06/27/17at 22:13 ; Start 06/16/17 at 21:00 Insulin Human Regular (NovoLIN R SUPPLEMENTAL SCALE) 1 ACHS SLIDING SCALE SQ Last administered on 06/23/17 21:10; Start 06/16/17 at 12:00; Stop 06/23/17 at 21 :26; Status DC Iohexol (Omnipaque 350 Inj) 95 ml STK-MED ONCE IVCONTRAST Last administered on 06/16/17at 11:10; Start 06/16/17 at 11:10; Stop 06/16/17 at 11:11; Status DC Aspirin (Aspirin) 325 mg ONCE ONCE PO Last administered on 06/16/17at 13:57; Start 06/16/17 at 13:00; Stop 06/16/17 at 13:01; Status DC Heparin Sodium (Porcine) (Heparin Inj) 5,000 units Q8HR SQ Last administered on 06/16/17at 20:48; Start 06/16/17 at 22:00; Stop 06/16/17 at 22:05; Status DC Ceftriaxone Sodium 1000 mg/ Sodium Chloride 100 ml @ 200 mls/hr Q24H IV ; Start 06/16/17 at 17:00; Stop 06/16/17 at 17:45; Status DC Azithromycin 500 mg/Sodium Chloride 250 ml @ 250 mls/hr Q24H IV ; Start at 18:00; Stop 06/16/17 at 18:00; Status DC Albuterol/ Ipratropium (Duoneb Neb) 1 ampule Q6HR WHILE AWAKE NEB NEB Last administered on 06/20/17at 08:02; Start 06/16/17 at 17:15; Stop 06/20/17 at 17:14 ; Status DC Furosemide (Lasix Inj) 40 mg ONCE ONCE IV PUSH Last administered on 06/16/17at 19:33; Start 06/16/17 at 17:45; Stop 06/16/17 at 17:46; Status DC Piperacillin Sod/ Tazobactam Sod 100 ml @ 200 mls/hr Q6H IV Last administered on 06/22/17at 12:38; Start 06/16/17 at 18:00; Stop 06/22/17 at 12:44; Status DC Pantoprazole Sodium (Protonix Inj) 40 mg BID IV PUSH Last administered on at 09:23; Start 06/16/17 at 21:00 Heparin Sodium/ Dextrose 250 ml @ 10 mls/hr TITRATE PRN IV Coagulation Management Last administered on 06/26/17at 05:48; Start 06/16/17 at 22:30; Stop at 11:49; Status DC Heparin Sodium (Porcine) (Heparin Inj) 5,000 units UNSCH PRN IV PUSH aPTT less than 25; Start 06/16/17 at 22:30; Stop 06/26/17 at 11:49; Status DC Heparin Sodium (Porcine) (Heparin Inj) 2,500 units UNSCH PRN IV PUSH aPTT 25 to 39 Last administered on 06/19/17at 16:53; Start 06/16/17 at 22:30; Stop at 11:49; Status DC Potassium Chloride 100 ml @ 50 mls/hr Q2H IV Last administered on 06/17/17at 09 :52; Start 06/17/17 at 09:00; Stop 06/17/17 at 12:59; Status DC Furosemide (Lasix) 20 mg DAILY PO Last administered on 06/19/17at 08:13; Start 06/18/17 at 09:00; Stop 06/19/17 at 09:21; Status DC Furosemide (Lasix Inj) 40 mg ONCE ONCE IV PUSH Last administered on 06/17/17at 15:37; Start 06/17/17 at 15:30; Stop 06/17/17 at 15:31; Status DC Mupirocin (Bactroban 2% Oint) 1 applic Q12HR TOPICAL Last administered on at 09:27; Start 06/17/17 at 21:00 Insulin Human NPH (NovoLIN N INJ) 35 units DAILY@08 SQ Last administered on 06/23at 08:00; Start 06/18/17 at 08:00; Stop 06/23/17 at 21:26; Status DC Insulin Human NPH (NovoLIN N INJ) 25 units DAILY@17 SQ Last administered on 06/23at 17:00; Start 06/17/17 at 17:00; Stop 06/24/17 at 14:46; Status DC Potassium Chloride (KCl) 30 meq ONCE ONCE PO Last administered on 06/17/17at 16 :10; Start 06/17/17 at 16:00; Stop 06/17/17 at 16:01; Status DC Vancomycin HCl 1250 mg/Sodium Chloride 262.5 ml @ 250 mls/hr Q8H IV Last administered on 06/19/17at 15:56; Start 06/18/17 at 06:00; Stop 06/19/17 at 17:53 ; Status DC Miscellaneous Information SPECIFIC LAB TO BE DRAWN: VANCO TROUGH DATE TO BE DR... ONCE ONCE .XX Last administered on 06/18/17at 13:42; Start 06/18/17 at 13 :45; Stop 06/18/17 at 13:46; Status DC Potassium Chloride (KCl) 30 meq ONCE ONCE PO Last administered on 06/18/17at 10 :09; Start 06/18/17 at 09:45; Stop 06/18/17 at 09:46; Status DC Lidocaine HCl (Xylocaine 1% Inj) 20 ml STK-MED ONCE .ROUTE ; Start 06/18/17 at 13:35; Stop 06/18/17 at 13:36; Status DC Miscellaneous Information SPECIFIC LAB TO BE ... ONCE ONCE .XX Last administered on 06/19/17at 13:45; Start 06/19/17 at 13:45; Stop 06/19/17 at 13:46 ; Status DC Metoprolol Tartrate (Lopressor Inj) 5 mg ONCE ONCE IV PUSH Last administered on 06/19/17at 08:14; Start 06/19/17 at 08:00; Stop 06/19/17 at 08:01; Status DC Sodium Chloride (NS Flush) 2 ml UNSCH PRN IV FLUSH FLUSH AFTER USING IV ACCESS Last administered on 06/27/17at 09:27; Start 06/19/17 at 09:00; Stop 06/27/17 at 15 :11; Status DC Sodium Chloride (NS Flush) 2 ml BID IV FLUSH Last administered on 06/27/17at 09: 27; Start 06/19/17 at 09:00; Stop 06/27/17 at 15:11; Status DC Diltiazem HCl (Cardizem Inj) 15 mg ONCE ONCE IV PUSH ; Start 06/19/17 at 10:00 ; Stop 06/19/17 at 10:01; Status DC Diltiazem HCl 125 mg/Sodium Chloride 125 ml @ 5 mls/hr TITRATE PRN IV Tachycardia; Start 06/19/17 at 09:00; Stop 06/19/17 at 09:16; Status DC Enalaprilat (Vasotec Inj) 1.25 mg Q6H PRN IV PUSH SBP>160, DBP>90 Last administered on 06/24/17at 12:49; Start 06/19/17 at 10:00 Amiodarone HCl 150 mg/Dextrose 103 ml @ 600 mls/hr Q11M ONCE IV Last administered on 06/19/17at 10:48; Start 06/19/17 at 10:00; Stop 06/19/17 at 10:10 ; Status DC Amiodarone HCl 450 mg/Sodium Chloride 250 ml @ 33.33 mls/ hr Q7H31M PRN IV Per Protocol Last administered on 06/19/17at 22:04; Start 06/19/17 at 10:00; Stop at 13:57; Status DC Furosemide (Lasix Inj) 40 mg DAILY IV PUSH Last administered on 06/28/17at 09:22 ; Start 06/19/17 at 10:00 Vancomycin HCl 750 mg/Sodium Chloride 257.5 ml @ 250 mls/hr NOW ONCE IV Last administered on 06/19/17at 20:22; Start 06/19/17 at 18:00; Stop 06/19/17 at 19:01 ; Status DC Vancomycin HCl 1750 mg/Sodium Chloride 517.5 ml @ 250 mls/hr Q8H IV Last administered on 06/20/17at 08:06; Start 06/20/17 at 00:00; Stop 06/20/17 at 18:41 ; Status DC Miscellaneous Information SPECIFIC LAB TO BE SALEEM... ONCE ONCE .XX ; Start 06/20 at 15:45; Stop 06/20/17 at 15:46; Status DC Vancomycin HCl 1500 mg/Sodium Chloride 515 ml @ 257.5 mls/ hr Q8H IV Last administered on 06/21/17at 06:53; Start 06/21/17 at 06:00; Stop 06/21/17 at 09:45 ; Status DC Miscellaneous Information SPECIFIC LAB TO BE SALEEM... ONCE ONCE .XX ; Start at 05:45; Stop 06/22/17 at 05:46; Status Cancel Diltiazem HCl (Cardizem) 30 mg ONCE ONCE PO Last administered on 06/21/17at 06: 27; Start 06/21/17 at 06:15; Stop 06/21/17 at 06:16; Status DC Amiodarone HCl 150 mg/Dextrose 100 ml @ 600 mls/hr NOW ONCE IV Last administered on 06/21/17at 06:30; Start 06/21/17 at 06:15; Stop 06/21/17 at 06:24 ; Status DC Vancomycin HCl 2000 mg/Sodium Chloride 520 ml @ 257.5 mls/ hr Q12H IV Last administered on 06/23/17at 09:30; Start 06/21/17 at 20:00; Stop 06/23/17 at 12:45; Status DC Miscellaneous Information SPECIFIC LAB TO BE DRAWN:VANCOMYCIN TROUGH DATE TO... ONCE ONCE .XX ; Start 06/23/17 at 07:45; Stop 06/23/17 at 07:46; Status DC Diltiazem HCl 125 mg/Sodium Chloride 125 ml @ 5 mls/hr TITRATE PRN IV Tachycardia; Start 06/21/17 at 15:00 Diltiazem HCl (Cardizem Inj) 10 mg BOLUS ONCE IV PUSH ; Start 06/21/17 at 14:00 ; Stop 06/21/17 at 14:01; Status DC Metoprolol Tartrate (Lopressor) 25 mg Q12HR PO Last administered on 06/28/17at 09 :23; Start 06/21/17 at 21:00 Insulin Aspart (NovoLOG INJ) 1 units TIDAC SQ ; Start 06/22/17 at 08:00; Stop 06/22/17 at 12:02; Status DC Potassium Chloride 100 ml @ 100 mls/hr Q1H IV Last administered on 06/22/17at 00 :35; Start 06/21/17 at 22:30; Stop 06/22/17 at 01:29; Status DC Insulin Aspart (NovoLOG INJ) 4 units TIDAC SQ ; Start 06/22/17 at 12:00; Stop 06/22/17 at 12:04; Status DC Insulin Human Regular (NovoLIN R INJ) 2 units TIDAC SQ ; Start 06/22/17 at 12:00 ; Stop 06/22/17 at 21:12; Status DC Clindamycin/ Sodium Chloride 50 ml @ 100 mls/hr Q6H IV ; Start 06/22/17 at 12:15 ; Stop 06/22/17 at 13:17; Status DC Lactobacillus Acidophilus (Lactinex) 1 tab Q12HR PO Last administered on at 09:22; Start 06/22/17 at 21:00 Clindamycin/ Sodium Chloride 50 ml @ 100 mls/hr Q8H IV Last administered on 06/26/17at 05:26; Start 06/22/17 at 14:00; Stop 06/26/17 at 11:56; Status DC Gadodiamide (Omniscan Pf Inj) 20 ml STK-MED ONCE IVCONTRAST Last administered on 06/22/17at 17:59; Start 06/22/17 at 17:59; Stop 06/22/17 at 18:08; Status DC Insulin Human Regular (NovoLIN R INJ) 4 units TIDAC SQ Last administered on 06/23at 13:47; Start 06/23/17 at 08:00; Stop 06/23/17 at 15:33; Status DC Potassium Chloride (KCl) 20 meq ONCE ONCE PO Last administered on 06/22/17 22: 12; Start 06/22/17 at 21:15; Stop 06/22/17 at 21:28; Status DC Insulin Human Regular (NovoLIN R INJ) 6 units TIDAC SQ Last administered on 06/28 12:17; Start 06/23/17 at 17:00 Insulin Human NPH (NovoLIN N INJ) 38 units DAILY@08 SQ Last administered on 06/24 08:23; Start 06/24/17 at 08:00; Stop 06/24/17 at 14:46; Status DC Insulin Human Regular (NovoLIN R SUPPLEMENTAL SCALE) 1 ACHS SLIDING SCALE SQ Last administered on 06/28/17 12:17; Start 06/24/17 at 08:00 Insulin Human NPH (NovoLIN N INJ) 30 units DAILY@17 SQ Last administered on 06/24 17:08; Start 06/24/17 at 17:00; Stop 06/25/17 at 14:00; Status DC Insulin Human NPH (NovoLIN N INJ) 40 units DAILY@08 SQ Last administered on 06/28 09:24; Start 06/25/17 at 08:00 Sodium Chloride 500 ml @ 500 mls/hr BOLUS ONCE IV Last administered on 16:06; Start 06/25/17 at 14:00; Stop 06/25/17 at 14:59; Status DC Insulin Human NPH (NovoLIN N INJ) 35 units DAILY@17 SQ Last administered on 06/27 17:33; Start 06/25/17 at 17:00 Heparin Sodium/ Sodium Chloride 2,000 ml @ As Directed STK-MED ONCE IV FLUSH ; Start 06/26/17 at 09:25; Stop 06/26/17 at 09:26; Status DC Midazolam HCl (Versed Inj) 2 mg STK-MED ONCE .ROUTE Last administered on 09:25; Start 06/26/17 at 09:25; Stop 06/26/17 at 09:26; Status DC Fentanyl Citrate (fentaNYL INJ) 100 mcg STK-MED ONCE .ROUTE Last administered on 06/26/17 09:26; Start 06/26/17 at 09:26; Stop 06/26/17 at 09:27; Status DC Heparin Sodium (Porcine) (Heparin Inj) 10,000 units STK-MED ONCE .ROUTE Last administered on 06/26/17at 09:26; Start 06/26/17 at 09:26; Stop 06/26/17 at 09:27; Status DC Miscellaneous Information 1 ONCE ONCE XX Last administered on 06/26/17at 10:45; Start 06/26/17 at 10:45; Stop 06/26/17 at 11:48; Status DC Bacitracin (Bacitracin Oint Packet) 0.9 gm ONCE ONCE TOP Last administered on 06/26/17at 11:49; Start 06/26/17 at 12:00; Stop 06/26/17 at 12:02; Status DC Pharmacy Profile Note 0 ml @ 0 mls/hr UNSCH OTHER ; Start 06/26/17 at 12:00 Iohexol (OMNIPAQUE 350 INJ (Principal Android Developer)) 100 ml STK-MED ONCE OTHER ; Start at 12:07; Stop 06/26/17 at 12:08; Status DC Vancomycin HCl 1750 mg/Sodium Chloride 517.5 ml @ 250 mls/hr Q18H IV Last administered on 06/28/17at 02:02; Start 06/26/17 at 14:00 Miscellaneous Information SPECIFIC LAB TO BE DRAWN:VANCOMYCIN TROUGH DATE TO... ONCE ONCE .XX ; Start 06/28/17 at 19:45; Stop 06/28/17 at 19:46 Sodium Chloride (NS Flush) 2 ml BID IV FLUSH Last administered on 06/28/17at 09: 24; Start 06/27/17 at 21:00 Sodium Chloride (NS Flush) 2 ml UNSCH PRN IV FLUSH FLUSH AFTER USING IV ACCESS ; Start 06/27/17 at 14:00 Papaverine HCl 60 mg/Nitroglycerin 100 mcg/Diltiazem HCl 100 mg/Sodium Chloride 100 ml @ 0 mls/hr SUBSCRIPTION AGENT IRRIGATION ; Start 06/27/17 at 14:00; Stop 07/04/17 at 13:59 Cefazolin Sodium 500 mg/Sodium Chloride 505 ml @ 0 mls/hr SUBSCRIPTION AGENT IRRIGATION ; Start 06/27/17 at 14:00; Stop 07/04/17 at 13:59 Cefazolin Sodium/ Dextrose 50 ml @ 150 mls/hr SUBSCRIPTION AGENT IV ; Start 06/27/17 at 14 :00; Stop 07/04/17 at 13:59 Chlorhexidine Gluconate (Hibiclens 4% Top Soln) 1 applic SUBSCRIPTION AGENT TOPICAL ; Start 06/27/17 at 14:00; Stop 07/04/17 at 13:59 Insulin Human Regular 100 units/ Sodium Chloride 100 ml @ 3 mls/hr TITRATE PRN IV for blood glucose control; Start 06/27/17 at 14:00; Stop 07/04/17 at 13:59 Dextrose (D50w (Vial) Inj) 50 ml UNSCH PRN IV PUSH HYPOGLYCEMIA-SEE COMMENTS; Start 06/27/17 at 14:00 Aspirin (Ecotrin Ec) 81 mg DAILY PO Last administered on 06/28/17at 15:14; Start 06/28/17 at 13:45 A/P Assessment and Plan A. fib RVR -Continue amiodarone -Follow on telemetry NSTEMI -Status post cardiac catheterization done today 06/26/2017 have three-vessel disease. -High risk PCI versus CABG. Pending scheduled procedure. Per infectious disease patient is clear for procedure. Cellulitis -Continue vancomycin -Doppler ultrasound of right leg negative -Continue antibiotics as per ID. Per infectious disease when patient is discharged she can be discharged on doxycycline 100 mg p.o. twice. Bilateral pleural effusion -Diagnostic thoracentesis planned Coffee ground emesis -No recurrence -GI following -Follow hemoglobin levels Diabetes mellitus type 2 -Continue Accu-Cheks. Insulin signs scope. Diabetic diet. -Transition patient from 70/32 to NPH insulin as a base control. Hypoxia secondary to pulmonary edema. -Hypoxia resolved. -Continue Lasix 20 mg by mouth. Discharge Planning Patient will need high risk PCI versus CABG Antonia Montes De Oca MD Jun 28, 2017 16:19
[2017-06-28] MEDS ORDERED: PHARMACY ORDERED LAB ONE (19:45)
[2017-06-28] MEDS: ATORVASTATIN 40 MG TAB PO SCH (23:32)
[2017-06-29] VITALS (26 sets, daily range): BP systolic 117–128; BP diastolic 76–80; PULSE 66–84; RESP 16–20; TEMP 97.8–99; O2SAT 93–97
[2017-06-29] MEDS: VANCOMYCIN INJ 1,750 MG in SODIUM CHLORID 0.9% 500 ML INJ 500 ML IV SCH ×2 (01:16→21:32)
[2017-06-29] MEDS: INSULIN HUMAN REGULAR 1,000 UNITS/10 ML VIAL SQ SCH ×3 (09:30→17:50)
[2017-06-29] MEDS: INSULIN NovoLIN REGULAR SUPPLEMENTAL SCALE SQ SCH ×4 (09:31→21:34)
[2017-06-29] MEDS: INSULIN HUMAN NPH 1,000 UNITS/10 ML VIAL SQ SCH ×2 (09:31→17:51)
[2017-06-29] MEDS: FUROSEMIDE 40 MG/4 ML VIAL IV PUSH SCH (09:32)
[2017-06-29] MEDS: SODIUM CHLORIDE 0.9% FLUSH 10 ML FLUSH IV FLUSH SCH ×2 (09:32→21:32)
[2017-06-29] MEDS: PANTOPRAZOLE SODIUM 40 MG VIAL IV PUSH SCH ×2 (09:32→21:32)
[2017-06-29] MEDS: LACTOBACILLUS ACIDOPHILUS TAB PO SCH ×2 (09:33→21:33)
[2017-06-29] MEDS: LISINOPRIL 20 MG TAB PO SCH (09:33)
[2017-06-29] MEDS: METOPROLOL TARTRATE 25 MG TAB PO SCH ×2 (09:34→21:33)
[2017-06-29] MEDS: MUPIROCIN 2% OINT 22 GM TUBE TOPICAL SCH ×2 (09:34→21:00)
[2017-06-29] MEDS: ASPIRIN EC 81 MG TABEC PO SCH (09:34)
--- NOTE | 2017-06-29 14:13 | PD.CAR.PN ---
CVT Progress Note Subjective/Hospital Course: A 62-year-old male presented to the emergency room via [facility]. Trouble walking for a couple of days prior to admission because his right leg was hurting him. He also had some vomiting 3 days prior. He said he noted it was dark black vomitus. On addition, he was ruled in for sepsis with a 102.6 fever, heart rate of 110, white cell count of 35,000. His blood sugar was also elevated at 331. Lactic acid was 2.2. He was resuscitated with fluids. He apparently had a history of having some open wounds on his leg, the right lateral knee, also the left knee area and he had some small lesions on his left hand also on the fingers. Culture was taken from the thigh lesion and it grew Staph aureus and group B beta strep. Today, the blood cultures have been negative. His influenza was also negative. He was treated with broad-spectrum antibiotics and is now currently on clindamycin IV. During the course of his admission, his troponin was found to be elevated at 2.06. He has a history of coronary artery disease with prior stenting. He underwent cardiac catheterization after clearance from ID. Ejection fraction of 35%. His proximal LAD is 70%, mid distal LAD 90%, the diagonal was 60%, the OM 90%, and the RCA 100%. We were consulted to evaluate for coronary artery bypass grafting. PAST MEDICAL HISTORY: Uncontrolled diabetes mellitus. He apparently takes some insulin at home, but he does not check his blood sugar. hypertension, gastritis 06/26 pt has decided he did not want to have his surgery here, and go back to [place] for his surgery 06/27 pt has now changed his mind and wants to stay here at [facility] for his surgery discussed with Dr Donavan ivey timing, preop procedures ordered, appreciate ID input 06/28 no chest pain during the night await timing for surgry per Dr Go FEV1 1.72, carotid US < 50% stenosis bilateral carotids leg vein mapping poor bilateral mid distal calves cleared by ID for surgery 06/29 Had a lengthy discussion with the patient and his regarding clinical presentation and cardiac cath findings. I have offered coronary revascularization therapy to the LAD and RPDA territory. They understand that given the severity and diffuse nature of his stenoses, there is a chance that he may not receive long-term benefit from the revascularization, particularly the LAD, but that at this time, this offers him the best available option. He does not wish to undergo cardiac surgery at the present time. 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 I have relayed this to and will leave the decision regarding the PCI option to him. Will standby for now. Objective: Vital Signs Date Time Temp Pulse Resp B/P (MAP) Pulse Ox O2 Delivery O2 Flow Rate FiO2 06/29/17 12:41 68 06/29/17 12:40 96 Room Air 06/29/17 11:30 98.1 72 18 123/80 (94) 96 06/29/17 11:00 71 06/29/17 10:00 76 06/29/17 09:00 82 06/29/17 08:27 97.8 75 18 128/79 (95) 93 06/29/17 08:27 93 Room Air 06/29/17 08:00 72 06/29/17 07:00 72 06/29/17 06:00 68 06/29/17 05:00 74 06/29/17 04:00 96 Room Air 06/29/17 04:00 73 06/29/17 04:00 99.0 66 18 128/76 (93) 96 06/29/17 03:00 74 06/29/17 02:00 76 06/29/17 01:00 70 06/29/17 00:00 97 Room Air 06/29/17 00:00 97.9 76 20 119/78 (92) 97 06/29/17 00:00 84 06/28/17 23:00 72 06/28/17 22:00 76 06/28/17 21:00 78 06/28/17 20:00 77 06/28/17 20:00 98.6 73 20 133/81 (98) 94 06/28/17 20:00 94 Room Air 06/28/17 19:00 74 06/28/17 18:08 74 06/28/17 17:07 74 06/28/17 16:03 73 06/28/17 15:07 98.6 73 14 126/73 (90) 95 06/28/17 15:07 98 Room Air 06/28/17 15:00 78 06/28/17 14:39 76 Labs: Laboratory Tests Test 06/29/17 06:15 Activated Partial Thromboplast Time 26.1 SEC (24.3-30.1) Result Diagram: 06/28/17 0610 06/28/17 0610 (1) Elevated troponin (2) Sepsis Plan: resolved / + MRSA wound on clindamycin (3) Diabetes mellitus Plan: on long acting insulin (4) Hyperlipemia Plan: on statin (5) Hypertension (6) NSTEMI (non-ST elevated myocardial infarction) Plan: on ASA, statin BB will need to stop arcelia 3 days prior to surgery Problem Qualifiers (1) Sepsis: Qualified Codes: A41.9 - Sepsis, unspecified organism Leyla Go MD Jun 29, 2017 14:13
--- NOTE | 2017-06-29 14:24 | HHI.PR ---
Subjective Remarks Follow-up for cellulitis and NSTEMI Patient has no complaints. Denies any chest pain, shortness of breathing, palpitation, lightheadedness or dizziness. He has no concern. His and sister are at the bedside during the interview. Objective Vitals Vital Signs Date Time Temp Pulse Resp B/P (MAP) Pulse Ox O2 Delivery O2 Flow Rate FiO2 06/29/17 12:41 68 06/29/17 12:40 96 Room Air 06/29/17 11:30 98.1 72 18 123/80 (94) 96 06/29/17 11:00 71 06/29/17 10:00 76 06/29/17 09:00 82 06/29/17 08:27 97.8 75 18 128/79 (95) 93 06/29/17 08:27 93 Room Air 06/29/17 08:00 72 06/29/17 07:00 72 06/29/17 06:00 68 06/29/17 05:00 74 06/29/17 04:00 96 Room Air 06/29/17 04:00 73 06/29/17 04:00 99.0 66 18 128/76 (93) 96 06/29/17 03:00 74 06/29/17 02:00 76 06/29/17 01:00 70 06/29/17 00:00 97 Room Air 06/29/17 00:00 97.9 76 20 119/78 (92) 97 06/29/17 00:00 84 06/28/17 23:00 72 06/28/17 22:00 76 06/28/17 21:00 78 06/28/17 20:00 77 06/28/17 20:00 98.6 73 20 133/81 (98) 94 06/28/17 20:00 94 Room Air 06/28/17 19:00 74 06/28/17 18:08 74 06/28/17 17:07 74 06/28/17 16:03 73 06/28/17 15:07 98.6 73 14 126/73 (90) 95 06/28/17 15:07 98 Room Air 06/28/17 15:00 78 06/28/17 14:39 76 I/O 06/28/17 06/28/17 06/28/17 06/29/17 06/29/17 06/29/17 07:00 15:00 23:00 07:00 15:00 23:00 Intake Total 877.5 ml 1162 ml 480 ml Output Total 350 ml 400 ml Balance 527.5 ml 1162 ml 80 ml Intake Oral 360 ml 1162 ml 480 ml IV Total 517.5 ml Output Urine Total 350 ml 400 ml # Voids 1 4 # Bowel Movements 1 2 0 Result Diagram: 06/28/1760906/28/17609 Objective Remarks GENERAL: in NAD SKIN: No erythema noted. Cellulitis seems to resolve. CARDIOVASCULAR: Regular rate and rhythm without murmurs, gallops, or rubs. RESPIRATORY: Breath sounds equal bilaterally. No accessory muscle use. GASTROINTESTINAL: Abdomen soft, non-tender, nondistended. MUSCULOSKELETAL: No cyanosis, or edema. BACK: Nontender without obvious deformity. No CVA tenderness. Medications and IVs Current Medications Acetaminophen (Tylenol Supp) 650 mg ONCE ONCE RECTAL ; Start 06/15/17 at 16:15 ; Stop 06/15/17 at 17:12; Status DC Ondansetron HCl (Zofran Inj) 4 mg ONCE ONCE IV PUSH Last administered on at 16:49; Start 06/15/17 at 16:15; Stop 06/15/17 at 16:16; Status DC Sodium Chloride 1,000 ml @ 1,000 mls/hr Q1H ONCE IV Last administered on at 16:48; Start 06/15/17 at 16:06; Stop 06/15/17 at 17:05; Status DC Sodium Chloride 800 ml @ 1,000 mls/hr Q48M ONCE IV Last administered on at 16:48; Start 06/15/17 at 16:06; Stop 06/15/17 at 16:53; Status DC Vancomycin HCl 1000 mg/Sodium Chloride 250 ml @ 250 mls/hr ONCE ONCE IV Last administered on 06/15/17at 17:55; Start 06/15/17 at 16:15; Stop 06/15/17 at 17:14 ; Status DC Piperacillin Sod/ Tazobactam Sod 100 ml @ 200 mls/hr ONCE ONCE IV Last administered on 06/15/17at 16:48; Start 06/15/17 at 16:15; Stop 06/15/17 at 16:44 ; Status DC Acetaminophen (Tylenol) 650 mg ONCE ONCE PO Last administered on 06/15/17 17: 16; Start 06/15/17 at 17:15; Stop 06/15/17 at 17:19; Status DC Potassium Chloride (KCl) 40 meq ONCE ONCE PO Last administered on 06/15/17at 17 :53; Start 06/15/17 at 17:30; Stop 06/15/17 at 17:31; Status DC Insulin Human Regular (NovoLIN R INJ) 8 units ONCE ONCE IV PUSH Last administered on 06/15/17at 17:53; Start 06/15/17 at 17:30; Stop 06/15/17 at 17:31 ; Status DC Sodium Chloride 1,000 ml @ 999 mls/hr BOLUS ONCE IV Last administered on 06/15at 17:55; Start 06/15/17 at 17:30; Stop 06/15/17 at 18:30; Status DC Sodium Chloride 1,000 ml @ 100 mls/hr Q10H IV Last administered on 06/16/17at 11:19; Start 06/15/17 at 18:01; Stop 06/16/17 at 17:37; Status DC Sodium Chloride (NS Flush) 2 ml UNSCH PRN IV FLUSH FLUSH AFTER USING IV ACCESS ; Start 06/15/17 at 18:15; Stop 06/19/17 at 15:30; Status DC Sodium Chloride (NS Flush) 2 ml BID IV FLUSH Last administered on 06/18/17 19: 43; Start 06/15/17 at 21:00; Stop 06/19/17 at 15:30; Status DC Acetaminophen (Tylenol) 650 mg Q4H PRN PO TEMP > 100.4 Last administered on at 19:58; Start 06/15/17 at 20:00 Ondansetron HCl (Zofran Inj) 4 mg Q6H PRN IVP NAUSEA OR VOMITING Last administered on 06/18/17 19:43; Start 06/15/17 at 22:00 Temazepam (Restoril) 15 mg HS PRN PO INSOMNIA; Start 06/15/17 at 21:00 Naloxone HCl (Narcan Inj) 0.4 mg UNSCH PRN IV PUSH SEE LABEL COMMENTS; Start at 18:15 Sennosides (Senokot) 17.2 mg Q12HR PRN PO Moderate constipation Last administered on 06/17/17at 09:54; Start 06/15/17 at 21:00 Vancomycin HCl 1500 mg/Sodium Chloride 515 ml @ 257.5 mls/ hr Q12H IV ; Start 06/15/17 at 18:15; Stop 06/15/17 at 19:02; Status DC Pharmacy Profile Note 0 ml @ 0 mls/hr UNSCH OTHER ; Start 06/15/17 at 18:15; Stop 06/23/17 at 12:45; Status DC Piperacillin Sod/ Tazobactam Sod 50 ml @ 100 mls/hr Q8H IV Last administered on 06/16/17at 11:18; Start 06/16/17 at 00:00; Stop 06/16/17 at 17:47; Status DC Dextrose (D50w (Vial) Inj) 50 ml UNSCH PRN IV PUSH HYPOGLYCEMIA-SEE COMMENTS; Start 06/15/17 at 18:15; Stop 06/27/17 at 15:13; Status DC Glucagon (Glucagon Inj) 1 mg UNSCH PRN OTHER HYPOGLYCEMIA-SEE COMMENTS; Start 06/15/17 at 18:15 Insulin Aspart (NovoLOG SUPPLEMENTAL SCALE) 1 ACHS SLIDING SCALE SQ Last administered on 06/15/17at 21:00; Start 06/15/17 at 21:00; Stop 06/16/17 at 08:51 ; Status DC Albuterol Sulfate (Proair Hfa Inh) 2 puff Q6HR PRN INH SHORTNESS OF BREATH; Start 06/15/17 at 20:00 Amlodipine Besylate (Norvasc) 10 mg DAILY PO Last administered on 06/19/17at 08: 13; Start 06/16/17 at 09:00; Stop 06/19/17 at 09:00; Status DC Atorvastatin Calcium (Lipitor) 80 mg HS PO ; Start 06/15/17 at 21:00; Stop 06/16 at 08:01; Status DC Insulin Human Isoph/Insulin Regular (NovoLIN 70/30 INJ) 45 units BID SQ Last administered on 06/17/17at 08:55; Start 06/15/17 at 21:00; Stop 06/17/17 at 15:18 ; Status DC Metoprolol Succinate (Toprol Xl) 50 mg DAILY PO Last administered on 06/18/17at 08:55; Start 06/16/17 at 09:00; Status Future Hold Lisinopril (Prinivil) 40 mg DAILY PO Last administered on 06/29/17at 09:33; Start 06/16/17 at 09:00 Vancomycin HCl 2000 mg/Sodium Chloride 520 ml @ 250 mls/hr ONCE ONCE IV Last administered on 06/15/17at 21:14; Start 06/15/17 at 21:00; Stop 06/15/17 at 23:04 ; Status DC Vancomycin HCl 1500 mg/Sodium Chloride 515 ml @ 257.5 mls/ hr Q12H IV Last administered on 06/17/17at 21:19; Start 06/16/17 at 09:00; Stop 06/17/17 at 22:17 ; Status DC Miscellaneous Information SPECIFIC LAB TO BE DRAWN:VANCOMYCIN TROUGH DATE TO... ONCE ONCE .XX Last administered on 06/17/17at 20:20; Start 06/17/17 at 20:45; Stop 06/17/17 at 20:46; Status DC Atorvastatin Calcium (Lipitor) 80 mg HS PO Last administered on 06/28/17at 23:32 ; Start 06/16/17 at 21:00 Insulin Human Regular (NovoLIN R SUPPLEMENTAL SCALE) 1 ACHS SLIDING SCALE SQ Last administered on 06/23/17 21:10; Start 06/16/17 at 12:00; Stop 06/23/17 at 21 :26; Status DC Iohexol (Omnipaque 350 Inj) 95 ml STK-MED ONCE IVCONTRAST Last administered on 06/16/17at 11:10; Start 06/16/17 at 11:10; Stop 06/16/17 at 11:11; Status DC Aspirin (Aspirin) 325 mg ONCE ONCE PO Last administered on 06/16/17at 13:57; Start 06/16/17 at 13:00; Stop 06/16/17 at 13:01; Status DC Heparin Sodium (Porcine) (Heparin Inj) 5,000 units Q8HR SQ Last administered on 06/16/17at 20:48; Start 06/16/17 at 22:00; Stop 06/16/17 at 22:05; Status DC Ceftriaxone Sodium 1000 mg/ Sodium Chloride 100 ml @ 200 mls/hr Q24H IV ; Start 06/16/17 at 17:00; Stop 06/16/17 at 17:45; Status DC Azithromycin 500 mg/Sodium Chloride 250 ml @ 250 mls/hr Q24H IV ; Start at 18:00; Stop 06/16/17 at 18:00; Status DC Albuterol/ Ipratropium (Duoneb Neb) 1 ampule Q6HR WHILE AWAKE NEB NEB Last administered on 06/20/17at 08:02; Start 06/16/17 at 17:15; Stop 06/20/17 at 17:14 ; Status DC Furosemide (Lasix Inj) 40 mg ONCE ONCE IV PUSH Last administered on 06/16/17at 19:33; Start 06/16/17 at 17:45; Stop 06/16/17 at 17:46; Status DC Piperacillin Sod/ Tazobactam Sod 100 ml @ 200 mls/hr Q6H IV Last administered on 06/22/17at 12:38; Start 06/16/17 at 18:00; Stop 06/22/17 at 12:44; Status DC Pantoprazole Sodium (Protonix Inj) 40 mg BID IV PUSH Last administered on at 09:32; Start 06/16/17 at 21:00 Heparin Sodium/ Dextrose 250 ml @ 10 mls/hr TITRATE PRN IV Coagulation Management Last administered on 06/26/17at 05:48; Start 06/16/17 at 22:30; Stop at 11:49; Status DC Heparin Sodium (Porcine) (Heparin Inj) 5,000 units UNSCH PRN IV PUSH aPTT less than 25; Start 06/16/17 at 22:30; Stop 06/26/17 at 11:49; Status DC Heparin Sodium (Porcine) (Heparin Inj) 2,500 units UNSCH PRN IV PUSH aPTT 25 to 39 Last administered on 06/19/17at 16:53; Start 06/16/17 at 22:30; Stop at 11:49; Status DC Potassium Chloride 100 ml @ 50 mls/hr Q2H IV Last administered on 06/17/17at 09 :52; Start 06/17/17 at 09:00; Stop 06/17/17 at 12:59; Status DC Furosemide (Lasix) 20 mg DAILY PO Last administered on 06/19/17at 08:13; Start 06/18/17 at 09:00; Stop 06/19/17 at 09:21; Status DC Furosemide (Lasix Inj) 40 mg ONCE ONCE IV PUSH Last administered on 06/17/17at 15:37; Start 06/17/17 at 15:30; Stop 06/17/17 at 15:31; Status DC Mupirocin (Bactroban 2% Oint) 1 applic Q12HR TOPICAL Last administered on at 09:34; Start 06/17/17 at 21:00 Insulin Human NPH (NovoLIN N INJ) 35 units DAILY@08 SQ Last administered on 06/23at 08:00; Start 06/18/17 at 08:00; Stop 06/23/17 at 21:26; Status DC Insulin Human NPH (NovoLIN N INJ) 25 units DAILY@17 SQ Last administered on 06/23at 17:00; Start 06/17/17 at 17:00; Stop 06/24/17 at 14:46; Status DC Potassium Chloride (KCl) 30 meq ONCE ONCE PO Last administered on 06/17/17at 16 :10; Start 06/17/17 at 16:00; Stop 06/17/17 at 16:01; Status DC Vancomycin HCl 1250 mg/Sodium Chloride 262.5 ml @ 250 mls/hr Q8H IV Last administered on 06/19/17at 15:56; Start 06/18/17 at 06:00; Stop 06/19/17 at 17:53 ; Status DC Miscellaneous Information SPECIFIC LAB TO BE DRAWN: VANCO TROUGH DATE TO BE DRCarol.Carol ONCE ONCE .XX Last administered on 06/18/17at 13:42; Start 06/18/17 at 13 :45; Stop 06/18/17 at 13:46; Status DC Potassium Chloride (KCl) 30 meq ONCE ONCE PO Last administered on 06/18/17at 10 :09; Start 06/18/17 at 09:45; Stop 06/18/17 at 09:46; Status DC Lidocaine HCl (Xylocaine 1% Inj) 20 ml STK-MED ONCE .ROUTE ; Start 06/18/17 at 13:35; Stop 06/18/17 at 13:36; Status DC Miscellaneous Information SPECIFIC LAB TO BE ... ONCE ONCE .XX Last administered on 06/19/17at 13:45; Start 06/19/17 at 13:45; Stop 06/19/17 at 13:46 ; Status DC Metoprolol Tartrate (Lopressor Inj) 5 mg ONCE ONCE IV PUSH Last administered on 06/19/17at 08:14; Start 06/19/17 at 08:00; Stop 06/19/17 at 08:01; Status DC Sodium Chloride (NS Flush) 2 ml UNSCH PRN IV FLUSH FLUSH AFTER USING IV ACCESS Last administered on 06/27/17at 09:27; Start 06/19/17 at 09:00; Stop 06/27/17 at 15 :11; Status DC Sodium Chloride (NS Flush) 2 ml BID IV FLUSH Last administered on 06/27/17at 09: 27; Start 06/19/17 at 09:00; Stop 06/27/17 at 15:11; Status DC Diltiazem HCl (Cardizem Inj) 15 mg ONCE ONCE IV PUSH ; Start 06/19/17 at 10:00 ; Stop 06/19/17 at 10:01; Status DC Diltiazem HCl 125 mg/Sodium Chloride 125 ml @ 5 mls/hr TITRATE PRN IV Tachycardia; Start 06/19/17 at 09:00; Stop 06/19/17 at 09:16; Status DC Enalaprilat (Vasotec Inj) 1.25 mg Q6H PRN IV PUSH SBP>160, DBP>90 Last administered on 06/24/17at 12:49; Start 06/19/17 at 10:00 Amiodarone HCl 150 mg/Dextrose 103 ml @ 600 mls/hr Q11M ONCE IV Last administered on 06/19/17at 10:48; Start 06/19/17 at 10:00; Stop 06/19/17 at 10:10 ; Status DC Amiodarone HCl 450 mg/Sodium Chloride 250 ml @ 33.33 mls/ hr Q7H31M PRN IV Per Protocol Last administered on 06/19/17at 22:04; Start 06/19/17 at 10:00; Stop at 13:57; Status DC Furosemide (Lasix Inj) 40 mg DAILY IV PUSH Last administered on 06/29/17at 09:32 ; Start 06/19/17 at 10:00 Vancomycin HCl 750 mg/Sodium Chloride 257.5 ml @ 250 mls/hr NOW ONCE IV Last administered on 06/19/17at 20:22; Start 06/19/17 at 18:00; Stop 06/19/17 at 19:01 ; Status DC Vancomycin HCl 1750 mg/Sodium Chloride 517.5 ml @ 250 mls/hr Q8H IV Last administered on 06/20/17at 08:06; Start 06/20/17 at 00:00; Stop 06/20/17 at 18:41 ; Status DC Miscellaneous Information SPECIFIC LAB TO BE SALEEM... ONCE ONCE .XX ; Start 06/20 at 15:45; Stop 06/20/17 at 15:46; Status DC Vancomycin HCl 1500 mg/Sodium Chloride 515 ml @ 257.5 mls/ hr Q8H IV Last administered on 06/21/17at 06:53; Start 06/21/17 at 06:00; Stop 06/21/17 at 09:45 ; Status DC Miscellaneous Information SPECIFIC LAB TO BE SALEEM... ONCE ONCE .XX ; Start at 05:45; Stop 06/22/17 at 05:46; Status Cancel Diltiazem HCl (Cardizem) 30 mg ONCE ONCE PO Last administered on 06/21/17at 06: 27; Start 06/21/17 at 06:15; Stop 06/21/17 at 06:16; Status DC Amiodarone HCl 150 mg/Dextrose 100 ml @ 600 mls/hr NOW ONCE IV Last administered on 06/21/17at 06:30; Start 06/21/17 at 06:15; Stop 06/21/17 at 06:24 ; Status DC Vancomycin HCl 2000 mg/Sodium Chloride 520 ml @ 257.5 mls/ hr Q12H IV Last administered on 06/23/17at 09:30; Start 06/21/17 at 20:00; Stop 06/23/17 at 12:45; Status DC Miscellaneous Information SPECIFIC LAB TO BE DRAWN:VANCOMYCIN TROUGH DATE TO... ONCE ONCE .XX ; Start 06/23/17 at 07:45; Stop 06/23/17 at 07:46; Status DC Diltiazem HCl 125 mg/Sodium Chloride 125 ml @ 5 mls/hr TITRATE PRN IV Tachycardia; Start 06/21/17 at 15:00 Diltiazem HCl (Cardizem Inj) 10 mg BOLUS ONCE IV PUSH ; Start 06/21/17 at 14:00 ; Stop 06/21/17 at 14:01; Status DC Metoprolol Tartrate (Lopressor) 25 mg Q12HR PO Last administered on 06/29/17at 09 :34; Start 06/21/17 at 21:00 Insulin Aspart (NovoLOG INJ) 1 units TIDAC SQ ; Start 06/22/17 at 08:00; Stop 06/22/17 at 12:02; Status DC Potassium Chloride 100 ml @ 100 mls/hr Q1H IV Last administered on 06/22/17at 00 :35; Start 06/21/17 at 22:30; Stop 06/22/17 at 01:29; Status DC Insulin Aspart (NovoLOG INJ) 4 units TIDAC SQ ; Start 06/22/17 at 12:00; Stop 06/22/17 at 12:04; Status DC Insulin Human Regular (NovoLIN R INJ) 2 units TIDAC SQ ; Start 06/22/17 at 12:00 ; Stop 06/22/17 at 21:12; Status DC Clindamycin/ Sodium Chloride 50 ml @ 100 mls/hr Q6H IV ; Start 06/22/17 at 12:15 ; Stop 06/22/17 at 13:17; Status DC Lactobacillus Acidophilus (Lactinex) 1 tab Q12HR PO Last administered on at 09:33; Start 06/22/17 at 21:00 Clindamycin/ Sodium Chloride 50 ml @ 100 mls/hr Q8H IV Last administered on 06/26/17at 05:26; Start 06/22/17 at 14:00; Stop 06/26/17 at 11:56; Status DC Gadodiamide (Omniscan Pf Inj) 20 ml STK-MED ONCE IVCONTRAST Last administered on 06/22/17at 17:59; Start 06/22/17 at 17:59; Stop 06/22/17 at 18:08; Status DC Insulin Human Regular (NovoLIN R INJ) 4 units TIDAC SQ Last administered on 06/23at 13:47; Start 06/23/17 at 08:00; Stop 06/23/17 at 15:33; Status DC Potassium Chloride (KCl) 20 meq ONCE ONCE PO Last administered on 06/22/17 22: 12; Start 06/22/17 at 21:15; Stop 06/22/17 at 21:28; Status DC Insulin Human Regular (NovoLIN R INJ) 6 units TIDAC SQ Last administered on 06/29 12:26; Start 06/23/17 at 17:00 Insulin Human NPH (NovoLIN N INJ) 38 units DAILY@08 SQ Last administered on 06/24 08:23; Start 06/24/17 at 08:00; Stop 06/24/17 at 14:46; Status DC Insulin Human Regular (NovoLIN R SUPPLEMENTAL SCALE) 1 ACHS SLIDING SCALE SQ Last administered on 06/29/17 12:26; Start 06/24/17 at 08:00 Insulin Human NPH (NovoLIN N INJ) 30 units DAILY@17 SQ Last administered on 06/24 17:08; Start 06/24/17 at 17:00; Stop 06/25/17 at 14:00; Status DC Insulin Human NPH (NovoLIN N INJ) 40 units DAILY@08 SQ Last administered on 06/29 09:31; Start 06/25/17 at 08:00 Sodium Chloride 500 ml @ 500 mls/hr BOLUS ONCE IV Last administered on 16:06; Start 06/25/17 at 14:00; Stop 06/25/17 at 14:59; Status DC Insulin Human NPH (NovoLIN N INJ) 35 units DAILY@17 SQ Last administered on 06/28 17:37; Start 06/25/17 at 17:00 Heparin Sodium/ Sodium Chloride 2,000 ml @ As Directed STK-MED ONCE IV FLUSH ; Start 06/26/17 at 09:25; Stop 06/26/17 at 09:26; Status DC Midazolam HCl (Versed Inj) 2 mg STK-MED ONCE .ROUTE Last administered on 09:25; Start 06/26/17 at 09:25; Stop 06/26/17 at 09:26; Status DC Fentanyl Citrate (fentaNYL INJ) 100 mcg STK-MED ONCE .ROUTE Last administered on 06/26/17 09:26; Start 06/26/17 at 09:26; Stop 06/26/17 at 09:27; Status DC Heparin Sodium (Porcine) (Heparin Inj) 10,000 units STK-MED ONCE .ROUTE Last administered on 06/26/17at 09:26; Start 06/26/17 at 09:26; Stop 06/26/17 at 09:27; Status DC Miscellaneous Information 1 ONCE ONCE XX Last administered on 06/26/17at 10:45; Start 06/26/17 at 10:45; Stop 06/26/17 at 11:48; Status DC Bacitracin (Bacitracin Oint Packet) 0.9 gm ONCE ONCE TOP Last administered on 06/26/17at 11:49; Start 06/26/17 at 12:00; Stop 06/26/17 at 12:02; Status DC Pharmacy Profile Note 0 ml @ 0 mls/hr UNSCH OTHER ; Start 06/26/17 at 12:00 Iohexol (OMNIPAQUE 350 INJ (Network Design Architect)) 100 ml STK-MED ONCE OTHER ; Start at 12:07; Stop 06/26/17 at 12:08; Status DC Vancomycin HCl 1750 mg/Sodium Chloride 517.5 ml @ 250 mls/hr Q18H IV Last administered on 06/29/17at 01:16; Start 06/26/17 at 14:00; Stop 06/29/17 at 02:08; Status DC Miscellaneous Information SPECIFIC LAB TO BE DRAWN:VANCOMYCIN TROUGH DATE TO... ONCE ONCE .XX Last administered on 06/28/17at 01:00; Start 06/28/17 at 19:45; Stop 06/28/17 at 19:46; Status DC Sodium Chloride (NS Flush) 2 ml BID IV FLUSH Last administered on 06/29/17at 09: 32; Start 06/27/17 at 21:00 Sodium Chloride (NS Flush) 2 ml UNSCH PRN IV FLUSH FLUSH AFTER USING IV ACCESS ; Start 06/27/17 at 14:00 Papaverine HCl 60 mg/Nitroglycerin 100 mcg/Diltiazem HCl 100 mg/Sodium Chloride 100 ml @ 0 mls/hr YARD JOCKEY IRRIGATION ; Start 06/27/17 at 14:00; Stop 07/04/17 at 13:59 Cefazolin Sodium 500 mg/Sodium Chloride 505 ml @ 0 mls/hr [facility] IRRIGATION ; Start 06/27/17 at 14:00; Stop 07/04/17 at 13:59 Cefazolin Sodium/ Dextrose 50 ml @ 150 mls/hr YARD JOCKEY IV ; Start 06/27/17 at 14 :00; Stop 07/04/17 at 13:59 Chlorhexidine Gluconate (Hibiclens 4% Top Soln) 1 applic YARD JOCKEY TOPICAL ; Start 06/27/17 at 14:00; Stop 07/04/17 at 13:59 Insulin Human Regular 100 units/ Sodium Chloride 100 ml @ 3 mls/hr TITRATE PRN IV for blood glucose control; Start 06/27/17 at 14:00; Stop 07/04/17 at 13:59 Dextrose (D50w (Vial) Inj) 50 ml UNSCH PRN IV PUSH HYPOGLYCEMIA-SEE COMMENTS; Start 06/27/17 at 14:00 Aspirin (Ecotrin Ec) 81 mg DAILY PO Last administered on 06/29/17at 09:34; Start 06/28/17 at 13:45 Vancomycin HCl 1750 mg/Sodium Chloride 517.5 ml @ 250 mls/hr Q18H IV ; Start at 20:00 Miscellaneous Information SPECIFIC LAB TO BE DRAWN:VANCO TROUGH DATE TO... ONCE ONCE .XX ; Start 07/01/17 at 07:45; Stop 07/01/17 at 07:46 A/P Assessment and Plan A. fib RVR -Continue amiodarone -Follow on telemetry NSTEMI -Status post cardiac catheterization done today 06/26/2017 have three-vessel disease. -High risk PCI versus CABG. Pending scheduled procedure. Per infectious disease patient is clear for procedure. Cellulitis -Continue vancomycin -Doppler ultrasound of right leg negative -Continue antibiotics as per ID. Per infectious disease when patient is discharged she can be discharged on doxycycline 100 mg p.o. twice. Bilateral pleural effusion -Diagnostic thoracentesis planned Coffee ground emesis -No recurrence -GI following -Follow hemoglobin levels Diabetes mellitus type 2 -Continue Accu-Cheks. Insulin signs scope. Diabetic diet. -Transition patient from 70/32 to NPH insulin as a base control. Hypoxia secondary to pulmonary edema. -Hypoxia resolved. -Continue Lasix 20 mg by mouth. Discharge Planning Patient will need high risk PCI versus CABG pending procedure. Antonia Montes De Oca MD Jun 29, 2017 14:24
[2017-06-29] MEDS ORDERED: SODIUM CHLOR 0.9% 1000 ML INJ 1,000 ML IV SCH (18:27)
--- NOTE | 2017-06-29 18:27 | PD.CARD.PN ---
Subjective Subjective Remarks no complaints Objective Medications Current Medications Medications (Trade) Dose Ordered Sig/Joseph Route Start Time Stop Time Status Last Admin (Tylenol) 650 mg Q4H PRN PO 06/15/17 20:00 06/17/17 19:58 (Zofran Inj) 4 mg Q6H PRN IVP 06/15/17 22:00 06/18/17 19:43 (Restoril) 15 mg HS PRN PO 06/15/17 21:00 (Narcan Inj) 0.4 mg UNSCH PRN IV PUSH 06/15/17 18:15 (Senokot) 17.2 mg Q12HR PRN PO 06/15/17 21:00 06/17/17 09:54 (Glucagon Inj) 1 mg UNSCH PRN OTHER 06/15/17 18:15 (Proair Hfa Inh) 2 puff Q6HR PRN INH 06/15/17 20:00 (Toprol Xl) 50 mg DAILY PO 06/16/17 09:00 Future Hold 06/18/17 08:55 (Prinivil) 40 mg DAILY PO 06/16/17 09:00 06/29/17 09:33 (Lipitor) 80 mg HS PO 06/16/17 21:00 06/28/17 23:32 (Protonix Inj) 40 mg BID IV PUSH 06/16/17 21:00 06/29/17 09:32 (Bactroban 2% Oint) 1 applic Q12HR TOPICAL 06/17/17 21:00 06/29/17 09:34 (Vasotec Inj) 1.25 mg Q6H PRN IV PUSH 06/19/17 10:00 06/24/17 12:49 (Lasix Inj) 40 mg DAILY IV PUSH 06/19/17 10:00 06/29/17 09:32 Diltiazem HCl 125 mg/Sodium Chloride 125 ml @ 5 mls/hr TITRATE PRN IV 06/21/17 15:00 (Lopressor) 25 mg Q12HR PO 06/21/17 21:00 06/29/17 09:34 (Lactinex) 1 tab Q12HR PO 06/22/17 21:00 06/29/17 09:33 (NovoLIN R INJ) 6 units TIDAC SQ 06/23/17 17:00 06/29/17 17:50 (NovoLIN R SUPPLEMENTAL SCALE) 1 ACHS SLIDING SCALE SQ 06/24/17 08:00 06/29/17 17:51 (NovoLIN N INJ) 40 units DAILY@08 SQ 06/25/17 08:00 06/29/17 09:31 (NovoLIN N INJ) 35 units DAILY@17 SQ 06/25/17 17:00 06/29/17 17:51 Pharmacy Profile Note 0 ml @ 0 mls/hr UNSCH OTHER 06/26/17 12:00 (NS Flush) 2 ml BID IV FLUSH 06/27/17 21:00 06/29/17 09:32 (NS Flush) 2 ml UNSCH PRN IV FLUSH 06/27/17 14:00 Papaverine HCl 60 mg/Nitroglycerin 100 mcg/Diltiazem HCl 100 mg/Sodium Chloride 100 ml @ 0 mls/hr RECREATION OFFICER IRRIGATION 06/27/17 14:00 07/04/17 13:59 Cefazolin Sodium 500 mg/Sodium Chloride 505 ml @ 0 mls/hr RE[employer]ATION OFFICER IRRIGATION 06/27/17 14:00 07/04/17 13:59 Cefazolin Sodium/ Dextrose 50 ml @ 150 mls/hr RECREATION OFFICER IV 06/27/17 14:00 07/04/17 13:59 (Hibiclens 4% Top Soln) 1 applic RECREATION OFFICER TOPICAL 06/27/17 14:00 07/04/17 13:59 Insulin Human Regular 100 units/ Sodium Chloride 100 ml @ 3 mls/hr TITRATE PRN IV 06/27/17 14:00 07/04/17 13:59 (D50w (Vial) Inj) 50 ml UNSCH PRN IV PUSH 06/27/17 14:00 (Ecotrin Ec) 81 mg DAILY PO 06/28/17 13:45 06/29/17 09:34 Vancomycin HCl 1750 mg/Sodium Chloride 517.5 ml @ 250 mls/hr Q18H IV 06/29/17 20:00 Miscellaneous Information SPECIFIC LAB TO BE DRAWN:VANCO TROUGH DATE TO... ONCE ONCE .XX 07/01/17 07:45 07/01/17 07:46 Vital Signs / I&O Vital Signs Date Time Temp Pulse Resp B/P (MAP) Pulse Ox O2 Delivery O2 Flow Rate FiO2 06/29/17 18:17 78 06/29/17 17:00 83 06/29/17 16:00 94 Room Air 06/29/17 16:00 97.9 75 20 117/79 (92) 94 06/29/17 16:00 68 06/29/17 15:00 70 06/29/17 14:00 70 06/29/17 13:00 68 06/29/17 12:41 68 06/29/17 12:40 96 Room Air 06/29/17 11:30 98.1 72 18 123/80 (94) 96 06/29/17 11:00 71 06/29/17 10:00 76 06/29/17 09:00 82 06/29/17 08:27 97.8 75 18 128/79 (95) 93 06/29/17 08:27 93 Room Air 06/29/17 08:00 72 06/29/17 07:00 72 06/29/17 06:00 68 06/29/17 05:00 74 06/29/17 04:00 96 Room Air 06/29/17 04:00 73 06/29/17 04:00 99.0 66 18 128/76 (93) 96 06/29/17 03:00 74 06/29/17 02:00 76 06/29/17 01:00 70 06/29/17 00:00 97 Room Air 06/29/17 00:00 97.9 76 20 119/78 (92) 97 06/29/17 00:00 84 06/28/17 23:00 72 06/28/17 22:00 76 06/28/17 21:00 78 06/28/17 20:00 77 06/28/17 20:00 98.6 73 20 133/81 (98) 94 06/28/17 20:00 94 Room Air 06/28/17 19:00 74 I/O 06/28/17 06/28/17 06/28/17 06/29/17 06/29/17 06/29/17 07:00 15:00 23:00 07:00 15:00 23:00 Intake Total 877.5 ml 1162 ml 480 ml 1050 ml Output Total 350 ml 400 ml 900 ml Balance 527.5 ml 1162 ml 80 ml 150 ml Intake Oral 360 ml 1162 ml 480 ml 1050 ml IV Total 517.5 ml Output Urine Total 350 ml 400 ml 900 ml # Voids 1 4 # Bowel Movements 1 2 0 1 Physical Exam HEAD: Normocephalic. EYES: No scleral icterus. No injection or drainage. NECK: Supple, trachea midline. No JVD or lymphadenopathy. CARDIOVASCULAR: IR IR tachycardia RESPIRATORY: Breath sounds equal bilaterally. No accessory muscle use. GASTROINTESTINAL: Abdomen soft, non-tender, nondistended. MUSCULOSKELETAL: No cyanosis, or edema. BACK: Nontender without obvious deformity. No CVA tenderness. Laboratory Laboratory Tests Test 06/29/17 01:05 06/29/17 06:15 Vancomycin Level Trough 12.5 MCG/ML Activated Partial Thromboplast Time 26.1 SEC Assessment and Plan Problem List: (1) Elevated troponin ICD Codes: R74.8 - Abnormal levels of other serum enzymes (2) Sepsis ICD Codes: A41.9 - Sepsis, unspecified organism Status: Acute (3) Diabetes mellitus ICD Codes: E11.9 - Type 2 diabetes mellitus without complications (4) Hyperlipemia ICD Codes: E78.5 - Hyperlipidemia, unspecified (5) Hypertension ICD Codes: I10 - Essential (primary) hypertension (6) NSTEMI (non-ST elevated myocardial infarction) ICD Codes: I21.4 - Non-ST elevation (NSTEMI) myocardial infarction Assessment and Plan Discussed case with CT surgery patient prefers attempted percuatneous intevention plan: PTCA/PCI LAD PTCA/PCI LCx med mgt RCA NPO p MN C tomorrow Problem Qualifiers (1) Sepsis: Qualified Codes: A41.9 - Sepsis, unspecified organism (2) Diabetes mellitus: Tanner Ca MD Jun 29, 2017 18:27
[2017-06-29] MEDS: ATORVASTATIN 40 MG TAB PO SCH (21:33)
[2017-06-30] VITALS (23 sets, daily range): BP systolic 106–148; BP diastolic 62–88; PULSE 62–126; RESP 16–20; TEMP 98.1–98.8; O2SAT 96–97
--- NOTE | 2017-06-30 07:57 | PD.CARD.PN ---
Subjective Subjective Remarks no complaints Objective Medications Current Medications Medications (Trade) Dose Ordered Sig/Joseph Route Start Time Stop Time Status Last Admin (Tylenol) 650 mg Q4H PRN PO 06/15/17 20:00 06/17/17 19:58 (Zofran Inj) 4 mg Q6H PRN IVP 06/15/17 22:00 06/18/17 19:43 (Restoril) 15 mg HS PRN PO 06/15/17 21:00 (Narcan Inj) 0.4 mg UNSCH PRN IV PUSH 06/15/17 18:15 (Senokot) 17.2 mg Q12HR PRN PO 06/15/17 21:00 06/17/17 09:54 (Glucagon Inj) 1 mg UNSCH PRN OTHER 06/15/17 18:15 (Proair Hfa Inh) 2 puff Q6HR PRN INH 06/15/17 20:00 (Toprol Xl) 50 mg DAILY PO 06/16/17 09:00 Future Hold 06/18/17 08:55 (Prinivil) 40 mg DAILY PO 06/16/17 09:00 06/29/17 09:33 (Lipitor) 80 mg HS PO 06/16/17 21:00 06/29/17 21:33 (Protonix Inj) 40 mg BID IV PUSH 06/16/17 21:00 06/29/17 21:32 (Bactroban 2% Oint) 1 applic Q12HR TOPICAL 06/17/17 21:00 06/29/17 21:00 (Vasotec Inj) 1.25 mg Q6H PRN IV PUSH 06/19/17 10:00 06/24/17 12:49 Diltiazem HCl 125 mg/Sodium Chloride 125 ml @ 5 mls/hr TITRATE PRN IV 06/21/17 15:00 (Lopressor) 25 mg Q12HR PO 06/21/17 21:00 06/29/17 21:33 (Lactinex) 1 tab Q12HR PO 06/22/17 21:00 06/29/17 21:33 (NovoLIN R INJ) 6 units TIDAC SQ 06/23/17 17:00 06/29/17 17:50 (NovoLIN R SUPPLEMENTAL SCALE) 1 ACHS SLIDING SCALE SQ 06/24/17 08:00 06/29/17 21:34 (NovoLIN N INJ) 40 units DAILY@08 SQ 06/25/17 08:00 06/29/17 09:31 (NovoLIN N INJ) 35 units DAILY@17 SQ 06/25/17 17:00 06/29/17 17:51 Pharmacy Profile Note 0 ml @ 0 mls/hr UNSCH OTHER 06/26/17 12:00 (NS Flush) 2 ml BID IV FLUSH 06/27/17 21:00 06/29/17 21:32 (NS Flush) 2 ml UNSCH PRN IV FLUSH 06/27/17 14:00 Papaverine HCl 60 mg/Nitroglycerin 100 mcg/Diltiazem HCl 100 mg/Sodium Chloride 100 ml @ 0 mls/hr BILINGUAL LOAN PROCESSOR IRRIGATION 06/27/17 14:00 07/04/17 13:59 Cefazolin Sodium 500 mg/Sodium Chloride 505 ml @ 0 mls/hr BILINGUAL LOAN PROCESSOR IRRIGATION 06/27/17 14:00 07/04/17 13:59 Cefazolin Sodium/ Dextrose 50 ml @ 150 mls/hr BILINGUAL LOAN PROCESSOR IV 06/27/17 14:00 07/04/17 13:59 (Hibiclens 4% Top Soln) 1 applic BILINGUAL LOAN PROCESSOR TOPICAL 06/27/17 14:00 07/04/17 13:59 Insulin Human Regular 100 units/ Sodium Chloride 100 ml @ 3 mls/hr TITRATE PRN IV 06/27/17 14:00 07/04/17 13:59 (D50w (Vial) Inj) 50 ml UNSCH PRN IV PUSH 06/27/17 14:00 (Ecotrin Ec) 81 mg DAILY PO 06/28/17 13:45 06/29/17 09:34 Vancomycin HCl 1750 mg/Sodium Chloride 517.5 ml @ 250 mls/hr Q18H IV 06/29/17 20:00 06/29/17 21:32 Miscellaneous Information SPECIFIC LAB TO BE DRAWN:VANCO TROUGH DATE TO... ONCE ONCE .XX 07/01/17 07:45 07/01/17 07:46 Vital Signs / I&O Vital Signs Date Time Temp Pulse Resp B/P (MAP) Pulse Ox O2 Delivery O2 Flow Rate FiO2 06/30/17 07:00 76 06/30/17 05:00 72 06/30/17 04:00 72 06/30/17 04:00 Room Air 06/30/17 04:00 98.8 62 16 109/62 (78) 97 06/30/17 03:00 76 06/30/17 02:00 126 06/30/17 01:00 106 06/30/17 00:00 74 06/30/17 00:00 Room Air 06/30/17 00:00 98.6 76 16 106/65 (79) 96 06/29/17 23:00 78 06/29/17 22:00 80 06/29/17 21:00 76 06/29/17 20:00 98.4 77 16 123/76 (92) 97 06/29/17 20:00 78 06/29/17 20:00 Room Air 06/29/17 19:00 78 06/29/17 18:17 78 06/29/17 17:00 83 06/29/17 16:00 94 Room Air 06/29/17 16:00 97.9 75 20 117/79 (92) 94 06/29/17 16:00 68 06/29/17 15:00 70 06/29/17 14:00 70 06/29/17 13:00 68 06/29/17 12:41 68 06/29/17 12:40 96 Room Air 06/29/17 11:30 98.1 72 18 123/80 (94) 96 06/29/17 11:00 71 06/29/17 10:00 76 06/29/17 09:00 82 06/29/17 08:27 97.8 75 18 128/79 (95) 93 06/29/17 08:27 93 Room Air 06/29/17 08:00 72 I/O 06/29/17 06/29/17 06/29/17 06/30/17 06/30/17 06/30/17 07:00 15:00 23:00 07:00 15:00 23:00 Intake Total 480 ml 1050 ml 997.5 ml Output Total 400 ml 900 ml 400 ml Balance 80 ml 150 ml 597.5 ml Intake Oral 480 ml 1050 ml 480 ml IV Total 517.5 ml Output Urine Total 400 ml 900 ml 400 ml # Bowel Movements 0 1 1 Physical Exam HEAD: Normocephalic. EYES: No scleral icterus. No injection or drainage. NECK: Supple, trachea midline. No JVD or lymphadenopathy. CARDIOVASCULAR: IR IR tachycardia RESPIRATORY: Breath sounds equal bilaterally. No accessory muscle use. GASTROINTESTINAL: Abdomen soft, non-tender, nondistended. MUSCULOSKELETAL: No cyanosis, or edema. BACK: Nontender without obvious deformity. No CVA tenderness. Assessment and Plan Problem List: (1) Elevated troponin ICD Codes: R74.8 - Abnormal levels of other serum enzymes (2) Sepsis ICD Codes: A41.9 - Sepsis, unspecified organism Status: Acute (3) Diabetes mellitus ICD Codes: E11.9 - Type 2 diabetes mellitus without complications (4) Hyperlipemia ICD Codes: E78.5 - Hyperlipidemia, unspecified (5) Hypertension ICD Codes: I10 - Essential (primary) hypertension (6) NSTEMI (non-ST elevated myocardial infarction) ICD Codes: I21.4 - Non-ST elevation (NSTEMI) myocardial infarction Assessment and Plan [facility] - planned PCI today Problem Qualifiers (1) Sepsis: Qualified Codes: A41.9 - Sepsis, unspecified organism (2) Diabetes mellitus: Minor,Tanner David MD Jun 30, 2017 07:57
[2017-06-30] MEDS: INSULIN NovoLIN REGULAR SUPPLEMENTAL SCALE SQ SCH ×4 (08:00→21:00)
[2017-06-30] MEDS: INSULIN HUMAN REGULAR 1,000 UNITS/10 ML VIAL SQ SCH ×3 (08:00→16:57)
[2017-06-30] MEDS: INSULIN HUMAN NPH 1,000 UNITS/10 ML VIAL SQ SCH ×2 (08:00→16:58)
[2017-06-30] MEDS: LACTOBACILLUS ACIDOPHILUS TAB PO SCH ×2 (08:25→20:57)
[2017-06-30] MEDS: ASPIRIN EC 81 MG TABEC PO SCH (08:25)
[2017-06-30] MEDS: PANTOPRAZOLE SODIUM 40 MG VIAL IV PUSH SCH ×2 (08:25→20:58)
[2017-06-30] MEDS: METOPROLOL TARTRATE 25 MG TAB PO SCH ×2 (08:25→20:58)
[2017-06-30] MEDS: LISINOPRIL 20 MG TAB PO SCH (08:25)
[2017-06-30] MEDS: MUPIROCIN 2% OINT 22 GM TUBE TOPICAL SCH ×2 (08:26→20:59)
[2017-06-30] MEDS: SODIUM CHLORIDE 0.9% FLUSH 10 ML FLUSH IV FLUSH SCH ×2 (08:26→20:59)
[2017-06-30] MEDS ORDERED: HEPARIN-NS/PF FLUSH BAG 1,000 ML IV FLUSH ONE (09:34)
[2017-06-30] MEDS ORDERED: MIDAZOLAM HCL 2 MG/2 ML VIAL ONE (09:34)
[2017-06-30 10:22] LABS: CREATININE 1.36 MG/DL (0.60-1.30)
[2017-06-30] MEDS ORDERED: CANGRELOR TETRASODIUM 50,000 MCG VIAL ONE (10:38)
[2017-06-30] MEDS ORDERED: PRASUGREL 10 MG TAB ONE (10:48)
[2017-06-30] MEDS ORDERED: SODIUM CHLOR 0.9% 250 ML INJ 250 ML IV PRN (11:00)
[2017-06-30] MEDS ORDERED: BACITRACIN OINT 0.9 GM PKT TOP ONE (11:00)
[2017-06-30] MEDS ORDERED: MISC INFORMATION XX ONE (11:00)
[2017-06-30] MEDS ORDERED: ATROPINE SULFATE 1 MG/ML VIAL IV PUSH PRN (11:00)
--- NOTE | 2017-06-30 11:09 | CATHPROC ---
[facility] HIS Report Study Information Study Number Admission Scheduled Start Study Start [id number] Jun 15 2017 6:03PM 06/30/2017 Jun 30 2017 9:18AM Redig Service Cardiac Catheterization Admit Source Facility Department Emergency department [facility] - [facility] [employer] Physician and Clinical Staff Initial Tanner Yousif Resistor Winder Sheila Valles RN Resistor Winder Trae Barrett RN Recorder Priyanka Massey BSN Recorder Thelma Gruber RCIS TECH2 Scrub Hostnorma, Ezequiel,RT(R) Procedures Performed Procedure Location (Site) Vessel Name Drug Eluting Inflatio LAD Dist Left Coronary Drug Eluting Inflatio OM2 Dist CIRC Drug Eluting Inflatio OM2 Mid CIRC PTCA LAD Dist Left Coronary PTCA LAD Prox Left Coronary PTCA OM2 Dist CIRC Wire insertion Fem Art (right) Femoral Art Equipment Time Marketing Intelligence Analyst Description Size Mfg Part Number Used/Scraped COPILOT VALVE, BLEEDBACK [id number] 09:23 [employer] Used CONTROL *[id number] TRANSDUCER, TRUWAVE [id number] 09:23 ERAZO STEWART * Used W/STOCKCOCK *[id number] [phone] *[id number] *[id number] 10:50 [employer]IG[employer] MEDICAL ANGIOSEAL, FR6 VIP FR 6 Used *[id number] 09:23 [employer] PACK, CCL CUSTOM * Used *[id number] 09:23 [employer] PACER PEN, SKIN DUAL W/ RULER * Used *[id number] 10:18 [employer] BALLOON, 2.0 X 15MM EUPHORA 15MM Used *[id number] 10:35 [employer] BALLOON, 2.0 X 30MM EUPHORA 30MM Used *[id number] 10:28 [employer] BALLOON, 4.0 X 10MM EUPHORA 10MM Used *[id number] 10:22 [employer] STENT, 2.25 26MM REZA 2.25 26MM [id number] Used [id number] 10:44 [employer] STENT, 2.25 30MM REZA 2.25 30 Used *[id number] 10:42 [employer] STENT, 2.25 38MM REZA 2.25 38MM [id number] Used [id number] 10:19 [employer] 30 NOE INDEFLATOR Used *[id number] 09:23 [employer] MEDICAL SHEATH, FR6.5 PRELUDE 11CM FR 6.5 038ACT Used *[id number] 09:23 [employer] WIRE, 3MMJ .035 180CM 180CM Used *[id number] 09:23 NAMIC MANIFOLD, 4 PORT * Used *[id number] 09:23 [employer] OMNIPAQUE, 350 MG, 150ML 150ML [id number] Used [id number] 09:23 [employer] MEDICAL BLANKET,WARM AIR CCL * Used *[id number] WIRE, RUNTHROUGH NS FLOPPY [id number] 10:06 [employer] 180CM Used .014 180CM *[id number] Equipment Model, Serial, Lot Number and Expiration Data Description Model Number Serial Number Lot Number Expiration Date STENT, 2.25 26MM REZA [id number] 01-19-2019 STENT, 2.25 38MM REZA [id number] 12-07-2018 History: Current Medications Medication Dosage/Unit Route Frequency Last Date/Time Taken Statins (any) Beta Ramsey HEPARIN History: Allergies Allergy Reaction No Known Allergies History: Risk Factors Family History of Hypertension Dyslipidemia Previous [place] Previous Heart Failure Premature CAD Yes Yes Yes Yes Yes Prior Valve Prior PCI Prior PCIDate Prior CABG Surgery No Yes 06/22/2005 No Cerebrovascular Peripheral Artery Chronic Lung On Dialysis Diabetes Diabetes Therapy Disease Disease Disease No No No No Yes Oral History: Stress Tests Stress or Imaging Studies Performed No History: Other Current Smoker No Labs Hgb (g/dl) Hct (%) WBC (l/cumm) Platelets (thousands) 11.60-17.00 35.00-51.00 4.00-11.00 150.00-450.00 12.2 36.3 14.3 361 Glucose (mg/dl) BUN (mg/dl) Creatinine (mg/dl) BUN:Creatinine (1:x) 74.00-106.00 7.00-18.00 0.50-1.30 10.00-20.00 161 29 1.3 22.3 Na (meq/l) K (meq/l) 136.00-145.00 3.50-5.10 134 4.1 INR (PTT:PT) 0.90-1.10 1.2 Troponin I (ng/ml) CPK-MB (ng/ML) 0.02-0.05 0.50-3.60 1.92 Not Drawn Medication Medication Total Dose (Bolus/Oral) Medication Total Dosage/Unit 1% XYLOCAINE 20 mL EFFIENT 60 mg FENTANYL 50 mcg HEPARIN 6600 units NTG (IC) 100 mcg VERSED 2 mg Medications (Bolus/Oral) Medication Time Given Dosage/Unit Administered By Reason VERSED 06/30/2017 10:00:54 AM 2 mg Trae Barrett 2 mg VERSED given in lab by Trae Barrett RN via Peripheral IV. Ordered by Tanner Ca. FENTANYL 06/30/2017 10:01:06 AM 50 mcg Trae Barrett 50 mcg FENTANYL given in lab by Trae Barrett RN via Peripheral IV. Ordered by Tanner Ca. 1% XYLOCAINE 06/30/2017 10:06:39 AM 20 mL Tanner Ca 20 mL 1% XYLOCAINE given in lab by Tanner Ca in Right Groin via Subcutaneous. Ordered by Tanner Ca. HEPARIN 06/30/2017 10:08:09 AM 6600 units Trae Barrett 6600 units HEPARIN given in lab by Trae Barrett RN via Peripheral IV. Ordered by Tanner Ca. NTG (IC) 06/30/2017 10:22:19 AM 100 mcg Tanner Ca 100 mcg NTG (IC) given in lab by Tanner Ca via Intra-coronary. Ordered by Tanner Ca. EFFIENT 06/30/2017 11:00:50 AM 60 mg Trae Barrett 60 mg EFFIENT given in lab by Trae Barrett RN via Oral. Ordered by Tanner Ca. Medication (Drip) Medication Time Given Dosage/Unit Concentration/Unit Diluent (ml) Solution IV Solutions 06/30/2017 9:32:43 AM 0 mL (IV) 500 NaCl .9 Patient arrived on IV Solutions in Left Antecubital via Peripheral IV. Pump/Drip Flow = 20 ml/hr usin g NaCl .9. KENGREAL BOLUS 06/30/2017 10:14:19 AM 14 mL 14 mL KENGREAL BOLUS given in lab by Trae Barrett RN via Peripheral IV. Ordered by Tanner Ca. KENGREAL DRIP 06/30/2017 10:15:03 AM 4 mcg/kg/min 50 mg 250 NaCl .9 4 mcg/kg/min KENGREAL DRIP given in lab by Trae Barrett RN via Peripheral IV. Pump/Drip Flow = 114 ml/hr using NaCl .9 with a concentration of 50 mg in 250 ml. Ordered by Tanner Ca. Initial Case Assessment Cardiovascular HR Rhythm NIBP Chest Pain 83 sr 142/86 0 Edema Present Skin color Skin None Normal Warm Dry Neurological State Oriented to time-place- Alert Moves all extremities person Respiration - General Respiration Rate SpO2 (%) O2 (lpm) (B/min) 18 97 0 Chronological Log Time Study Chronological Log 9:30:15 Patient arrived via Bed. 9:30:19 Patient Name, D.O.B, / Armband Verified By R.N. Vitals capture started with the following parameters, Patient=Adult, Interval=5 min, Initial Pr knfmzh=494 mmHg, 9:32:12 Deflation Rate=5 mmHg, Cuff placed on Left Leg 9:32:26 Consent signed by the physician and the patient and verified by the [facility] [employer] staff. 9:32:27 Pre-op and post- op instructions given; patient acknowledges understanding of instructions. 9:32:28 Verbal Stimulation=2 Physical Stimulation=2 Airway=2 Respiration=2 TOTAL=8. (0=absent, 1=li mited, 2=present) 9:32:30 Presedation assessment performed by [facility] [employer] RN. 9:32:33 Patient has been NPO for More than 6Hrs. 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 Grade = 0 9:32:43 Patient arrived on IV Solutions in Left Antecubital via Peripheral IV. Pump/Drip Flow = 20 ml/hr using NaCl .9. 9:32:47 History and physical on the chart or being dictated. 9:35:46 Vitals capture stopped. 9:45:17 Hemodynamics down, transporting patient to Lab 3. Vitals capture started with the following parameters, Patient=Adult, Interval=5 min, Initial Pr eskstu=051 mmHg, 9:52:46 Deflation Rate=5 mmHg, Cuff placed on Right Ankle Assessment: Initial Case, HR=83 BPM, Rhythm=sr, LZSL=582/86 mmhg, Chest Pain=0, Edema=None, Col or=Normal, Skin = Warm, Dry 9:53:27 Neurological: State=Alert, Ox3, MCNEILL Respiration: Resp=18 B/min, SpO2=97 %, O2=0 lpm 9:53:54 HR=73 bpm, OMND=706/86 mmhg, SpO2=97.0 %, Resp=19 B/min, Pain=0, Yolanda=10, Botello=2 9:54:22 Bilateral groins prepped with 2% chlorhexidine, and draped after a 3 minute waiting time. 9:54:36 Reference ECG taken 9:58:22 HR=73 bpm, QTWW=977/86 mmhg, SpO2=97.0 %, Resp=15 B/min, Pain=0, Botello=2 9:58:44 Pressure channel 1 zeroed. 9:59:42 MD arrived. 10:00:54 2 mg VERSED given in lab by Trae Barrett RN via Peripheral IV. Ordered by Tanner Ca. 10:01:06 50 mcg FENTANYL given in lab by Trae Barrett RN via Peripheral IV. Ordered by Lobo Ca. 10:03:23 HR=71 bpm, HYCP=874/81 mmhg, SpO2=94.0 %, Resp=14 B/min, Pain=0, Botello=2 Time Out. Correct patient, correct procedure, correct physician, power injector loaded, or not loaded with contrast with 10:05:10 surgical team present. Time Out Concurred by MD and individual staff in procedure. 10:05:31 Case Start 10:06:39 20 mL 1% XYLOCAINE given in lab by Tanner Ca in Right Groin via Subcutaneous. Ordered by Tanner Ca. 10:07:38 Access site was Right Femoral Artery. 10:07:50 A SHEATH, FR6.5 PRELUDE 11CM FR 6.5 was advanced into the Fem Art (right) using the Veda martin Seldingvero technique. 10:08:09 6600 units HEPARIN given in lab by Trae Barrett RN via Peripheral IV. Ordered by Alda Ca. 10:08:16 A WIRE, 3MMJ .035 180CM 180CM was inserted via Fem Art (right). 10:08:22 HR=69 bpm, UOZJ=860/75 mmhg, SpO2=97.0 %, Resp=12 B/min, Pain=0, Botello=2 A XB 3.5 GUIDE CATHETER FR 6 was advanced over a wire. OMNIPAQUE, 350 MG, 150ML 150ML was used for 10:08:29 injections. After removing the current catheter a XB 4.0 GUIDE CATHETER FR 6 was advanced over a WIRE, 3MMJ .035 180CM 10:09:33 180CM. 10:09:58 Wire removed Recorded Pressure: Ao, HR=69, Condition=Condition 1 10:11:22 (Aorta) Ao 90/54/69 10:11:40 A WIRE, RUNTHROUGH NS FLOPPY .014 180CM 180CM was inserted via Fem Art (right). 10:13:23 HR=68 bpm, ZWCR=488/65 mmhg, SpO2=99.0 %, Resp=15 B/min, Pain=0, Botello=2 10:14:19 14 mL KENGREAL BOLUS given in lab by Trae Barrett RN via Peripheral IV. Ordered by Tanner Ca. 4 mcg/kg/min KENGREAL DRIP given in lab by Trae Barrett RN via Peripheral IV. Pump/Drip Flow = 114 ml/hr using 10:15:03 NaCl .9 with a concentration of 50 mg in 250 ml. Ordered by Tanner Ca. A BALLOON, 2.0 X 15MM EUPHORA 15MM was inserted over WIRE, RUNTHROUGH NS FLOPPY .014 180CM 180C M via 10:17:49 the LAD Dist. 10:18:18 HR=70 bpm, QHZO=426/72 mmhg, SpO2=99.0 %, Resp=14 B/min, Pain=0, Botello=2 A BALLOON, 2.0 X 15MM EUPHORA 15MM over a WIRE, RUNTHROUGH NS FLOPPY .014 180CM 180CM in the LA D Dist 10:18:39 was inflated using a 30 NOE INDEFLATOR at 6 noe for 25 sec. A BALLOON, 2.0 X 15MM EUPHORA 15MM over a WIRE, RUNTHROUGH NS FLOPPY .014 180CM 180CM in the LA D Dist 10:19:10 was inflated using a 30 NOE INDEFLATOR at 6 noe for 30 sec. A BALLOON, 2.0 X 15MM EUPHORA 15MM over a WIRE, RUNTHROUGH NS FLOPPY .014 180CM 180CM in the LA D Dist 10:19:31 was inflated using a 30 NOE INDEFLATOR at 6 noe for 20 sec. A BALLOON, 2.0 X 15MM EUPHORA 15MM over a WIRE, RUNTHROUGH NS FLOPPY .014 180CM 180CM in the LA D Dist 10:20:01 was inflated using a 30 NOE INDEFLATOR at 6 noe for 10 sec. 10:20:36 Balloon Removed. 10::19 100 mcg NTG (IC) given in lab by Tanner Ca via Intra-coronary. Ordered by Delores Ca en. A STENT, 2.25 26MM REZA 2.25 26MM was advanced through a XB 4.0 GUIDE CATHETER FR 6 over a WIRE , 10::58 RUNTHROUGH NS FLOPPY .014 180CM 180CM. 10:23:24 HR=71 bpm, NIBP=97/58 mmhg, SpO2=99.0 %, Resp=11 B/min, Pain=0, Botello=2 A STENT, 2.25 26MM REZA 2.25 26MM was deployed using a 30 NOE INDEFLATOR at 12 atmospheres for 20 seconds 10:24:00 in the LAD Dist. 10:24:45 Re-inflated the stent balloon in the LAD Dist to 4 NOE for 25 seconds. 10:25:30 Delivery device removed 10::11 ACT (Normal Range 90-180) = 262 A BALLOON, 4.0 X 10MM EUPHORA 10MM was inserted over WIRE, RUNTHROUGH NS FLOPPY .014 180CM 180C M via 10:28:09 the LAD Prox. 10:28:19 HR=72 bpm, YKLG=931/69 mmhg, SpO2=97.0 %, Resp=17 B/min, Pain=0, Botello=2 A BALLOON, 4.0 X 10MM EUPHORA 10MM over a WIRE, RUNTHROUGH NS FLOPPY .014 180CM 180CM in the LA D 10:28:49 Prox was inflated using a 30 NOE INDEFLATOR at 10 noe for 15 sec. A BALLOON, 4.0 X 10MM EUPHORA 10MM over a WIRE, RUNTHROUGH NS FLOPPY .014 180CM 180CM in the LA D 10:29:16 Prox was inflated using a 30 NOE INDEFLATOR at 10 noe for 15 sec. A BALLOON, 4.0 X 10MM EUPHORA 10MM over a WIRE, RUNTHROUGH NS FLOPPY .014 180CM 180CM in the LA D 10:29:39 Prox was inflated using a 30 NOE INDEFLATOR at 16 noe for 20 sec. A BALLOON, 4.0 X 10MM EUPHORA 10MM over a WIRE, RUNTHROUGH NS FLOPPY .014 180CM 180CM in the LA D 10:30:13 Prox was inflated using a 30 NOE INDEFLATOR at 12 noe for 15 sec. 10:30:54 Balloon Removed. 10:33:22 HR=69 bpm, XAAW=256/66 mmhg, SpO2=99.0 %, Resp=15 B/min, Pain=0, Botello=2 10:33:29 Guidewire directed into OM A BALLOON, 2.0 X 30MM EUPHORA 30MM was inserted over WIRE, RUNTHROUGH NS FLOPPY .014 180CM 180C M via 10:34:27 the OM2 Dist. A BALLOON, 2.0 X 30MM EUPHORA 30MM over a WIRE, RUNTHROUGH NS FLOPPY .014 180CM 180CM in the OM 2 Dist 10:35:55 was inflated using a 30 NOE INDEFLATOR at 8 noe for 20 sec. A BALLOON, 2.0 X 30MM EUPHORA 30MM over a WIRE, RUNTHROUGH NS FLOPPY .014 180CM 180CM in the OM 2 Dist 10:36:35 was inflated using a 30 NOE INDEFLATOR at 8 noe for 15 sec. 10:38:01 Balloon Removed. 10:38:25 HR=69 bpm, MCAL=287/77 mmhg, RdU1=522.0 %, Resp=11 B/min, Pain=0, Botello=2 A STENT, 2.25 38MM REZA 2.25 38MM was advanced through a XB 4.0 GUIDE CATHETER FR 6 over a WIRE , 10:39:22 RUNTHROUGH NS FLOPPY .014 180CM 180CM. A STENT, 2.25 38MM REZA 2.25 38MM was deployed using a 30 NOE INDEFLATOR at 14 atmospheres for 15 seconds 10:40:47 in the OM2 Dist. 10:41:27 Delivery device removed 10:43:28 HR=70 bpm, KTFH=722/76 mmhg, SpO2=99.0 %, Resp=12 B/min, Pain=0, Botello=2 A STENT, 2.25 30MM REZA 2.25 30 was advanced through a XB 4.0 GUIDE CATHETER FR 6 over a WIRE, 10:44:06 RUNTHROUGH NS FLOPPY .014 180CM 180CM. A STENT, 2.25 30MM REZA 2.25 30 was deployed using a 30 NOE INDEFLATOR at 15 atmospheres for 15 seconds in 10:44:53 the OM2 Mid. 10:46:33 Delivery device removed 10:47:52 Catheter was removed 10:48:27 HR=71 bpm, JRPO=447/85 mmhg, SpO2=99.0 %, Resp=16 B/min, Pain=0, Botello=2 10:49:07 An injection in the Fem Art (right) was made through the SHEATH, FR6.5 PRELUDE 11CM FR 6.5. 10:49:54 ANGIOSEAL, FR6 VIP FR 6 placement in the Fem Art (right) 10:50:44 Case End 10:50:47 Sterile dressing applied to site 10:51:26 No case complications noted. 10:53:26 HR=80 bpm, QREI=165/86 mmhg, SpO2=99.0 %, Resp=14 B/min, Pain=0, Botello=2 10:56:27 [facility]IC called. Spoke to Maddie 11:00:50 60 mg EFFIENT given in lab by Trae Barrett RN via Oral. Ordered by Tanner Ca. 11:03:22 Patient moved to [facility] 11:03:31 Bedside Report will be given. End Study - Contrast Media Used In Study Contrast Total Opened (mL) Total Used (mL) Total Wasted (mL) Omnipaque 130 130 0 End Study - Maximum Contrast Load Max Contrast Load (mL) 365.4 End Study - Radiation Exposure Fluoro Time (minutes) 7.5 End Study - Sheaths Sheaths Pulled By Sheath Hold Time (min) Tanner Ca End Study - Patient Disposition Complications Transferred To Interventional Outcome No Telemetry Bed successful
[2017-06-30] MEDS ORDERED: IOHEXOL 350 MG/ML 100 ML BTL (for Cath Lab) OTHER ONE (11:28)
[2017-06-30] MEDS ORDERED: IOHEXOL 350 MG/ML 50 ML BTL (for Cath Lab) OTHER ONE (11:28)
--- NOTE | 2017-06-30 11:39 | MA ---
cc: Tanner Ca MD 06/30/2017 PROCEDURES PERFORMED: 1. Fluoroscopy with interpretation. 2. Coronary angiography. 3. Percutaneous intervention with drug-eluting stent to the left anterior descending coronary artery. 4. Percutaneous endovascular stenting with drug-eluting stent to the left circumflex coronary artery. METHOD: The risks, benefits and alternatives discussed with the patient. The patient understood and consented to the procedure. PROCEDURE NOTE: The patient brought into the catheterization lab, placed on the catheterization table. The right groin was prepped and draped in the usual sterile fashion. The right groin was anesthetized with 2% Lidocaine. The right common femoral artery was cannulated and a 6 [place], 11 cm sheath was placed without difficulty. CORONARY ANGIOGRAPHY: Please see prior dictation for diagnostic angiography. Briefly: 1. The left main has mild luminal irregularities. 2. The left anterior descending coronary artery has in-stent restenosis by intravascular ultrasound at 70% in the proximal segment. The mid distal left anterior descending coronary artery has diffuse disease 90%. 3. The circumflex gives rise to an obtuse marginal branch at 90%. 4. The right coronary artery is 100% occluded. PERCUTANEOUS INTERVENTION: An XB 4.0 guide catheter was engaged in the left main coronary artery. A 0.014 inch, 180 cm [employer] run-through wire was navigated to the distal left anterior descending coronary artery. A 2.0 x 15 mm balloon was then predilated through the mid to distal segment. Repeat angiography still shows severe residual stenosis. A 2.25 x 26 mm RX Resolute [place] stent was advanced down to the mid to distal left anterior descending coronary artery and deployed. Nitroglycerin administered. Repeat angiography showed apical LAD disease which was still rather diffuse, but the mid to distal LAD itself looks good. We then addressed the in-stent restenosis. We took a 4.0 x 12 mm noncompliant balloon up to 20 atmospheres within the stent itself at the distal and proximal margins. Repeat angiography showed no residual stenosis, JACI-III flow. Attention was then directed towards the left circumflex coronary artery. The wire was then redirected to the distal circumflex. A 2.0 x 30 mm RX balloon was advanced down and deployed on 2 sequential inflations throughout the entire length of the circumflex coronary artery. A 2.25 x 38 mm RX Resolute [place] stent was advanced down to the mid distal obtuse marginal branch and deployed. A second 2.25 x 30 mm RX Resolute [place] drug-eluting stent was advanced down to the mid segment of the circumflex with minimal stent overlap and deployed. Repeat angiography showed no significant residual stenosis, JACI-III flow. The guidewire was removed. The guide catheter removed. The right groin was closed with an Angio-seal with good hemostasis. Heparin and cangrelor administered throughout the entire procedure to maintain appropriate anticoagulation. CONCLUSIONS: 1. Severe multivessel coronary artery disease involving the LAD, circumflex, and right coronary arteries. 2. Successful percutaneous intervention with a drug-eluting stent to the left anterior descending coronary artery. 3. Successful percutaneous intervention with a drug-eluting stent to the first obtuse marginal branch. PLAN: Hopefully this will translate well with symptomatic improvement. He has good collateralization to the right coronary artery which we will manage medically. I will start him on Effient in addition to aspirin, statin and beta moises therapy. 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 Tanner Ca MD KURT/DL , 11:02 AM , 11:37 AM
--- NOTE | 2017-06-30 12:44 | HHI.PR ---
Subjective Remarks f/u for NSTEMI Patient seen right after high risk PCI. He has no complaints. He is asking about getting crutches after discharge. He denies any chest pain, shortness of breathing, palpitation, his dizziness. Patient's and sister at the bedside during interview. The stated that Dr. Ca wants patient to stay in the area until Monday before he goes home to [place]. Objective Vitals Vital Signs Date Time Temp Pulse Resp B/P (MAP) Pulse Ox O2 Delivery O2 Flow Rate FiO2 06/30/17 12:00 72 06/30/17 11:33 97 Room Air 06/30/17 11:31 98.2 70 16 148/88 (108) 97 06/30/17 11:00 68 06/30/17 08:00 75 06/30/17 07:18 98.3 75 16 125/82 (96) 97 06/30/17 07:18 97 Room Air 06/30/17 07:00 76 06/30/17 05:00 72 06/30/17 04:00 72 06/30/17 04:00 Room Air 06/30/17 04:00 98.8 62 16 109/62 (78) 97 06/30/17 03:00 76 06/30/17 02:00 126 06/30/17 01:00 106 06/30/17 00:00 74 06/30/17 00:00 Room Air 06/30/17 00:00 98.6 76 16 106/65 (79) 96 06/29/17 23:00 78 06/29/17 22:00 80 06/29/17 21:00 76 06/29/17 20:00 98.4 77 16 123/76 (92) 97 06/29/17 20:00 78 06/29/17 20:00 Room Air 06/29/17 19:00 78 06/29/17 18:17 78 06/29/17 17:00 83 06/29/17 16:00 94 Room Air 06/29/17 16:00 97.9 75 20 117/79 (92) 94 06/29/17 16:00 68 06/29/17 15:00 70 06/29/17 14:00 70 06/29/17 13:00 68 06/29/17 12:41 68 I/O 306/29/17 06/29/17 06/30/17 06/30/17 06/30/17 07:00 15:00 23:00 07:00 15:00 23:00 Intake Total 480 ml 1050 ml 997.5 ml Output Total 400 ml 900 ml 400 ml Balance 80 ml 150 ml 597.5 ml Intake Oral 480 ml 1050 ml 480 ml IV Total 517.5 ml Output Urine Total 400 ml 900 ml 400 ml # Bowel Movements 0 1 1 Result Diagram: 06/28/17 0610 06/30/17 0840 Objective Remarks GENERAL: in NAD SKIN: No erythema noted. Cellulitis seems to resolve. right groin bandage in place no edema or bleeding noted. CARDIOVASCULAR: Regular rate and rhythm without murmurs, gallops, or rubs. RESPIRATORY: Breath sounds equal bilaterally. No accessory muscle use. GASTROINTESTINAL: Abdomen soft, non-tender, nondistended. MUSCULOSKELETAL: No cyanosis, or edema. BACK: Nontender without obvious deformity. No CVA tenderness. Medications and IVs Current Medications Acetaminophen (Tylenol Supp) 650 mg ONCE ONCE RECTAL ; Start 06/15/17 at 16:15 ; Stop 06/15/17 at 17:12; Status DC Ondansetron HCl (Zofran Inj) 4 mg ONCE ONCE IV PUSH Last administered on at 16:49; Start 06/15/17 at 16:15; Stop 06/15/17 at 16:16; Status DC Sodium Chloride 1,000 ml @ 1,000 mls/hr Q1H ONCE IV Last administered on at 16:48; Start 06/15/17 at 16:06; Stop 06/15/17 at 17:05; Status DC Sodium Chloride 800 ml @ 1,000 mls/hr Q48M ONCE IV Last administered on at 16:48; Start 06/15/17 at 16:06; Stop 06/15/17 at 16:53; Status DC Vancomycin HCl 1000 mg/Sodium Chloride 250 ml @ 250 mls/hr ONCE ONCE IV Last administered on 06/15/17at 17:55; Start 06/15/17 at 16:15; Stop 06/15/17 at 17:14 ; Status DC Piperacillin Sod/ Tazobactam Sod 100 ml @ 200 mls/hr ONCE ONCE IV Last administered on 06/15/17at 16:48; Start 06/15/17 at 16:15; Stop 06/15/17 at 16:44 ; Status DC Acetaminophen (Tylenol) 650 mg ONCE ONCE PO Last administered on 06/15/17 17: 16; Start 06/15/17 at 17:15; Stop 06/15/17 at 17:19; Status DC Potassium Chloride (KCl) 40 meq ONCE ONCE PO Last administered on 06/15/17at 17 :53; Start 06/15/17 at 17:30; Stop 06/15/17 at 17:31; Status DC Insulin Human Regular (NovoLIN R INJ) 8 units ONCE ONCE IV PUSH Last administered on 06/15/17at 17:53; Start 06/15/17 at 17:30; Stop 06/15/17 at 17:31 ; Status DC Sodium Chloride 1,000 ml @ 999 mls/hr BOLUS ONCE IV Last administered on 06/15at 17:55; Start 06/15/17 at 17:30; Stop 06/15/17 at 18:30; Status DC Sodium Chloride 1,000 ml @ 100 mls/hr Q10H IV Last administered on 06/16/17at 11:19; Start 06/15/17 at 18:01; Stop 06/16/17 at 17:37; Status DC Sodium Chloride (NS Flush) 2 ml UNSCH PRN IV FLUSH FLUSH AFTER USING IV ACCESS ; Start 06/15/17 at 18:15; Stop 06/19/17 at 15:30; Status DC Sodium Chloride (NS Flush) 2 ml BID IV FLUSH Last administered on 06/18/17at 19: 43; Start 06/15/17 at 21:00; Stop 06/19/17 at 15:30; Status DC Acetaminophen (Tylenol) 650 mg Q4H PRN PO TEMP > 100.4 Last administered on 19:58; Start 06/15/17 at 20:00 Ondansetron HCl (Zofran Inj) 4 mg Q6H PRN IVP NAUSEA OR VOMITING Last administered on 06/18/17 19:43; Start 06/15/17 at 22:00 Temazepam (Restoril) 15 mg HS PRN PO INSOMNIA; Start 06/15/17 at 21:00 Naloxone HCl (Narcan Inj) 0.4 mg UNSCH PRN IV PUSH SEE LABEL COMMENTS; Start at 18:15 Sennosides (Senokot) 17.2 mg Q12HR PRN PO Moderate constipation Last administered on 06/17/17at 09:54; Start 06/15/17 at 21:00 Vancomycin HCl 1500 mg/Sodium Chloride 515 ml @ 257.5 mls/ hr Q12H IV ; Start 06/15/17 at 18:15; Stop 06/15/17 at 19:02; Status DC Pharmacy Profile Note 0 ml @ 0 mls/hr UNSCH OTHER ; Start 06/15/17 at 18:15; Stop 06/23/17 at 12:45; Status DC Piperacillin Sod/ Tazobactam Sod 50 ml @ 100 mls/hr Q8H IV Last administered on 06/16/17at 11:18; Start 06/16/17 at 00:00; Stop 06/16/17 at 17:47; Status DC Dextrose (D50w (Vial) Inj) 50 ml UNSCH PRN IV PUSH HYPOGLYCEMIA-SEE COMMENTS; Start 06/15/17 at 18:15; Stop 06/27/17 at 15:13; Status DC Glucagon (Glucagon Inj) 1 mg UNSCH PRN OTHER HYPOGLYCEMIA-SEE COMMENTS; Start 06/15/17 at 18:15 Insulin Aspart (NovoLOG SUPPLEMENTAL SCALE) 1 ACHS SLIDING SCALE SQ Last administered on 06/15/17at 21:00; Start 06/15/17 at 21:00; Stop 06/16/17 at 08:51 ; Status DC Albuterol Sulfate (Proair Hfa Inh) 2 puff Q6HR PRN INH SHORTNESS OF BREATH; Start 06/15/17 at 20:00 Amlodipine Besylate (Norvasc) 10 mg DAILY PO Last administered on 06/19/17at 08: 13; Start 06/16/17 at 09:00; Stop 06/19/17 at 09:00; Status DC Atorvastatin Calcium (Lipitor) 80 mg HS PO ; Start 06/15/17 at 21:00; Stop 06/16 at 08:01; Status DC Insulin Human Isoph/Insulin Regular (NovoLIN 70/30 INJ) 45 units BID SQ Last administered on 06/17/17at 08:55; Start 06/15/17 at 21:00; Stop 06/17/17 at 15:18 ; Status DC Metoprolol Succinate (Toprol Xl) 50 mg DAILY PO Last administered on 06/18/17at 08:55; Start 06/16/17 at 09:00; Status Future Hold Lisinopril (Prinivil) 40 mg DAILY PO Last administered on 06/30/17at 08:25; Start 06/16/17 at 09:00 Vancomycin HCl 2000 mg/Sodium Chloride 520 ml @ 250 mls/hr ONCE ONCE IV Last administered on 06/15/17at 21:14; Start 06/15/17 at 21:00; Stop 06/15/17 at 23:04 ; Status DC Vancomycin HCl 1500 mg/Sodium Chloride 515 ml @ 257.5 mls/ hr Q12H IV Last administered on 06/17/17at 21:19; Start 06/16/17 at 09:00; Stop 06/17/17 at 22:17 ; Status DC Miscellaneous Information SPECIFIC LAB TO BE DRAWN:VANCOMYCIN TROUGH DATE TO... ONCE ONCE .XX Last administered on 06/17/17at 20:20; Start 06/17/17 at 20:45; Stop 06/17/17 at 20:46; Status DC Atorvastatin Calcium (Lipitor) 80 mg HS PO Last administered on 06/29/17 21:33 ; Start 06/16/17 at 21:00 Insulin Human Regular (NovoLIN R SUPPLEMENTAL SCALE) 1 ACHS SLIDING SCALE SQ Last administered on 06/23/17 21:10; Start 06/16/17 at 12:00; Stop 06/23/17 at 21 :26; Status DC Iohexol (Omnipaque 350 Inj) 95 ml STK-MED ONCE IVCONTRAST Last administered on 06/16/17at 11:10; Start 06/16/17 at 11:10; Stop 06/16/17 at 11:11; Status DC Aspirin (Aspirin) 325 mg ONCE ONCE PO Last administered on 06/16/17at 13:57; Start 06/16/17 at 13:00; Stop 06/16/17 at 13:01; Status DC Heparin Sodium (Porcine) (Heparin Inj) 5,000 units Q8HR SQ Last administered on 06/16/17at 20:48; Start 06/16/17 at 22:00; Stop 06/16/17 at 22:05; Status DC Ceftriaxone Sodium 1000 mg/ Sodium Chloride 100 ml @ 200 mls/hr Q24H IV ; Start 06/16/17 at 17:00; Stop 06/16/17 at 17:45; Status DC Azithromycin 500 mg/Sodium Chloride 250 ml @ 250 mls/hr Q24H IV ; Start at 18:00; Stop 06/16/17 at 18:00; Status DC Albuterol/ Ipratropium (Duoneb Neb) 1 ampule Q6HR WHILE AWAKE NEB NEB Last administered on 06/20/17at 08:02; Start 06/16/17 at 17:15; Stop 06/20/17 at 17:14 ; Status DC Furosemide (Lasix Inj) 40 mg ONCE ONCE IV PUSH Last administered on 06/16/17at 19:33; Start 06/16/17 at 17:45; Stop 06/16/17 at 17:46; Status DC Piperacillin Sod/ Tazobactam Sod 100 ml @ 200 mls/hr Q6H IV Last administered on 06/22/17at 12:38; Start 06/16/17 at 18:00; Stop 06/22/17 at 12:44; Status DC Pantoprazole Sodium (Protonix Inj) 40 mg BID IV PUSH Last administered on at 08:25; Start 06/16/17 at 21:00 Heparin Sodium/ Dextrose 250 ml @ 10 mls/hr TITRATE PRN IV Coagulation Management Last administered on 06/26/17at 05:48; Start 06/16/17 at 22:30; Stop at 11:49; Status DC Heparin Sodium (Porcine) (Heparin Inj) 5,000 units UNSCH PRN IV PUSH aPTT less than 25; Start 06/16/17 at 22:30; Stop 06/26/17 at 11:49; Status DC Heparin Sodium (Porcine) (Heparin Inj) 2,500 units UNSCH PRN IV PUSH aPTT 25 to 39 Last administered on 06/19/17at 16:53; Start 06/16/17 at 22:30; Stop at 11:49; Status DC Potassium Chloride 100 ml @ 50 mls/hr Q2H IV Last administered on 06/17/17at 09 :52; Start 06/17/17 at 09:00; Stop 06/17/17 at 12:59; Status DC Furosemide (Lasix) 20 mg DAILY PO Last administered on 06/19/17at 08:13; Start 06/18/17 at 09:00; Stop 06/19/17 at 09:21; Status DC Furosemide (Lasix Inj) 40 mg ONCE ONCE IV PUSH Last administered on 06/17/17at 15:37; Start 06/17/17 at 15:30; Stop 06/17/17 at 15:31; Status DC Mupirocin (Bactroban 2% Oint) 1 applic Q12HR TOPICAL Last administered on at 08:26; Start 06/17/17 at 21:00 Insulin Human NPH (NovoLIN N INJ) 35 units DAILY@08 SQ Last administered on 06/23at 08:00; Start 06/18/17 at 08:00; Stop 06/23/17 at 21:26; Status DC Insulin Human NPH (NovoLIN N INJ) 25 units DAILY@17 SQ Last administered on 06/23at 17:00; Start 06/17/17 at 17:00; Stop 06/24/17 at 14:46; Status DC Potassium Chloride (KCl) 30 meq ONCE ONCE PO Last administered on 06/17/17at 16 :10; Start 06/17/17 at 16:00; Stop 06/17/17 at 16:01; Status DC Vancomycin HCl 1250 mg/Sodium Chloride 262.5 ml @ 250 mls/hr Q8H IV Last administered on 06/19/17at 15:56; Start 06/18/17 at 06:00; Stop 06/19/17 at 17:53 ; Status DC Miscellaneous Information SPECIFIC LAB TO BE DRAWN: VANCO TROUGH DATE TO BE DR... ONCE ONCE .XX Last administered on 06/18/17at 13:42; Start 06/18/17 at 13 :45; Stop 06/18/17 at 13:46; Status DC Potassium Chloride (KCl) 30 meq ONCE ONCE PO Last administered on 06/18/17at 10 :09; Start 06/18/17 at 09:45; Stop 06/18/17 at 09:46; Status DC Lidocaine HCl (Xylocaine 1% Inj) 20 ml STK-MED ONCE .ROUTE ; Start 06/18/17 at 13:35; Stop 06/18/17 at 13:36; Status DC Miscellaneous Information SPECIFIC LAB TO BE SALEEM... ONCE ONCE .XX Last administered on 06/19/17at 13:45; Start 06/19/17 at 13:45; Stop 06/19/17 at 13:46 ; Status DC Metoprolol Tartrate (Lopressor Inj) 5 mg ONCE ONCE IV PUSH Last administered on 06/19/17at 08:14; Start 06/19/17 at 08:00; Stop 06/19/17 at 08:01; Status DC Sodium Chloride (NS Flush) 2 ml UNSCH PRN IV FLUSH FLUSH AFTER USING IV ACCESS Last administered on 06/27/17at 09:27; Start 06/19/17 at 09:00; Stop 06/27/17 at 15 :11; Status DC Sodium Chloride (NS Flush) 2 ml BID IV FLUSH Last administered on 06/27/17at 09: 27; Start 06/19/17 at 09:00; Stop 06/27/17 at 15:11; Status DC Diltiazem HCl (Cardizem Inj) 15 mg ONCE ONCE IV PUSH ; Start 06/19/17 at 10:00 ; Stop 06/19/17 at 10:01; Status DC Diltiazem HCl 125 mg/Sodium Chloride 125 ml @ 5 mls/hr TITRATE PRN IV Tachycardia; Start 06/19/17 at 09:00; Stop 06/19/17 at 09:16; Status DC Enalaprilat (Vasotec Inj) 1.25 mg Q6H PRN IV PUSH SBP>160, DBP>90 Last administered on 06/24/17at 12:49; Start 06/19/17 at 10:00 Amiodarone HCl 150 mg/Dextrose 103 ml @ 600 mls/hr Q11M ONCE IV Last administered on 06/19/17at 10:48; Start 06/19/17 at 10:00; Stop 06/19/17 at 10:10 ; Status DC Amiodarone HCl 450 mg/Sodium Chloride 250 ml @ 33.33 mls/ hr Q7H31M PRN IV Per Protocol Last administered on 06/19/17at 22:04; Start 06/19/17 at 10:00; Stop at 13:57; Status DC Furosemide (Lasix Inj) 40 mg DAILY IV PUSH Last administered on 06/29/17at 09:32 ; Start 06/19/17 at 10:00; Stop 06/29/17 at 18:29; Status DC Vancomycin HCl 750 mg/Sodium Chloride 257.5 ml @ 250 mls/hr NOW ONCE IV Last administered on 06/19/17at 20:22; Start 06/19/17 at 18:00; Stop 06/19/17 at 19:01 ; Status DC Vancomycin HCl 1750 mg/Sodium Chloride 517.5 ml @ 250 mls/hr Q8H IV Last administered on 06/20/17at 08:06; Start 06/20/17 at 00:00; Stop 06/20/17 at 18:41 ; Status DC Miscellaneous Information SPECIFIC LAB TO BE SALEEM... ONCE ONCE .XX ; Start 06/20 at 15:45; Stop 06/20/17 at 15:46; Status DC Vancomycin HCl 1500 mg/Sodium Chloride 515 ml @ 257.5 mls/ hr Q8H IV Last administered on 06/21/17at 06:53; Start 06/21/17 at 06:00; Stop 06/21/17 at 09:45 ; Status DC Miscellaneous Information SPECIFIC LAB TO BE SALEEM... ONCE ONCE .XX ; Start at 05:45; Stop 06/22/17 at 05:46; Status Cancel Diltiazem HCl (Cardizem) 30 mg ONCE ONCE PO Last administered on 06/21/17at 06: 27; Start 06/21/17 at 06:15; Stop 06/21/17 at 06:16; Status DC Amiodarone HCl 150 mg/Dextrose 100 ml @ 600 mls/hr NOW ONCE IV Last administered on 06/21/17at 06:30; Start 06/21/17 at 06:15; Stop 06/21/17 at 06:24 ; Status DC Vancomycin HCl 2000 mg/Sodium Chloride 520 ml @ 257.5 mls/ hr Q12H IV Last administered on 06/23/17at 09:30; Start 06/21/17 at 20:00; Stop 06/23/17 at 12:45; Status DC Miscellaneous Information SPECIFIC LAB TO BE DRAWN:VANCOMYCIN TROUGH DATE TO... ONCE ONCE .XX ; Start 06/23/17 at 07:45; Stop 06/23/17 at 07:46; Status DC Diltiazem HCl 125 mg/Sodium Chloride 125 ml @ 5 mls/hr TITRATE PRN IV Tachycardia; Start 06/21/17 at 15:00 Diltiazem HCl (Cardizem Inj) 10 mg BOLUS ONCE IV PUSH ; Start 06/21/17 at 14:00 ; Stop 06/21/17 at 14:01; Status DC Metoprolol Tartrate (Lopressor) 25 mg Q12HR PO Last administered on 06/30/17at 08 :25; Start 06/21/17 at 21:00 Insulin Aspart (NovoLOG INJ) 1 units TIDAC SQ ; Start 06/22/17 at 08:00; Stop 06/22/17 at 12:02; Status DC Potassium Chloride 100 ml @ 100 mls/hr Q1H IV Last administered on 06/22/17at 00 :35; Start 06/21/17 at 22:30; Stop 06/22/17 at 01:29; Status DC Insulin Aspart (NovoLOG INJ) 4 units TIDAC SQ ; Start 06/22/17 at 12:00; Stop 06/22/17 at 12:04; Status DC Insulin Human Regular (NovoLIN R INJ) 2 units TIDAC SQ ; Start 06/22/17 at 12:00 ; Stop 06/22/17 at 21:12; Status DC Clindamycin/ Sodium Chloride 50 ml @ 100 mls/hr Q6H IV ; Start 06/22/17 at 12:15 ; Stop 06/22/17 at 13:17; Status DC Lactobacillus Acidophilus (Lactinex) 1 tab Q12HR PO Last administered on at 08:25; Start 06/22/17 at 21:00 Clindamycin/ Sodium Chloride 50 ml @ 100 mls/hr Q8H IV Last administered on 06/26/17at 05:26; Start 06/22/17 at 14:00; Stop 06/26/17 at 11:56; Status DC Gadodiamide (Omniscan Pf Inj) 20 ml STK-MED ONCE IVCONTRAST Last administered on 06/22/17at 17:59; Start 06/22/17 at 17:59; Stop 06/22/17 at 18:08; Status DC Insulin Human Regular (NovoLIN R INJ) 4 units TIDAC SQ Last administered on 06/23 13:47; Start 06/23/17 at 08:00; Stop 06/23/17 at 15:33; Status DC Potassium Chloride (KCl) 20 meq ONCE ONCE PO Last administered on 06/22/17 22: 12; Start 06/22/17 at 21:15; Stop 06/22/17 at 21:28; Status DC Insulin Human Regular (NovoLIN R INJ) 6 units TIDAC SQ Last administered on 06/30at 12:12; Start 06/23/17 at 17:00 Insulin Human NPH (NovoLIN N INJ) 38 units DAILY@08 SQ Last administered on 06/24 08:23; Start 06/24/17 at 08:00; Stop 06/24/17 at 14:46; Status DC Insulin Human Regular (NovoLIN R SUPPLEMENTAL SCALE) 1 ACHS SLIDING SCALE SQ Last administered on 06/30/17 12:12; Start 06/24/17 at 08:00 Insulin Human NPH (NovoLIN N INJ) 30 units DAILY@17 SQ Last administered on 06/24 17:08; Start 06/24/17 at 17:00; Stop 06/25/17 at 14:00; Status DC Insulin Human NPH (NovoLIN N INJ) 40 units DAILY@08 SQ Last administered on 06/29 09:31; Start 06/25/17 at 08:00 Sodium Chloride 500 ml @ 500 mls/hr BOLUS ONCE IV Last administered on 16:06; Start 06/25/17 at 14:00; Stop 06/25/17 at 14:59; Status DC Insulin Human NPH (NovoLIN N INJ) 35 units DAILY@17 SQ Last administered on 06/29 17:51; Start 06/25/17 at 17:00 Heparin Sodium/ Sodium Chloride 2,000 ml @ As Directed STK-MED ONCE IV FLUSH ; Start 06/26/17 at 09:25; Stop 06/26/17 at 09:26; Status DC Midazolam HCl (Versed Inj) 2 mg STK-MED ONCE .ROUTE Last administered on at 09:25; Start 06/26/17 at 09:25; Stop 06/26/17 at 09:26; Status DC Fentanyl Citrate (fentaNYL INJ) 100 mcg STK-MED ONCE .ROUTE Last administered on 06/26/17at 09:26; Start 06/26/17 at 09:26; Stop 06/26/17 at 09:27; Status DC Heparin Sodium (Porcine) (Heparin Inj) 10,000 units STK-MED ONCE .ROUTE Last administered on 06/26/17 09:26; Start 06/26/17 at 09:26; Stop 06/26/17 at 09:27; Status DC Miscellaneous Information 1 ONCE ONCE XX Last administered on 06/26/17at 10:45; Start 06/26/17 at 10:45; Stop 06/26/17 at 11:48; Status DC Bacitracin (Bacitracin Oint Packet) 0.9 gm ONCE ONCE TOP Last administered on 06/26/17at 11:49; Start 06/26/17 at 12:00; Stop 06/26/17 at 12:02; Status DC Pharmacy Profile Note 0 ml @ 0 mls/hr UNSCH OTHER ; Start 06/26/17 at 12:00 Iohexol (OMNIPAQUE 350 INJ (Library Aide)) 100 ml STK-MED ONCE OTHER ; Start at 12:07; Stop 06/26/17 at 12:08; Status DC Vancomycin HCl 1750 mg/Sodium Chloride 517.5 ml @ 250 mls/hr Q18H IV Last administered on 06/29/17at 01:16; Start 06/26/17 at 14:00; Stop 06/29/17 at 02:08; Status DC Miscellaneous Information SPECIFIC LAB TO BE DRAWN:VANCOMYCIN TROUGH DATE TO... ONCE ONCE .XX Last administered on 06/28/17at 01:00; Start 06/28/17 at 19:45; Stop 06/28/17 at 19:46; Status DC Sodium Chloride (NS Flush) 2 ml BID IV FLUSH Last administered on 06/30/17at 08: 26; Start 06/27/17 at 21:00 Sodium Chloride (NS Flush) 2 ml UNSCH PRN IV FLUSH FLUSH AFTER USING IV ACCESS ; Start 06/27/17 at 14:00 Papaverine HCl 60 mg/Nitroglycerin 100 mcg/Diltiazem HCl 100 mg/Sodium Chloride 100 ml @ 0 mls/hr QUALITY ASSURANCE DIRECTOR IRRIGATION ; Start 06/27/17 at 14:00; Stop 07/04/17 at 13:59 Cefazolin Sodium 500 mg/Sodium Chloride 505 ml @ 0 mls/hr QUALITY ASSURANCE DIRECTOR IRRIGATION ; Start 06/27/17 at 14:00; Stop 07/04/17 at 13:59 Cefazolin Sodium/ Dextrose 50 ml @ 150 mls/hr QUALITY ASSURANCE DIRECTOR IV ; Start 06/27/17 at 14 :00; Stop 07/04/17 at 13:59 Chlorhexidine Gluconate (Hibiclens 4% Top Soln) 1 applic QUALITY ASSURANCE DIRECTOR TOPICAL ; Start 06/27/17 at 14:00; Stop 07/04/17 at 13:59 Insulin Human Regular 100 units/ Sodium Chloride 100 ml @ 3 mls/hr TITRATE PRN IV for blood glucose control; Start 06/27/17 at 14:00; Stop 07/04/17 at 13:59 Dextrose (D50w (Vial) Inj) 50 ml UNSCH PRN IV PUSH HYPOGLYCEMIA-SEE COMMENTS; Start 06/27/17 at 14:00 Aspirin (Ecotrin Ec) 81 mg DAILY PO Last administered on 06/30/17at 08:25; Start 06/28/17 at 13:45 Vancomycin HCl 1750 mg/Sodium Chloride 517.5 ml @ 250 mls/hr Q18H IV Last administered on 06/29/17at 21:32; Start 06/29/17 at 20:00 Miscellaneous Information SPECIFIC LAB TO BE DRAWN:VANCO TROUGH DATE TO... ONCE ONCE .XX ; Start 07/01/17 at 07:45; Stop 07/01/17 at 07:46 Sodium Chloride 1,000 ml @ 150 mls/hr Q6H40M IV ; Start 06/29/17 at 18:27; Stop 06/29/17 at 22:26; Status DC Heparin Sodium/ Sodium Chloride 1,000 ml @ As Directed STK-MED ONCE IV FLUSH ; Start 06/30/17 at 09:34; Stop 06/30/17 at 09:35; Status DC Midazolam HCl (Versed Inj) 2 mg STK-MED ONCE .ROUTE ; Start 06/30/17 at 09:34; Stop 06/30/17 at 09:35; Status DC Fentanyl Citrate (fentaNYL INJ) 100 mcg STK-MED ONCE .ROUTE ; Start 06/30/17 at 09:34; Stop 06/30/17 at 09:35; Status DC Cangrelor (Kengreal Inj) 50,000 mcg STK-MED ONCE .ROUTE ; Start 06/30/17 at 10:38 ; Stop 06/30/17 at 10:39; Status DC Prasugrel (Effient) 60 mg STK-MED ONCE .ROUTE ; Start 06/30/17 at 10:48; Stop 06/30/17 at 10:49; Status DC Prasugrel (Effient) 10 mg DAILY PO ; Start 07/01/17 at 09:00 Miscellaneous Information 1 ONCE ONCE XX ; Start 06/30/17 at 11:00; Stop at 11:10; Status DC Atropine Sulfate (Atropine Inj) 0.5 mg UNSCH PRN IV PUSH VAGAL REPONSE; Start 06/30/17 at 11:00 Sodium Chloride 250 ml @ 500 mls/hr ONCE PRN IV VAGAL REPONSE; Start 06/30/17 at 11:00; Stop 07/01/17 at 10:59 Bacitracin (Bacitracin Oint Packet) 0.9 gm ONCE ONCE TOP ; Start 06/30/17 at 11: 00; Stop 06/30/17 at 11:10; Status DC Iohexol (OMNIPAQUE 350 INJ (Library Aide)) 50 ml STK-MED ONCE OTHER ; Start 06/30/17 at 11:28; Stop 06/30/17 at 11:29; Status DC Iohexol (OMNIPAQUE 350 INJ (Library Aide)) 100 ml STK-MED ONCE OTHER ; Start at 11:28; Stop 06/30/17 at 11:29; Status DC A/P Assessment and Plan This is a 62-year-old male who presented with sepsis found to had NSTEMI. A. fib RVR -Continue amiodarone -Follow on telemetry NSTEMI -Status post cardiac catheterization done today 06/26/2017 have three-vessel disease. -Status post cardiac catheterization on 07/01/2007 showing severe multivessel disease involving the LAD, circumflex, and right coronaries. Successful percutaneous intervention with SAUNDRA of LAD and first obtuse marginal branch. -Head Swamper started patient on Effient in addition to aspirin, statin and beta -moises. Hopefully discharge in next 24 hours. Cellulitis -Continue vancomycin -Doppler ultrasound of right leg negative -Continue antibiotics as per ID. Per infectious disease when patient is discharged she can be discharged on doxycycline 100 mg p.o. twice. Bilateral pleural effusion -Diagnostic thoracentesis planned Coffee ground emesis -No recurrence -GI following -Follow hemoglobin levels Diabetes mellitus type 2 -Continue Accu-Cheks. Insulin signs scope. Diabetic diet. -Transition patient from 70/32 to NPH insulin as a base control. Hypoxia secondary to pulmonary edema. -Hypoxia resolved. -Continue Lasix 20 mg by mouth. Discharge Planning If there is no complications after high risk PCI possible discharge early afternoon tomorrow. Antonia Montes De Oca MD Jun 30, 2017 12:44
[2017-06-30] MEDS ORDERED: HEPARIN SODIUM - IV 10,000 UNITS/10 ML VIAL ONE (14:15)
[2017-06-30] MEDS: VANCOMYCIN INJ 1,750 MG in SODIUM CHLORID 0.9% 500 ML INJ 500 ML IV SCH (14:23)
--- NOTE | 2017-06-30 17:22 | HHI.IDPN ---
Note Infectious Disease Note Patient is post stent to the left anterior descending And left circumflex artery. Awake and alert. Feels great. No pains at the right leg. Afebrile. No shortness of breath. Expresses satisfaction for the excellent care he has received. 62-year-old white male who presented to the emergency department yesterday with vomiting. He reportedly was vomiting for three days before presenting to the emergency department. He was noted to have dark / black vomitus. The patient has insulin-dependent diabetes. He was evaluated in the emergency department and had temperature of 102.6 degrees, heart rate of 109, white blood cell count of 35.3. The patient was suspected to have sepsis and was admitted to the hospital for further management. The patient was noted to have lesions on the thighs bilaterally and also at the dorsum of the finger on the left side and knuckle on the right. Culture of the left thigh lesion has growth of Staph aureus and group B beta Strep. PAST MEDICAL HISTORY: 1. Coronary artery disease. 2. Diabetes mellitus. 3. Hypertension. 4. History of coronary stents. ALLERGIES: NO KNOWN DRUG ALLERGIES. Antibiotics: Vancomycin SOCIAL HISTORY: The patient denies tobacco. He denies alcohol use. He denies recent drug use. The patient is from [place]. FAMILY HISTORY: Noncontributory. OBJECTIVE: Vital Signs Date Time Temp Pulse Resp B/P (MAP) Pulse Ox O2 Delivery O2 Flow Rate FiO2 06/30/17 17:00 76 06/30/17 16:00 70 06/30/17 15:20 97 Room Air 06/30/17 15:19 98.3 75 16 131/85 (100) 97 06/30/17 15:00 75 06/30/17 14:00 71 06/30/17 13:00 76 06/30/17 12:00 72 06/30/17 11:33 97 Room Air 06/30/17 11:31 98.2 70 16 148/88 (108) 97 06/30/17 11:00 68 06/30/17 08:00 75 06/30/17 07:18 98.3 75 16 125/82 (96) 97 06/30/17 07:18 97 Room Air 06/30/17 07:00 76 06/30/17 05:00 72 06/30/17 04:00 72 06/30/17 04:00 Room Air 06/30/17 04:00 98.8 62 16 109/62 (78) 97 06/30/17 03:00 76 06/30/17 02:00 126 06/30/17 01:00 106 06/30/17 00:00 74 06/30/17 00:00 Room Air 06/30/17 00:00 98.6 76 16 106/65 (79) 96 06/29/17 23:00 78 06/29/17 22:00 80 06/29/17 21:00 76 06/29/17 20:00 98.4 77 16 123/76 (92) 97 06/29/17 20:00 78 06/29/17 20:00 Room Air 06/29/17 19:00 78 06/29/17 18:17 78 Laboratory Tests Test 06/30/17 08:40 Creatinine 1.36 MG/DL Estimat Glomerular Filtration Rate 53 ML/MIN IMAGING: Lower Extremity MRI 06/22/17 0000 Signed Impressions: Service Date/Time: June 17:13 - CONCLUSION: Fluid dissecting between the subcutaneous fat and the lateral fascia. Small amount of edema within the anterior muscular compartment. No significant drainable fluid collection is identified. no evidence of marrow edema or marrow replacing process Tanner Iniguez MD Lower Extremity Ultrasound 06/17/17 0000 Signed Impressions: Service Date/Time: Saturday, June 17, 2017 18:20 - CONCLUSION: No evidence of DVT. Nima Johnson MD Lower Extremity CT 06/16/17 0000 Signed Impressions: Service Date/Time: Friday, June 16, 2017 10:12 - CONCLUSION: 1. Posterior subcutaneous soft tissue induration and some mild fluid tracking along the surface of the hamstring muscles. No focal collections of gas and no drainable fluid collection seen. 2. Osseous structures of the thigh are intact. Ruben Medina MD CT Angiography 06/16/17 0000 Signed Impressions: Service Date/Time: Friday, June 16, 2017 10:12 - CONCLUSION: 1. Negative for pulmonary embolism. 2. Bilateral pleural effusions, right greater than left. 3. Bilateral lower lung perivascular thickening suggest either interstitial pulmonary edema or inflammatory process. Ruben Medina MD Chest X-Ray 06/15/17 1606 Signed Impressions: Service Date/Time: May 16:19 - CONCLUSION: The lungs are clear. Ruben Medina MD Knee X-Ray 06/15/17 0000 Signed Impressions: Service Date/Time: May 17:22 - CONCLUSION: 1. No evidence of recent bony injury. Ruben Medina MD Femur X-Ray 06/15/17 0000 Signed Impressions: Service Date/Time: May 17:22 - CONCLUSION: No acute findings. Ruben Medina MD PHYSICAL EXAMINATION: GENERAL: Awake and alert. HEENT: No icterus. Oropharynx with moist mucosa. No visible lesions. The mucosa is moist. NECK: Supple without adenopathy LUNGS: Clear breath sounds. HEART: Regular S1 and S2. No audible murmurs, rubs or gallops. ABDOMEN: Soft, diminished bowel sounds. Nontender. EXTREMITIES: Inner distal thigh has dark eschar centrally.The distal right outer thigh has a similar lesion which has surrounding erythema. The left index finger had an excoriated lesion at the dorsal aspect of the proximal interphalangeal joint. The patient also has an excoriated lesion at the base of the third finger on the right hand. These have scabs. No erythema at the right lateral calf. NEUROLOGIC: No gross focal findings. PSYCHIATRIC: Calm and cooperative. IMPRESSION: 1. Sepsis. Patient presented with fever, tachycardia, leukocytosis and elevated lactic acid. Improved. 2. Cellulitis of the right lateral calf and thigh / skin lesions of the lower extremities. Improved. Culture of the wounds of the lower extremities has group A beta Strep and Staph aureus. Erythema is decreased. MRI shows small Non-drainable fluid collection in the right leg. 3. Pleural effusion. Post drainage. 4. Diabetes mellitus. The patient had hypoglycemia on presentation. 5. Leukocytosis. Clinically appears stable. RECOMMENDATIONS: 1. Discontinue vancomycin. 2. Cellulitis has been adequately treated at this time. Okay to discharge from infection standpoint. Tavo Branch MD Jun 30, 2017 17:22
[2017-06-30] MEDS: ATORVASTATIN 40 MG TAB PO SCH (20:58)
[2017-07-01] VITALS (20 sets, daily range): BP systolic 122–143; BP diastolic 73–88; PULSE 69–85; RESP 16–20; TEMP 97.5–98.3; O2SAT 95–97
[2017-07-01 04:58] LABS: AUTOMATED NEUTROPHIL # 8.1 TH/MM3 (1.8-7.7); BASOPHIL # 0.1 TH/MM3 (0-0.2); EOSINOPHIL # 0.1 TH/MM3 (0-0.4); EOSINOPHIL % 0.6 % (0.0-4.0); HEMATOCRIT 34.9 % (39.0-51.0); LYMPH % 18.2 % (9.0-44.0); MEAN CELL VOLUME 82.6 FL (80.0-100.0); MEAN CORPUSCULAR HEMOGLOBIN 28.4 PG (27.0-34.0); MEAN CORPUSCULAR HGB CONC 34.4 % (32.0-36.0); MEAN PLATELET VOLUME 7.6 FL (7.0-11.0); MONOCYTE # 0.9 TH/MM3 (0-0.9); NEUT % 72.2 % (16.0-70.0); PLATELET COUNT 424 TH/MM3 (150-450); RED BLOOD COUNT 4.23 MIL/MM3 (4.50-5.90); RED CELL DISTRIBUTION WIDTH 15.8 % (11.6-17.2); WHITE BLOOD COUNT 11.2 TH/MM3 (4.0-11.0)
[2017-07-01 05:22] LABS: CALCIUM 8.4 MG/DL (8.5-10.1); CREATININE 1.26 MG/DL (0.60-1.30)
[2017-07-01 05:35] LABS: CHOLESTEROL/ HDL RATIO 3.39 RATIO; HDL CHOLESTEROL 30.6 MG/DL (40.0-60.0)
[2017-07-01] MEDS ORDERED: PHARMACY ORDERED LAB ONE (07:45)
[2017-07-01] MEDS: INSULIN HUMAN REGULAR 1,000 UNITS/10 ML VIAL SQ SCH ×2 (08:43→12:25)
[2017-07-01] MEDS: INSULIN NovoLIN REGULAR SUPPLEMENTAL SCALE SQ SCH ×2 (08:43→12:25)
[2017-07-01] MEDS: INSULIN HUMAN NPH 1,000 UNITS/10 ML VIAL SQ SCH (08:43)
[2017-07-01] MEDS: PANTOPRAZOLE SODIUM 40 MG VIAL IV PUSH SCH (08:45)
[2017-07-01] MEDS: LISINOPRIL 20 MG TAB PO SCH (08:45)
[2017-07-01] MEDS: LACTOBACILLUS ACIDOPHILUS TAB PO SCH (08:46)
[2017-07-01] MEDS: ASPIRIN EC 81 MG TABEC PO SCH (08:46)
[2017-07-01] MEDS: METOPROLOL TARTRATE 25 MG TAB PO SCH (08:46)
[2017-07-01] MEDS: MUPIROCIN 2% OINT 22 GM TUBE TOPICAL SCH (08:47)
[2017-07-01] MEDS: SODIUM CHLORIDE 0.9% FLUSH 10 ML FLUSH IV FLUSH SCH (08:50)
[2017-07-01] MEDS ORDERED: PRASUGREL 10 MG TAB PO SCH (09:00)
--- NOTE | 2017-07-01 09:07 | HHI.PR ---
Subjective Remarks This is a pleasant 62 y/o male with NSTEMI, status post high risk PCI, asking about getting crutches for discharge, The stated that DrCarol Ca wants patient to stay in the area until Monday before he goes home to [place]. Status post PCI found Severe Multivessel coronary artery disease involving the LAD, Circumflex and right Coronary Artery, Successful Percutaneous intervention with a SAUNDRA to LAD and SAUNDRA to first obtuse marginal branch. 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 Objective Vital Signs Date Time Temp Pulse Resp B/P (MAP) Pulse Ox O2 Delivery O2 Flow Rate FiO2 07/01/17 08:15 Room Air 07/01/17 08:15 97.7 72 16 143/88 (106) 96 07/01/17 06:00 78 07/01/17 05:00 83 07/01/17 04:00 98.1 75 18 122/75 (91) 96 07/01/17 04:00 Room Air 07/01/17 04:00 75 07/01/17 03:00 72 07/01/17 02:00 77 07/01/17 01:00 79 07/01/17 00:00 Room Air 07/01/17 00:00 85 07/01/17 00:00 98.3 85 20 126/73 (90) 95 06/30/17 23:00 83 06/30/17 22:00 77 06/30/17 21:00 81 06/30/17 20:00 Room Air 06/30/17 20:00 80 06/30/17 20:00 98.1 80 20 142/81 (101) 97 06/30/17 18:00 81 06/30/17 17:00 76 06/30/17 16:00 70 06/30/17 15:20 97 Room Air 06/30/17 15:19 98.3 75 16 131/85 (100) 97 06/30/17 15:00 75 06/30/17 14:00 71 06/30/17 13:00 76 06/30/17 12:00 72 06/30/17 11:33 97 Room Air 06/30/17 11:31 98.2 70 16 148/88 (108) 97 06/30/17 11:00 68 I/O 06/30/17 06/30/17 06/30/17 07/01/17 07/01/17 07/01/17 07:00 15:00 23:00 07:00 15:00 23:00 Intake Total 997.5 ml 840 ml 480 ml Output Total 400 ml 700 ml 750 ml Balance 597.5 ml 140 ml -270 ml Intake Oral 480 ml 840 ml 480 ml IV Total 517.5 ml Output Urine Total 400 ml 700 ml 750 ml # Bowel Movements 1 1 Result Diagram: 07/01/17 0441 07/01/17 0441 Imaging Last Impressions Lower Extremity Ultrasound 06/27/17 0000 Signed Impressions: Service Date/Time: Tuesday, June 27, 2017 19:26 - CONCLUSION: Negative for lower extremity deep venous thrombosis. Ruben Medina MD Carotid Artery Ultrasound 06/27/17 0000 Signed Impressions: Service Date/Time: Tuesday, June 27, 2017 19:06 - CONCLUSION: 1. Mild atherosclerotic plaque bilaterally. However, no significant stenosis is present within either internal carotid artery (less than 50%% stenosis). 2. There is antegrade flow in both vertebral arteries. Faustino Anderson MD Lower Extremity MRI 06/22/17 0000 Signed Impressions: Service Date/Time: June 17:13 - CONCLUSION: Fluid dissecting between the subcutaneous fat and the lateral fascia. Small amount of edema within the anterior muscular compartment. No significant drainable fluid collection is identified. no evidence of marrow edema or marrow replacing process Tanner Iniguez MD Thoracentesis Ultrasound 06/18/17 0000 Signed Impressions: Service Date/Time: Sunday, June 18, 2017 12:16 - CONCLUSION: Uncomplicated ultrasound guided thoracentesis. Faustino Beauchamp MD Chest X-Ray 06/18/17 0000 Signed Impressions: Service Date/Time: Sunday, June 18, 2017 12:45 - CONCLUSION: No evidence of pneumothorax Faustino Beauchamp MD Lower Extremity CT 06/16/17 0000 Signed Impressions: Service Date/Time: Friday, June 16, 2017 10:12 - CONCLUSION: 1. Posterior subcutaneous soft tissue induration and some mild fluid tracking along the surface of the hamstring muscles. No focal collections of gas and no drainable fluid collection seen. 2. Osseous structures of the thigh are intact. Ruben Medina MD CT Angiography 06/16/17 0000 Signed Impressions: Service Date/Time: Friday, June 16, 2017 10:12 - CONCLUSION: 1. Negative for pulmonary embolism. 2. Bilateral pleural effusions, right greater than left. 3. Bilateral lower lung perivascular thickening suggest either interstitial pulmonary edema or inflammatory process. Ruben Medina MD Knee X-Ray 06/15/17 0000 Signed Impressions: Service Date/Time: May 17:22 - CONCLUSION: 1. No evidence of recent bony injury. Ruben Medina MD Femur X-Ray 06/15/17 0000 Signed Impressions: Service Date/Time: May 17:22 - CONCLUSION: No acute findings. Ruben Medina MD Procedures PCI with stents placement. right thoracentesis. Other Results Laboratory Tests Test 06/15/17 16:35 06/16/17 05:10 06/16/17 11:40 06/16/17 17:13 Hypersegmented Polys 1+ Prothrombin Time 11.4 SEC Prothromb Time International Ratio 1.1 RATIO Lipase 52 U/L B-Hydroxybutyrate 1.06 MMOL/L Lactic Acid Level 1.7 mmol/L D-Dimer Quantitative (PE/DVT) 1.19 MG/L FEU Blood Gas Puncture Site LT RADIAL Blood Gas Patient Temperature 98.6 Blood Gas HCO3 24 mmol/L Blood Gas Base Excess 0.9 mmol/L Blood Gas Oxygen Saturation 90 % Arterial Blood pH 7.48 Arterial Blood Partial Pressure CO2 33 mmHG Arterial Blood Partial Pressure O2 61 mmHG Arterial Blood Oxygen Content 15.7 Vol % Arterial Blood Carboxyhemoglobin 1.5 % Arterial Blood Methemoglobin 1.0 % Blood Gas Hemoglobin 12.4 G/DL Oxygen Delivery Device NASAL CANNULA Blood Gas Liter Flow 6 L/M Test 06/16/17 17:39 06/17/17 04:59 06/17/17 05:49 06/18/17 12:35 B-Type Natriuretic Peptide 696 PG/ML Anti-Nuclear Antibody Screen NEG Troponin I 1.92 NG/ML Pleural Fluid WBC 172 /MM3 Pleural Fluid RBC 679 /MM3 Pleural Fluid Neutrophils 88 % Pleural Fluid Lymphocytes 4 % Pleural Fluid Monocytes 3 % Pleural Fluid Histiocytes 5 % Pleural Fluid Comment Pleural Fluid Total Protein 1.6 GM/DL Pleural Fluid Glucose 210 MG/DL Test 06/19/17 02:00 06/20/17 02:49 06/21/17 08:07 06/26/17 06:20 Red Cell Morphology Comment NORMAL Protein Corrected Calcium 7.6 MG/DL Differential Total Cells Counted 100 Neutrophils % (Manual) 67 % Band Neutrophils % 2 % Lymphocytes % 18 % Monocytes % 8 % Neutrophils # (Manual) 9.6 TH/MM3 Metamyelocytes 3 % Myelocytes 2 % Toxic Vacuolation PRESENT Platelet Estimate NORMAL Platelet Morphology Comment NORMAL Polychromasia 2.0 % Blood Urea Nitrogen 10 MG/DL 30 MG/DL Creatinine 0.96 MG/DL 1.31 MG/DL Random Glucose 247 MG/DL 213 MG/DL Total Protein 7.5 GM/DL Albumin 2.1 GM/DL 2.3 GM/DL Calcium Level 8.3 MG/DL 8.7 MG/DL Alkaline Phosphatase 102 U/L Aspartate Amino Transf (AST/SGOT) 22 U/L Alanine Aminotransferase (ALT/SGPT) 44 U/L Total Bilirubin 0.6 MG/DL Sodium Level 133 MEQ/L 134 MEQ/L Potassium Level 3.3 MEQ/L 3.9 MEQ/L Chloride Level 94 MEQ/L 96 MEQ/L Carbon Dioxide Level 31.2 MEQ/L 26.6 MEQ/L HIV (1&2) Antibody NEGATIVE Phosphorus Level 5.0 MG/DL Magnesium Level 1.9 MG/DL Test 06/27/17 22:20 06/29/17 01:05 07/01/17 04:41 Urine Color LIGHT-YELLOW Urine Turbidity CLEAR Urine pH 6.0 Urine Specific Mcallister 1.010 Urine Protein NEG mg/dL Urine Glucose (UA) 70 mg/dL Urine Ketones NEG mg/dL Urine Occult Blood SMALL Urine Nitrite NEG Urine Bilirubin NEG Urine Urobilinogen LESS THAN 2.0 MG/DL Urine Leukocyte Esterase NEG Urine RBC 2 /hpf Urine WBC LESS THAN 1 /hpf Urine Squamous Epithelial Cells <1 /hpf Microscopic Urinalysis Comment CULT NOT INDICATED Nasal Screen MRSA (PCR) MRSA DETECTED Vancomycin Level Trough 12.5 MCG/ML White Blood Count 11.2 TH/MM3 Red Blood Count 4.23 MIL/MM3 Hemoglobin 12.0 GM/DL Hematocrit 34.9 % Mean Corpuscular Volume 82.6 FL Mean Corpuscular Hemoglobin 28.4 PG Mean Corpuscular Hemoglobin Concent 34.4 % Red Cell Distribution Width 15.8 % Platelet Count 424 TH/MM3 Mean Platelet Volume 7.6 FL Neutrophils (%) (Auto) 72.2 % Lymphocytes (%) (Auto) 18.2 % Monocytes (%) (Auto) 8.0 % Eosinophils (%) (Auto) 0.6 % Basophils (%) (Auto) 1.0 % Neutrophils # (Auto) 8.1 TH/MM3 Lymphocytes # (Auto) 2.0 TH/MM3 Monocytes # (Auto) 0.9 TH/MM3 Eosinophils # (Auto) 0.1 TH/MM3 Basophils # (Auto) 0.1 TH/MM3 CBC Comment DIFF FINAL Differential Comment Activated Partial Thromboplast Time 25.5 SEC Blood Urea Nitrogen 27 MG/DL Creatinine 1.26 MG/DL Random Glucose 197 MG/DL Calcium Level 8.4 MG/DL Sodium Level 134 MEQ/L Potassium Level 5.0 MEQ/L Chloride Level 101 MEQ/L Carbon Dioxide Level 26.0 MEQ/L Anion Gap 7 MEQ/L Estimat Glomerular Filtration Rate 58 ML/MIN Total Creatine Kinase 124 U/L Triglycerides Level 106 MG/DL Cholesterol Level 104 MG/DL LDL Cholesterol 52 MG/DL HDL Cholesterol 30.6 MG/DL Cholesterol/HDL Ratio 3.39 RATIO Objective Remarks GENERAL: in NAD SKIN: No erythema noted. Cellulitis seems to resolve. right groin bandage in place no edema or bleeding noted. CARDIOVASCULAR: Regular rate and rhythm without murmurs, gallops, or rubs. RESPIRATORY: Breath sounds equal bilaterally. No accessory muscle use. GASTROINTESTINAL: Abdomen soft, non-tender, nondistended. MUSCULOSKELETAL: No cyanosis, or edema. BACK: Nontender without obvious deformity. No CVA tenderness. Medications and IVs Current Medications Medications (Trade) Dose Ordered Sig/Joseph Route Start Time Stop Time Status Last Admin (Tylenol) 650 mg Q4H PRN PO 06/15/17 20:00 06/17/17 19:58 (Zofran Inj) 4 mg Q6H PRN IVP 06/15/17 22:00 06/18/17 19:43 (Restoril) 15 mg HS PRN PO 06/15/17 21:00 (Narcan Inj) 0.4 mg UNSCH PRN IV PUSH 06/15/17 18:15 (Senokot) 17.2 mg Q12HR PRN PO 06/15/17 21:00 06/17/17 09:54 (Glucagon Inj) 1 mg UNSCH PRN OTHER 06/15/17 18:15 (Proair Hfa Inh) 2 puff Q6HR PRN INH 06/15/17 20:00 (Toprol Xl) 50 mg DAILY PO 06/16/17 09:00 Future Hold 06/18/17 08:55 (Prinivil) 40 mg DAILY PO 06/16/17 09:00 07/01/17 08:45 (Lipitor) 80 mg HS PO 06/16/17 21:00 06/30/17 20:58 (Protonix Inj) 40 mg BID IV PUSH 06/16/17 21:00 07/01/17 08:45 (Bactroban 2% Oint) 1 applic Q12HR TOPICAL 06/17/17 21:00 07/01/17 08:47 (Vasotec Inj) 1.25 mg Q6H PRN IV PUSH 06/19/17 10:00 06/24/17 12:49 Diltiazem HCl 125 mg/Sodium Chloride 125 ml @ 5 mls/hr TITRATE PRN IV 06/21/17 15:00 (Lopressor) 25 mg Q12HR PO 06/21/17 21:00 07/01/17 08:46 (Lactinex) 1 tab Q12HR PO 06/22/17 21:00 07/01/17 08:46 (NovoLIN R INJ) 6 units TIDAC SQ 06/23/17 17:00 07/01/17 08:43 (NovoLIN R SUPPLEMENTAL SCALE) 1 ACHS SLIDING SCALE SQ 06/24/17 08:00 07/01/17 08:43 (NovoLIN N INJ) 40 units DAILY@08 SQ 06/25/17 08:00 07/01/17 08:43 (NovoLIN N INJ) 35 units DAILY@17 SQ 06/25/17 17:00 06/30/17 16:58 (NS Flush) 2 ml BID IV FLUSH 06/27/17 21:00 07/01/17 08:50 (NS Flush) 2 ml UNSCH PRN IV FLUSH 06/27/17 14:00 Papaverine HCl 60 mg/Nitroglycerin 100 mcg/Diltiazem HCl 100 mg/Sodium Chloride 100 ml @ 0 mls/hr [employer] 06/27/17 14:00 07/04/17 13:59 Cefazolin Sodium 500 mg/Sodium Chloride 505 ml @ 0 mls/hr [employer] 06/27/17 14:00 07/04/17 13:59 Cefazolin Sodium/ Dextrose 50 ml @ 150 mls/hr [employer] IV 06/27/17 14:00 07/04/17 13:59 (Hibiclens 4% Top Soln) 1 applic [employer] TOPICAL 06/27/17 14:00 07/04/17 13:59 Insulin Human Regular 100 units/ Sodium Chloride 100 ml @ 3 mls/hr TITRATE PRN IV 06/27/17 14:00 07/04/17 13:59 (D50w (Vial) Inj) 50 ml UNSCH PRN IV PUSH 06/27/17 14:00 (Ecotrin Ec) 81 mg DAILY PO 06/28/17 13:45 07/01/17 08:46 (Effient) 10 mg DAILY PO 07/01/17 09:00 07/01/17 08:46 (Atropine Inj) 0.5 mg UNSCH PRN IV PUSH 06/30/17 11:00 Sodium Chloride 250 ml @ 500 mls/hr ONCE PRN IV 06/30/17 11:00 07/01/17 10:59 A/P Assessment and Plan This is a 62-year-old male who presented with sepsis found to had NSTEMI. A. 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 -Follow on telemetry NSTEMI -Status post cardiac catheterization done today 06/26/2017 have three-vessel disease. -Status post cardiac catheterization on 07/01/2007 showing severe multivessel disease involving the LAD, circumflex, and right coronaries. Successful percutaneous intervention with SAUNDRA of LAD and first obtuse marginal branch. -Cloth Dyer started patient on Effient in addition to aspirin, statin and beta -moises. Cellulitis -Continue vancomycin -Doppler ultrasound of right leg negative -Continue antibiotics as per ID. Per infectious disease when patient is discharged she can be discharged on doxycycline 100 mg p.o. twice. Bilateral pleural effusion -Status post Right thoracentesis. Coffee ground emesis -No recurrence -GI specialist indicated due to erosive gastritis will continue PPI on discharge. Diabetes mellitus type 2 -Continue Accu-Cheks. Insulin signs scope. Diabetic diet. -Transition patient from 70/32 to NPH insulin as a base control. Hypoxia secondary to pulmonary edema. -Hypoxia resolved. -Continue Lasix 20 mg by mouth. Okay to discharge home but will need to be on the area for the next 5 days. Discharge Planning Discharge Home on [facility] and follow in five days, will need to be in the area for the next five days. Booker Looney MD Jul 01, 2017 09:07
--- NOTE | 2017-07-01 15:23 | PD.CARD.PN ---
Subjective Subjective Remarks NO chest pain, no arrhythmia Objective Medications Current Medications Medications (Trade) Dose Ordered Sig/Joseph Route Start Time Stop Time Status Last Admin (Tylenol) 650 mg Q4H PRN PO 06/15/17 20:00 06/17/17 19:58 (Zofran Inj) 4 mg Q6H PRN IVP 06/15/17 22:00 06/18/17 19:43 (Restoril) 15 mg HS PRN PO 06/15/17 21:00 (Narcan Inj) 0.4 mg UNSCH PRN IV PUSH 06/15/17 18:15 (Senokot) 17.2 mg Q12HR PRN PO 06/15/17 21:00 06/17/17 09:54 (Glucagon Inj) 1 mg UNSCH PRN OTHER 06/15/17 18:15 (Proair Hfa Inh) 2 puff Q6HR PRN INH 06/15/17 20:00 (Toprol Xl) 50 mg DAILY PO 06/16/17 09:00 Future Hold 06/18/17 08:55 (Prinivil) 40 mg DAILY PO 06/16/17 09:00 07/01/17 08:45 (Lipitor) 80 mg HS PO 06/16/17 21:00 06/30/17 20:58 (Protonix Inj) 40 mg BID IV PUSH 06/16/17 21:00 07/01/17 08:45 (Bactroban 2% Oint) 1 applic Q12HR TOPICAL 06/17/17 21:00 07/01/17 08:47 (Vasotec Inj) 1.25 mg Q6H PRN IV PUSH 06/19/17 10:00 06/24/17 12:49 Diltiazem HCl 125 mg/Sodium Chloride 125 ml @ 5 mls/hr TITRATE PRN IV 06/21/17 15:00 (Lopressor) 25 mg Q12HR PO 06/21/17 21:00 07/01/17 08:46 (Lactinex) 1 tab Q12HR PO 06/22/17 21:00 07/01/17 08:46 (NovoLIN R INJ) 6 units TIDAC SQ 06/23/17 17:00 07/01/17 12:25 (NovoLIN R SUPPLEMENTAL SCALE) 1 ACHS SLIDING SCALE SQ 06/24/17 08:00 07/01/17 12:25 (NovoLIN N INJ) 40 units DAILY@08 SQ 06/25/17 08:00 07/01/17 08:43 (NovoLIN N INJ) 35 units DAILY@17 SQ 06/25/17 17:00 06/30/17 16:58 (NS Flush) 2 ml BID IV FLUSH 06/27/17 21:00 07/01/17 08:50 (NS Flush) 2 ml UNSCH PRN IV FLUSH 06/27/17 14:00 Papaverine HCl 60 mg/Nitroglycerin 100 mcg/Diltiazem HCl 100 mg/Sodium Chloride 100 ml @ 0 mls/hr HOME CARE SPECIALIST IRRIGATION 06/27/17 14:00 07/04/17 13:59 Cefazolin Sodium 500 mg/Sodium Chloride 505 ml @ 0 mls/hr HOME CARE SPECIALIST IRRIGATION 06/27/17 14:00 07/04/17 13:59 Cefazolin Sodium/ Dextrose 50 ml @ 150 mls/hr HOME CARE SPECIALIST IV 06/27/17 14:00 07/04/17 13:59 (Hibiclens 4% Top Soln) 1 applic HOME CARE SPECIALIST TOPICAL 06/27/17 14:00 07/04/17 13:59 Insulin Human Regular 100 units/ Sodium Chloride 100 ml @ 3 mls/hr TITRATE PRN IV 06/27/17 14:00 07/04/17 13:59 (D50w (Vial) Inj) 50 ml UNSCH PRN IV PUSH 06/27/17 14:00 (Ecotrin Ec) 81 mg DAILY PO 06/28/17 13:45 07/01/17 08:46 (Effient) 10 mg DAILY PO 07/01/17 09:00 07/01/17 08:46 (Atropine Inj) 0.5 mg UNSCH PRN IV PUSH 06/30/17 11:00 Vital Signs / I&O Vital Signs Date Time Temp Pulse Resp B/P (MAP) Pulse Ox O2 Delivery O2 Flow Rate FiO2 07/01/17 14:12 77 07/01/17 13:07 73 07/01/17 12:31 69 07/01/17 11:23 Room Air 07/01/17 11:23 97.5 72 16 122/84 (97) 95 07/01/17 11:00 72 07/01/17 10:00 72 07/01/17 09:00 74 07/01/17 08:15 Room Air 07/01/17 08:15 97.7 72 16 143/88 (106) 96 07/01/17 08:00 70 07/01/17 07:00 73 07/01/17 06:00 78 07/01/17 05:00 83 07/01/17 04:00 98.1 75 18 122/75 (91) 96 07/01/17 04:00 Room Air 07/01/17 04:00 75 07/01/17 03:00 72 07/01/17 02:00 77 07/01/17 01:00 79 07/01/17 00:00 Room Air 07/01/17 00:00 85 07/01/17 00:00 98.3 85 20 126/73 (90) 95 06/30/17 23:00 83 06/30/17 22:00 77 06/30/17 21:00 81 06/30/17 20:00 Room Air 06/30/17 20:00 80 06/30/17 20:00 98.1 80 20 142/81 (101) 97 06/30/17 18:00 81 06/30/17 17:00 76 06/30/17 16:00 70 06/30/17 15:20 97 Room Air 06/30/17 15:19 98.3 75 16 131/85 (100) 97 I/O 06/30/17 06/30/17 06/30/17 07/01/17 07/01/17 07/01/17 07:00 15:00 23:00 07:00 15:00 23:00 Intake Total 997.5 ml 840 ml 480 ml Output Total 400 ml 700 ml 750 ml Balance 597.5 ml 140 ml -270 ml Intake Oral 480 ml 840 ml 480 ml IV Total 517.5 ml Output Urine Total 400 ml 700 ml 750 ml # Bowel Movements 1 1 Physical Exam GENERAL: comfortable,no in distress. SKIN: No erythema noted. Cellulitis seems to resolve. right groin bandage in place no edema or bleeding noted. CARDIOVASCULAR: Regular rate and rhythm without murmurs, gallops, or rubs. Right groin soft, no hematoma. RESPIRATORY: Breath sounds equal bilaterally. No accessory muscle use. GASTROINTESTINAL: Abdomen soft, non-tender, nondistended. MUSCULOSKELETAL: No cyanosis, or edema. BACK: Nontender without obvious deformity. No CVA tenderness. Laboratory Laboratory Tests Test 07/01/17 04:41 White Blood Count 11.2 TH/MM3 Red Blood Count 4.23 MIL/MM3 Hemoglobin 12.0 GM/DL Hematocrit 34.9 % Mean Corpuscular Volume 82.6 FL Mean Corpuscular Hemoglobin 28.4 PG Mean Corpuscular Hemoglobin Concent 34.4 % Red Cell Distribution Width 15.8 % Platelet Count 424 TH/MM3 Mean Platelet Volume 7.6 FL Neutrophils (%) (Auto) 72.2 % Lymphocytes (%) (Auto) 18.2 % Monocytes (%) (Auto) 8.0 % Eosinophils (%) (Auto) 0.6 % Basophils (%) (Auto) 1.0 % Neutrophils # (Auto) 8.1 TH/MM3 Lymphocytes # (Auto) 2.0 TH/MM3 Monocytes # (Auto) 0.9 TH/MM3 Eosinophils # (Auto) 0.1 TH/MM3 Basophils # (Auto) 0.1 TH/MM3 CBC Comment DIFF FINAL Differential Comment Activated Partial Thromboplast Time 25.5 SEC Blood Urea Nitrogen 27 MG/DL Creatinine 1.26 MG/DL Random Glucose 197 MG/DL Calcium Level 8.4 MG/DL Sodium Level 134 MEQ/L Potassium Level 5.0 MEQ/L Chloride Level 101 MEQ/L Carbon Dioxide Level 26.0 MEQ/L Anion Gap 7 MEQ/L Estimat Glomerular Filtration Rate 58 ML/MIN Total Creatine Kinase 124 U/L Triglycerides Level 106 MG/DL Cholesterol Level 104 MG/DL LDL Cholesterol 52 MG/DL HDL Cholesterol 30.6 MG/DL Cholesterol/HDL Ratio 3.39 RATIO Assessment and Plan Problem List: (1) Elevated troponin ICD Codes: R74.8 - Abnormal levels of other serum enzymes (2) Sepsis ICD Codes: A41.9 - Sepsis, unspecified organism Status: Acute (3) Diabetes mellitus ICD Codes: E11.9 - Type 2 diabetes mellitus without complications (4) Hyperlipemia ICD Codes: E78.5 - Hyperlipidemia, unspecified (5) Hypertension ICD Codes: I10 - Essential (primary) hypertension (6) NSTEMI (non-ST elevated myocardial infarction) ICD Codes: I21.4 - Non-ST elevation (NSTEMI) myocardial infarction (7) CAD (coronary artery disease) ICD Codes: I25.10 - Atherosclerotic heart disease of [place] coronary artery without angina pectoris Assessment and Plan This is a 62-year-old male who presented with sepsis found to had NSTEM. He is a visitor from [place]. 1. NSTEMI -Status post cardiac catheterization done today 06/26/2017 have three-vessel disease. Decision made to proceed high risk PCI 06/30/17 LAD SAUNDRA x1, Cx SAUNDRA x 2. will continue on Effient, aspirin, statin and beta-moises. OK to discharge today. He will stay in the area for 5 days, then he can return to [place]. He has had appt to see political science chair in [place] 07/10/17. 2. A. fib RVR -Continue amiodarone -Follow on telemetry 3. Cellulitis, MRSA. Per infectious disease when patient is discharged she can be discharged on doxycycline 100 mg p.o. twice. 4. Diabetes mellitus type 2 Dr. Obrien covers for Dr. Tanner Ca 07/01 to 07/02 Problem Qualifiers (1) Sepsis: Qualified Codes: A41.9 - Sepsis, unspecified organism (2) Diabetes mellitus: Wing Cristina Obrien MD Jul 01, 2017 15:23
[2017-07-01] MEDS ORDERED: LACT PO (15:43)
[2017-07-01] MEDS ORDERED: METO25TA3 PO (15:43)
[2017-07-01] MEDS ORDERED: ECASA81 PO (15:43)
[2017-07-01] MEDS ORDERED: PRAS10TA PO (15:43)
[2017-07-01] MEDS ORDERED: DOXY100C PO (15:47)
--- NOTE | 2017-07-01 15:55 | HHI.DS ---
Discharge Summary Admission Date Jun 15, 2017 at 18:03 Discharge Date: Jul 01, 2017 Admitting Diagnosis sepsis, right thigh cellulitis, hyperglycemia (1) CAD (coronary artery disease) ICD Code: I25.10 - Atherosclerotic heart disease of [place] coronary artery without angina pectoris Diagnosis: Principal (2) Sepsis ICD Code: A41.9 - Sepsis, unspecified organism Diagnosis: Principal Status: Acute (3) NSTEMI (non-ST elevated myocardial infarction) ICD Code: I21.4 - Non-ST elevation (NSTEMI) myocardial infarction (4) Unspecified open wound, right thigh, initial encounter ICD Code: S71.101A - Unspecified open wound, right thigh, initial encounter Diagnosis: Principal Status: Acute (5) Erosive gastritis with hemorrhage ICD Code: K29.61 - Other gastritis with bleeding Diagnosis: Principal (6) Cellulitis of right thigh ICD Code: L03.115 - Cellulitis of right lower limb Diagnosis: Principal Status: Acute Procedures Right Thoracentesis PCI with stent placement x 2 Brief History - From Admission 62-year-old white male being admitted for sepsis secondary to cellulitis and possible necrotizing fasciitis. Patient was in his usual state of health until a few weeks ago when he began experiencing some right leg pain. He says that the pain progressed to the point where now it is severe and it hurts to bear weight and it hurts to straighten out his leg. He says he has not tried any medications at home to try to alleviate the pain. He does report having nausea vomiting, does describe coffee-ground and black emesis. When he came to the emergency room yesterday he was noted to have temps of up to 102.6 and tachycardia greater than 106. Blood cultures were drawn, given normal saline bolus and started on IV antibiotics. Plain films were unremarkable. CBC/BMP: 07/01/17 0441 07/01/17 0441 Significant Findings Laboratory Tests Test 06/29/17 01:05 06/29/17 06:15 06/30/17 08:40 07/01/17 04:41 Vancomycin Level Trough 12.5 MCG/ML (5.0-10.0) Creatinine 1.36 MG/DL (0.60-1.30) Estimat Glomerular Filtration Rate 53 ML/MIN (>89) 58 ML/MIN (>89) White Blood Count 11.2 TH/MM3 (4.0-11.0) Red Blood Count 4.23 MIL/MM3 (4.50-5.90) Hemoglobin 12.0 GM/DL (13.0-17.0) Hematocrit 34.9 % (39.0-51.0) Neutrophils (%) (Auto) 72.2 % (16.0-70.0) Neutrophils # (Auto) 8.1 TH/MM3 (1.8-7.7) Blood Urea Nitrogen 27 MG/DL (7-18) Random Glucose 197 MG/DL (74-106) Calcium Level 8.4 MG/DL (8.5-10.1) Sodium Level 134 MEQ/L (136-145) Cholesterol Level 104 MG/DL (120-200) HDL Cholesterol 30.6 MG/DL (40.0-60.0) Imaging Last Impressions Lower Extremity Ultrasound 06/27/17 Signed Impressions: Service Date/Time: Tuesday, June 27, 2017 19:26 - CONCLUSION: Negative for lower extremity deep venous thrombosis. Ruben Medina MD Carotid Artery Ultrasound 06/27/17 Signed Impressions: Service Date/Time: Tuesday, June 27, 2017 19:06 - CONCLUSION: 1. Mild atherosclerotic plaque bilaterally. However, no significant stenosis is present within either internal carotid artery (less than 50%% stenosis). 2. There is antegrade flow in both vertebral arteries. Faustino Anderson MD Lower Extremity MRI 06/22/17 Signed Impressions: Service Date/Time: June 17:13 - CONCLUSION: Fluid dissecting between the subcutaneous fat and the lateral fascia. Small amount of edema within the anterior muscular compartment. No significant drainable fluid collection is identified. no evidence of marrow edema or marrow replacing process Tanner Iniguez MD Thoracentesis Ultrasound 06/18/17 0000 Signed Impressions: Service Date/Time: Sunday, June 18, 2017 12:16 - CONCLUSION: Uncomplicated ultrasound guided thoracentesis. Faustino Beauchamp MD Chest X-Ray 06/18/17 0000 Signed Impressions: Service Date/Time: Sunday, June 18, 2017 12:45 - CONCLUSION: No evidence of pneumothorax Faustino Beauchamp MD Lower Extremity CT 06/16/17 0000 Signed Impressions: Service Date/Time: Friday, June 16, 2017 10:12 - CONCLUSION: 1. Posterior subcutaneous soft tissue induration and some mild fluid tracking along the surface of the hamstring muscles. No focal collections of gas and no drainable fluid collection seen. 2. Osseous structures of the thigh are intact. Ruben Medina MD CT Angiography 06/16/17 0000 Signed Impressions: Service Date/Time: Friday, June 16, 2017 10:12 - CONCLUSION: 1. Negative for pulmonary embolism. 2. Bilateral pleural effusions, right greater than left. 3. Bilateral lower lung perivascular thickening suggest either interstitial pulmonary edema or inflammatory process. Ruben Medina MD Knee X-Ray 06/15/17 0000 Signed Impressions: Service Date/Time: May 17:22 - CONCLUSION: 1. No evidence of recent bony injury. Ruben Medina MD Femur X-Ray 06/15/17 0000 Signed Impressions: Service Date/Time: May 17:22 - CONCLUSION: No acute findings. Ruben Medina MD PE at Discharge GENERAL: in NAD SKIN: No erythema noted. Cellulitis seems to resolve. right groin bandage in place no edema or bleeding noted. CARDIOVASCULAR: Regular rate and rhythm without murmurs, gallops, or rubs. RESPIRATORY: Breath sounds equal bilaterally. No accessory muscle use. GASTROINTESTINAL: Abdomen soft, non-tender, nondistended. MUSCULOSKELETAL: No cyanosis, or edema. BACK: Nontender without obvious deformity. No CVA tenderness. Hospital Course This is a pleasant 62 y/o male with NSTEMI, status post high risk PCI, asking about getting crutches for discharge, The stated that Dr. Ca wants patient to stay in the area until Monday before he goes home to [place]. Status post PCI found Severe Multivessel coronary artery disease involving the LAD, Circumflex and right Coronary Artery, Successful Percutaneous intervention with a SAUNDRA to LAD and SAUNDRA to first obtuse marginal branch. Stable in his bedroom, okay to discharge from trading specialist standpoint, will go on Doxycycline 100 mg BID and continue Beta blockers for his Atrial Fibrillation. Assessment and Plan This is a 62-year-old male who presented with sepsis found to had NSTEMI. A. fib RVR -Continue Beta blockers and is stable okay to discharge from trading specialist standpoint. -Follow on telemetry NSTEMI -Status post cardiac catheterization done today 06/26/2017 have three-vessel disease. -Status post cardiac catheterization on 07/01/2007 showing severe multivessel disease involving the LAD, circumflex, and right coronaries. Successful percutaneous intervention with SAUNDRA of LAD and first obtuse marginal branch. -Forge Operator Helper started patient on Effient in addition to aspirin, statin and beta -moises. Cellulitis -Continue vancomycin -Doppler ultrasound of right leg negative -Continue antibiotics as per [place]. Per infectious disease when patient is discharged she can be discharged on doxycycline 100 mg p.o. twice. Bilateral pleural effusion -Status post Right thoracentesis. Coffee ground emesis -No recurrence -GI specialist indicated due to erosive gastritis will continue PPI on discharge. Diabetes mellitus type 2 -Continue Accu-Cheks. Insulin signs scope. Diabetic diet. -Transition patient from 70/32 to NPH insulin as a base control. Hypoxia secondary to pulmonary edema. -Hypoxia resolved. -Continue Lasix 20 mg by mouth. Okay to discharge home but will need to be on the area for the next 5 days. Discharge Planning Discharge Home on [facility] and follow in five days, will need to be in the area for the next five days. Pt Condition on Discharge: Good Discharge Disposition: Disch w/ Home Health Serv Discharge Time: > 30 minutes Discharge Instructions DIET: Follow Instructions for: Heart Healthy Diet, Diabetic Diet Activities you can perform: Regular-No Restrictions Booker Looney MD Jul 01, 2017 15:55
--- NOTE | 2017-07-01 23:44 | EKG ---
Date Performed: 07/01/2017 Time Performed: 07:28:00 PTAGE: 62 years EKG: Sinus rhythm Left axis deviation Inferior infarct - age undetermined Possible anterior infarct - age undetermined Lateral T wave changes are nonspecific Abnormal ECG NO PREVIOUS TRACING Compared to prior tracing, previously AFib with LBBB DOCTOR: Justus Mckeon Interpretating Date/Time 07/01/2017 23:44:21
--- NOTE | 2017-07-03 11:11 | RSPPFT ---
DATE OF PROCEDURE: 06/27/17 COMMENTS: Spirometry demonstrates an FEV1 of 1.7 at 45% of predicted, FVC of 2.1 at 45%, FEF 25-75 is 40%. Flow volume loops suggest a restrictive pattern. Post-bronchodilator study was not conducted. IMPRESSION: 1. Mild to moderate obstructive disease. 2. Additional moderate restrictive disease.
== END 2017-07-01 17:20 | disposition home health service (06) | DRG 853 ==
LOC: PHED 15:49 → PHEDA 18:03 → PH3A 20:38 → PH3B 06-16 22:10 → HCIS 06-17 02:40
PROVIDERS: ADMIT Hospitalist; ATTEND Internal Medicine
PROC: 0W993ZX Drainage of Right Pleural Cavity, Percutaneous Approach, Diagnostic (ICD-10-PCS; 2017-06-18)
PROC: 4A023N7 Measurement of Cardiac Sampling and Pressure, Left Heart, Percutaneous Approach (ICD-10-PCS; 2017-06-26)
PROC: B2111ZZ Fluoroscopy of Multiple Coronary Arteries using Low Osmolar Contrast (ICD-10-PCS; 2017-06-26)
PROC: B241ZZ3 Ultrasonography of Multiple Coronary Arteries, Intravascular (ICD-10-PCS; 2017-06-26)
PROC: B2111ZZ Fluoroscopy of Multiple Coronary Arteries using Low Osmolar Contrast (ICD-10-PCS; 2017-06-30)
PROC: 027136Z Dilation of Coronary Artery, Two Arteries with Three Drug-eluting Intraluminal Devices, Percutaneous Approach (ICD-10-PCS; principal; 2017-06-30 09:45)
DX: A41.9 Sepsis, unspecified organism (principal); I21.4 Non-ST elevation (NSTEMI) myocardial infarction; J90 Pleural effusion, not elsewhere classified; K29.01 Acute gastritis with bleeding; J81.1 Chronic pulmonary edema; L03.115 Cellulitis of right lower limb; E87.1 Hypo-osmolality and hyponatremia; T82.855A Stenosis of coronary artery stent, initial encounter; L97.119 Non-pressure chronic ulcer of right thigh with unspecified severity; E11.65 Type 2 diabetes mellitus with hyperglycemia; I48.91 Unspecified atrial fibrillation; B95.0 Streptococcus, group A, as the cause of diseases classified elsewhere; B95.62 Methicillin resistant Staphylococcus aureus infection as the cause of diseases classified elsewhere; E78.5 Hyperlipidemia, unspecified; E87.6 Hypokalemia; R09.02 Hypoxemia; I25.10 Atherosclerotic heart disease of native coronary artery without angina pectoris; Y83.1 Surgical operation with implant of artificial internal device as the cause of abnormal reaction of the patient, or of later complication, without mention of misadventure at the time of the procedure; I10 Essential (primary) hypertension; E11.51 Type 2 diabetes mellitus with diabetic peripheral angiopathy without gangrene; E11.622 Type 2 diabetes mellitus with other skin ulcer; Z79.4 Long term (current) use of insulin
CPT/HCPCS: 32555; 36600; 71045; 71275; 73552; 73564; 73701; 73720; 76937; 80048; 80053; 80061; 80069; 80202; 81001; 82010; 82550; 82565; 82805; 82945; 82948; 83605; 83690; 83735; 83880; 84132; 84157; 84484; 85002; 85007; 85025; 85027; 85379; 85610; 85730; 86038; 86403; 86703; 86850; 86900; 86901; 87015; 87040; 87070; 87102; 87116; 87147; 87186; 87205; 87206; 87641; 87804; 88112; 88305; 89051; 92928; 92929; 92978; 93005; 93306; 93454; 93458; 93880; 93922; 93970; 93971; 93998; 94010; 94640; 94664; 96365; 96375; 99152; 99153; A9579; C1725; C1729; C1753; C1760; C1769; C1874; C1887; C1893; C9113; C9460; G0269; J0282; J1644; J1815; J1940; J2250; J2405; J2543; J3010; J3370; J3480; J7030; J7040; J7050; Q9967